=== PATIENT | male | born 1940 | race African-American/Black ===

== ENCOUNTER 2016-03-14 18:55 | Emergency (ER) | payer MEDICARE, OTHER ==
[~2016-03-14] VITALS: Ht 188 cm; Wt 94.8 kg
[~2016-03-14 18:55] MED LIST: AGGRENOX1 CAP ORAL; AMLODIPINE BES2.5 MG ORAL; ASPIRIN81 M1 ORAL; CARVEDILOL3.125 MG ORAL; CATAPRES0.1 MG ORAL; CATAPRES0.2 MG ORAL; COZAAR25 MG PO; COZAAR50 MG ORAL; DOXAZOSIN MESYLA4 MG ORAL; FUROSEMIDE20 M1 ORAL; HYDRALAZINE HCL25 M1 ORAL; HYTRIN1 MG PO; LOSARTAN POTAS100 MG ORAL; LOSARTAN POTASS50 MG ORAL; LOSARTAN-HCTZ1 EAC1 ORAL; METOPROLOL SUC100 MG ORAL; METOPROLOL SUCC25 MG ORAL; METOPROLOL SUCC50 MG ORAL; METOPROLOL TART25 MG ORAL; NORVASC10 MG PO; TOPROL XL25 MG ORAL; ZYLOPRIM300 MG ORAL
[2016-03-14 18:58] VITALS: BP 128/73
[2016-03-14] MEDS ORDERED: AMLODIPINE BES2.5 MG ORAL (18:58)
[2016-03-14 19:29] LABS: BASOPHILS % (AUTO) 1.1 % (0.0-2.0); EOSINOPHILS % (AUTO) 1.7 % (0.0-3.0); LYMPHOCYTES % (AUTO) 37.5 % (20.0-45.0); MEAN CORPUSCULAR HEMOGLOBIN 30.5 PG (27.0-31.0); MEAN CORPUSCULAR HGB CONC 31.8 G/DL (32.0-36.0); MEAN CORPUSCULAR VOLUME 96 FL (80-99); MONOCYTES % (AUTO) 7.9 % (1.0-10.0); NEUTROPHILS % (AUTO) 51.8 % (45.0-75.0); PLATELET COUNT 178 K/UL (150-450); RED BLOOD COUNT 4.66 M/UL (4.70-6.10); RED CELL DISTRIBUTION WIDTH 13.4 % (11.6-14.8); WHITE BLOOD COUNT 6.2 K/UL (4.8-10.8)
[2016-03-14 19:40] LABS: TROPONIN I < 0.30 ng/mL (<=0.30)
[2016-03-14 19:41] LABS: ALANINE AMINOTRANSFERASE 22 U/L (3-41); ALBUMIN/GLOBULIN RATIO 1.3 (1.0-2.7); ANION GAP 10 (5-15); ASPARTATE AMINO TRANSFERASE 28 U/L (5-40); CALCIUM 8.4 mg/dL (8.6-10.2); CARBON DIOXIDE 33 mEQ/L (20-30); CHLORIDE 97 mEQ/L (98-107); CREATININE 1.5 mg/dL (0.7-1.2); HEMOLYSIS 27; POTASSIUM 3.3 mEQ/L (3.4-4.9); SODIUM 140 mEQ/L (135-145)
[2016-03-14 19:51] LABS: CKMB 2.4 ng/mL (< 6.7)
--- NOTE | 2016-03-14 20:07 | Emergency Room Report ---
History of Present Illness General Chief Complaint: Syncope Source: Patient, Family Member Present Illness HPI This patient is accompanied by his family member. He presents after having a syncopal episode at a restaurant having dinner. He has had a syncopal episode while eating in the past. This lasted about 15 seconds. There was no injury or trauma. The patient has also had several other recurrent episodes of syncope. He has had a full workup and admitted to the hospital. His primary care physician Dr. Weiner and Dr. Herrera have both seen him for syncope. He feels back to baseline. He denies recent illness. He denies cough or congestion. He denies nausea or vomiting. He denies headache. He denies blurry vision. He has no other complaints. Allergies: Coded Allergies: No Known Allergies (Verified , 05/02/08) Patient History Past Medical History: see triage record, HTN, CVA/TIA Past Surgical History: pacemaker Social History: Denies: alcohol use, drug use, smoking Reviewed Nursing Documentation: PMH: Agreed, PSxH: Agreed Nursing Documentation-PMH Hx Cardiac Problems: Yes Hx Hypertension: Yes Hx Pacemaker: Yes - Left upper chest Hx Cancer: No Hx Gastrointestinal Problems: No Hx Neurological Problems: Yes - Brain Aneurysm Hx Cerebrovascular Accident: Yes - 2008 Hx Transient Ischemic Attacks: Yes Hx Seizures: No Hx Speech Problem: Yes - post CVA Hx Syncope: Yes Hx Weakness: Yes Hx Neurologic Surgery: No Review of Systems All Other Systems: negative except mentioned in HPI Physical Exam Vital Signs Date Time Temp Pulse Resp B/P Pulse Ox O2 Delivery O2 Flow Rate FiO2 03/14/16 18:53 97.3 62 18 111/68 96 Room Air Sp02 EP Interpretation: reviewed, normal General Appearance: no apparent distress, alert, GCS 15, non-toxic Head: normocephalic, atraumatic Eyes: bilateral eye PERRL, bilateral eye normal inspection ENT: hearing grossly normal, normal pharynx, no angioedema, normal voice Neck: full range of motion, supple/symm/no masses Respiratory: chest non-tender, lungs clear, normal breath sounds, speaking full sentences Cardiovascular #1: regular rate, rhythm, no edema Gastrointestinal: normal bowel sounds, non tender, soft, non-distended, no guarding, no rebound Rectal: deferred Genitourinary: normal inspection, no CVA tenderness Musculoskeletal: back normal, gait/station normal, normal range of motion, non- tender Neurologic: alert, oriented x3, responsive, motor strength/tone normal, sensory intact, speech normal Psychiatric: judgement/insight normal, memory normal, mood/affect normal, no suicidal/homicidal ideation Skin: normal color, no rash, warm/dry, well hydrated Medical Decision Making Diagnostic Impression: Primary Impression: Syncope Additional Impression: Azotemia ER Course I suspect the syncope that the patient is presenting with is a nonemergent in etiology. Regarding the history, the patient has no family history of sudden , has no shortness of breath, and the syncope is not exertional. On physical exam, the patient is not hypotensive, has no findings of CHF, and no significant cardiac murmur suggestive of valvular heart disease or cardiac outflow obstruction. The patient reports no history of seizure or head trauma. EKG showed no evidence of concerning findings of QT prolongation, Brugada syndrome or significant ST changes suggestive of acute ischemia, dysrhythmias or significant conduction abnormalities. On laboratory evaluation, blood sugar was normal and the patient is not anemic. The patient was counseled that, though unlikely, the possibility of an emergent cause of syncope may be present and that the patient should return immediately if symptoms persist or worsen. This patient has been further worked up in the past for syncopal episodes. BUN and creatinine were slightly above baseline for this patient. He was given a liter of normal saline. Educated the patient to increase fluid intake and eat higher and potassium fluids. He and his family member indicated understanding. I believe the patient is stable for discharge to followup with his PMD for further workup. Labs Test 03/14/16 19:05 White Blood Count 6.2 K/UL (4.8-10.8) Red Blood Count 4.66 M/UL (4.70-6.10) Hemoglobin 14.2 G/DL (14.2-18.0) Hematocrit 44.6 % (42.0-52.0) Mean Corpuscular Volume 96 FL (80-99) Mean Corpuscular Hemoglobin 30.5 PG (27.0-31.0) Mean Corpuscular Hemoglobin Concent 31.8 G/DL (32.0-36.0) Red Cell Distribution Width 13.4 % (11.6-14.8) Platelet Count 178 K/UL (150-450) Mean Platelet Volume 6.0 FL (6.5-10.1) Neutrophils (%) (Auto) 51.8 % (45.0-75.0) Lymphocytes (%) (Auto) 37.5 % (20.0-45.0) Monocytes (%) (Auto) 7.9 % (1.0-10.0) Eosinophils (%) (Auto) 1.7 % (0.0-3.0) Basophils (%) (Auto) 1.1 % (0.0-2.0) Sodium Level 140 mEQ/L (135-145) Potassium Level 3.3 mEQ/L (3.4-4.9) Chloride Level 97 mEQ/L (98-107) Carbon Dioxide Level 33 mEQ/L (20-30) Anion Gap 10 (5-15) Blood Urea Nitrogen 28 mg/dL (7-23) Creatinine 1.5 mg/dL (0.7-1.2) Estimat Glomerular Filtration Rate mL/min (>60) Glucose Level 138 mg/dL (74-106) Calcium Level 8.4 mg/dL (8.6-10.2) Total Bilirubin 0.5 mg/dL (0.0-1.2) Aspartate Amino Transf (AST/SGOT) 28 U/L (5-40) Alanine Aminotransferase (ALT/SGPT) 22 U/L (3-41) Alkaline Phosphatase 54 U/L (40-129) Total Creatine Kinase 112 U/L (38-174) Creatine Kinase MB 2.4 ng/mL (< 6.7) Creatine Kinase MB Relative Index 2.1 Troponin I < 0.30 ng/mL (<=0.30) Total Protein 6.0 g/dL (6.6-8.7) Albumin 3.4 g/dL (3.5-5.2) Globulin 2.6 g/dL Albumin/Globulin Ratio 1.3 (1.0-2.7) EKG Diagnostic Results Rate: normal Rhythm: NSR ST Segments: no acute changes Rhythm Strip Diag. Results EP Interpretation: yes Rate: 60 Rhythm: NSR, no PVC's, no ectopy Chest X-Ray Diagnostic Results EP Interpretation: Yes Findings: no consolidation, no effusion, no pneumothorax, no acute cardiopulmonary disease Number of Views: 1 Last Vital Signs Date Time Temp Pulse Resp B/P Pulse Ox O2 Delivery O2 Flow Rate FiO2 1/6/17 18:58 98.0 64 18 128/73 96 Room Air Status: improved Disposition: HOME, SELF-CARE Condition: Improved Patient Instructions: Syncope SEGUNDO NAJERA D.O. Mar 14, 2016 20:07
[2016-03-14 20:48] VITALS: BP 138/72
--- NOTE | 2016-03-16 10:29 | Diagnostic Imaging Report ---
Indication: Dyspnea Comparison: 11/13/15 A single view chest radiograph was obtained. Findings: Cardiomediastinal appearance is within normal limits for age. Pacemaker noted. Pulmonary vascularity is appropriate. The diaphragmatic contour is smooth and costophrenic angles are sharp. No pleural effusions are identified. The bones are unremarkable. Impression: No acute findings
--- NOTE | 2016-03-18 18:05 | Cardiology Report ---
APPROVED REPORT EKG Measurement Heart [id number] atrial pacing
== END 2016-03-14 20:48 | disposition home or self-care (01) ==
LOC: EDBD 18:55 → EMR 19:25
DX: R55 Syncope and collapse (principal); R79.89 Other specified abnormal findings of blood chemistry; I10 Essential (primary) hypertension; Z86.73 Personal history of transient ischemic attack (TIA), and cerebral infarction without residual deficits; Z95.0 Presence of cardiac pacemaker
CPT/HCPCS: 36415; 71010; 80053; 82550; 82553; 84484; 85025; 93005; 96374

== ENCOUNTER 2016-03-19 21:26 | Inpatient (IN) | payer MEDICARE, OTHER ==
[~2016-03-19] VITALS: Ht 188 cm; Wt 92.5 kg
--- NOTE | 2016-03-19 22:14 | Emergency Room Report ---
History of Present Illness General Chief Complaint: Syncope Source: Patient Present Illness HPI Patient presents to syncope. He was eating and allegedly choked on something and he passed out. Paramedics state OX3 and accucheck normal. Patient currently denies CP, palpitations, FRAUSTO, dizziness, problems swallowing, NVD, fever, abdominal pain, dysuria, extremity pain or trauma. He has L sided weakness from aneurism. He had a syncopal episodes X 5 since 2012. Most recently not admitted. Prior admission 2014 had these d/c diagnoses: 1. Syncope. 2. Dehydration. 3. Acute renal failure. 4. Hypertension. 5. Paroxysmal atrial fibrillation. 6. Bradycardia Allergies: Coded Allergies: No Known Allergies (Verified , 05/02/08) Patient History Past Medical History: see triage record Past Surgical History: pacemaker Social History: Denies: smoking Social History Narrative Reviewed Nursing Documentation: PMH: Agreed, PSxH: Agreed Nursing Documentation-PMH Past Medical History: No History, Except For Hx Cardiac Problems: Yes Hx Hypertension: Yes Hx Pacemaker: Yes - Left upper chest Hx Cancer: No Hx Gastrointestinal Problems: No Hx Neurological Problems: Yes - Brain Aneurysm Hx Cerebrovascular Accident: Yes - 2007 Hx Transient Ischemic Attacks: Yes Hx Seizures: No Hx Speech Problem: Yes - post CVA Hx Syncope: Yes Hx Weakness: Yes Hx Neurologic Surgery: No Review of Systems All Other Systems: negative except mentioned in HPI Physical Exam Vital Signs Date Time Temp Pulse Resp B/P Pulse Ox O2 Delivery O2 Flow Rate FiO2 03/19/16 21:24 97.7 60 14 146/82 98 Room Air Sp02 EP Interpretation: reviewed, normal General Appearance: well appearing, no apparent distress, GCS 15 Head: normocephalic Eyes: bilateral eye EOMI, bilateral eye PERRL, bilateral eye normal inspection ENT: moist mucus membranes Neck: supple Respiratory: lungs clear, normal breath sounds Cardiovascular #1: regular rate, rhythm Cardiovascular #2: 2+ radial (L), 2+ dorsalis pedis (R), 2+ dorsalis pedis (L) Gastrointestinal: normal inspection, normal bowel sounds, non tender, no mass, non-distended Musculoskeletal: back normal, normal range of motion Neurologic: alert, oriented x3, motor strength/tone normal - see below, DTRs symmetric, sensory intact, motor weakness - minimal LUE, other - somewhat halting speech, minimal ataxia Psychiatric: mood/affect normal Reflexes: 2+ knee (R), 2+ knee (L) Skin: normal inspection, warm/dry Medical Decision Making Diagnostic Impression: Primary Impression: Syncope Additional Impressions: Status post CVA Renal insufficiency ER Course Patient with syncopal episode. Ddx: arrhythmia, choking episode/swallowing pathology, CVA (less likely based on exam), AMI, dehydration, electrolyte abnormality amongst others. Emergent evaluation with labs, CT (will review old study), CXR, EKG. Patient will be on monitoring and evaluation advisor. Labs with some renal insufficiency. CT unchanged. CXR with pacer. Patient needs observation. Prior admit to Dr. Weiner. Admit telemetry. Swallow study suggested. Laboratory Tests Test 03/19/16 21:58 03/19/16 23:11 White Blood Count 7.0 K/UL (4.8-10.8) Red Blood Count 5.19 M/UL (4.70-6.10) Hemoglobin 15.6 G/DL (14.2-18.0) Hematocrit 48.9 % (42.0-52.0) Mean Corpuscular Volume 94 FL (80-99) Mean Corpuscular Hemoglobin 30.0 PG (27.0-31.0) Mean Corpuscular Hemoglobin Concent 31.9 G/DL (32.0-36.0) L Red Cell Distribution Width 13.2 % (11.6-14.8) Platelet Count 165 K/UL (150-450) Mean Platelet Volume 6.2 FL (6.5-10.1) L Neutrophils (%) (Auto) 66.7 % (45.0-75.0) Lymphocytes (%) (Auto) 26.1 % (20.0-45.0) Monocytes (%) (Auto) 4.1 % (1.0-10.0) Eosinophils (%) (Auto) 1.6 % (0.0-3.0) Basophils (%) (Auto) 1.5 % (0.0-2.0) Prothrombin Time 10.7 SEC (9.30-11.50) Prothrombin Time INR 1.1 (0.9-1.1) PTT 24 SEC (23-33) Sodium Level 139 mEQ/L (135-145) Potassium Level 4.3 mEQ/L (3.4-4.9) Chloride Level 96 mEQ/L (98-107) L Carbon Dioxide Level 31 mEQ/L (20-30) H Anion Gap 12 (5-15) Blood Urea Nitrogen 28 mg/dL (7-23) H Creatinine 1.5 mg/dL (0.7-1.2) H Estimate Glomerular Filtration Rate mL/min (>60) Glucose Level 160 mg/dL (74-106) H Calcium Level 9.4 mg/dL (8.6-10.2) Total Bilirubin 0.5 mg/dL (0.0-1.2) Aspartate Amino Transferase (AST) 38 U/L (5-40) Alanine Aminotransferase (ALT) 38 U/L (3-41) Alkaline Phosphatase 65 U/L (40-129) Total Creatine Kinase 114 U/L (38-174) Troponin I < 0.30 ng/mL (<=0.30) Pro-B-Type Natriuretic Peptide 246 pg/mL (0-450) Total Protein 7.3 g/dL (6.6-8.7) Albumin 4.3 g/dL (3.5-5.2) Globulin 3.0 g/dL Albumin/Globulin Ratio 1.4 (1.0-2.7) Urine Color Pale yellow Urine Appearance Clear Urine pH 7 (4.5-8.0) Urine Specific [place] 1.015 (1.005-1.035) Urine Protein Negative (NEGATIVE) Urine Glucose (UA) Negative (NEGATIVE) Urine Ketones Negative (NEGATIVE) Urine Occult Blood Negative (NEGATIVE) Urine Nitrite Negative (NEGATIVE) Urine Bilirubin Negative (NEGATIVE) Urine Urobilinogen Normal MG/DL (0.0-1.0) Urine Leukocyte Esterase Negative (NEGATIVE) EKG Diagnostic Results Rate: normal Rhythm: NSR ST Segments: no acute changes Rhythm Strip Diag. Results EP Interpretation: yes Rhythm: NSR, no PVC's, no ectopy Chest X-Ray Diagnostic Results EP Interpretation: Yes Findings: no consolidation, no effusion, no pneumothorax, no acute cardiopulmonary disease, other - pacer L Number of Views: 1 CT/MRI/US Diagnostic Results CT/MRI/US Diagnostic Results : Imaging Test Ordered: head Impression This study was 11/13/15 This was reviewed - prior encephalomalacia R frontal/ anterior parietal region. No blood, masses then. Last 24 Hour Vital Signs Date Time Temp Pulse Resp B/P Pulse Ox O2 Delivery O2 Flow Rate FiO2 03/20/16 09:40 146/91 03/20/16 09:39 60 146/91 03/20/16 08:04 97.0 60 18 146/91 99 Room Air 03/20/16 05:00 60 62 60 03/20/16 04:00 60 03/20/16 04:00 97.6 60 16 147/84 97 Room Air 03/20/16 02:00 98.1 61 20 151/89 98 Room Air 03/20/16 01:50 97.7 63 16 136/73 98 Room Air 03/20/16 01:48 63 19 136/73 98 Room Air 03/19/16 23:55 78 16 136/88 99 Room Air 03/19/16 23:50 67 18 146/80 99 Room Air 03/19/16 23:45 64 17 139/80 99 Room Air 03/19/16 23:15 97.7 65 15 148/79 99 Room Air 03/19/16 22:54 61 13 148/79 99 Room Air 03/19/16 21:24 97.7 60 14 146/82 98 Room Air Status: improved Disposition: ADMITTED INPATIENT Condition: Serious Parveen Ornelas M.D. Mar 19, 2016 22:14
[2016-03-19 22:19] LABS: BASOPHILS % (AUTO) 1.5 % (0.0-2.0); EOSINOPHILS % (AUTO) 1.6 % (0.0-3.0); LYMPHOCYTES % (AUTO) 26.1 % (20.0-45.0); MEAN CORPUSCULAR HGB CONC 31.9 G/DL (32.0-36.0); MEAN CORPUSCULAR VOLUME 94 FL (80-99); MEAN PLATELET VOLUME 6.2 FL (6.5-10.1); MONOCYTES % (AUTO) 4.1 % (1.0-10.0); NEUTROPHILS % (AUTO) 66.7 % (45.0-75.0); PLATELET COUNT 165 K/UL (150-450); RED BLOOD COUNT 5.19 M/UL (4.70-6.10); RED CELL DISTRIBUTION WIDTH 13.2 % (11.6-14.8)
[2016-03-19 22:23] LABS: INR 1.1 (0.9-1.1); PROTHROMBIN TIME 10.7 SEC (9.30-11.50)
[2016-03-19 22:40] LABS: TROPONIN I < 0.30 ng/mL (<=0.30)
[2016-03-19 22:41] LABS: ALANINE AMINOTRANSFERASE 38 U/L (3-41); ALBUMIN/GLOBULIN RATIO 1.4 (1.0-2.7); ANION GAP 12 (5-15); ASPARTATE AMINO TRANSFERASE 38 U/L (5-40); CALCIUM 9.4 mg/dL (8.6-10.2); CARBON DIOXIDE 31 mEQ/L (20-30); CHLORIDE 96 mEQ/L (98-107); CREATININE 1.5 mg/dL (0.7-1.2); HEMOLYSIS 17; POTASSIUM 4.3 mEQ/L (3.4-4.9); SODIUM 139 mEQ/L (135-145); TOTAL PROTEIN 7.3 g/dL (6.6-8.7)
[2016-03-19 22:54] VITALS: BP 148/79
[2016-03-19 23:15] VITALS: BP 148/79
[2016-03-19 23:36] LABS: APPEARANCE,URINE CLEAR; KETONES,URINE NEGATIVE (NEGATIVE); LEUKOCYTE ESTERASE ,URINE NEGATIVE (NEGATIVE); NITRITE,URINE NEGATIVE (NEGATIVE); PH,URINE 7 (4.5-8.0); PROTEIN,URINE NEGATIVE (NEGATIVE); UROBILINOGEN,URINE NORMAL MG/DL (0.0-1.0)
[2016-03-19 23:45] VITALS: BP 139/80
[2016-03-19 23:50] VITALS: BP 146/80
[2016-03-19 23:54] VITALS: BP 146/80
[2016-03-19 23:55] VITALS: BP 136/88
[2016-03-20] VITALS (7 sets, daily range): BP systolic 115–151; BP diastolic 68–91
[2016-03-20] MEDS ORDERED: PRIMIDONE50 MG PO (01:02)
[2016-03-20] MEDS ORDERED: LIPITOR80 MG ORAL (01:02)
[2016-03-20] MEDS ORDERED: AMLODIPINE BESYL5 MG ORAL (01:02)
[2016-03-20] MEDS ORDERED: LOSARTAN-HCTZ1 EAC1 ORAL (02:44)
--- NOTE | 2016-03-20 04:28 | Consultation ---
DATE OF CONSULTATION: 03/19/2016 CARDIOLOGY CONSULTATION REQUESTING PHYSICIAN: Ronald Herrera M.D. REASON: Syncope. HISTORY OF PRESENT ILLNESS: This is an male, age 75, who has a permanent pacemaker and a history of orthostatic hypotension. He has had recurring syncopal episodes in the past. The patient notes that he choked on something he was eating and then passed out. His states that he had difficulty clearing his throat for some time with a lot of coughing. The patient has been eating well and has not had any recent infections. PAST MEDICAL HISTORY: History of cerebrovascular disease with history of cerebrovascular accident due to aneurysm, hypertension with hypertensive heart disease, prostatic hypertrophy, orthostatic hypotension, permanent pacemaker, sinus node disease, chronic kidney disease. ALLERGIES: None. MEDICATIONS: Prior to admission, reviewed and reconciled. FAMILY HISTORY: Noncontributory. SOCIAL HISTORY: Negative for smoking, alcohol, or substance abuse. REVIEW OF SYSTEMS: No fevers or chills. No loss of vision. He is hard of hearing. He has had prior stroke due to aneurysm. He has associated aphasia, dysarthria, and left-sided weakness. He ambulates with a walker. He does have a history of malignant range hypertension and orthostatic hypotension. He had an echocardiogram in the last few months with normal ejection fraction, concentric hypertrophy, and no pulmonary hypertension noted. He has a permanent pacemaker. It was interrogated recently and functioning appropriately. There is no history of asthma. He is not on any anticoagulant. There is no change in bowel habits. He has not had any recent upper respiratory infection. He has not had any nausea, vomiting, or diarrhea. 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 PHYSICAL EXAMINATION: VITAL SIGNS: Afebrile, blood pressure 146/82, pulse 60, and respirations 14. HEENT: Conjunctivae are pink. Oropharynx clear. NECK: Supple. LUNGS: Clear. CARDIAC: Regular rhythm and rate. Normal S1 and S2 with no murmur. ABDOMEN: Soft. EXTREMITIES: No edema. Mild dysarthria and left-sided weakness. Carotid upstrokes without delay. LABORATORY AND DIAGNOSTIC DATA: White count 7 and hemoglobin 15.6. Sodium 139, potassium 4.3, bicarbonate 31, BUN 28, and creatinine 1.5. Urinalysis reveals no active sediment. EKG reveals atrial pacing, and chest x-ray with no acute process. Pro-natriuretic peptide 246. IMPRESSIONS: 1. Post-tussive syncope. 2. Dysphagia. 3. Mild hypovolemia and dehydration. 4. Acute on chronic kidney insufficiency. 5. Hypertensive heart disease with history of malignant range blood pressure. 6. Cerebrovascular disease with history of cerebrovascular accident. 7. Permanent pacemaker with appropriate function. 8. Chronic diastolic congestive heart failure. PLAN: 1. Cardiac monitoring. 2. Hydration. 3. Swallow evaluation. 4. Stepwise titration of antihypertensive. Parveen Weiner M.D. DR: ROME JOB#: [id number] CC:
[2016-03-20 08:15] LABS: BASOPHILS % (AUTO) 1.1 % (0.0-2.0); MEAN CORPUSCULAR HEMOGLOBIN 30.6 PG (27.0-31.0); MEAN CORPUSCULAR HGB CONC 32.8 G/DL (32.0-36.0); MEAN CORPUSCULAR VOLUME 93 FL (80-99); MEAN PLATELET VOLUME 8.2 FL (6.5-10.1); MONOCYTES % (AUTO) 8.4 % (1.0-10.0); NEUTROPHILS % (AUTO) 55.4 % (45.0-75.0); PLATELET COUNT 175 K/UL (150-450); RED BLOOD COUNT 4.58 M/UL (4.70-6.10); RED CELL DISTRIBUTION WIDTH 13.2 % (11.6-14.8); WHITE BLOOD COUNT 6.6 K/UL (4.8-10.8)
[2016-03-20 08:26] LABS: ALANINE AMINOTRANSFERASE 31 U/L (3-41); ALBUMIN/GLOBULIN RATIO 1.2 (1.0-2.7); ANION GAP 10 (5-15); ASPARTATE AMINO TRANSFERASE 31 U/L (5-40); CALCIUM 9.2 mg/dL (8.6-10.2); CARBON DIOXIDE 33 mEQ/L (20-30); CHLORIDE 100 mEQ/L (98-107); CREATININE 1.3 mg/dL (0.7-1.2); HEMOLYSIS 7; MAGNESIUM 2.1 mg/dL (1.7-2.5); POTASSIUM 3.8 mEQ/L (3.4-4.9); SODIUM 143 mEQ/L (135-145); TOTAL PROTEIN 6.2 g/dL (6.6-8.7)
[2016-03-20] MEDS: Aspirin EC 81mg tab ORAL SCH (09:00)
[2016-03-20] MEDS: Losartan 25mg tab ORAL SCH (09:40)
--- NOTE | 2016-03-20 17:07 | History and Physical Report ---
DATE OF ADMISSION: 03/19/2016 CHIEF COMPLAINT: Syncope. HISTORY OF PRESENT ILLNESS: The patient is a very pleasant 75-year-old male, well known to me. He has a prior history of stroke, hypertension, hypertensive heart disease, BPH. He has a history of orthostatic , conduction system disease status post pacemaker. He presented with a syncopal episode while eating. According to the patient, he was eating and began to choke on some rice and beans. His coughing lasted for several minutes and then he had a syncopal episode. The patient's called paramedics. When the paramedics arrived, the patient was arousable and back at his baseline. He denies any chest pain. No shortness of breath. Denies any fevers or chills. PAST MEDICAL HISTORY: As above. PAST SURGICAL HISTORY: Includes a pacemaker. CURRENT MEDICATIONS: Reconciled and reviewed. ALLERGIES: None. FAMILY HISTORY: None. SOCIAL HISTORY: Negative for tobacco, ethanol, or drugs. REVIEW OF SYSTEMS: General: No fevers or chills. Heent: No headaches or visual changes. Cardiopulmonary: No chest pain or shortness of breath. Gastrointestinal: No nausea or vomiting. The patient denies any dysphagia. Genitourinary: No urgency or frequency. Musculoskeletal: No joint pain or swelling. Neurologic: No history of seizures. Positive history of syncope. PHYSICAL EXAMINATION: GENERAL: The patient is no apparent distress. VITAL SIGNS: Temperature 97, blood pressure 146/91, pulse 62, respirations 18. HEART: Regular rate and rhythm. LUNGS: Clear. ABDOMEN: Soft, nontender, and nondistended. EXTREMITIES: Without clubbing, cyanosis, or edema. The patient has some dysarthria and mild left-sided weakness. LABORATORY AND DIAGNOSTIC DATA: White count 7, hemoglobin 15, hematocrit 48, platelets of 165,000. Coags are normal. Sodium was 139, potassium 4.3, BUN 28, and creatinine 1.5. Urine was clear. ASSESSMENT: 1. This is a pleasant male admitted with complaints of syncope suspect vasovagal secondary to patient's coughing. 2. Vasovagal syncope. 3. Cough. 4. Rule out dysphagia. 5. Mild dehydration and acute renal failure. 6. Prior history of stroke and hypertension. 7. History of conduction system disease status post pacemaker. PLAN: 1. Gentle hydration. 2. Monitor orthostatics. 3. PT/OT evaluation. 4. We will check a swallow evaluation. 5. Continue outpatient antihypertensive regimen. Ronald Herrera M.D. DR: Rico JOB#: [id number] CC:
--- NOTE | 2016-03-20 20:13 | Cardiology Report ---
APPROVED REPORT EKG Measurement Heart [id number] Normal sinus rhythm Anterior infarct, age undetermined Abnormal ECG
[2016-03-20] MEDS: Heparin 5000 units/ml inj SUBQ SCH (20:42)
[2016-03-21] VITALS: BP 139/84
[2016-03-21 04:00] VITALS: BP 146/88
--- NOTE | 2016-03-21 06:08 | Progress Note ---
DATE: 03/20/2016 CARDIOLOGY PROGRESS NOTE SUBJECTIVE: The patient has not had any new episodes of choking, swallow evaluation as noted. Recommendations for leak. OBJECTIVE: VITAL SIGNS: Blood pressure 117/70, pulse 61, and respirations 20. NECK: Supple. LUNGS: Clear. CARDIAC: Regular. Normal S1 and S2. ABDOMEN: Soft. EXTREMITIES: No edema. LABORATORY AND DIAGNOSTIC DATA: White count 6.6 and hemoglobin 14. Potassium 3.8, BUN 26, and creatinine 1.3. Albumin 3.4. IMPRESSION: 1. Post-tussive syncope. 2. Dysphagia. 3. Prior cerebrovascular accident. 4. Labile hypertension. 5. orthostatic hypertension. 6. Acute on chronic renal insufficiency due to hypovolemia and acute tubular necrosis. PLAN: 1. Additional hydration. 2. Aspiration precautions. 3. Titrate antihypertensive regimen to limit risk of orthostasis. Parveen Weiner M.D. DR: Fawn JOB#: [id number] CC:
[2016-03-21 08:00] VITALS: BP 149/94
[2016-03-21] MEDS: Losartan 25mg tab ORAL SCH (08:33)
[2016-03-21] MEDS: Aspirin EC 81mg tab ORAL SCH (08:33)
[2016-03-21] MEDS: Heparin 5000 units/ml inj SUBQ SCH ×2 (08:41→20:14)
[2016-03-21 12:11] VITALS: BP 142/87
--- NOTE | 2016-03-21 15:45 | Diagnostic Imaging Report ---
Indication: Dysphasia Procedure and findings: Real-time fluoroscopic imaging performed in a lateral projection in conjunction with the speech pathologist evaluation. Variable consistencies of barium given per mouth. Findings: Significant abnormalities of both oral and pharyngeal phases of swallowing are demonstrated. Total fluoroscopic time 263 seconds. Penetration was demonstrated on several sequences. No aspiration seen. Abnormal video swallow. Please refer to speech pathology evaluation for more information.
[2016-03-21 16:00] VITALS: BP 143/86
--- NOTE | 2016-03-21 16:36 | General Progress Note ---
Assessment/Plan Problem List: (1) Acute renal failure ICD Codes: N17.9 - Acute renal failure SNOMED: 84470710 (2) Syncope (3) Cardiac syncope ICD Codes: R55 - Syncope and collapse SNOMED: 021991288 (4) Orthostatic hypotension ICD Codes: I95.1 - Orthostatic hypotension SNOMED: 60349657 (5) Status post CVA ICD Codes: Z86.73 - Personal history of transient ischemic attack (TIA), and cerebral infarction without residual deficits SNOMED: 833807953 Status: stable, progressing Assessment/Plan ivf monitor bp and orthostatics pt/ot family requesting short term rehab stay dc planning tomorrow to [place] Subjective ROS Limited/Unobtainable: No Constitutional: Reports: malaise, weakness HEENT: Reports: no symptoms Cardiovascular: Reports: no symptoms Respiratory: Reports: no symptoms Gastrointestinal/Abdominal: Reports: no symptoms Genitourinary: Reports: no symptoms Neurologic/Psychiatric: Reports: pre-existing deficit Endocrine: Reports: no symptoms Hematologic/Lymphatic: Reports: no symptoms Allergies: Coded Allergies: No Known Allergies (Verified , 05/02/08) All Systems: reviewed and negative except above Subjective no syncope or dizziness. passed swallow eval. labs improving. no fever or chills. no cp Objective Last 24 Hour Vital Signs Date Time Temp Pulse Resp B/P Pulse Ox O2 Delivery O2 Flow Rate FiO2 03/21/16 12:11 97.3 60 20 142/87 98 Room Air 03/21/16 12:00 60 03/21/16 08:34 72 149/94 03/21/16 08:33 149/94 03/21/16 08:00 60 03/21/16 08:00 97.7 60 20 149/94 97 Room Air 03/21/16 06:50 61 64 77 03/21/16 04:04 60 03/21/16 04:00 97.2 66 18 146/88 98 Room Air 03/21/16 00:00 98.1 65 20 139/84 98 Room Air 03/20/16 23:56 64 03/20/16 20:00 98.1 61 20 117/70 99 Room Air 03/20/16 19:16 61 Intake and Output 03/20/16 03/21/16 19:00 07:00 Intake Total 270 ml 1560 ml Output Total 950 ml 1050 ml Balance -680 ml 510 ml Intake Oral 170 ml 260 ml IV Total 100 ml 1300 ml Output Urine Total 950 ml 1050 ml # Voids 3 2 Height (Feet): 6 Height (Inches): 2.00 Weight (Pounds): 204 General Appearance: WD/WN, alert Neck: supple Cardiovascular: regular rhythm Respiratory/Chest: lungs clear Abdomen: normal bowel sounds, non tender, soft, no organomegaly Edema: no edema noted Arm (L), no edema noted Arm (R), no edema noted Leg (L), no edema noted Leg (R), no edema noted Pedal (L), no edema noted Pedal (R), no edema noted Generalized Neurologic: alert, oriented x 3, responsive Skin: normal pigmentation Lymphatic: normal anterior cervical (L), normal anterior cervical (R), normal axillary (L), normal axillary (R), normal inguinal (L), normal inguinal (R), normal other, normal posterior cervical (L), normal posterior cervical (R), normal submandibular (L), normal submandibular (R), normal supraclavicular (L), normal supraclavicular (R) BERNADINE HEWITT Mar 21, 2016 16:36
[2016-03-21 20:00] VITALS: BP 143/91
[2016-03-22] VITALS: BP 142/88
[2016-03-22 04:00] VITALS: BP 141/84
--- NOTE | 2016-03-22 05:07 | Progress Note ---
DATE: 03/21/2016 CARDIOLOGY PROGRESS NOTE SUBJECTIVE: The patient has not had any dizziness, coughing, or loss of consciousness. Swallow evaluation was noted. Recommendations implemented. The patient's family voices concern that the patient needs more speech therapy and rehabilitation prior to returning home. He is being referred for a [facility] facility following therapy assessment. OBJECTIVE: VITAL SIGNS: The patient is clinically not orthostatic. Blood pressure is 142/87, pulse 60, respiratory rate 20, and afebrile. Monitored rhythm is paced. NECK: Supple. LUNGS: Clear. CARDIAC: Regular rhythm and rate. Normal S1 and S2 with no with no murmur. ABDOMEN: Soft. EXTREMITIES: No edema. NEUROLOGIC: Reveals dysarthria, wide-based gait. IMPRESSION: 1. Posttussive syncope. 2. History of orthostatic hypotension. 3. Hypertensive heart disease with history of malignant range blood pressure. 4. Permanent pacemaker. 5. Cerebrovascular disease with history of cerebrovascular accident due to aneurysm. 6. Dysphagia. PLAN: 1. Avoid tighter blood pressure control. 2. PT, OT, ST evaluations and therapy. 3. Orthostatic precautions. 4. Antiplatelet therapy. 5. Dysphagia diet. Parveen Weiner M.D. DR: ROME JOB#: [id number] CC:
[2016-03-22 07:48] VITALS: BP 160/98
--- NOTE | 2016-03-22 08:30 | Diagnostic Imaging Report ---
Indications: Chest pain, syncope Technique: Portable AP chest Findings: Comparison: 03/14/16 Inspiratory effort remains suboptimal. Linear densities persist in both lung bases. Cardiac silhouette partially obscured. Cardiac mediastinal silhouette remains otherwise unchanged. Left chest wall pacemaker, upper abdominal gaseous bowel distention again noted. IMPRESSION: No evidence of acute disease, unchanged Stable chronic changes as described
[2016-03-22] MEDS: Losartan 25mg tab ORAL SCH (09:16)
[2016-03-22] MEDS: Aspirin EC 81mg tab ORAL SCH (09:16)
[2016-03-22] MEDS: Heparin 5000 units/ml inj SUBQ SCH (09:17)
[2016-03-22 11:49] VITALS: BP 149/94
--- NOTE | 2016-03-23 19:48 | Progress Note ---
DATE: 03/22/2016 CARDIOLOGY PROGRESS NOTE SUBJECTIVE: The patient has no nausea or vomiting. No dizziness. He does not have any coughing with oral intake, but only one he is supervised. OBJECTIVE: VITAL SIGNS: Blood pressure of 160/98 earlier, now 149/94, heart rate 60, and respiratory rate 20. NECK: Supple. LUNGS: Clear. CARDIAC: Regular. Normal S1, S2. ABDOMEN: Soft. No edema. IMPRESSION: 1. Post-tussive syncope. 2. Dysphagia. 3. Hypertensive cardiomyopathy. 4. Accelerated hypertension. 5. History of orthostatic hypotension. 6. Sinus node disease with permanent pacemaker. PLAN: 1. Avoid tighter blood pressure control for now. 2. Monitor orthostatics. 3. Titrate blood pressure regimen at the longterm facility. 4. Maintain adequate hydration. 5. Aspiration precautions. 6. Stable for transfer to longterm facility. Parveen Weiner M.D. DR: ROME JOB#: [id number] CC:
--- NOTE | 2016-03-23 21:48 | Discharge Summary ---
DATE OF ADMISSION: 03/19/2016 DATE OF DISCHARGE: 03/22/2016 ADMISSION DIAGNOSES: 1. Syncope. 2. Dehydration. 3. Orthostatic hypotension. 4. History of stroke. 5. History of conduction system disease, status post pacemaker. HISTORY OF PRESENT ILLNESS AND HOSPITAL COURSE: The patient is a very pleasant male, well known to me, presented with complaints of syncopal episode after choking episode. On evaluation in the emergency room, the patient was dehydrated with an elevated BUN and creatinine. He had mild acute renal failure. He was admitted and ruled out for myocardial infarction with serial enzymes and EKGs. He was hydrated. Orthostatics were negative. On discharge, the patient was stable. Family requested he go to a prison facility for short-term rehabilitation. The patient will be discharged to [place] . DISCHARGE MEDICATIONS: Please see discharge medication list for discharge medications. DIET: Cardiac diet. ACTIVITY: Ad-betty. FOLLOWUP: The patient will follow up in one to two days in the prison facility. Ronald Herrera M.D. DR: RICO JOB#: [id number] CC:
== END 2016-03-22 14:20 | DRG 312 ==
LOC: EDBD 21:26 → EMR 21:55 → 2E 22:33 → EDBEDREQ 03-20 01:05
DX: I95.1 Orthostatic hypotension (principal); N17.9 Acute kidney failure, unspecified; I13.0 Hypertensive heart and chronic kidney disease with heart failure and stage 1 through stage 4 chronic kidney disease, or unspecified chronic kidney disease; I50.32 Chronic diastolic (congestive) heart failure; E86.0 Dehydration; R13.10 Dysphagia, unspecified; N18.9 Chronic kidney disease, unspecified; Z95.0 Presence of cardiac pacemaker; E86.1 Hypovolemia; N40.0 Benign prostatic hyperplasia without lower urinary tract symptoms; Z86.73 Personal history of transient ischemic attack (TIA), and cerebral infarction without residual deficits; I49.8 Other specified cardiac arrhythmias; R05 Cough
CPT/HCPCS: 36415; 71010; 74230; 80053; 81003; 82550; 83735; 83880; 84484; 85025; 85610; 85730; 93005

== ENCOUNTER 2017-05-15 10:00 | Outpatient (RCR) | payer MEDICARE, OTHER ==
[~2017-05-15 10:00] MED LIST changes: +AMLODIPINE BESYL5 MG ORAL; +LIPITOR80 MG ORAL; +PRIMIDONE50 MG PO
== END 2017-06-06 | disposition home or self-care (01) ==
LOC: PTY 10:00
DX: I69.898 Other sequelae of other cerebrovascular disease (principal)
CPT/HCPCS: 97110; 97162; G8978; G8979

== ENCOUNTER 2017-06-12 10:50 | Outpatient (RCR) | payer MEDICARE, OTHER | END 2017-07-06 | disposition home or self-care (01) | LOC: PTY 10:50 | DX: I69.898 Other sequelae of other cerebrovascular disease (principal); R25.1 Tremor, unspecified ==

== ENCOUNTER 2017-07-09 10:57 | Outpatient (RCR) | payer MEDICARE, OTHER | END 2017-08-06 | disposition home or self-care (01) | LOC: PTY 10:57 | DX: I69.898 Other sequelae of other cerebrovascular disease (principal) | CPT/HCPCS: 97110; G8979; G8980 ==

== ENCOUNTER 2018-01-09 12:58 | Inpatient (IN) | payer MEDICARE, OTHER ==
[2018-01-09] VITALS (7 sets, daily range): BP systolic 117–137; BP diastolic 67–83
[~2018-01-09] VITALS: Ht 190.5 cm; Wt 75.3 kg
[2018-01-09] MEDS ORDERED: VITAMIN C250 MG ORAL (13:13)
[2018-01-09] MEDS ORDERED: TAMSULOSIN HCL0.4 MG ORAL (13:15)
[2018-01-09] MEDS ORDERED: VITAMIN D400 INTLU ORAL (13:15)
[2018-01-09] MEDS ORDERED: HYDRALAZINE HCL50 MG ORAL (13:15)
[2018-01-09 13:30] LABS: BASOPHILS % (AUTO) 0.9 % (0.0-2.0); EOSINOPHILS % (AUTO) 2.1 % (0.0-3.0); HEMATOCRIT 47.7 % (42.0-52.0); HEMOGLOBIN 15.4 G/DL (14.2-18.0); LYMPHOCYTES % (AUTO) 27.8 % (20.0-45.0); MEAN CORPUSCULAR VOLUME 91 FL (80-99); MONOCYTES % (AUTO) 8.4 % (1.0-10.0); NEUTROPHILS % (AUTO) 60.8 % (45.0-75.0); PLATELET COUNT 192 K/UL (150-450); RED BLOOD COUNT 5.25 M/UL (4.70-6.10); RED CELL DISTRIBUTION WIDTH 12.7 % (11.6-14.8); WHITE BLOOD COUNT 5.2 K/UL (4.8-10.8)
--- NOTE | 2018-01-09 13:33 | Emergency Room Report ---
History of Present Illness General Chief Complaint: Syncope Source: Patient Present Illness HPI 77-year-old male presents to the emergency department brought by ambulance for syncopal episode. This was a witnessed event his was with him and states that he was unresponsive for approximately 3-5 minutes and did have some regular gasping breaths. Patient has a history of CVA with left-sided weakness , paroxysmal a-fib, high blood pressure and previous episodes of syncope in the past. who witnessed the event also states that the patient became very diaphoretic and white face prior to loss of consciousness. states that the patient was with physical therapist and was walking when he began to drag his feet and was acting week so they placed him in a chair and wheeled him back to the house. Patient loss consciousness shortly after. Patient denies chest pain palpitations, dizziness, headache, nausea or vomiting. states that the patient recently was placed on hydrochlorothiazide approximately 3 months ago otherwise no changes in medications. Denies actual trauma or fall. Denies seizure activity or history of seizures. Allergies: Coded Allergies: No Known Allergies (Verified , 05/02/08) Patient History Past Medical History: see triage record, HTN, AFib, CVA/TIA, other - left sided deficit. Has pacemaker Past Surgical History: none Pertinent Family History: unable to obtain Reviewed Nursing Documentation: PMH: Agreed; PSxH: Agreed Nursing Documentation-PMH Hx Cardiac Problems: Yes Hx Hypertension: Yes Hx Pacemaker: Yes Hx Cancer: No Hx Gastrointestinal Problems: No Hx Dialysis: Yes - Renal Failure Hx Neurological Problems: Yes Hx Cerebrovascular Accident: Yes - R sided weakness Hx Transient Ischemic Attacks: Yes Hx Seizures: No Hx Speech Problem: Yes - post CVA Hx Syncope: Yes Hx Weakness: Yes Hx Neurologic Surgery: No Review of Systems All Other Systems: negative except mentioned in HPI Physical Exam Vital Signs Date Time Temp Pulse Resp B/P (MAP) Pulse Ox O2 Delivery O2 Flow Rate FiO2 01/09/18 12:54 97.5 62 20 100/62 95 Room Air Sp02 EP Interpretation: reviewed, normal General Appearance: no apparent distress, alert, GCS 15, non-toxic Head: normocephalic, atraumatic Eyes: bilateral eye normal inspection, bilateral eye PERRL ENT: hearing grossly normal, normal voice Neck: full range of motion, no bony tend Respiratory: chest non-tender, lungs clear, normal breath sounds, no accessory muscle use, no wheezing, speaking full sentences Cardiovascular #1: regular rate, rhythm, normal capillary refill, edema - 2+ non pitting edema bilaterally Gastrointestinal: normal bowel sounds, non tender, soft Musculoskeletal: back normal, normal range of motion, non-tender Neurologic: alert, oriented x3, responsive, sensory intact, other - moderate left sided weakness, able to perform some gross motor movements, mild left hand contracture. No facial droop. pt. has dysarthria which is residual as well per ., grossly normal Psychiatric: judgement/insight normal, mood/affect normal Skin: normal color, no rash, warm/dry, well hydrated Lymphatic: no adenopathy Medical Decision Making PA Attestation Dr. Ott is my supervising Physician whom patient management has been discussed with. Diagnostic Impression: Primary Impression: Syncope Additional Impression: Acute renal failure Qualified Codes: N17.9 - Acute kidney failure, unspecified ER Course 77-year-old male presents to the emergency department brought by ambulance for syncopal episode. This was a witnessed event his was with him and states that he was unresponsive for approximately 3-5 minutes and did have some regular gasping breaths. Patient has a history of CVA with left-sided weakness , paroxysmal a-fib,has been bradycardic in the past and has pacemaker. Pt. also has hx of high blood pressure and previous episodes of syncope in the past. who witnessed the event also states that the patient became very diaphoretic and white face prior to loss of consciousness. states that the patient was with physical therapist and was walking when he began to drag his feet and was acting week so they placed him in a chair and wheeled him back to the house. Patient loss consciousness shortly after. Patient denies chest pain palpitations, dizziness, headache, nausea or vomiting. states that the patient recently was placed on hydrochlorothiazide approximately 3 months ago otherwise no changes in medications. Denies actual trauma or fall. Denies seizure activity or history of seizures. Ddx considered but are not limited to dysrhythmia, Medication SE, hypoglycemia , hypovolemia, , intracranial process, vasovagal. Vital signs: are WNL, pt. is afebrile H&PE are most consistent with syncopal episode -pt. with essential tremor, moderate left sided weakness. ORDERS: -Accu Check: -12-lead EK SNR with tremor. -CBC, CMP: only remarkable for STEPHEN Cr of 1.4 electrolytes ok. -Troponin: WNL -CK: WNL -UA: Unremarkable -CXR: RLL linear atelectasis otherwise WNL per radiology -Orthostatic VS inaccurate b/c they were taken after fluids, however, HR increased by 9bpm. ED INTERVENTIONS: -1000 mL normal saline bolus IV DISCHARGE: At this time pt. is stable for d/c to home. Will provide printed patient care instructions, and any necessary prescriptions. Care plan and follow up instructions have been discussed with the patient prior to discharge. Labs Test 01/09/18 13:07 White Blood Count 5.2 K/UL (4.8-10.8) Red Blood Count 5.25 M/UL (4.70-6.10) Hemoglobin 15.4 G/DL (14.2-18.0) Hematocrit 47.7 % (42.0-52.0) Mean Corpuscular Volume 91 FL (80-99) Mean Corpuscular Hemoglobin 29.3 PG (27.0-31.0) Mean Corpuscular Hemoglobin Concent 32.3 G/DL (32.0-36.0) Red Cell Distribution Width 12.7 % (11.6-14.8) Platelet Count 192 K/UL (150-450) Mean Platelet Volume 6.9 FL (6.5-10.1) Neutrophils (%) (Auto) 60.8 % (45.0-75.0) Lymphocytes (%) (Auto) 27.8 % (20.0-45.0) Monocytes (%) (Auto) 8.4 % (1.0-10.0) Eosinophils (%) (Auto) 2.1 % (0.0-3.0) Basophils (%) (Auto) 0.9 % (0.0-2.0) Sodium Level 138 MMOL/L (136-145) Potassium Level 4.0 MMOL/L (3.5-5.1) Chloride Level 103 MMOL/L (98-107) Carbon Dioxide Level 31 MMOL/L (21-32) Anion Gap 5 mmol/L (5-15) Blood Urea Nitrogen 24 mg/dL (7-18) Creatinine 1.4 MG/DL (0.55-1.30) Estimat Glomerular Filtration Rate mL/min (>60) Glucose Level 124 MG/DL (74-106) Calcium Level 8.8 MG/DL (8.5-10.1) Total Bilirubin 0.7 MG/DL (0.2-1.0) Aspartate Amino Transf (AST/SGOT) 28 U/L (15-37) Alanine Aminotransferase (ALT/SGPT) 15 U/L (12-78) Alkaline Phosphatase 76 U/L (46-116) Total Creatine Kinase 173 U/L (26-308) Troponin I 0.011 ng/mL (0.000-0.056) Total Protein 7.1 G/DL (6.4-8.2) Albumin 3.4 G/DL (3.4-5.0) Globulin 3.7 g/dL Albumin/Globulin Ratio 0.9 (1.0-2.7) EKG Diagnostic Results Rate: normal - 60 BPM Rhythm: NSR ST Segments: no acute changes ASA given to the pt in ED: No PA Scribe Text This Interpretation was scribed by YAYO Solis. Chest X-Ray Diagnostic Results Chest X-Ray Diagnostic Results : Chest X-Ray Ordered: Yes # of Views/Limited/Complete: 1 View Indication: Chest Pain EP Interpretation: Yes PA Xray: Interpretation reviewed, by supervising MD, and agrees with findings. Interpretation: no consolidation, no effusion, no pneumothorax, no acute cardiopulmonary disease, other - small linear atelectasis in RLL Impression: No acute disease Electronically Signed by: Madeline Solis PA-C Last Vital Signs Date Time Temp Pulse Resp B/P (MAP) Pulse Ox O2 Delivery O2 Flow Rate FiO2 01/09/18 12:54 97.5 62 20 100/62 95 Room Air Disposition: ADMITTED INPATIENT Condition: Serious Madeline Solis Jan 09, 2018 13:33
[2018-01-09 13:43] LABS: ANION GAP 5 mmol/L (5-15); BLOOD UREA NITROGEN 24 mg/dL (7-18); CALCIUM 8.8 MG/DL (8.5-10.1); CARBON DIOXIDE 31 MMOL/L (21-32); CHLORIDE 103 MMOL/L (98-107); CREATININE 1.4 MG/DL (0.55-1.30); SODIUM 138 MMOL/L (136-145)
[2018-01-09 13:47] LABS: ALANINE AMINOTRANSFERASE 15 U/L (12-78); ALBUMIN 3.4 G/DL (3.4-5.0); ALBUMIN/GLOBULIN RATIO 0.9 (1.0-2.7); ALKALINE PHOSPHATASE 76 U/L (46-116); ASPARTATE AMINO TRANSFERASE 28 U/L (15-37); BILIRUBIN,TOTAL 0.7 MG/DL (0.2-1.0); CREATINE KINASE 173 U/L (26-308)
--- NOTE | 2018-01-09 13:59 | Diagnostic Imaging Report ---
EXAM: XR Chest, 1 View CLINICAL HISTORY: SYNCOPE TECHNIQUE: Frontal view of the chest. COMPARISON: Chest x-ray dated 03/19/16 FINDINGS: Lungs: Linear atelectasis in the right lung base. The lungs are otherwise clear. Pleural space: Unremarkable. The costophrenic angles are sharp. No visible pneumothorax. Heart: Unremarkable. No cardiomegaly. Mediastinum: Unremarkable. Bones/joints: Unremarkable. Tubes, lines and devices: EKG leads overlie the thorax. Stable positioning of a cardiac pacer with lead tips in the right atrium and right ventricle regions. IMPRESSION: Linear atelectasis in the right lung base.
[2018-01-09 14:28] LABS: APPEARANCE,URINE CLEAR; BILIRUBIN, URINE NEGATIVE (NEGATIVE); GLUCOSE, URINE (UA) NEGATIVE (NEGATIVE); KETONES,URINE NEGATIVE (NEGATIVE); LEUKOCYTE ESTERASE ,URINE NEGATIVE (NEGATIVE); NITRITE,URINE NEGATIVE (NEGATIVE); PH,URINE 8 (4.5-8.0); PROTEIN,URINE NEGATIVE (NEGATIVE); UROBILINOGEN,URINE 1 MG/DL (0.0-1.0)
[2018-01-09 14:29] LABS: COLOR,URINE YELLOW
[2018-01-09] MEDS: D5NS 1,000 ML IV SCH (18:39)
[2018-01-09] MEDS ORDERED: Vitamin D 50,000 units cap ORAL SCH (21:00)
[2018-01-09] MEDS: Heparin 5000 units/ml inj SUBQ SCH (21:39)
[2018-01-09] MEDS: HydrALAZINE 50mg tab ORAL SCH (21:43)
[2018-01-09] MEDS: Tamsulosin 0.4mg cap ORAL SCH (21:43)
[2018-01-10] VITALS: BP 116/66
[2018-01-10 04:00] VITALS: BP 116/64
[2018-01-10] MEDS: D5NS 1,000 ML IV SCH ×2 (06:21→18:01)
[2018-01-10] MEDS: HydrALAZINE 50mg tab ORAL SCH ×3 (06:21→21:35)
[2018-01-10 08:00] VITALS: BP 127/44
[2018-01-10] MEDS: Metoprolol Succinate XL 100mg tab ORAL SCH (08:15)
[2018-01-10] MEDS: Heparin 5000 units/ml inj SUBQ SCH ×2 (08:21→20:40)
[2018-01-10 12:00] VITALS: BP 116/67
--- NOTE | 2018-01-10 13:45 | History and Physical Report ---
DATE OF ADMISSION: 01/09/2018 CHIEF COMPLAINT: Syncope. HISTORY OF PRESENT ILLNESS: The patient is a pleasant 77-year-old male. He has a history of stroke, hypertension, conduction system disease, status post pacemaker, gout, hypertensive heart disease, who was admitted with complaints of a syncopal episode. He was apparently ambulating with the home health physical therapist when he became diaphoretic and pale. He had a syncopal episode lasted several minutes. There are no reports of any seizure activity. No incontinence. He was brought to the emergency room. On evaluation there, vital signs were stable. His white count was normal. The BUN and creatinine were slightly elevated. Troponin was negative. Because of the syncopal episode, he is now admitted for further evaluation and care. PAST MEDICAL HISTORY: As above. PAST SURGICAL HISTORY: Includes pacemaker. CURRENT MEDICATIONS: Reconciled and reviewed. ALLERGIES: None. FAMILY HISTORY: None. SOCIAL HISTORY: Negative for tobacco, ethanol, or drugs. REVIEW OF SYSTEMS: GENERAL: No fevers or chills. HEENT: No headaches or visual changes. CARDIOPULMONARY: No chest pain or shortness of breath. GASTROINTESTINAL: No nausea or vomiting. GENITOURINARY: No urgency or frequency. MUSCULOSKELETAL: No joint pain or swelling. NEUROLOGIC: No evidence of seizures. PHYSICAL EXAMINATION: VITAL SIGNS: Temperature 98, pulse 60, respirations 20, and blood pressure 116/64. GENERAL: The patient is a well-developed male, in no apparent distress. HEART: Regular rate and rhythm. LUNGS: Clear. ABDOMEN: Soft, nontender, and nondistended. EXTREMITIES: Without clubbing, cyanosis, or edema. NEUROLOGIC: Significant for left-sided weakness, which is chronic. LABORATORY DATA: UA clear. Sodium 138, BUN 24, and creatinine 1.4. Troponin is 0.011. EKG showed a paced rhythm. ASSESSMENT: This is a pleasant male, admitted with complaints of syncope. PROBLEMS: 1. Syncope. 2. Azotemia and dehydration. 3. History of stroke. 4. Hypertensive heart disease. 5. Conduction system disease, status post pacemaker. PLAN: Gentle hydration. Monitor orthostatics. Cardiology consultation. Check a carotid duplex. Repeat troponin in the morning. PT and OT evaluations. Check pacemaker. Ronald Herrera M.D. DR: ROBSON JOB#: [id number] CC:
[2018-01-10 16:00] VITALS: BP 126/75
[2018-01-10 20:00] VITALS: BP 124/74
[2018-01-10] MEDS: Tamsulosin 0.4mg cap ORAL SCH (20:39)
[2018-01-11] VITALS: BP 115/68
[2018-01-11 04:00] VITALS: BP 130/70
[2018-01-11] MEDS: HydrALAZINE 50mg tab ORAL SCH ×3 (05:49→20:56)
--- NOTE | 2018-01-11 07:15 | Consultation ---
DATE OF CONSULTATION: 01/10/2018 CONSULTING PHYSICIAN: Parveen Weiner M.D. REFERRING PHYSICIAN: Ronald Herrera M.D. REASON FOR CONSULTATION: Syncope in the setting of permanent pacemaker. HISTORY OF PRESENT ILLNESS: This is a 77-year-old male with a known history of hypertensive heart disease, conduction system disease, and permanent pacemaker who has a longstanding history of orthostatic hypotension. He was ambulating with the physical therapist at home yesterday when he became pale and diaphoretic and had a syncopal episode that lasted several minutes. There was no witnessed seizure activity or incontinence. He was brought to the emergency room by paramedics. He was awake, alert, and at his baseline mentation with stable vital signs upon their arrival. The patient has a permanent pacemaker. It was interrogated in August of this year and noted to have an adequate battery life with an appropriate pacing and sensing function. PAST MEDICAL HISTORY: Notable for cerebrovascular disease with history of aneurysm and stroke over 10 years ago and residual dysarthria, hypertensive heart disease, conduction system disease, permanent pacemaker, hyperuricemia, history of gout, labile hypertension, prostatic hypertrophy, history of orthostatic hypotension. 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 ALLERGIES: None. FAMILY HISTORY: Noncontributory. SOCIAL HISTORY: Negative for smoking, alcohol, or substance abuse. He lives at home with his . MEDICATIONS: Prior to admission, reviewed and reconciled. REVIEW OF SYSTEMS: There is no history of flow-limiting coronary artery disease or exertional chest pain. There is no history of seizures. No history of diabetes or thyroid disorder. He has been on antilipid drugs in the past. He has no difficulty voiding. There is no history of asthma or blood clotting. PHYSICAL EXAMINATION: VITAL SIGNS: Afebrile, blood pressure 124/74, pulse 63, respirations 21, and oxygen saturation on room air 98%. On initial arrival in the emergency room, his blood pressure was 100/62. HEENT: Conjunctivae pink. Oropharynx clear. NECK: Supple. No bruits. Jugular venous pressure normal. LUNGS: Clear. CARDIAC: Regular rhythm and rate. Normal S1, S2 with a 1/6 systolic murmur at the lower left sternal border. ABDOMEN: Soft and nontender. EXTREMITIES: Good pulses. No edema. NEUROLOGIC: With mild aphasia and unsteady gait. He is at his baseline mentation. LABORATORY AND DIAGNOSTIC DATA: The EKG reveals atrial pacing with no abnormalities. White count 5 and hemoglobin 15. Sodium 138, potassium 4, bicarbonate 31, BUN 24, creatinine 1.4, and glucose 124. Troponin negative x2. Albumin is 3.4. Chest x-ray with no acute process. IMPRESSION: Syncopal episode, likely vasovagally mediated and likely due to orthostasis based on available data and historical knowledge of this patient. Renal function further contributes to this diagnosis. The possibility of a pacemaker malfunction is highly unlikely, but will be addressed and there is no evidence to suggest any acute neurological event or malignant arrhythmia occurred. Recommend cardiac monitoring. IV fluid hydration. Monitor orthostatics. Pacemaker interrogation to follow. Hold antihypertensives for now. Check thyroid panel. Parveen Weiner M.D. DR: SARA JOB#: [id number] CC:
[2018-01-11 08:00] VITALS: BP 124/73
--- NOTE | 2018-01-11 08:25 | General Progress Note ---
Assessment/Plan Problem List: (1) Orthostatic syncope ICD Codes: R55 - Orthostatic syncope SNOMED: 984751496 (2) Syncope ICD Codes: R55 - Syncope SNOMED: 328647925 (3) Status post CVA ICD Codes: Z86.73 - Personal history of transient ischemic attack (TIA), and cerebral infarction without residual deficits SNOMED: 836131476 (4) Acute renal failure ICD Codes: N17.9 - Acute renal failure SNOMED: 98720390 Qualifiers: Qualified Codes: N17.9 - Acute kidney failure, unspecified Status: stable Assessment/Plan cont monitor antiplt pacer check pt/ot ivf Subjective ROS Limited/Unobtainable: No Constitutional: Reports: malaise, weakness HEENT: Reports: no symptoms Cardiovascular: Reports: no symptoms Respiratory: Reports: no symptoms Gastrointestinal/Abdominal: Reports: no symptoms Genitourinary: Reports: no symptoms Neurologic/Psychiatric: Reports: pre-existing deficit Endocrine: Reports: no symptoms Hematologic/Lymphatic: Reports: no symptoms Allergies: Coded Allergies: No Known Allergies (Verified , 05/02/08) All Systems: reviewed and negative except above Subjective no new complaints. no dizziness. a-paced on monitor. no overnite arrhythmias Objective Last 24 Hour Vital Signs Date Time Temp Pulse Resp B/P (MAP) Pulse Ox O2 Delivery O2 Flow Rate FiO2 01/11/18 05:49 130/70 01/11/18 04:00 98.0 89 20 130/70 (90) 98 01/11/18 04:00 60 01/11/18 00:00 62 01/11/18 00:00 98.2 85 20 115/68 (84) 99 01/10/18 22:00 64 01/10/18 21:35 124/74 01/10/18 21:00 Room Air 01/10/18 20:00 98.8 63 21 124/74 (91) 97 01/10/18 16:00 62 01/10/18 16:00 97.1 64 18 126/75 (92) 100 01/10/18 14:27 124/76 01/10/18 12:00 60 01/10/18 12:00 97.5 60 18 116/67 (83) 98 01/10/18 09:00 63 70 79 01/10/18 09:00 Room Air Intake and Output 01/10/18 01/11/18 19:00 07:00 Intake Total 1425 ml Output Total 1300 ml Balance 125 ml Intake Oral 600 ml IV Total 825 ml Output Urine Total 1300 ml Height (Feet): 6 Height (Inches): 3.00 Weight (Pounds): 190 General Appearance: WD/WN, alert Neck: normal alignment, supple, normal inspection Cardiovascular: normal peripheral pulses, normal rate, regular rhythm Respiratory/Chest: lungs clear Abdomen: normal bowel sounds, non tender, soft, no organomegaly Neurologic: 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
[2018-01-11] MEDS: D5NS 1,000 ML IV SCH (08:59)
[2018-01-11] MEDS: Metoprolol Succinate XL 100mg tab ORAL SCH (09:00)
[2018-01-11] MEDS: Heparin 5000 units/ml inj SUBQ SCH ×2 (09:07→20:57)
[2018-01-11 12:00] VITALS: BP 139/74
[2018-01-11 16:00] VITALS: BP 129/74
[2018-01-11 20:00] VITALS: BP 132/76
[2018-01-11] MEDS: Tamsulosin 0.4mg cap ORAL SCH (20:56)
[2018-01-12] VITALS: BP 114/58
[2018-01-12 04:00] VITALS: BP 115/64
[2018-01-12] MEDS: HydrALAZINE 50mg tab ORAL SCH ×3 (04:58→22:18)
[2018-01-12] MEDS: D5NS 1,000 ML IV SCH (04:58)
[2018-01-12 08:00] VITALS: BP 117/71
--- NOTE | 2018-01-12 08:02 | Cardiology Report ---
APPROVED REPORT EXAM: Two-dimensional and M-mode echocardiogram with Doppler and color Doppler. INDICATION Syncope M-Mode DIMENSIONS IVSd1.2 (0.7-1.1cm)Left Atrium (MM)4.4 (1.6-4.0cm) LVDd4.3 (3.5-5.6cm)Aortic Root3.0 (2.0-3.7cm) PWd1.0 (0.7-1.1cm)Aortic Cusp Exc.2.2 (1.5-2.0cm) LVDs1.9 (2.5-4.0cm) PWs1.8 cm Normal left ventricular chamber size, systolic function and wall motion. Left ventricular ejection fraction estimated to be 55 %. Mild left ventricular hypertrophy. No evidence of pericardial effusion. Mild left atrial enlargement. Right cardiac chamber sizes are within normal limits. Focal aortic valve sclerosis with adequate cusp excursion. Thickened mitral valve leaflets with normal excursion. Mild mitral annulus and aortic root calcification. Normal pulmonic valve structure. Normal tricuspid valve structure. IVC is normal in size with physiological collapse. A color flow and spectral Doppler study was performed and revealed: No aortic insufficiency. Trace mitral regurgitation. Mitral inflow velocities indicates possible pseudo normalization pattern implying significant left ventricular diastolic dysfunction (Grade II). Mild tricuspid regurgitation. Tricuspid systolic velocities suggests peak right ventricular systolic pressure of 32 mmHg. No pulmonic regurgitation present.
--- NOTE | 2018-01-12 08:29 | Cardiology Report ---
APPROVED REPORT EKG Measurement Heart [id number] MA [id number] Normal sinus rhythm Normal ECG
--- NOTE | 2018-01-12 08:32 | General Progress Note ---
Assessment/Plan Problem List: (1) Orthostatic syncope ICD Codes: R55 - Orthostatic syncope SNOMED: 025557317 (2) Syncope ICD Codes: R55 - Syncope SNOMED: 674790730 (3) Status post CVA ICD Codes: Z86.73 - Personal history of transient ischemic attack (TIA), and cerebral infarction without residual deficits SNOMED: 341385297 (4) Acute renal failure ICD Codes: N17.9 - Acute renal failure SNOMED: 08796899 Qualifiers: Qualified Codes: N17.9 - Acute kidney failure, unspecified Status: stable Assessment/Plan cont monitor antiplt check pacer pt/ot Subjective ROS Limited/Unobtainable: No Constitutional: Reports: malaise, weakness HEENT: Reports: no symptoms Cardiovascular: Reports: no symptoms Respiratory: Reports: no symptoms Gastrointestinal/Abdominal: Reports: no symptoms Genitourinary: Reports: no symptoms Neurologic/Psychiatric: Reports: pre-existing deficit Endocrine: Reports: no symptoms Hematologic/Lymphatic: Reports: anemia Allergies: Coded Allergies: No Known Allergies (Verified , 05/02/08) All Systems: reviewed and negative except above Subjective no new complaints. no dizziness. a-paced on monitor. pt noted. Objective Last 24 Hour Vital Signs Date Time Temp Pulse Resp B/P (MAP) Pulse Ox O2 Delivery O2 Flow Rate FiO2 01/12/18 04:58 114/58 01/12/18 04:00 98.0 60 20 115/64 (81) 100 01/12/18 04:00 62 01/12/18 00:00 98.0 61 20 114/58 (76) 61 01/11/18 21:00 Room Air 01/11/18 20:56 132/76 01/11/18 20:00 97.0 60 20 132/76 (94) 98 01/11/18 20:00 61 01/11/18 16:00 98.4 64 18 129/74 (92) 97 01/11/18 15:40 62 01/11/18 14:11 139/74 01/11/18 12:00 98.4 62 18 139/74 (95) 96 01/11/18 11:40 60 01/11/18 09:01 61 124/73 01/11/18 09:00 61 68 85 01/11/18 09:00 Room Air 01/11/18 09:00 61 124/73 Intake and Output 01/11/18 01/12/18 19:00 07:00 Intake Total 570 ml Output Total 1200 ml Balance -630 ml Intake Oral 420 ml IV Total 150 ml Output Urine Total 1200 ml Height (Feet): 6 Height (Inches): 3.00 Weight (Pounds): 190 Objective General Appearance: WD/WN, alert Neck: normal alignment, supple, normal inspection Cardiovascular: normal peripheral pulses, normal rate, regular rhythm Respiratory/Chest: lungs clear Abdomen: normal bowel sounds, non tender, soft, no organomegaly Neurologic: media director II-XII grossly normal, motor weakness - left side Ronald Herrera MD Jan 12, 2018 08:32
[2018-01-12] MEDS: Metoprolol Succinate XL 100mg tab ORAL SCH (09:31)
[2018-01-12] MEDS: Heparin 5000 units/ml inj SUBQ SCH ×2 (09:39→21:01)
[2018-01-12 12:00] VITALS: BP 135/78
[2018-01-12 16:00] VITALS: BP 125/78
[2018-01-12 20:00] VITALS: BP 135/84
[2018-01-12] MEDS: Tamsulosin 0.4mg cap ORAL SCH (20:56)
[2018-01-13] VITALS: BP 122/71
--- NOTE | 2018-01-13 02:30 | Progress Note ---
DATE: 01/11/2018 CARDIOLOGY PROGRESS NOTE Late entry for 01/11/2018. SUBJECTIVE: The patient has no chest pain. No shortness of breath. He denies dizziness. He is on IV fluid hydration. OBJECTIVE: VITAL SIGNS: Blood pressure is in the range of 115/68 to 130/70. Monitored rhythm is atrial paced. LUNGS: Clear. CARDIAC: Regular. Normal S1, S2. No new murmur. ABDOMEN: Soft. EXTREMITIES: No edema. IMPRESSION: 1. Orthostatic syncope. 2. Permanent pacemaker. 3. Hypovolemia. 4. Dehydration. 5. Cerebrovascular disease with history of cerebrovascular accident. PLAN: 1. Continued hydration. 2. Hold parameters on antihypertensives. 3. Physical and occupational therapy assessments. 4. Pacemaker interrogation. Parveen Weiner M.D. DR: KENDRICK JOB#: [id number] CC:
--- NOTE | 2018-01-13 02:30 | Progress Note ---
DATE: 01/12/2018 CARDIOLOGY PROGRESS NOTE SUBJECTIVE: The patient without new complaints. No dizziness. Appetite and oral intake, good. Pacemaker interrogation completed. The patient had rare episodes of nonsustained atrial fibrillation. EXAM: LUNGS: Bilateral breath sounds. HEART: Regular rhythm and rate. Normal S1, S2. Monitored rhythm, atrial paced. ABDOMEN: Soft. EXTREMITIES: Trace edema. IMPRESSION: 1. Orthostatic syncope. 2. Hypovolemia and dehydration, corrected. 3. Permanent pacemaker with stable function. 4. Paroxysmal atrial fibrillation, rare episodes noted. 5. Cerebrovascular disease with history of cerebrovascular accident. 6. Dysarthria and ataxia. PLAN: 1. No plan for anticoagulation. 2. Maintain adequate oral intake and hydration. 3. Decrease antihypertensives to avoid orthostatic risk. 4. Discharge planning. 5. The patient and considering short stay at a [facility] facility for rehabilitation. Parveen Weiner M.D. DR: KENDRICK JOB#: [id number] CC:
[2018-01-13 04:00] VITALS: BP 130/80
[2018-01-13] MEDS: HydrALAZINE 50mg tab ORAL SCH ×2 (06:12→13:59)
[2018-01-13 08:00] VITALS: BP 130/70
--- NOTE | 2018-01-13 08:21 | General Progress Note ---
Assessment/Plan Problem List: (1) Orthostatic syncope ICD Codes: R55 - Orthostatic syncope SNOMED: 205816986 (2) Syncope ICD Codes: R55 - Syncope SNOMED: 537115532 (3) Status post CVA ICD Codes: Z86.73 - Personal history of transient ischemic attack (TIA), and cerebral infarction without residual deficits SNOMED: 078215404 (4) Acute renal failure ICD Codes: N17.9 - Acute renal failure SNOMED: 30807346 Qualifiers: Qualified Codes: N17.9 - Acute kidney failure, unspecified Status: stable, progressing Assessment/Plan cont monitor antiplt check pacer pt/ot await decision from family regarding snf Subjective ROS Limited/Unobtainable: No Constitutional: Reports: no symptoms HEENT: Reports: no symptoms Cardiovascular: Reports: no symptoms Respiratory: Reports: no symptoms Gastrointestinal/Abdominal: Reports: no symptoms Genitourinary: Reports: no symptoms Neurologic/Psychiatric: Reports: pre-existing deficit Endocrine: Reports: no symptoms Hematologic/Lymphatic: Reports: no symptoms Allergies: Coded Allergies: No Known Allergies (Verified , 05/02/08) All Systems: reviewed and negative except above Subjective no new complaints. no dizziness. a-paced on monitor. pt noted. Objective Last 24 Hour Vital Signs Date Time Temp Pulse Resp B/P (MAP) Pulse Ox O2 Delivery O2 Flow Rate FiO2 01/13/18 08:00 97.4 75 18 130/70 (90) 99 01/13/18 06:12 141/86 01/13/18 04:00 60 01/13/18 04:00 98.1 62 20 130/80 (97) 99 01/13/18 00:00 98.1 65 20 122/71 (88) 99 01/13/18 00:00 62 01/12/18 22:18 143/88 01/12/18 21:00 Room Air 01/12/18 20:00 97.3 66 17 135/84 (101) 97 01/12/18 20:00 61 01/12/18 16:00 62 01/12/18 16:00 96.0 69 19 125/78 (94) 98 01/12/18 14:31 135/78 01/12/18 12:00 96.0 60 20 135/78 (97) 100 01/12/18 12:00 64 01/12/18 09:32 61 117/71 01/12/18 09:31 61 117/71 01/12/18 09:00 61 65 83 01/12/18 09:00 Room Air Intake and Output 01/12/18 01/13/18 19:00 07:00 Intake Total 220 ml Output Total 800 ml Balance -580 ml Intake Oral 220 ml Output Urine Total 800 ml Height (Feet): 6 Height (Inches): 3.00 Weight (Pounds): 166 Objective General Appearance: WD/WN, alert Neck: normal alignment, supple, normal inspection Cardiovascular: normal peripheral pulses, normal rate, regular rhythm Respiratory/Chest: lungs clear Abdomen: normal bowel sounds, non tender, soft, no organomegaly 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
[2018-01-13] MEDS: Metoprolol Succinate XL 100mg tab ORAL SCH (08:49)
[2018-01-13] MEDS: Heparin 5000 units/ml inj SUBQ SCH (08:49)
[2018-01-13 12:00] VITALS: BP 118/67
--- NOTE | 2018-01-13 12:34 | Diagnostic Imaging Report ---
APPROVED REPORT CPT Code: 21276 Vascular Symptoms Syncope Doppler Spectral Velocity Analysis RightLeft arteries. The Doppler spectral flow analysis indicates the degree of stenosis is minimal (10%) in the common carotid artery, mild (30%) in the internal carotid artery, and minimal (10%) in the external carotid artery. VERTEBRAL- The vertebral artery is patent, without evidence of stenosis or steal. arteries. The Doppler spectral flow analysis indicates the degree of stenosis is minimal (10%) in the common carotid artery, mild (30%) in the internal carotid artery, and minimal (10%) in the external carotid artery. VERTEBRAL- The vertebral artery is patent, without evidence of stenosis or steal.
[2018-01-13 16:00] VITALS: BP 116/85
--- NOTE | 2018-01-14 03:46 | Progress Note ---
DATE: 01/13/2018 CARDIOLOGY PROGRESS NOTE SUBJECTIVE: The patient is occasionally dizzy with upright position, but no loss of consciousness noted. He has no chest pain or shortness of breath. His gait is wide based and unsteady. OBJECTIVE: VITAL SIGNS: Blood pressure 118/67, pulse 64, respiratory rate 20. LUNGS: Clear. CARDIAC: Regular. Normal S1, S2. ABDOMEN: Soft, no edema. IMPRESSION: 1. Orthostatic syncope. 2. Permanent pacemaker. 3. Hypertensive heart disease. 4. CVA with ataxia and dysarthria. 5. Functional decline. PLAN: 1. Avoid tight blood pressure control. 2. Maintain anti-platelets and anti-lipid therapy. 3. Hold parameters for antihypertensives. 4. Physical and occupational therapy with short-term stay at long-term facility. The patient's is in agreement with plan. Parveen Wenier M.D. DR: ELLIOT JOB#: [id number] CC:
--- NOTE | 2018-01-14 14:46 | Discharge Summary ---
Discharge Summary Discharge Summary _ DATE OF ADMISSION: 01/09/2018 DATE OF DISCHARGE: 01/13/2018 CONSULTANTS: Dr. Parveen Rapp BRIEF HOSPITAL COURSE: Patient is a pleasant 77-year-old male, with history of stroke, hypertension, conduction system disease, status post pacemaker, gout, hypertensive heart disease, was admitted with complaints of syncopal episode. He was apparently ambulating with home health physical therapist when he became diaphoretic and pale. He had a syncopal episode that lasted for several minutes. There were no reports of any seizure activity. No incontinence. Patient denied any chest pain, palpitations, dizziness, headache, nausea or vomiting. He was brought to the emergency room for evaluation. On evaluation at ED, vital signs were stable. Blood work did not show any leukocytosis. Creatinine was elevated to 1.4, BUN 24. Troponin was negative. Urinalysis was negative. EKG was in normal sinus rhythm with no acute changes. Chest x-ray showed linear atelectasis in the right lung base. He was given IV bolus. He was admitted for evaluation of syncope and azotemia with dehydration. He underwent cardiac monitoring. He was given gentle IV hydration. He was seen by Dr. Weiner. Patient with pacemaker interrogation done last August of this year and was noted to have an adequate battery life with appropriate pacing and sensing function. Orthostatics were monitored and was positive. Repeat pacemaker interrogation was done. Echocardiogram done showed EF 55%, with no aortic insufficiency, trace mitral regurgitation and mild tricuspid regurgitation. Carotid duplex scan showed minimal stenosis bilaterally. Troponin negative x 2. He had rare episodes of paroxysmal atrial fibrillation, no plans for anticoagulation. Patient still gets occasional dizziness with upright position , but there was no loss of consciousness. He had unsteady gait. He was given PT mobility. He was eventually transferred to SNF. FINAL DIAGNOSES: Orthostatic syncope Acute renal failure Hypovolemia and dehydration, corrected Permanent pacemaker with stable function Hypertensive heart disease CVA with ataxia and dysarthria Functional decline Paroxysmal atrial fibrillation, rare episodes noted DISPOSITION: Patient was discharged to [facility]. I have been assigned to dictate discharge summary on this account, and I was not involved in the patient's management. Maty Huggins NP Jan 14, 2018 14:46
== END 2018-01-13 18:39 | DRG 312 ==
LOC: EDBD 12:58 → EDSEX 12:58 → EMR 13:31 → 2E 13:56 → EDBEDREQ 15:36
DX: I95.1 Orthostatic hypotension (principal); N17.9 Acute kidney failure, unspecified; E86.1 Hypovolemia; E86.0 Dehydration; Z95.0 Presence of cardiac pacemaker; I11.9 Hypertensive heart disease without heart failure; I69.393 Ataxia following cerebral infarction; I69.322 Dysarthria following cerebral infarction; I48.0 Paroxysmal atrial fibrillation; N40.0 Benign prostatic hyperplasia without lower urinary tract symptoms; Z89.029 Acquired absence of unspecified finger(s); I36.1 Nonrheumatic tricuspid (valve) insufficiency
CPT/HCPCS: 36415; 71045; 80053; 81003; 82550; 82962; 84484; 85025; 93005; 93306; 93880; 96360; 99285

== ENCOUNTER 2018-03-19 11:41 | Emergency (ER) | payer MEDICARE, OTHER ==
[~2018-03-19] VITALS: Ht 189.2 cm; Wt 93.0 kg
[~2018-03-19 11:41] MED LIST changes: +HYDRALAZINE HCL50 MG ORAL; +TAMSULOSIN HCL0.4 MG ORAL; +VITAMIN C250 MG ORAL; +VITAMIN D400 INTLU ORAL
[2018-03-19 12:25] VITALS: BP 139/70
--- NOTE | 2018-03-19 12:33 | Diagnostic Imaging Report ---
Indication: Headache and head trauma Technique: Contiguous 5 mm thick transaxial imaging of the head obtained in a Siemens Sensation [address] scanner. Soft tissue and bone windows generated. Automatic Exposure Control was utilized. Total Dose length Product (DLP): 1389.[address] Dose Index Volume (CTDIvol): 70.38 mGy Comparison: 11/13/2015 Findings: There is an area of encephalomalacia involving the right frontal lobe centered about the subcortical white matter and durbin radiata. This is probably postischemic and was seen on the prior occasion. Generalized atrophy of the brain is present and mild to moderate degree. Patchy areas of low attenuation noted bilaterally consistent with chronic small vessel disease. There is no mass effect or edema identified. There is no acute intracranial blood identified. The calvarium appears unremarkable. Paranasal sinuses appear clear as visualized. IMPRESSION: No acute intracranial findings. Old infarct in the right frontal region. Generalized atrophy of the brain. Nonspecific periventricular low-attenuation presumably on the basis of chronic small vessel disease. The CT scanner at [facility] is accredited by the [employer] and the scans are performed using dose optimization techniques as appropriate to a performed exam including Automatic Exposure control.
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
[2018-03-19 13:26] VITALS: BP 145/72
[2018-03-19 13:32] VITALS: BP 139/70
== END 2018-03-19 13:34 | disposition home or self-care (01) ==
LOC: EMR 12:35
DX: S01.112A Laceration without foreign body of left eyelid and periocular area, initial encounter (principal); W19.XXXA Unspecified fall, initial encounter; Y92.89 Other specified places as the place of occurrence of the external cause; I69.354 Hemiplegia and hemiparesis following cerebral infarction affecting left non-dominant side; I12.0 Hypertensive chronic kidney disease with stage 5 chronic kidney disease or end stage renal disease; N18.6 End stage renal disease; Z99.2 Dependence on renal dialysis
CPT/HCPCS: 70450; 99284

== ENCOUNTER 2018-04-25 11:52 | Emergency (ER) | payer MEDICARE, OTHER ==
[~2018-04-25] VITALS: Ht 188 cm; Wt 95.3 kg
[2018-04-25 11:56] VITALS: BP 137/78
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
--- NOTE | 2018-04-25 12:08 | NUR ---
ED Nurse Note: PT. TAKEN TO CT
--- NOTE | 2018-04-25 12:23 | NUR ---
ED Nurse Note: PT CAME BACK FROM CT
[2018-04-25 13:20] VITALS: BP 124/75
--- NOTE | 2018-04-25 13:20 | NUR ---
ED Nurse Note: Pt. AAOx4. ambulatory with assistance. Pt. education done regarding d/c instructions and prescriptions. Pt. verbalized the understanding of the teaching. VSS. ID armband removed. Left with all belongings.
--- NOTE | 2018-04-25 14:02 | Emergency Room Report ---
History of Present Illness General Chief Complaint: Multiple Trauma/Fall Source: Patient, EMS Present Illness HPI 77-year-old male presents ED for evaluation. Patient brought in by EMS status post fall. Per EMS patient had a mechanical fall at [facility] today and fell backwords hitting his head. No LOC. Per EMS there is an abrasion to the back of the head. Patient denies headache blurry vision nausea or vomiting. Denies neck pain. Does not take any blood thinners. No other aggravating relieving factors. Denies any other associated symptoms Allergies: Coded Allergies: No Known Allergies (Verified , 05/02/08) Patient History Past Medical History: HTN, CVA/TIA, renal disease Past Surgical History: pacemaker Pertinent Family History: none Social History: Denies: smoking, alcohol use, drug use Immunizations: UTD Reviewed Nursing Documentation: PMH: Agreed; PSxH: Agreed Nursing Documentation-PMH Past Medical History: No History, Except For Hx Cardiac Problems: Yes Hx Hypertension: Yes Hx Pacemaker: Yes Hx Cancer: No Hx Gastrointestinal Problems: No Hx Dialysis: Yes - Renal Failure Hx Neurological Problems: Yes Hx Cerebrovascular Accident: Yes - L sided weakness Hx Transient Ischemic Attacks: Yes Hx Seizures: No Hx Speech Problem: Yes - post CVA Hx Syncope: Yes Hx Weakness: Yes Hx Neurologic Surgery: No Review of Systems All Other Systems: negative except mentioned in HPI Physical Exam Vital Signs Date Time Temp Pulse Resp B/P (MAP) Pulse Ox O2 Delivery O2 Flow Rate FiO2 04/25/18 11:47 97.5 85 18 130/80 99 Room Air Sp02 EP Interpretation: reviewed, normal General Appearance: no apparent distress, alert, GCS 15, non-toxic Head: normocephalic, atraumatic Eyes: bilateral eye normal inspection, bilateral eye PERRL ENT: hearing grossly normal, normal pharynx, no angioedema, normal voice Neck: full range of motion, supple/symm/no masses Respiratory: chest non-tender, lungs clear, normal breath sounds, speaking full sentences Cardiovascular #1: regular rate, rhythm, no edema Cardiovascular #2: 2+ carotid (R), 2+ carotid (L), 2+ radial (R), 2+ radial (L) , 2+ dorsalis pedis (R), 2+ dorsalis pedis (L) Gastrointestinal: normal bowel sounds, non tender, soft, non-distended, no guarding, no rebound Rectal: deferred Genitourinary: normal inspection, no CVA tenderness Musculoskeletal: back normal, gait/station normal, normal range of motion, non- tender Neurologic: alert, oriented x3, responsive, motor strength/tone normal, sensory intact, speech normal Psychiatric: judgement/insight normal, memory normal, mood/affect normal, no suicidal/homicidal ideation Reflexes: 3+ bicep (R), 3+ bicep (L), 3+ tricep (R), 3+ tricep (L), 3+ knee (R) , 3+ knee (L) Skin: normal color, no rash, warm/dry, well hydrated Lymphatic: no adenopathy Medical Decision Making Diagnostic Impression: Primary Impression: Head injury Qualified Codes: S09.90XA - Unspecified injury of head, initial encounter ER Course Hospital Course 77 yo M presents s/p fall with head injury Differential diagnoses include: skull fx, intracranial injury, concussion Clinical course Patient placed on stretcher. After initial history and physical I ordered CT head CT Cspine CT head and C-spine unremarkable for acute processes. Patient awake alert oriented 3. No focal neurological deficits. Patient has residual left-sided weakness from prior CVA. BP Okay. Vital stable. Discussed with at bedside. Patient has long-standing history of unsteady gait. This is not unusual for the patient. Discussed with PMD Dr. Weiner. Agrees the patient can be safely discharged to home. Diagnosis - head injury Stable and discharged to home. Followup with PMD. Return to ED if symptoms recur or worsen CT/MRI/US Diagnostic Results CT/MRI/US Diagnostic Results #1: Imaging Test Ordered: CT head Impression no acute process CT/MRI/US Diagnostic Results #2: Imaging Test Ordered: CT C spine Impression no acute process Last Vital Signs Date Time Temp Pulse Resp B/P (MAP) Pulse Ox O2 Delivery O2 Flow Rate FiO2 04/25/18 13:20 98.0 72 18 124/75 100 Room Air Status: improved Disposition: HOME, SELF-CARE Condition: Stable Referrals: Parveen Weiner MD Patient Instructions: Head Injury, Adult, [id number] Jose Luna MD Apr 25, 2018 14:02
--- NOTE | 2018-04-26 11:04 | Diagnostic Imaging Report ---
Indication: Neck pain. Technique: Continuous helical imaging of the cervical spine was obtained transaxially from the skull base to the upper thoracic spine. 2-D coronal and sagittal reformatted images were obtained. Automatic Exposure Control was utilized. Total Dose length Product (DLP): 369.[address] Dose Index Volume (CTDIvol): 18 mGy Comparison: None Findings: There is no acute fracture or malalignment identified. There is no soft tissue swelling identified. Moderate uncovertebral arthritis is demonstrated at multiple levels. Some of the intervertebral discs show narrowing and osteophytes. The transaxial images were suboptimally obtained with regard to the angle. Consequently the neural foramina are not evaluated well on this examination. There is a suggestion of neural foraminal stenosis due to uncovertebral hypertrophy. Extracranial carotid artery calcification consistent with atherosclerotic disease noted. Impression: No acute injury Moderate spondylosis The CT scanner at [facility] is accredited by the [employer] and the scans are performed using dose optimization techniques as appropriate to a performed exam including Automatic Exposure control.
--- NOTE | 2018-04-26 11:19 | Diagnostic Imaging Report ---
Indication: Headache Technique: Contiguous 5 mm thick transaxial imaging of the head obtained in a Siemens Sensation [address] scanner. Soft tissue and bone windows generated. Automatic Exposure Control was utilized. Total Dose length Product (DLP): 1393.[address] Dose Index Volume (CTDIvol): 70.38 mGy Comparison: 03/19/2018 Findings: Low-attenuation involving right frontal white matter with some extension into cortex which appear focally atrophied demonstrated. Findings consistent with encephalomalacia appears unchanged relative to the last study. There is mild to moderate prominence of the ventricles, basal cisterns, and cerebral sulci consistent with atrophy. Moderate, nonspecific, white matter hypoattenuation is noted throughout the brain consistent with chronic small vessel disease. There is no midline shift, edema, acute hemorrhage, mass effect, or abnormal extra-axial fluid collections. Bones and extra osseous soft tissues are unremarkable. Impression: No acute intracranial bleed, mass effect or edema. Old right frontal infarct Moderate atrophy of the brain. Evidence of chronic small vessel disease involving white matter tracts. The CT scanner at [facility] is accredited by the [employer] and the scans are performed using dose optimization techniques as appropriate to a performed exam including Automatic Exposure control.
== END 2018-04-25 13:20 | disposition home or self-care (01) ==
LOC: EDBD 11:52 → EMR 12:00
DX: S09.90XA Unspecified injury of head, initial encounter (principal); W19.XXXA Unspecified fall, initial encounter; Y92.22 Religious institution as the place of occurrence of the external cause; I69.354 Hemiplegia and hemiparesis following cerebral infarction affecting left non-dominant side; I12.0 Hypertensive chronic kidney disease with stage 5 chronic kidney disease or end stage renal disease; N18.6 End stage renal disease; Z99.2 Dependence on renal dialysis; M47.812 Spondylosis without myelopathy or radiculopathy, cervical region
CPT/HCPCS: 70450; 72125; 99284

== ENCOUNTER 2018-05-02 13:28 | Inpatient (IN) | payer MEDICARE, OTHER ==
[~2018-05-02] VITALS: Ht 188 cm; Wt 97.1 kg
--- NOTE | 2018-05-02 16:30 | NUR ---
NURSE NOTES: Patient arrived from [facility]. Report was received prior at 15:00 GERRY Reyez. Patient AAO x 4. Patient is on RA and breathing easy and unlabored. Patient was placed on heart monitor. Patient denies any pain. Noticed left sided weakness on left arm and left leg. Patient has pacemaker on left chest. Patient had BM on 05/01/18. Patient's skin is intact. Patient is able to swallow water without choking, spitting, or drooling. Dr. Viramontes was noticed at 17:15 and orders were placed for patient. Patient has right AC 22g and is patent and intact. Will follow up plan of care.
--- NOTE | 2018-05-02 17:36 | History & Physical ---
History and Physical History & Physicial Dictated for Int Med-Dr Hernandez no. [id number] Finesse Viramontes MD May 02, 2018 17:36
[2018-05-02 18:35] LABS: APPEARANCE,URINE CLEAR; BILIRUBIN, URINE NEGATIVE (NEGATIVE); COLOR,URINE PALE YELLOW; GLUCOSE, URINE (UA) NEGATIVE (NEGATIVE); KETONES,URINE NEGATIVE (NEGATIVE); LEUKOCYTE ESTERASE ,URINE NEGATIVE (NEGATIVE); NITRITE,URINE NEGATIVE (NEGATIVE); PH,URINE 8 (4.5-8.0); PROTEIN,URINE NEGATIVE (NEGATIVE); UROBILINOGEN,URINE NORMAL MG/DL (0.0-1.0)
--- NOTE | 2018-05-02 18:45 | History and Physical Report ---
DATE OF ADMISSION: 05/02/2018 CHIEF COMPLAINT: The patient is a 77-year-old male, who presents with chief complaint of syncopal episode. HISTORY OF PRESENT ILLNESS: The patient was seen at [facility] on April 25, 2018, after a mechanical fall. The patient fell backward in alevism. The patient was discharged home from the emergency room. The patient states he was in alevism again this morning. The patient passed out. The patient awoke. The patient's stated that he had increased slurred speech and increased left-sided weakness. The patient was initially evaluated at [facility]. The patient was transferred to [facility] for insurance purposes. The patient was admitted for syncopal episode, slurred speech, and left-sided weakness to rule out acute cerebrovascular accident. REVIEW OF SYSTEMS: CONSTITUTIONAL: The patient denies weight loss or weight gain. The patient denies fevers or chills. HEENT: The patient denies ear or throat pain. The patient denies headache. CARDIOVASCULAR: The patient denies palpitation or chest pain. CHEST: The patient denies wheeze or shortness of breath. ABDOMINAL: The patient denies nausea, vomiting, diarrhea, or constipation. GENITOURINARY: The patient denies history of increased frequency of urination. NEUROMUSCULAR: The patient has history of left-sided weakness secondary to cerebrovascular accident. The patient has syncopal episode as above. The patient has slurred speech and left-sided weakness as above. The patient denies generalized weakness or seizures. PAST MEDICAL HISTORY: Significant for: 1. Cerebrovascular accident in 2007. 2. 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 3. Hypertension. 4. Hypertensive heart disease. PAST SURGICAL HISTORY: The patient denies. CURRENT MEDICATIONS: 1. Allopurinol 300 mg p.o. daily. 2. Amlodipine 5 mg p.o. twice daily. 3. Vitamin C 500 mg p.o. daily. 4. Atorvastatin 80 mg p.o. daily. 5. Hydralazine 50 mg p.o. 3 times daily. 6. Metoprolol 100 mg p.o. daily. 7. Primidone 50 mg p.o. daily. 8. Flomax 0.4 mg p.o. nightly. ALLERGIES: No known drug allergies. SOCIAL HISTORY: The patient is and lives with his . The patient denies tobacco or alcohol use. PHYSICAL EXAMINATION: VITAL SIGNS: Temperature 97.8, respirations 19, pulse 64-79, blood pressure 119/66. GENERAL: The patient is a well-developed, well-nourished male, in no apparent distress. HEENT: Eyes, pupils equal and responsive to light and accommodation. Extraocular movements are intact. NECK: Supple without lymphadenopathy. The patient does speak with slurred speech. CHEST: Lungs are clear to auscultation bilaterally without wheezes or rales. CARDIOVASCULAR: Regular rate. S1 and S2 are normal without murmurs, rubs, or gallops. ABDOMEN: Soft, nontender, and nondistended. Positive bowel sounds. No evidence of hepatosplenomegaly. Currently, no rebound or guarding noted. EXTREMITIES: Negative for clubbing, cyanosis, or edema. RECTAL: Refused. GENITAL: Refused. NEUROLOGICAL: The patient does have a left-sided weakness in both the left upper and left lower extremity. Otherwise, cranial nerves II through XII are grossly intact. The patient does have slurred speech. Motor strength is 3/5 on the left and 5/5 on the right. Deep tendon reflexes are 2+, plantar. LABORATORY STUDIES: From [employer], WBC 5.6, hemoglobin 14.7, hematocrit 44.9, platelets 214,000. Sodium 136, potassium 4.4, chloride 100, CO2 27, BUN 24, creatinine 1.39, glucose 115. ProTime 13.4, INR 1.1, PTT 27. Troponin less than 0.02. A CT scan of the brain revealed hypoattenuation in the right frontal lobe, left basal ganglia, and left thalamus. This is consistent with infarct. Age is indeterminate. ASSESSMENT: This is a 77-year-old male with: 1. Syncopal episode. 2. Slurred speech. 3. Left-sided weakness. 4. Cerebrovascular disease. 5. Hypertension. 6. Hypertensive heart disease. TREATMENT: 1. Syncopal episode/slurred speech/left-sided weakness. The patient has history of acute cerebrovascular accident in 2007. This may be a new cerebrovascular accident. A Neurology consultation has been obtained with Dr. Je Mendez. An MRI of the brain has been ordered. Carotid duplex and Dopplers are pending. Echocardiogram is pending. A Cardiology consultation has been obtained. We will follow recommendations of Neurology and Cardiology. 2. Cerebrovascular disease. The patient has been started on aspirin 325 mg p.o. daily. A Neurology consultation has been obtained as above. 3. Hypertension. Continue amlodipine and hydralazine as above. 4. Hypercholesterolemia. Continue Lipitor as above. 5. Hypertensive heart disease. Finesse Viramontes M.D. DR: Kerry JOB#: [id number] CC:
--- NOTE | 2018-05-02 19:13 | NUR ---
HAND-OFF: Report given to GERRY Crouch.
[2018-05-02 19:47] VITALS: BP 124/77
--- NOTE | 2018-05-02 19:48 | NUR ---
NURSE NOTES Report received from GERRY Odell. PAtient seen in bed in semi villalpando position resting. Alert, verbally responsive, able to make needs known. Denies any pain at this time. IV site to right AC is intact. sp02 is 98% in RA , no acute distress is noted at this time. Bed is in lowest position. Call light is within easy reach while in bed. Will continue to monitor.
[2018-05-02] MEDS: Tamsulosin 0.4mg cap ORAL SCH (21:06)
[2018-05-02] MEDS: Heparin 5000 units/ml inj SUBQ SCH (21:08)
[2018-05-02] MEDS ORDERED: HydrALAZINE 50mg tab ORAL SCH (22:00)
--- NOTE | 2018-05-02 23:45 | Consultation ---
DATE OF CONSULTATION: 05/02/2018 HISTORY OF PRESENT ILLNESS: This is a 77-year-old male has been under my care for almost 20 years. He has a known history of prior stroke due to cerebral aneurysm. As a result of the stroke, he has left-sided weakness and chronic ataxia. 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 He has had frequent hospitalizations and ER visits because of complications of these illnesses. The patient's contacted me regarding the patient's current advanced and he was transported to an outside emergency room then transferred to [facility]. I was not contacted by the staff despite the patient's 's information. The patient was at [facility] and had increasing slurred speech and left-sided weakness noted with apparent syncopal episode and concern was raised over a new stroke. The patient has had similar symptoms in the past and these have been related to orthostasis rather than cerebrovascular insult, but certainly hypoperfusion of the cerebral contributed. PAST MEDICAL HISTORY: 1. CVA. 2. Cerebral aneurysm. 3. Hypertensive heart disease. 4. Orthostatic hypotension. 5. Hyperuricemia. 6. Degenerative disk disease. 7. Osteoarthritis. 8. Prostatic hypertrophy. 9. Hyperlipidemia. 10. Essential tremor. FAMILY HISTORY: Noncontributory. ALLERGIES: None. MEDICATIONS: Reviewed and reconciled. SOCIAL HISTORY: Negative for smoking, alcohol, or substance abuse. REVIEW OF SYSTEMS: An outpatient echocardiogram in the last three months with normal ejection fraction, concentric hypertrophy, and mild degenerative valve disease. No pulmonary hypertension. His pacemaker was interrogated in February of 2018 and functioning appropriately. PHYSICAL EXAMINATION: VITAL SIGNS: Blood pressure 119/66, pulse 60, respiratory rate 18, and afebrile. HEENT: Conjunctivae pink. Oropharynx clear. NECK: Supple. LUNGS: Clear. CARDIAC: Regular rhythm and rate. Normal S1 and S2. A 1/6 systolic murmur at apex. Pacemaker pocket site clean and dry. ABDOMEN: Soft and nontender. EXTREMITIES: Good pulses. No edema. NEUROLOGIC: With left-sided weakness. Slight dysarthria. He is at his baseline from my knowledge of his prior exams. DATA: Labs and CAT scan report reviewed. IMPRESSION: Syncope, doubt newer cerebrovascular accident, probable transient ischemic attack due to hypoperfusion, permanent pacemaker, hypertensive heart disease, and orthostatic hypotension. PLAN: The patient's blood pressure at this point is low. We have already attempted to keep him at high normal range due to his history. He will require hydration and I will hold his antihypertensives at this time other than the beta-lc. We will follow with you during this hospital stay. Parveen Weiner M.D. DR: JANNETH JOB#: [id number] CC:
--- NOTE | 2018-05-03 07:24 | NUR ---
CASE MANAGEMENT:REVIEW TRANSFERRED FROM [facility]: PACEMAKER. CVA CC: SYNCOPAL EPISODE AT [facility]. SLURRED SPEECH AND LT SIDED WEAKNESS SI: SYNCOPAL EPISODE 97.2 73 22 124/77 97% ON RA IS: ASA PO QD PROTONIX PO QD ALLOPURINOL PO QD MYSOLINE PO QD TOPROL XL PO QD HEPARIN SQ Q12 NORVASC PO Q12 LIPITOR PO QHS FLOMAX PO QHS :TELEMETRY STATUS DCP: FROM HOME PLAN: MRI CAROTID DUPLEX 2DECHO NEURO CONSULT OT/PT EVAL NEURO CHECKS
--- NOTE | 2018-05-03 07:39 | NUR ---
HAND-OFF: Report given to Marguerite Alejandra RN.
--- NOTE | 2018-05-03 08:00 | NUR ---
NURSE NOTES: received pt in the bed, awake, alert, oriented, vital signs stable, no co pain, no SOB, skin warm and dry to touch, intact, tolerate diet well, abdomen soft, bed in low position, call light within reach.
[2018-05-03 08:01] VITALS: BP 120/69
[2018-05-03 08:04] LABS: BASOPHILS % (AUTO) 0.9 % (0.0-2.0); EOSINOPHILS % (AUTO) 2.7 % (0.0-3.0); HEMOGLOBIN 13.9 G/DL (14.2-18.0); LYMPHOCYTES % (AUTO) 29.2 % (20.0-45.0); MEAN CORPUSCULAR VOLUME 96 FL (80-99); MONOCYTES % (AUTO) 7.9 % (1.0-10.0); NEUTROPHILS % (AUTO) 59.3 % (45.0-75.0); PLATELET COUNT 168 K/UL (150-450); RED BLOOD COUNT 4.48 M/UL (4.70-6.10); WHITE BLOOD COUNT 6.2 K/UL (4.8-10.8)
--- NOTE | 2018-05-03 08:24 | NUR ---
05/03. CONCERNING MRI...PT HAS A PACEMAKER THAT WAS INSTALLED IN 2012. THE PACER IS CONTRAINDICATED (UNSAFE) TO GO INTO THE MRI SCANNER. GERRY COUCH HAS BEEN INFORMED AND WILL TELL DR. HEWITT. EDMAR 08:20
--- NOTE | 2018-05-03 08:31 | General Progress Note ---
Assessment/Plan Problem List: (1) Arrhythmia (2) Orthostatic hypotension ICD Codes: I95.1 - Orthostatic hypotension SNOMED: 00657207 (3) Syncope ICD Codes: R55 - Syncope and collapse SNOMED: 686887094 (4) Cerebral vascular accident ICD Codes: I63.9 - Cerebral infarction, unspecified SNOMED: 609117189 Status: stable Assessment/Plan ivf monitor orthostatics titrate bp rx pt/ot antiplt Subjective ROS Limited/Unobtainable: No Constitutional: Reports: malaise, weakness HEENT: Reports: no symptoms Cardiovascular: Reports: no symptoms Respiratory: Reports: no symptoms Gastrointestinal/Abdominal: Reports: no symptoms Genitourinary: Reports: no symptoms Neurologic/Psychiatric: Reports: pre-existing deficit Endocrine: Reports: no symptoms Hematologic/Lymphatic: Reports: no symptoms Allergies: Coded Allergies: No Known Allergies (Verified , 05/02/08) All Systems: reviewed and negative except above Subjective no events. w/o complaints. "i'm fine." no fever or chills. no cp no sob. Objective Last 24 Hour Vital Signs Date Time Temp Pulse Resp B/P (MAP) Pulse Ox O2 Delivery O2 Flow Rate FiO2 05/03/18 08:01 98.7 62 20 120/69 (86) 98 05/03/18 03:21 91 05/02/18 23:20 71 05/02/18 21:09 155/70 05/02/18 21:07 72 155/70 05/02/18 21:00 Room Air 05/02/18 19:47 97.2 73 22 124/77 (93) 97 05/02/18 19:36 67 05/02/18 17:47 Room Air Intake and Output 05/02/18 05/03/18 19:00 07:00 Output Total 0 ml 700 ml Balance 0 ml -700 ml Output Urine Total 0 ml 700 ml Laboratory Tests 05/02/18 18:00: Urine Color Pale yellow, Urine Appearance Clear, Urine pH 8, Urine Specific [place] 1.010, Urine Protein Negative, Urine Glucose (UA) Negative, Urine Ketones Negative, Urine Blood Negative, Urine Nitrite Negative, Urine Bilirubin Negative, Urine Urobilinogen Normal, Urine Leukocyte Esterase Negative 05/02/18 19:20: Troponin I 0.010 05/03/18 06:10: Troponin I [Pending], White Blood Count 6.2, Red Blood Count 4.48L, Hemoglobin 13.9L, Hematocrit 43.0, Mean Corpuscular Volume 96, Mean Corpuscular Hemoglobin 31.0, Mean Corpuscular Hemoglobin Concent 32.3, Red Cell Distribution Width 13.0 , Platelet Count 168, Mean Platelet Volume 6.2L, Neutrophils (%) (Auto) 59.3, Lymphocytes (%) (Auto) 29.2, Monocytes (%) (Auto) 7.9, Eosinophils (%) (Auto) 2.7, Basophils (%) (Auto) 0.9, Sodium Level [Pending], Potassium Level [Pending] , Chloride Level [Pending], Carbon Dioxide Level [Pending], Blood Urea Nitrogen [Pending], Creatinine [Pending], Estimat Glomerular Filtration Rate [Pending], Glucose Level [Pending], Calcium Level [Pending], Pro-B-Type Natriuretic Peptide [Pending] Height (Feet): 6 Height (Inches): 2.00 Weight (Pounds): 214 General Appearance: WD/WN, alert Neck: supple Cardiovascular: normal rate, regular rhythm Respiratory/Chest: chest wall non-tender, lungs clear, normal breath sounds, no respiratory distress Abdomen: normal bowel sounds, non tender, soft, no organomegaly Edema: no edema noted Arm (L), no edema noted Arm (R), no edema noted Leg (L), no edema noted Leg (R), no edema noted Pedal (L), no edema noted Pedal (R), no edema noted Generalized Neurologic: motor weakness - left UE Skin: normal pigmentation Ronald Herrera MD May 03, 2018 08:31
[2018-05-03 08:38] LABS: ANION GAP 10 mmol/L (5-15); BLOOD UREA NITROGEN 25 mg/dL (7-18); CALCIUM 8.5 MG/DL (8.5-10.1); CARBON DIOXIDE 25 MMOL/L (21-32); CHLORIDE 105 MMOL/L (98-107); CREATININE 1.1 MG/DL (0.55-1.30); POTASSIUM 4.5 MMOL/L (3.5-5.1); SODIUM 140 MMOL/L (136-145)
[2018-05-03] MEDS ORDERED: Metoprolol Succinate XL 100mg tab ORAL SCH (09:00)
[2018-05-03] MEDS ORDERED: Aspirin EC 325mg tab ORAL SCH (09:00)
[2018-05-03] MEDS: Aspirin Baby 81mg ORAL SCH (09:55)
[2018-05-03] MEDS: Metoprolol Succinate XL 50mg tab ORAL SCH (09:55)
[2018-05-03] MEDS: Heparin 5000 units/ml inj SUBQ SCH ×2 (09:57→20:54)
--- NOTE | 2018-05-03 10:24 | NUR ---
RADIOLOGY DEPT CHEST X-RAY DONE.-P.DYE
[2018-05-03] MEDS ORDERED: Vitamin D 50,000 units cap ORAL SCH (12:00)
[2018-05-03 12:12] VITALS: BP 122/73
--- NOTE | 2018-05-03 12:24 | Diagnostic Imaging Report ---
APPROVED REPORT CPT Code: 82297 Vascular Symptoms Syncope Doppler Spectral Velocity Analysis RightLeft arteries. The Doppler spectral flow analysis indicates the degree of stenosis is minimal (10%) in the common carotid arteries, mild (30%) in the internal carotid arteries, and minimal (10%) in the external carotid arteries. VERTEBRAL/SUBCLAVIAN- The vertebral and subclavian arteries are within normal limits.
--- NOTE | 2018-05-03 13:00 | Diagnostic Imaging Report ---
Indication: Dyspnea Comparison: 01/09/2018 A single view chest radiograph was obtained. Findings: Cardiomediastinal appearance is within normal limits for age. There is a pacemaker in the left side again noted. The lungs are clear. Pulmonary vascularity is appropriate. The diaphragmatic contour is smooth and costophrenic angles are sharp. No pleural effusions are identified. The bones are unremarkable. Impression: No acute findings
--- NOTE | 2018-05-03 15:05 | NUR ---
P.T Note: P.T evaluation completed and treatment initiated . Please refer to P.T evaluation for current functional status. Skilled P.T service is warranted to improve strength , balance and endurance to improve safety and independence in functional mobilities. Thank you for this referral.
[2018-05-03 16:16] VITALS: BP 121/73
--- NOTE | 2018-05-03 19:23 | NUR ---
HAND-OFF: Report given to VIKY GARRETT.
--- NOTE | 2018-05-03 19:30 | Progress Note ---
DATE: 05/03/2018 CARDIOLOGY PROGRESS NOTE SUBJECTIVE: The patient is awake, alert, and at baseline mentation. His gait is wide-based and unsteady. His speech is dysarthric at baseline. There may be slightly more slowing. OBJECTIVE: VITAL SIGNS: Blood pressure 120/69, heart rate 62, respiratory rate 20. Monitored rhythm paced. LUNGS: Clear. CARDIAC: Regular. Normal S1, S2 with a fourth heart sound. ABDOMEN: Soft. EXTREMITIES: Trace edema. NEUROLOGIC: As noted above. LABORATORY DATA: Troponins are negative. Chemistry panel revealed BUN 25, creatinine 1.1, potassium 4.5. Pro-natriuretic peptide 420. Urinalysis with no active sediment. IMPRESSION: 1. Hypertensive heart disease. 2. TIA. 3. Cerebrovascular disease. 4. Prior CVA due to aneurysm. 5. Orthostatic hypotension. 6. Permanent pacemaker. 7. Mild prerenal azotemia. 8. Hypovolemia and dehydration. PLAN: 1. Avoid tight blood pressure control. 2. Avoid orthostasis. 3. Discussed with the and we preferred to keep blood pressure at high-normal range. 4. Cautiously hydrate. 5. Physical and occupational therapy assessment. 6. Low-dose anti-platelet therapy with aspirin. Parveen Weiner M.D. DR: Jamila JOB#: [id number] CC:
--- NOTE | 2018-05-03 19:35 | NUR ---
NURSE NOTES: Received pt from GERRY Everett. Pt awake, alert, and talkative. Bed in lowest position. Call light within reach. Will continue to monitor.
[2018-05-03 20:00] VITALS: BP 126/74
[2018-05-03] MEDS: Tamsulosin 0.4mg cap ORAL SCH (20:50)
[2018-05-04 00:41] VITALS: BP 124/73
[2018-05-04 04:00] VITALS: BP 129/74
--- NOTE | 2018-05-04 07:26 | NUR ---
HAND-OFF: Report given to GERRY Solares. Pt stable.
--- NOTE | 2018-05-04 07:29 | NUR ---
NURSE NOTES: Received report from GERRY Gracia. Patient is alert and oriented x4 and is in stable condition. No acute distress/SOB noted. Patient denies any pain/discomfort. Will continue plan of care.
[2018-05-04 08:00] VITALS: BP 135/75
--- NOTE | 2018-05-04 08:01 | General Progress Note ---
Assessment/Plan Problem List: (1) Arrhythmia (2) Orthostatic hypotension ICD Codes: I95.1 - Orthostatic hypotension SNOMED: 61466989 (3) Syncope ICD Codes: R55 - Syncope and collapse SNOMED: 331254636 (4) Cerebral vascular accident ICD Codes: I63.9 - Cerebral infarction, unspecified SNOMED: 940036971 Status: stable, progressing Assessment/Plan mobilize monitor orthostatics titrate bp rx pt/ot antiplt rx Subjective ROS Limited/Unobtainable: No Constitutional: Reports: malaise, weakness HEENT: Reports: no symptoms Cardiovascular: Reports: no symptoms Respiratory: Reports: no symptoms Gastrointestinal/Abdominal: Reports: no symptoms Genitourinary: Reports: no symptoms Neurologic/Psychiatric: Reports: pre-existing deficit Endocrine: Reports: no symptoms Hematologic/Lymphatic: Reports: no symptoms Allergies: Coded Allergies: No Known Allergies (Verified , 05/02/08) All Systems: reviewed and negative except above Subjective no new complaints. per staff negative orthostatics. no headaches or chest pain no sob. labs reviewed. Objective Last 24 Hour Vital Signs Date Time Temp Pulse Resp B/P (MAP) Pulse Ox O2 Delivery O2 Flow Rate FiO2 05/04/18 04:00 98.0 63 18 129/74 (92) 96 05/04/18 04:00 63 05/04/18 04:00 63 70 77 05/04/18 00:41 68 124/73 (90) 96 05/04/18 00:00 90 05/03/18 20:57 Room Air 05/03/18 20:00 97.9 63 20 126/74 (91) 97 05/03/18 16:18 67 65 77 05/03/18 16:16 97.7 61 20 121/73 (89) 100 05/03/18 16:00 63 05/03/18 12:12 97.9 65 20 122/73 (89) 100 05/03/18 12:00 62 05/03/18 09:55 62 120/69 05/03/18 09:54 62 120/69 05/03/18 09:00 Room Air 05/03/18 08:01 98.7 62 20 120/69 (86) 98 05/03/18 08:00 63 Intake and Output 05/03/18 05/04/18 19:00 07:00 Intake Total 720 ml Output Total 600 ml 790 ml Balance 120 ml -790 ml Intake Oral 720 ml Output Urine Total 600 ml 790 ml Height (Feet): 6 Height (Inches): 2.00 Weight (Pounds): 214 Objective General Appearance: WD/WN, alert Neck: supple Cardiovascular: normal rate, regular rhythm Respiratory/Chest: chest wall non-tender, lungs clear, normal breath sounds, no respiratory distress Abdomen: normal bowel sounds, non tender, soft, no organomegaly Edema: no edema noted Arm (L), no edema noted Arm (R), no edema noted Leg (L), no edema noted Leg (R), no edema noted Pedal (L), no edema noted Pedal (R), no edema noted Generalized Neurologic: motor weakness - left UE Skin: normal pigmentation Ronald Herrera MD May 04, 2018 08:01
[2018-05-04] MEDS: Aspirin Baby 81mg ORAL SCH (08:16)
[2018-05-04] MEDS: Metoprolol Succinate XL 50mg tab ORAL SCH (08:16)
[2018-05-04] MEDS: Heparin 5000 units/ml inj SUBQ SCH ×2 (08:21→21:00)
--- NOTE | 2018-05-04 08:54 | NUR ---
DISCHARGE PLANNING DISCHARGE DISCUSSED WITH DR HEWITT CLINICALS FAXED TO: 1) PATRICK RUIZ T: [phone] 2) PATRICK STEPHENS T: [phone]
[2018-05-04 12:00] VITALS: BP 127/84
--- NOTE | 2018-05-04 15:26 | NUR ---
NURSE NOTES: Asked pt if I can give a medication for constipation, last BM was 05/01/18. Patient refused any medication for constipation and denies any discomfort. Abdomen soft and non-tender. Will continue plan of care.
--- NOTE | 2018-05-04 15:31 | NUR ---
ST NOTE: BEDSIDE SWALLOW EVAL RECEIVED BEDSIDE SWALLOW EVAL ORDER CHART REVIEWED PRIOR THE EVALUATION PT IS A 77-YEAR-OLD MALE WHO WAS TRANSFERRED FROM [facility] AFTER PASSING OUT AT THE [facility]. PER MD'S NOTE, PT'S SPEECH WAS MORE SLURRED THAN NORMAL. 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 PER CT HEAD AT [facility]: AN AREA OF HYPOATTENUATION IN THE R FRONTAL LOBE MAY REPRESENT AN AGE INDETERMINATE INFARCT FOIC OF HYPOATTENUATION IN THE L BASAL GANGLIA AND L THALAMUS MAY REPRESENT AGE INDETERMINATE LACUNAR INFARCTS. PER CXR(05/03/18): NO ACUTE FINDINGS PT LIVES AT HOME WITH . PER PT, ON REGULAR DIET. 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 BASED ON DYSPHAGIA OUTCOME AND SEVERITY SCALE(MARCO), PT IS AT LEVEL 4, MILD TO MODERATE DYSPHAGIA:INTERMITTENT SUPERVISION/CUEING, ONE OR TWO CONSISTENCIES RESTRICTED. DEEP TRACE PENETRATION WITH THIN(STRAW AND CUP WITH HEAD TURN TO R), FLASH TRACE PENETRATION WITH THIN AND NECTAR(TSP) SECONDARY TO DELAYED SWALLOW, DECREASED HYO-LARYNGEAL ELEVATION/EXCURSION AND DECREASED LARYNGEAL VESTIBULE CLOSURE. NO ASPIRATION WAS NOTED BUT HAS HIGH RISK IF PRECAUTIONS ARE NOT STRICTLY APPLIED. PT BENEFITS FROM CHIN DOWN, SWALLOW X 2 TO 3 TIMES, NO STRAW, BREATH HOLD WITH EFFORTFUL SWALLOW TECHNIQUES. DIET WAS RECOMMENDED MECH SOFT(GROUND) WITH THIN LIQUIDS. CURRENT STATUS: PT SEEN AT BEDSIDE IN LATE AM. ALERT AND COOPERATIVE. FOLLOWS DIRECTIONS. GOOD PO INTAKE AND APPETITE. SOME ESSENTIAL TREMOR WAS NOTED WHEN HOLDING THE CUP. GIVEN PO TRIALS: THIN(CUP-SELF), PUREE(TSP) AND CRACKER X 1 INITIAL IMPRESSION: PROBABLE PERSISTENT MILD TO MODERATE OR WORSENED OROPHARYNGEAL DYSPHAGIA PT HAS UPPER AND LOWER DENTURES, SLOW BUT FUNCTIONAL MASTICATION TIME MILDLY INCREASED ORAL TRANSIT TIME AND OROPHARYNGEAL PHARYNGEAL TRANSIT TIME, FAIR LARYNGEAL ELEVATION, DOUBLE SWALLOWS WAS NOTED, NO OVERT S/S OF ASPIRATION. HAS (SILENT) ASPIRATION RISK DUE TO PT HAS H/O CVA AND CURRENT CVA. RECOMMENDATIONS: 1. FOR QUALITY OF LIFE, CONTINUE SOFT, EASY WITH THIN LIQUIDS DIET 2. STRICT ASPIRATION PRECAUTIONS WITH LABORER LIVESTOCK 3. SKILLED ST SERVICE TO FOLLOW UP(TO DETERMINE IF VIDEOSWALLOW STUDY IS NEEDED). POSTED ASPIRATION PRECAUTIONS SIGN. D/W PT AND RN, HOWARD.
[2018-05-04 16:00] VITALS: BP 120/76
--- NOTE | 2018-05-04 16:18 | NUR ---
DISCHARGE PLANNING PATIENT HAS BEEN ACCEPTED AT [facility] ROOM 11-A WHEN READY FOR DISCHARGE
--- NOTE | 2018-05-04 19:38 | NUR ---
HAND-OFF: Report given to GERRY Walls. Patient is in stable condition. Endorsed plan of care.
--- NOTE | 2018-05-04 19:40 | NUR ---
NURSE NOTES: Received report from GERRY Solares. Patient awake, alert and verbally responsive. No SOB, no acute distress, denies any pain nor any discomfort at this time. IV site on R AC #22, patent and intact. Walker at bedside, instructed pt to press call light for any assistance, verbalized understanding. Fall precautions in place. Will continue plan of care.
[2018-05-04 20:00] VITALS: BP 119/72
[2018-05-04] MEDS: Tamsulosin 0.4mg cap ORAL SCH (21:00)
[2018-05-05] VITALS: BP 131/73
--- NOTE | 2018-05-05 00:45 | Progress Note ---
DATE: 05/04/2018 CARDIOLOGY PROGRESS NOTE: SUBJECTIVE: The patient feels well. Has no complaints. OBJECTIVE: VITAL SIGNS: Blood pressure 135/75, pulse 67, respirations 20. Monitored rhythm paced, nonorthostatic. LUNGS: Clear. CARDIAC: Regular. ABDOMEN: Soft. EXTREMITIES: No edema. IMPRESSION: No signs of acute cerebrovascular infarct. The patient has had prior cerebrovascular infarct and neurologic deficits are at prior baseline. He likely had another episode of orthostatic hypotension with syncope. He has a permanent pacemaker with stable function. RECOMMENDATION: 1. Maintain adequate hydration. 2. Maintain loose blood pressure control. 3. Mobilize with caution and utilize walker on a regular basis. 4. Discharge planning. Parveen Weiner M.D. DR: SARA JOB#: [id number] CC:
--- NOTE | 2018-05-05 03:25 | NUR ---
NURSE NOTES: Patient asleep, breathing even and unlabored, no s/sx of pain nor any discomfort at this time. Bed at lowest position, call light within reach. Will continue to monitor.
[2018-05-05 04:00] VITALS: BP 136/60
--- NOTE | 2018-05-05 07:18 | NUR ---
HAND-OFF: Report given to GERRY Solares. Endorsed plan of care.
--- NOTE | 2018-05-05 07:20 | NUR ---
NURSE NOTES: Received report from GERRY Walls. Patient is in stable condition. No acute distress/SOB. Patient denies any pain/discomfort. Will continue plan of care.
[2018-05-05 08:00] VITALS: BP 130/87
[2018-05-05] MEDS: Metoprolol Succinate XL 50mg tab ORAL SCH (08:50)
[2018-05-05] MEDS: Aspirin Baby 81mg ORAL SCH (08:50)
[2018-05-05] MEDS: Heparin 5000 units/ml inj SUBQ SCH (08:53)
[2018-05-05] MEDS ORDERED: Metoprolol Succinate ORAL (09:30)
[2018-05-05] MEDS ORDERED: NORVASC5 MG ORAL (09:30)
--- NOTE | 2018-05-05 10:00 | NUR ---
DISCHARGE PLAN PATIENT WILL DISCHARGE TO [facility] ROOM 11A SKILLED T: [phone] FOR NURSE TO NURSE REPORT [facility] HAS BEEN ARRANGED FOR 1230 [employer] SPOKE WITH PATIENT'S ,MRS MORENO, SHE IS IN AGREEMENT WITH DISCHARGE PLAN
--- NOTE | 2018-05-05 11:30 | NUR ---
NURSE NOTES: Called Jeff Rodriguez Regarding discharge and Give report to GERRY Atkinson.
[2018-05-05 12:00] VITALS: BP 123/78
--- NOTE | 2018-05-05 13:06 | NUR ---
NURSE NOTES: Discharge instruction given, Patient verbalize understanding. Heart monitor and IV removed, Inventory check done. Patient is in stable condition. Report given to vice president sales and marketing/ Pilar. Belongings given to vice president sales and marketing. Patient left with vice president sales and marketing via gurney.
--- NOTE | 2018-05-05 19:00 | Discharge Summary ---
DATE OF ADMISSION: 05/02/2018 DATE OF DISCHARGE: 05/05/2018 ADMISSION DIAGNOSES: 1. Syncope. 2. History of stroke. 3. Hypertension. 4. Left hemiparesis. 5. BPH. 6. History of pacemaker. DISCHARGE DIAGNOSES: 1. Syncope. 2. History of stroke. 3. Hypertension. 4. Left hemiparesis. 5. BPH. 6. History of pacemaker. BRIEF HISTORY AND HOSPITAL COURSE: The patient was admitted with complaints of a syncopal episode. He had a CAT scan of the head that showed no acute event. He has had similar episodes in the past related to orthostatic hypotension. Cardiology consultation was obtained. The patient's blood pressure medication regimen was adjusted. On discharge, he was not orthostatic. He was weak and family request short-term rehabilitation for therapy. The patient will be discharged to rehabilitation, will be followed up there in one to two days. DISCHARGE MEDICATIONS: Please see discharge list for discharge medications. DIET: Cardiac diet. ACTIVITIES: Ad-betty. Ronald Herrera M.D. DR: CHARLES JOB#: [id number] CC:
--- NOTE | 2018-05-07 05:45 | Progress Note ---
DATE: 05/05/2018 CARDIOLOGY PROGRESS NOTE Late entry. SUBJECTIVE: The patient has no complaints. He has a poor recollection of event precipitating his admission. He denies dizziness and recent vitals revealed no orthostasis. OBJECTIVE: VITAL SIGNS: Blood pressure 130/87, pulse 65, respiratory rate 18, and afebrile. NEUROLOGIC: Left-sided weakness, ataxia, and mild dysarthria. NECK: Supple. No bruits or jugular venous distention. LUNGS: Clear. CARDIAC: Regular rhythm and rate. Normal S1 and S2. A 1/6 systolic apical murmur. ABDOMEN: Soft. EXTREMITIES: With trace dependent edema. IMPRESSION: 1. Orthostatic syncope. 2. Orthostatic hypotension. 3. Hypertensive heart disease. 4. History of malignant blood pressure. 5. 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 6. Functional decline. 7. Prostatic hypertrophy. PLAN: 1. Avoid tight blood pressure control. 2. Continue to monitor orthostatics. 3. Fall precautions. 4. Short course of rehab appropriate at correction facility prior to returning home. Parveen Weiner M.D. DR: SHAUN JOB#: [id number] CC:
== END 2018-05-05 13:06 | DRG 312 ==
LOC: 2E 16:00
DX: I95.1 Orthostatic hypotension (principal); I69.354 Hemiplegia and hemiparesis following cerebral infarction affecting left non-dominant side; I11.9 Hypertensive heart disease without heart failure; E78.00 Pure hypercholesterolemia, unspecified; Z95.0 Presence of cardiac pacemaker; N40.0 Benign prostatic hyperplasia without lower urinary tract symptoms; I69.393 Ataxia following cerebral infarction; I69.322 Dysarthria following cerebral infarction
CPT/HCPCS: 36415; 71045; 80048; 81003; 83880; 84484; 85025; 87086; 93306; 93880

== ENCOUNTER 2018-06-28 14:26 | Inpatient (IN) | payer MEDICARE, OTHER ==
[~2018-06-28] VITALS: Ht 189.2 cm; Wt 96.2 kg
[~2018-06-28 14:26] MED LIST changes: +Metoprolol Succinate ORAL; +NORVASC5 MG ORAL
[2018-06-28 14:54] VITALS: BP 150/80
[2018-06-28 15:25] LABS: HEMATOCRIT 45.7 % (42.0-52.0); HEMOGLOBIN 15.1 G/DL (14.2-18.0); MEAN CORPUSCULAR VOLUME 92 FL (80-99); PLATELET COUNT 263 K/UL (150-450); RED BLOOD COUNT 4.97 M/UL (4.70-6.10); RED CELL DISTRIBUTION WIDTH 13.8 % (11.6-14.8); WHITE BLOOD COUNT 14.4 K/UL (4.8-10.8)
[2018-06-28 15:31] LABS: INR 1.1 (0.9-1.1)
--- NOTE | 2018-06-28 15:37 | Diagnostic Imaging Report ---
Indications: Syncopal episode 2 hours ago Technique: Spiral acquisitions obtained through the brain. Angled axial and coronal 5 x 5 mm slices were reconstructed. Total dose length product 1332.88 mGycm. CTDI vol(s) 70.38 mGy. Dose reduction achieved using automated exposure control Comparison: 04/25/2018 Findings: Area of encephalomalacia is seen in the posterior right parietal lobe, unchanged. There is extensive low-attenuation throughout the bilateral deep white matter, consistent with microvascular chronic ischemic change, also evident previously. There may also be some more focal encephalomalacia in the left parasagittal frontal lobe anteriorly. Old lacunar infarcts are seen in the bilateral basal ganglia. No acute intracranial hemorrhage nor edema, mass effect, nor midline shift. There is age-related enlargement of the ventricles and extra axial CSF spaces. Visualized orbits and sinuses are unremarkable. There is some mastoid opacification on the left. Intact calvarium. Findings are unchanged Impression: Negative for acute intracranial bleed or mass effect Old infarcts, as described Other chronic and age-related changes, as described Minimal left mastoid disease The CT scanner at [facility] is accredited by the [employer] and the scans are performed using protocols designed to limit radiation exposure to as low as reasonably achievable to attain images of sufficient resolution adequate for diagnostic evaluation.
--- NOTE | 2018-06-28 15:47 | Diagnostic Imaging Report ---
Indication: Shortness of breath Technique: One view of the chest Comparison: 05/03/2018 Findings: Bilateral mid and lower lung linear opacities likely represent areas of scarring, appear similar to the prior study. The lungs and pleural spaces are otherwise clear. The heart size is normal. There is a left chest pacemaker. No significant interim change Impression: No acute process
[2018-06-28 16:15] LABS: APPEARANCE,URINE SLIGHTLY CLOUDY; BILIRUBIN, URINE NEGATIVE (NEGATIVE); COLOR,URINE AMBER; GLUCOSE, URINE (UA) NEGATIVE (NEGATIVE); KETONES,URINE NEGATIVE (NEGATIVE); LEUKOCYTE ESTERASE ,URINE 2+ (NEGATIVE); NITRITE,URINE POSITIVE (NEGATIVE); PH,URINE 7 (4.5-8.0); PROTEIN,URINE NEGATIVE (NEGATIVE); UROBILINOGEN,URINE 1 MG/DL (0.0-1.0)
--- NOTE | 2018-06-28 16:18 | Emergency Room Report ---
History of Present Illness General Chief Complaint: Syncope Source: Patient, Family Member, Medical Record Present Illness HPI This patient is accompanied by his . The patient had been driving with his when he felt the urgent need to have a bowel movement. The states that they were about 10 minutes from her son's home. She states that when they arrived at her son's home she went to help her has been out of the car and he had diarrhea all over the seat. She states that then she took him in the backyard in order to remove his clothing. She states she noted that he was having shaky legs and so she sat him down on a chair and subsequently he slumped over and lost consciousness. She states that he has done this multiple times in the past. He was recently admitted to [facility] and was just discharged home 2 days ago. The patient himself has no specific complaints. He denies any prodromal symptoms. He denies pain. He denies fever or chills. He denies chest pain or shortness of breath. Allergies: Coded Allergies: No Known Allergies (Verified , 05/02/08) Patient History Past Medical History: see triage record, HTN, CVA/TIA, renal disease Past Surgical History: pacemaker Social History: Denies: smoking, alcohol use, drug use Reviewed Nursing Documentation: PMH: Agreed; PSxH: Agreed Nursing Documentation-PMH Past Medical History: No History, Except For Hx Cardiac Problems: Yes Hx Hypertension: Yes Hx Pacemaker: Yes Hx Cancer: No Hx Gastrointestinal Problems: No Hx Dialysis: Yes - Renal Failure Hx Neurological Problems: Yes Hx Cerebrovascular Accident: Yes - 2007 had sx for anneurysm Hx Transient Ischemic Attacks: Yes Hx Seizures: No Hx Speech Problem: Yes - post CVA Hx Syncope: Yes Hx Weakness: Yes Hx Neurologic Surgery: Yes - anneurysm in 2007 Review of Systems All Other Systems: negative except mentioned in HPI Physical Exam Vital Signs Date Time Temp Pulse Resp B/P (MAP) Pulse Ox O2 Delivery O2 Flow Rate FiO2 06/28/18 14:38 97.9 73 18 160/87 97 Room Air Sp02 EP Interpretation: reviewed, normal General Appearance: no apparent distress, alert, GCS 15, non-toxic Head: normocephalic, atraumatic Eyes: bilateral eye normal inspection, bilateral eye PERRL ENT: hearing grossly normal, normal pharynx, no angioedema, normal voice Neck: full range of motion, supple/symm/no masses Respiratory: chest non-tender, lungs clear, normal breath sounds, no respiratory distress, no retraction, no accessory muscle use, speaking full sentences Cardiovascular #1: regular rate, rhythm, no edema Gastrointestinal: normal bowel sounds, non tender, soft, non-distended, no guarding, no rebound Rectal: deferred Musculoskeletal: normal range of motion, non-tender, swelling - BLE edema 2+ Neurologic: alert, oriented x3, responsive, speech normal, other - Baseline L. sided weakness secondary to previous CVA. Psychiatric: judgement/insight normal, mood/affect normal, no suicidal/ homicidal ideation Skin: normal color, no rash, warm/dry, well hydrated Medical Decision Making Diagnostic Impression: Primary Impression: Syncope Additional Impressions: Diarrhea Pyelonephritis ER Course This elderly male presents with a syncopal episode and pyelonephritis. He was given broad-spectrum antibiotics and IV fluids and admitted for further monitoring and antibiotics. I'm concerned that this patient will not tolerate oral antibiotics and further he could possibly have a resistant infection given his recent hospitalization. Laboratory Tests Test 06/28/18 15:05 06/28/18 15:45 06/28/18 16:40 White Blood Count 14.4 K/UL (4.8-10.8) H Red Blood Count 4.97 M/UL (4.70-6.10) Hemoglobin 15.1 G/DL (14.2-18.0) Hematocrit 45.7 % (42.0-52.0) Mean Corpuscular Volume 92 FL (80-99) Mean Corpuscular Hemoglobin 30.3 PG (27.0-31.0) Mean Corpuscular Hemoglobin Concent 33.0 G/DL (32.0-36.0) Red Cell Distribution Width 13.8 % (11.6-14.8) Platelet Count 263 K/UL (150-450) Mean Platelet Volume 5.4 FL (6.5-10.1) L Neutrophils (%) (Auto) % (45.0-75.0) Lymphocytes (%) (Auto) % (20.0-45.0) Monocytes (%) (Auto) % (1.0-10.0) Eosinophils (%) (Auto) % (0.0-3.0) Basophils (%) (Auto) % (0.0-2.0) Prothrombin Time 11.1 SEC (9.30-11.50) Prothrombin Time INR 1.1 (0.9-1.1) PTT 24 SEC (23-33) Urine Color Ena Urine Appearance Slightly cloudy Urine pH 7 (4.5-8.0) Urine Specific [place] 1.010 (1.005-1.035) Urine Protein Negative (NEGATIVE) Urine Glucose (UA) Negative (NEGATIVE) Urine Ketones Negative (NEGATIVE) Urine Blood 2+ (NEGATIVE) H Urine Nitrite Positive (NEGATIVE) H Urine Bilirubin Negative (NEGATIVE) Urine Ictotest Negative (NEGATIVE) Urine Urobilinogen 1 MG/DL (0.0-1.0) H Urine Leukocyte Esterase 2+ (NEGATIVE) H Urine RBC 5-10 /HPF (0 - 0) H Urine WBC 40-60 /HPF (0 - 0) H Urine Squamous Epithelial Cells Few /LPF (NONE/OCC) Urine Bacteria Many /HPF (NONE) H Troponin I 0.011 ng/mL (0.000-0.056) Sodium Level 141 MMOL/L (136-145) Potassium Level 4.3 MMOL/L (3.5-5.1) Chloride Level 104 MMOL/L (98-107) Carbon Dioxide Level 28 MMOL/L (21-32) Anion Gap 9 mmol/L (5-15) Blood Urea Nitrogen 22 mg/dL (7-18) H Creatinine 1.3 MG/DL (0.55-1.30) Estimate Glomerular Filtration Rate mL/min (>60) Glucose Level 107 MG/DL (74-106) H Calcium Level 8.9 MG/DL (8.5-10.1) Total Bilirubin 0.6 MG/DL (0.2-1.0) Aspartate Amino Transferase (AST) 36 U/L (15-37) Alanine Aminotransferase (ALT) 45 U/L (12-78) Alkaline Phosphatase 106 U/L (46-116) Total Creatine Kinase 99 U/L (26-308) Creatine Kinase MB 0.9 NG/ML (0.0-3.6) Creatine Kinase MB Relative Index 0.9 Total Protein 7.6 G/DL (6.4-8.2) Albumin 3.4 G/DL (3.4-5.0) Globulin 4.2 g/dL Albumin/Globulin Ratio 0.8 (1.0-2.7) L EKG Diagnostic Results Rate: normal Rhythm: NSR, other - SR w/ 1st degree AV block ST Segments: no acute changes Rhythm Strip Diag. Results EP Interpretation: yes Rate: 60's Rhythm: NSR, no PVC's, no ectopy Chest X-Ray Diagnostic Results Chest X-Ray Diagnostic Results : Chest X-Ray Ordered: Yes # of Views/Limited/Complete: 1 View Indication: Other EP Interpretation: Yes Interpretation: no consolidation, no effusion, no pneumothorax, no acute cardiopulmonary disease Impression: No acute disease Electronically Signed by: Estefania Reyna DO CT/MRI/US Diagnostic Results CT/MRI/US Diagnostic Results : Imaging Test Ordered: CT head Impression No acute findings. Specifically no intracranial bleed, mass effect or edema. See official report. Last Vital Signs Date Time Temp Pulse Resp B/P (MAP) Pulse Ox O2 Delivery O2 Flow Rate FiO2 06/28/18 14:54 98.0 73 18 150/80 100 Room Air Status: improved Disposition: ADMITTED INPATIENT Condition: Serious Estefania Reyna DO Jun 28, 2018 16:18
[2018-06-28] MEDS ORDERED: cefTRIAXone 1 GM in NS 55 ML IVPB ONE (16:30)
[2018-06-28 16:50] VITALS: BP 158/84
[2018-06-28 17:01] LABS: ANION GAP 9 mmol/L (5-15); BLOOD UREA NITROGEN 22 mg/dL (7-18); CALCIUM 8.9 MG/DL (8.5-10.1); CARBON DIOXIDE 28 MMOL/L (21-32); CHLORIDE 104 MMOL/L (98-107); CREATININE 1.3 MG/DL (0.55-1.30); POTASSIUM 4.3 MMOL/L (3.5-5.1); SODIUM 141 MMOL/L (136-145)
[2018-06-28 17:14] LABS: ALANINE AMINOTRANSFERASE 45 U/L (12-78); ALBUMIN 3.4 G/DL (3.4-5.0); ALBUMIN/GLOBULIN RATIO 0.8 (1.0-2.7); ALKALINE PHOSPHATASE 106 U/L (46-116); ASPARTATE AMINO TRANSFERASE 36 U/L (15-37); BILIRUBIN,TOTAL 0.6 MG/DL (0.2-1.0); CKMB 0.9 NG/ML (0.0-3.6); CREATINE KINASE 99 U/L (26-308)
[2018-06-28 20:00] VITALS: BP 136/86
[2018-06-29] VITALS: BP 151/86
[2018-06-29] MEDS: Heparin 5000 units/ml inj SUBQ SCH ×3 (00:32→20:29)
--- NOTE | 2018-06-29 02:00 | Consultation ---
DATE OF CONSULTATION: 06/28/2018 CARDIOLOGY CONSULTATION CONSULTING PHYSICIAN: Parveen Weiner M.D. REASON FOR CONSULTATION: Syncope in the setting of cardiomyopathy and permanent pacemaker. HISTORY OF PRESENT ILLNESS: This 77-year-old male with cerebrovascular disease, known to me from prior care. He has a permanent pacemaker, has a history of labile blood pressure complicated by orthostatic hypotension. The patient was having several days of decreased oral intake and. Diarrhea he was quite lightheaded and dizzy and passed out today. Paramedics did not take him to the hospital that he requested and his drove him to the [place] ER for evaluation. The patient was at his baseline level of consciousness after a couple of minutes. The patient has had prior similar episodes usually associated with orthostasis due to his medications, hypovolemia and dehydration due to exogenous illness. His permanent pacemaker was interrogated within the last two months and functioning appropriately. PAST MEDICAL HISTORY: Includes history of cerebral aneurysm status post rupture, cerebrovascular accident, dysarthria, ataxia, hypertensive heart disease, orthostatic hypotension, vitamin D deficiency, hyperlipidemia, essential tremor, prostatic hypertrophy, and hyperuricemia. ALLERGIES: None. FAMILY HISTORY: Noncontributory. SOCIAL HISTORY: No record of smoking, alcohol, or substance abuse. He lives with his . MEDICATIONS: Reviewed and reconciled. REVIEW OF SYSTEMS: No fevers. No cough. No bright red blood per rectum. Voiding is adequate. He is at his baseline function with respect to neurologic status. Recent echocardiogram revealed normal ejection fraction with concentric hypertrophy and no signs of pulmonary hypertension. There is no history of cardiac arrhythmias. As stated above, his pacemaker has been recently interrogated. PHYSICAL EXAMINATION: GENERAL: Presently at his baseline mentation. Alert and oriented x3. VITAL SIGNS: Blood pressure 158/84, pulse 73, and respirations 13. Afebrile. HEENT: Oropharynx clear. NECK: Supple. No bruits. LUNGS: Clear. CARDIAC: Regular. Normal S1, S2. A 1/6 systolic murmur at apex. ABDOMEN: Soft and nontender. EXTREMITIES: No edema. NEUROLOGIC: Baseline dysarthria. DIAGNOSTIC DATA: CAT scan of the brain, no acute process, old infarct without change. Chest x-ray, no acute process. EKG is AV paced. LABORATORY DATA: White count 14, hemoglobin 15. Urinalysis, 40 to 60 white cells. Sodium 141, potassium 4.3, bicarbonate 28, BUN 22, and creatinine 1.3. Albumin 3.4. Troponin 0.01. IMPRESSION: 1. Hypovolemia and dehydration. 2. Acute on chronic kidney injury with prerenal azotemia. 3. Urinary tract infection. 4. Orthostatic syncope. 5. Permanent pacemaker with stable function. 6. Hypertensive heart disease with history of orthostasis secondary to medications. PLAN: 1. Hydration. 2. Cardiac monitoring. 3. Hold parameters for antihypertensives. 4. Empiric antimicrobials. 5. Monitor orthostatics. 6. Fall precautions. Parveen Weiner M.D. DR: GRACIELA JOB#: [id number] CC:
[2018-06-29 04:00] VITALS: BP 143/89
[2018-06-29 08:00] VITALS: BP 152/88
[2018-06-29] MEDS: Ascorbic Acid 500mg tab ORAL SCH (09:31)
[2018-06-29] MEDS: Metoprolol Succinate XL 50mg tab ORAL SCH (09:32)
[2018-06-29] MEDS: Allopurinol 100mg Tab ORAL SCH (09:33)
[2018-06-29 12:00] VITALS: BP 111/69
[2018-06-29 16:00] VITALS: BP 144/84
[2018-06-29] MEDS ORDERED: Vitamin D 50,000 units cap ORAL SCH (18:00)
[2018-06-29 20:00] VITALS: BP 132/80
[2018-06-29] MEDS: Tamsulosin 0.4mg cap ORAL SCH (20:28)
--- NOTE | 2018-06-29 21:30 | History and Physical Report ---
DATE OF ADMISSION: 06/28/2018 CHIEF COMPLAINT: Syncope. HISTORY OF PRESENT ILLNESS: The patient is a pleasant 77-year-old male, well known to me. He has a history of prior stroke, conduction system disease, status post pacemaker, and orthostatic hypotension, who presented from home with complaints of a syncopal episode. The patient recently was discharged from the [facility] facility. He has been doing well, but for the last several days, he has been noted to be having diarrhea. He had been increasingly dizzy on the day of admission. He had a syncopal episode. On evaluation in the emergency room, the patient had a CAT scan of the head that showed no stroke or infarct. He did have a urinalysis that showed 40 to 60 wbc's. His BUN and creatinine were slightly elevated at 22 and 1.3. His EKG showed a paced rhythm. He had a white count of 14,000. The patient is now admitted for further evaluation and care. He denies any dysuria. He has had no fevers or chills. PAST MEDICAL HISTORY: As above. PAST SURGICAL HISTORY: Includes a pacemaker. CURRENT MEDICATIONS: Reconciled and reviewed. ALLERGIES: None. FAMILY HISTORY: None. SOCIAL HISTORY: Negative for tobacco, ethanol, or drugs. REVIEW OF SYSTEMS: GENERAL: No fevers or chills. No headaches. CARDIOPULMONARY: No chest pain or shortness of breath. GASTROINTESTINAL: No nausea or vomiting. GENITOURINARY: No urgency or frequency. MUSCULOSKELETAL: No joint pain or swelling. NEUROLOGIC: No evidence of seizures. PHYSICAL EXAMINATION: VITAL SIGNS: Temperature 98 degrees, pulse 72, respirations 63, and blood pressure 111/69. GENERAL: The patient is a well developed male, in no apparent distress. HEART: Regular rate and rhythm. LUNGS: Clear. ABDOMEN: Soft, nontender, and nondistended. EXTREMITIES: Without clubbing, cyanosis, or edema. LABORATORY DATA: UA showed 40 to 60 wbc's. The white count was 14,000. Sodium 141, potassium 4.3, and creatinine was 1.3. ASSESSMENT: This is a pleasant male admitted with complaints of syncopal episodes suspect secondary to dehydration from diarrhea. 1. Syncope. 2. Dehydration. 3. Diarrhea. 4. Possible urinary tract infection. 5. History of orthostatic hypotension. 6. History of conduction system disease, status post pacemaker. 7. History of stroke. PLAN: 1. Gentle hydration. 2. IV antibiotics. 3. Follow up urine cultures. 4. Cardiology consultation. 5. Monitor on telemetry. 6. PT and OT evaluations to be obtained. 7. We will check a stool for C. diff if the patient has any recurrent diarrhea. Ronald Herrera M.D. DR: WILLOW JOB#: [id number] CC:
--- NOTE | 2018-06-30 00:15 | Progress Note ---
DATE: 06/29/2018 CARDIOLOGY PROGRESS NOTE SUBJECTIVE: The patient has no new complaints. He denies dizziness or weakness. Monitored rhythm is paced. OBJECTIVE: VITAL SIGNS: Blood pressure 144/84, heart rate 68, and respiratory rate 20. LUNGS: Clear. CARDIAC: Regular. No murmur. ABDOMEN: Soft. No tenderness or rebound. EXTREMITIES: No edema. LABORATORY AND DIAGNOSTIC DATA: Urine culture is positive for gram-negative jimmie. IMPRESSION: 1. Orthostatic syncope. 2. Pacemaker. 3. Leukocytosis. 4. Urinary tract infection. 5. Probable sepsis. 6. Prerenal azotemia. 7. Hypovolemia and dehydration. 8. Hypertensive heart disease. 9. History of labile blood pressure. 10. Cerebrovascular disease with history of cerebrovascular accident and ataxia. PLAN: 1. Await final cultures. 2. Continue empiric antimicrobials. 3. Continue IV fluid hydration. 4. Follow up laboratory studies. 5. Cardiac monitoring. 6. Physical and occupational therapy assessments. Parveen Weiner M.D. DR: Zoë JOB#: [id number] CC:
[2018-06-30 04:00] VITALS: BP 140/83
[2018-06-30 07:03] LABS: BASOPHILS % (AUTO) 1.2 % (0.0-2.0); HEMATOCRIT 47.2 % (42.0-52.0); HEMOGLOBIN 15.3 G/DL (14.2-18.0); LYMPHOCYTES % (AUTO) 32.7 % (20.0-45.0); MEAN CORPUSCULAR VOLUME 93 FL (80-99); MONOCYTES % (AUTO) 9.3 % (1.0-10.0); NEUTROPHILS % (AUTO) 52.8 % (45.0-75.0); PLATELET COUNT 220 K/UL (150-450); RED BLOOD COUNT 5.06 M/UL (4.70-6.10); RED CELL DISTRIBUTION WIDTH 14.1 % (11.6-14.8); WHITE BLOOD COUNT 5.9 K/UL (4.8-10.8)
[2018-06-30 07:18] LABS: ALBUMIN 2.8 G/DL (3.4-5.0); ALBUMIN/GLOBULIN RATIO 0.7 (1.0-2.7); ALKALINE PHOSPHATASE 83 U/L (46-116); ANION GAP 6 mmol/L (5-15); ASPARTATE AMINO TRANSFERASE 31 U/L (15-37); BILIRUBIN,TOTAL 0.6 MG/DL (0.2-1.0); BLOOD UREA NITROGEN 22 mg/dL (7-18); CALCIUM 8.5 MG/DL (8.5-10.1); CARBON DIOXIDE 28 MMOL/L (21-32); CHLORIDE 104 MMOL/L (98-107); CREATININE 1.2 MG/DL (0.55-1.30); POTASSIUM 3.8 MMOL/L (3.5-5.1); SODIUM 137 MMOL/L (136-145)
[2018-06-30 07:27] LABS: ALANINE AMINOTRANSFERASE 34 U/L (12-78)
[2018-06-30 08:00] VITALS: BP 143/78
[2018-06-30] MEDS: Metoprolol Succinate XL 50mg tab ORAL SCH (08:31)
[2018-06-30] MEDS: Allopurinol 100mg Tab ORAL SCH (08:31)
[2018-06-30] MEDS: Ascorbic Acid 500mg tab ORAL SCH (08:34)
[2018-06-30] MEDS: Heparin 5000 units/ml inj SUBQ SCH ×2 (08:37→21:22)
[2018-06-30 12:00] VITALS: BP 144/84
[2018-06-30 16:00] VITALS: BP 141/84
--- NOTE | 2018-06-30 18:20 | CDS Physician Query ---
--------- THIS DOCUMENT IS A PERMANENT PART OF THE MEDICAL RECORD --------- PLEASE COMPLETE DOCUMENT BEFORE SIGNING Dear __Ronald Herrera Date: Stock Mixer/CDS Name: Veto Stock Mixer/CDS Phone No.: Exercise your independent professional judgment when responding to the query. Questions asked do not imply a particular answer is desired or expected. We greatly appreciate your clarification on this issue. CLINICAL DOCUMENTATION STATES: 77-year-old male, well known to me. He has a history of prior stroke, conduction system disease, status post pacemaker, and orthostatic hypotension, who presented from home with complaints of a syncopal episode. Pt was diagnosed with UTI and orthostatic syncope. Also mentioned, Probable Sepsis(P.N 06/29) CLINICAL FINDINGS SHOW: Lab: WBC 14.4H V/S: BP 144/90 H NJ 74 RR 14 TEMP 97.0 L Rx: Ceftriaxone/IV Please respond to the following question: Is Sepsis a valid diagnosis indicated in medical record? If so please state below. PHYSICIAN RESPONSE: Condition Present on Admission: [] Yes [] No []Clinically Undeterminable Please also document in your Progress Notes and/or Discharge Summary and indicate if the condition was present on admission.
[2018-06-30 20:00] VITALS: BP 136/75
[2018-06-30] MEDS: Tamsulosin 0.4mg cap ORAL SCH (21:14)
[2018-07-01] VITALS: BP 125/77
[2018-07-01] MEDS ORDERED: ceFAZolin 1gm/50ml Premix 50 ML IV ONE (02:00)
--- NOTE | 2018-07-01 02:45 | Progress Note ---
DATE: 06/30/2018 CARDIOLOGY PROGRESS NOTE SUBJECTIVE: The patient denies weakness or dizziness. There has been no witnessed loss of consciousness. PHYSICAL EXAMINATION: VITAL SIGNS: Blood pressure parameters are well controlled 136/75, pulse 62, respiratory rate 20. LUNGS: Clear. CARDIAC: Regular. Normal S1, S2. ABDOMEN: Soft. EXTREMITIES: No edema. LABORATORY AND DIAGNOSTIC DATA: Urine culture with E. coli. BUN 22 and creatinine 1.2. Albumin 2.8. White count 5.9. IMPRESSION: 1. Orthostatic syncope. 2. Hypovolemia and dehydration, improved. 3. Urinary tract infection with sepsis due to E coli, recovering. 4. Permanent pacemaker with stable function. 5. Hypertensive heart disease with labile blood pressure and history of orthostasis. 6. Hypomagnesemia with magnesium level today of 1.7. 7. Leukocytosis, resolved. PLAN: Narrow antibiotic spectrum based on cultures, IV magnesium, continue hydration until renal function fully normalizes. Monitor orthostatics. Physical and occupational therapy. Discharge planning. Parveen Weiner M.D. DR: Stephanie JOB#: [id number] CC:
[2018-07-01] MEDS: ceFAZolin sod 1 GM in D5W 55 ML IVPB SCH ×3 (02:47→18:06)
[2018-07-01 04:00] VITALS: BP 149/95
[2018-07-01 08:00] VITALS: BP 152/89
[2018-07-01] MEDS: Allopurinol 100mg Tab ORAL SCH (09:02)
[2018-07-01] MEDS: Metoprolol Succinate XL 50mg tab ORAL SCH (09:03)
[2018-07-01] MEDS: Ascorbic Acid 500mg tab ORAL SCH (09:03)
[2018-07-01] MEDS: Heparin 5000 units/ml inj SUBQ SCH ×2 (09:04→20:40)
[2018-07-01 12:00] VITALS: BP 147/90
[2018-07-01 16:00] VITALS: BP 145/87
[2018-07-01 20:00] VITALS: BP 158/85
[2018-07-01] MEDS: Tamsulosin 0.4mg cap ORAL SCH (20:38)
[2018-07-02] VITALS: BP 142/82
[2018-07-02] MEDS: ceFAZolin sod 1 GM in D5W 55 ML IVPB SCH ×2 (03:06→11:18)
[2018-07-02 04:00] VITALS: BP 143/89
[2018-07-02 08:00] VITALS: BP 152/94
[2018-07-02] MEDS: Ascorbic Acid 500mg tab ORAL SCH (08:20)
[2018-07-02] MEDS: Metoprolol Succinate XL 50mg tab ORAL SCH (08:20)
[2018-07-02] MEDS: Allopurinol 100mg Tab ORAL SCH (08:21)
[2018-07-02] MEDS: Heparin 5000 units/ml inj SUBQ SCH (08:22)
[2018-07-02] MEDS ORDERED: Levofloxacin 500mg tab ORAL SCH (11:30)
[2018-07-02 12:00] VITALS: BP 144/88
--- NOTE | 2018-07-02 15:50 | Cardiology Report ---
APPROVED REPORT EKG Measurement Heart [id number] Sinus rhythm with 1st degree AV block Otherwise normal ECG
--- NOTE | 2018-07-03 06:15 | Progress Note ---
DATE: 07/01/2018 CARDIOLOGY AND INTERNAL MEDICINE PROGRESS NOTE Late Entry for 07/01/2018. SUBJECTIVE: The patient was seen with his at bedside. He has no complaints. His states that he is not able to judge's clerk his condition well at time. However, he agrees that he has improved. He has no dizziness. OBJECTIVE: VITAL SIGNS: Blood pressure 147/90, heart rate 60, and respiratory rate 20. LUNGS: Clear. CARDIAC: Regular. Normal S1 and S2. ABDOMEN: Soft. EXTREMITIES: No edema. Gait not assessed at this time. IMPRESSION: 1. Hypovolemia and dehydration, recovering. 2. Urinary tract infection due to Escherichia coli, on antimicrobials. 3. Permanent pacemaker with stable function. 4. Hypertensive heart disease with labile blood pressure now with rising trend, but still adequately controlled. 5. Hypomagnesemia, status post replacement therapy. 6. Orthostatic syncope, recurrent. PLAN: . We will anticipate discharging in the next 24 to 48 hours as progress continues and IV fluids can be discontinued and antibiotics transition to oral regimen. Parveen Weiner M.D. DR: MICA JOB#: [id number] CC:
--- NOTE | 2018-07-03 06:30 | Progress Note ---
DATE: 07/02/2018 The patient was seen and evaluated. Condition has improved. His IV fluids will be discontinued and IV antimicrobials will be completed in an oral form. His has been advised of medication regimen. His antihypertensive regimen will be given, withhold parameters in view of his labile blood pressure and orthostatic potential. Discharge summary dictation was reviewed and agreed with. Parveen Weiner M.D. DR: EVARISTO JOB#: [id number] CC:
--- NOTE | 2018-07-05 09:28 | Discharge Summary ---
Discharge Summary Discharge Summary _ DATE OF ADMISSION: 06/28/2018 DATE OF DISCHARGE: 07/02/2018 DISCHARGED BY: Dr. Herrera REASON FOR ADMISSION: 77 years old male with a past medical history of hypertension, pacemaker, history of CVA , presented after syncopal episode after profuse diarrhea. Upon evaluation vital signs were stable. Blood pressure was elevated 160/87 Laboratory work-up revealed leukocytosis WBC 14.4, stable hemoglobin and hematocrit. Urinalysis revealed evidence of urinary tract infection. Troponin was negative. EKG revealed sinus rhythm with first-degree AV block. Electrolytes were stable. BUN 22, creatinine 1.3. Stable LFT. Albumin 3.4. CT of the head revealed no acute intracranial pathology. Evidence of old infarcts and other chronic and age-related changes noted. Chest x-ray demonstrated no acute cardiopulmonary pathology. In emergency department patient received IV fluids, pancultured and started on broad-spectrum antibiotic. Patient was admitted to monitored floor for further management. CONSULTANTS: build manager Dr. Weiner [place] [employer] COURSE: Patient admitted to telemetry floor. Patient started on gentle IV hydration and empiric antibiotics. Urine culture revealed E. coli. Patient was on antibiotics for treatment of urinary tract infection. Leukocytosis resolved, no fevers. Control Room Supervisor closely followed. Patient had hypertensive heart disease with history of orthostasis secondary to medication. Blood pressure was managed with calcium channel lc and beta-lc with holding parameters. Holding parameters for antihypertensive were established. Patient was on cardiac monitor technician floor. Repeated troponin was negative. Telemetry showed sinus rhythm with a first- degree AV block, no evidence of arrhythmia. Fall precaution maintained. Patient was working with physical therapist. DVT prophylaxis provided. Statin continued. Renal parameters and electrolytes were closely monitored. Electrolytes corrected as needed. Nephrotoxins were avoided. Leukocytosis resolved. Patient clinically stabilized. IV fluids discontinued. IV antibiotics changed to oral to complete the course at home. Antihypertensive regiment discussed with the patient's with holding parameters, given labile blood pressure and orthostatic potential. Patient was stable for discharge home with home health services to follow. FINAL DIAGNOSES: Orthostatic syncope Hypovolemia and dehydration Acute on chronic kidney injury with prerenal azotemia UTI with sepsis due to E. coli Permanent pacemaker, stable function Hypertensive heart disease with labile blood pressure and history of orthostasis History of CVA Hypomagnesemia DISCHARGE MEDICATIONS: See Medication Reconciliation list. DISCHARGE INSTRUCTIONS: Patient was discharged home with home health services. Follow up with primary care provider in one week. I have been assigned to dictate discharge summary for this account. I was not involved in the patient's management. Do Vicetne NP Jul 05, 2018 09:28
== END 2018-07-02 18:25 | disposition home health service (06) | DRG 872 ==
LOC: EMR 15:10 → EDBEDREQ 16:32 → 2E 17:50 → EDBEDREQ 17:58 → 2E 06-30 23:36
DX: A41.9 Sepsis, unspecified organism (principal); N17.9 Acute kidney failure, unspecified; N39.0 Urinary tract infection, site not specified; Z86.73 Personal history of transient ischemic attack (TIA), and cerebral infarction without residual deficits; Z95.0 Presence of cardiac pacemaker; E86.0 Dehydration; I95.1 Orthostatic hypotension; E86.1 Hypovolemia; B96.20 Unspecified Escherichia coli [E. coli] as the cause of diseases classified elsewhere; E83.42 Hypomagnesemia; R19.7 Diarrhea, unspecified; I44.0 Atrioventricular block, first degree; I11.9 Hypertensive heart disease without heart failure; N40.0 Benign prostatic hyperplasia without lower urinary tract symptoms
CPT/HCPCS: 36415; 70450; 71045; 80053; 81003; 82550; 82553; 82962; 83735; 84484; 85025; 85610; 85730; 87086; 87181; 93005; 96365; 99285

== ENCOUNTER 2019-01-30 11:33 | Inpatient (IN) | payer MEDICARE, OTHER ==
[~2019-01-30] VITALS: Ht 188 cm; Wt 95.8 kg
[2019-01-30 15:03] VITALS: BP 139/76
[2019-01-30] MEDS ORDERED: METOPROLOL TAR100 MG ORAL (15:30)
[2019-01-30] MEDS ORDERED: Metoprolol Succinate XL 25mg tab ORAL SCH (15:30)
[2019-01-30] MEDS ORDERED: TRAZODONE HCL50 MG ORAL (15:32)
[2019-01-30] MEDS ORDERED: METOPROLOL SUCC50 MG ORAL (15:32)
[2019-01-30] MEDS ORDERED: VITAMIN D250000 UNI1 ORAL (15:32)
[2019-01-30] MEDS ORDERED: ARICEPT10 MG ORAL (15:32)
[2019-01-30] MEDS ORDERED: ATORVASTATIN CA10 MG ORAL (15:32)
[2019-01-30] MEDS ORDERED: NORVASC5 MG ORAL (15:46)
[2019-01-30 20:00] VITALS: BP 150/94
[2019-01-30] MEDS: Tamsulosin 0.4mg cap ORAL SCH (20:48)
[2019-01-30] MEDS: TraZODone 50mg tab ORAL SCH (20:48)
[2019-01-30] MEDS ORDERED: Atorvastatin 80mg tab ORAL SCH (21:00)
--- NOTE | 2019-01-30 22:30 | Consultation ---
DATE OF CONSULTATION: 01/30/2019 CARDIOLOGY CONSULTATION CONSULTING PHYSICIAN: Parveen Weiner M.D. REQUESTING PHYSICIAN: Ronald Herrera M.D. REASON FOR CONSULTATION: Syncope. HISTORY OF PRESENT ILLNESS: This is a 78-year-old male, known to me from prior care. He has a longstanding history of hypertensive heart disease, cerebrovascular disease with prior cerebrovascular accident, orthostasis with orthostatic hypotension, and a permanent pacemaker. He has been in his usual state of health. He apparently was lightheaded and passed out at home today. Paramedics took him to [facility] Emergency Room where his emergency room workup was not remarkable. The patient's pacemaker was interrogated in my office less than 3 months ago and noted to be functioning appropriately with adequate battery life. The patient does have a longstanding history of labile blood pressure and orthostatic hypotension as well. He does have a history of a prior stroke due to an aneurysm. 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 ALLERGIES: None. MEDICATIONS: Reviewed. FAMILY HISTORY: Noncontributory. SOCIAL HISTORY: Negative for smoking, alcohol, or substance abuse. REVIEW OF SYSTEMS: He did receive a flu vaccination this season. No seizures. No history of diabetes or thyroid impairment. No history of melena or bright red blood per rectum. He does have chronic kidney disease due to nephrosclerosis of mild severity. No recent dysuria. Occasionally incontinent of urine. No history of asthma or abnormal blood clotting. His most recent echocardiogram revealed normal ejection fraction with concentric hypertrophy, diastolic relaxation abnormality, and no significant valvular disease. PHYSICAL EXAMINATION: GENERAL: Well developed and well nourished, presently in no acute distress. VITAL SIGNS: Blood pressure 139/76, pulse 67, respirations 18, and afebrile. Monitor is atrial-paced. NEUROLOGIC: He has some dysarthria and wide-based gait. NECK: Supple. LUNGS: Clear. CARDIAC: Regular rhythm and rate. Normal S1, S2 with a fourth heart sound. ABDOMEN: Soft. EXTREMITIES: No edema. SKIN: abrasions over left lateral hand, left eyebrow, and below right eye. DIAGNOSTIC DATA: EKG reveals atrial pacing with no acute changes. IMPRESSION: 1. Syncope, likely due to orthostasis and orthostatic hypotension. 2. Hypertensive heart disease. 3. Cerebrovascular disease with history of CVA. 4. Prostatic hypertrophy. 5. Fall risk. 6. Abrasions due to fall. PLAN: 1. Follow up troponin level. 2. Avoid tight blood pressure control. 3. Monitor orthostatics. 4. Hold parameters for antihypertensives. 5. Pacemaker interrogation. 6. Skin care. Parveen Weiner M.D. DR: Jamila JOB#: [id number] CC: LUL
[2019-01-31] VITALS: BP 145/81
[2019-01-31 04:00] VITALS: BP 147/88
[2019-01-31 07:13] LABS: ALANINE AMINOTRANSFERASE 17 U/L (12-78); ALBUMIN/GLOBULIN RATIO 0.8 (1.0-2.7); ALKALINE PHOSPHATASE 89 U/L (46-116); ANION GAP 7 mmol/L (5-15); ASPARTATE AMINO TRANSFERASE 31 U/L (15-37); BILIRUBIN,TOTAL 0.9 MG/DL (0.2-1.0); BLOOD UREA NITROGEN 19 mg/dL (7-18); CALCIUM 8.4 MG/DL (8.5-10.1); CARBON DIOXIDE 29 MMOL/L (21-32); CHLORIDE 106 MMOL/L (98-107); CREATININE 1.2 MG/DL (0.55-1.30); POTASSIUM 3.8 MMOL/L (3.5-5.1); SODIUM 142 MMOL/L (136-145)
[2019-01-31 08:36] VITALS: BP 118/64
[2019-01-31] MEDS: Donepezil 10mg tab ORAL SCH (09:15)
[2019-01-31] MEDS: Metoprolol Succinate XL 50mg tab ORAL SCH (09:16)
[2019-01-31] MEDS: Heparin 5000 units/ml inj SUBQ SCH ×2 (09:22→20:28)
[2019-01-31 12:00] VITALS: BP 143/85
[2019-01-31 16:00] VITALS: BP 122/74
--- NOTE | 2019-01-31 16:45 | Progress Note ---
DATE: 01/31/2019 CARDIOLOGY PROGRESS NOTE SUBJECTIVE: The patient has no complaints. He does not feel dizzy at this time. He does not recall how he fell or why he he passed out. He says that historically this has been a problem for years. Usually, orthostatic hypertension and hypovolemia are a culprit. OBJECTIVE: VITAL SIGNS: Blood pressure 147/88, pulse 60, and respirations 18. LUNGS: Clear. CARDIAC: Regular. Normal S1, S2. ABDOMEN: Soft. EXTREMITIES: No edema. IMPRESSION: 1. Syncope likely due to orthostatic hypotension. 2. Pacemaker. 3. Hypertensive heart disease. 4. Aberration. 5. CVA with gait abnormality and dysarthria. PLAN: 1. Avoid tight blood pressure control. 2. Monitor orthostatics. 3. Maintain adequate hydration. 4. Pacemaker interrogation. 5. Physical and occupational therapy assessments. 6. Skin care. Parveen Weiner M.D. DR: KENDRICK JOB#: [id number] CC:
[2019-01-31 20:00] VITALS: BP 125/73
[2019-01-31] MEDS: Tamsulosin 0.4mg cap ORAL SCH (20:26)
[2019-01-31] MEDS: TraZODone 50mg tab ORAL SCH (20:26)
--- NOTE | 2019-01-31 21:15 | History and Physical Report ---
DATE OF ADMISSION: 01/30/2019 CHIEF COMPLAINT: Syncope. HISTORY OF PRESENT ILLNESS: Mr. Garcia is a pleasant 78-year-old male well known to me. He has a prior history of conduction system disease, status post pacemaker, stroke, and hypertension. He was admitted from home after he had an apparent syncopal episode. He said he sustained a small abrasion to his right cheek. He was initially taken to [facility]. He was transferred here for care with his regular doctor. He denies any fevers or chills. No headaches. No chest pain. No shortness of breath. No palpitations. According to the patient, he has been eating and drinking well. He is unclear of the exact events surrounding his syncopal episode. He is currently without complaints. He states that he feels "normal." PAST MEDICAL HISTORY: As above. PAST SURGICAL HISTORY: Includes a pacemaker. CURRENT MEDICATIONS: Reconciled and reviewed. ALLERGIES: None. FAMILY HISTORY: None. SOCIAL HISTORY: Negative for tobacco, ethanol, or drugs. REVIEW OF SYSTEMS: GENERAL: No fever or chills. HEENT: No headaches or visual changes. CARDIOPULMONARY: No chest pain or shortness of breath. GASTROINTESTINAL: No nausea or vomiting. No urgency or frequency. MUSCULOSKELETAL: No joint pain or swelling. NEUROLOGIC: No evidence of seizures. PHYSICAL EXAMINATION: VITAL SIGNS: Temperature 98 degrees, pulse 60, respirations 20, and blood pressure 143/85. GENERAL: The patient is well-developed, in no apparent distress. HEART: Regular rate and rhythm. LUNGS: Clear. ABDOMEN: Soft, nontender, and nondistended. EXTREMITIES: Without clubbing, cyanosis, or edema. LABORATORY DATA: Sodium 142 and potassium 3.8. Natriuretic peptide was 241. Uric acid level was 3.5. Troponin is 0.038. ASSESSMENT: This is a pleasant male with a history of hypertension, hypertensive heart disease, prior stroke, history of conduction system disease, status post pacemaker, admitted with complaints of syncope, suspect secondary to volume depletion and orthostatic . PLAN: 1. IV hydration. 2. Monitor orthostatics. 3. PT and OT evaluations. 4. Cardiology consult will be obtained. Ronald Uomoto, M.D. DR: WILLOW JOB#: [id number] CC:
[2019-02-01] VITALS: BP 112/70
[2019-02-01 04:00] VITALS: BP 138/72
[2019-02-01 08:00] VITALS: BP 134/74
[2019-02-01] MEDS: Donepezil 10mg tab ORAL SCH (08:56)
[2019-02-01] MEDS: Metoprolol Succinate XL 50mg tab ORAL SCH (08:58)
[2019-02-01] MEDS: Heparin 5000 units/ml inj SUBQ SCH ×2 (09:05→21:00)
--- NOTE | 2019-02-01 09:06 | General Progress Note ---
Assessment/Plan Problem List: (1) Syncope ICD Codes: R55 - Syncope SNOMED: 308825937 (2) Orthostatic syncope ICD Codes: R55 - Orthostatic syncope SNOMED: 358678588 (3) Status post CVA ICD Codes: Z86.73 - Personal history of transient ischemic attack (TIA), and cerebral infarction without residual deficits SNOMED: 810173519 (4) Facial laceration ICD Codes: S01.81XA - Laceration without foreign body of other part of head, initial encounter SNOMED: 810855278 Status: stable Assessment/Plan: tele antiplt rx monitor orthostatics check UA pt/ot Subjective ROS Limited/Unobtainable: No Constitutional: Reports: malaise, weakness HEENT: Reports: no symptoms Cardiovascular: Reports: no symptoms Respiratory: Reports: no symptoms Gastrointestinal/Abdominal: Reports: no symptoms Genitourinary: Reports: no symptoms Neurologic/Psychiatric: Reports: pre-existing deficit Endocrine: Reports: no symptoms Hematologic/Lymphatic: Reports: no symptoms Allergies: Coded Allergies: No Known Allergies (Verified , 05/02/08) All Systems: reviewed and negative except above Subjective no events. denies dizziness. no cp/sob. paced on monitor Objective Last 24 Hour Vital Signs Date Time Temp Pulse Resp B/P (MAP) Pulse Ox O2 Delivery O2 Flow Rate FiO2 02/01/19 08:00 97.8 61 18 134/74 (94) 97 02/01/19 04:00 62 02/01/19 04:00 97.2 62 18 138/72 (94) 95 02/01/19 00:00 96.8 61 18 112/70 (84) 96 02/01/19 00:00 61 01/31/19 21:00 Room Air 01/31/19 21:00 60 68 75 01/31/19 20:00 60 01/31/19 20:00 97.2 60 20 125/73 (90) 98 01/31/19 18:00 64 122/74 01/31/19 16:00 97.0 59 20 122/74 (90) 99 01/31/19 16:00 64 01/31/19 12:00 60 01/31/19 12:00 98.0 60 20 143/85 (104) 94 01/31/19 09:16 63 118/64 11/25/19 09:16 63 118/64 Intake and Output 01/31/19 02/01/19 19:00 07:00 Intake Total 1080 ml Output Total 1800 ml Balance -720 ml Intake Oral 1080 ml Output Urine Total 1800 ml # Voids 3 # Bowel Movements 2 Height (Feet): 6 Height (Inches): 2.00 Weight (Pounds): 215 General Appearance: WD/WN, alert Neck: supple Cardiovascular: regular rhythm Respiratory/Chest: chest wall non-tender, lungs clear, normal breath sounds, no respiratory distress Abdomen: normal bowel sounds, non tender, soft, no organomegaly Edema: no edema noted Arm (L), no edema noted Arm (R), no edema noted Leg (L), no edema noted Leg (R), no edema noted Pedal (L), no edema noted Pedal (R), no edema noted Generalized Neurologic: motor weakness Ronald Herrera MD Feb 01, 2019 09:06
[2019-02-01 12:00] VITALS: BP 136/88
[2019-02-01 13:01] LABS: APPEARANCE,URINE CLEAR; BILIRUBIN, URINE NEGATIVE (NEGATIVE); COLOR,URINE PALE YELLOW; GLUCOSE, URINE (UA) NEGATIVE (NEGATIVE); KETONES,URINE NEGATIVE (NEGATIVE); LEUKOCYTE ESTERASE ,URINE NEGATIVE (NEGATIVE); NITRITE,URINE NEGATIVE (NEGATIVE); PH,URINE 6.5 (4.5-8.0); PROTEIN,URINE NEGATIVE (NEGATIVE); UROBILINOGEN,URINE NORMAL MG/DL (0.0-1.0)
[2019-02-01 16:00] VITALS: BP 110/78
[2019-02-01 20:00] VITALS: BP 140/80
[2019-02-01] MEDS: TraZODone 50mg tab ORAL SCH (21:27)
[2019-02-01] MEDS: Tamsulosin 0.4mg cap ORAL SCH (21:27)
[2019-02-02] VITALS: BP 137/76
[2019-02-02 04:00] VITALS: BP 151/90
[2019-02-02 06:34] LABS: BASOPHILS % (AUTO) 0.9 % (0.0-2.0); EOSINOPHILS % (AUTO) 5.9 % (0.0-3.0); HEMATOCRIT 49.1 % (42.0-52.0); LYMPHOCYTES % (AUTO) 31.7 % (20.0-45.0); MEAN CORPUSCULAR VOLUME 93 FL (80-99); MONOCYTES % (AUTO) 8.7 % (1.0-10.0); NEUTROPHILS % (AUTO) 52.8 % (45.0-75.0); PLATELET COUNT 167 K/UL (150-450); RED CELL DISTRIBUTION WIDTH 13.8 % (11.6-14.8); WHITE BLOOD COUNT 5.5 K/UL (4.8-10.8)
[2019-02-02 07:09] LABS: ALANINE AMINOTRANSFERASE 23 U/L (12-78); ALBUMIN 3.3 G/DL (3.4-5.0); ALBUMIN/GLOBULIN RATIO 0.9 (1.0-2.7); ALKALINE PHOSPHATASE 91 U/L (46-116); ANION GAP 5 mmol/L (5-15); ASPARTATE AMINO TRANSFERASE 35 U/L (15-37); BILIRUBIN,TOTAL 0.6 MG/DL (0.2-1.0); BLOOD UREA NITROGEN 14 mg/dL (7-18); CALCIUM 8.6 MG/DL (8.5-10.1); CARBON DIOXIDE 33 MMOL/L (21-32); CHLORIDE 103 MMOL/L (98-107); POTASSIUM 3.8 MMOL/L (3.5-5.1); SODIUM 141 MMOL/L (136-145)
[2019-02-02 08:00] VITALS: BP 133/76
[2019-02-02] MEDS: Donepezil 10mg tab ORAL SCH (08:50)
[2019-02-02] MEDS: Metoprolol Succinate XL 50mg tab ORAL SCH (08:51)
[2019-02-02] MEDS: Heparin 5000 units/ml inj SUBQ SCH (08:52)
--- NOTE | 2019-02-02 09:20 | General Progress Note ---
Assessment/Plan Problem List: (1) Syncope ICD Codes: R55 - Syncope SNOMED: 716665586 (2) Orthostatic syncope ICD Codes: R55 - Orthostatic syncope SNOMED: 789295086 (3) Status post CVA ICD Codes: Z86.73 - Personal history of transient ischemic attack (TIA), and cerebral infarction without residual deficits SNOMED: 882409193 (4) Facial laceration ICD Codes: S01.81XA - Laceration without foreign body of other part of head, initial encounter SNOMED: 626928031 Status: stable Assessment/Plan: tele antiplt rx monitor orthostatics pt/ot dc planning to snf Subjective ROS Limited/Unobtainable: Yes Constitutional: Reports: fever, malaise HEENT: Reports: no symptoms Cardiovascular: Reports: no symptoms Respiratory: Reports: no symptoms Gastrointestinal/Abdominal: Reports: no symptoms Genitourinary: Reports: no symptoms Neurologic/Psychiatric: Reports: no symptoms Endocrine: Reports: no symptoms Hematologic/Lymphatic: Reports: no symptoms Allergies: Coded Allergies: No Known Allergies (Verified , 05/02/08) All Systems: reviewed and negative except above Subjective no events. denies dizziness. no cp/sob. paced on monitor d/w . patient has had multiple falls while at home. Objective Last 24 Hour Vital Signs Date Time Temp Pulse Resp B/P (MAP) Pulse Ox O2 Delivery O2 Flow Rate FiO2 02/02/19 09:07 60 65 77 02/02/19 08:51 60 133/76 02/02/19 08:50 60 133/76 02/02/19 08:00 97.1 60 19 133/76 (95) 97 02/02/19 04:00 97.2 61 20 151/90 (110) 98 02/02/19 04:00 60 02/02/19 00:00 60 02/02/19 00:00 98.0 62 20 137/76 (96) 98 02/01/19 21:00 61 63 70 02/01/19 21:00 Room Air 02/01/19 20:00 60 02/01/19 20:00 97.3 61 20 140/80 (100) 98 02/01/19 17:51 60 110/78 02/01/19 16:00 99.0 87 20 110/78 (89) 98 02/01/19 16:00 60 02/01/19 12:00 63 02/01/19 12:00 97.0 61 18 136/88 (104) 98 Intake and Output 02/01/19 02/02/19 19:00 07:00 Intake Total 1300 ml 270 ml Output Total 650 ml 1600 ml Balance 650 ml -1330 ml Intake Oral 400 ml 120 ml IV Total 900 ml 150 ml Output Urine Total 650 ml 1600 ml # Voids 3 # Bowel Movements 5 Laboratory Tests 02/01/19 11:40: Urine Color Pale yellow, Urine Appearance Clear, Urine pH 6.5, Urine Specific [place] 1.010, Urine Protein Negative, Urine Glucose (UA) Negative, Urine Ketones Negative, Urine Blood Negative, Urine Nitrite Negative, Urine Bilirubin Negative, Urine Urobilinogen Normal, Urine Leukocyte Esterase Negative 02/02/19 05:35: White Blood Count 5.5, Red Blood Count 5.30, Hemoglobin 16.0, Hematocrit 49.1, Mean Corpuscular Volume 93, Mean Corpuscular Hemoglobin 30.3, Mean Corpuscular Hemoglobin Concent 32.7, Red Cell Distribution Width 13.8, Platelet Count 167, Mean Platelet Volume 6.9, Neutrophils (%) (Auto) 52.8, Lymphocytes (%) (Auto) 31.7, Monocytes (%) (Auto) 8.7, Eosinophils (%) (Auto) 5.9H, Basophils (%) (Auto ) 0.9, Sodium Level 141, Potassium Level 3.8, Chloride Level 103, Carbon Dioxide Level 33H, Anion Gap 5, Blood Urea Nitrogen 14, Creatinine 1.0, Estimat Glomerular Filtration Rate , Glucose Level 85, Calcium Level 8.6, Magnesium Level 1.8, Total Bilirubin 0.6, Aspartate Amino Transf (AST/SGOT) 35, Alanine Aminotransferase (ALT/SGPT) 23, Alkaline Phosphatase 91, Total Protein 7.1, Albumin 3.3L, Globulin 3.8, Albumin/Globulin Ratio 0.9L Height (Feet): 6 Height (Inches): 2.00 Weight (Pounds): 211 General Appearance: WD/WN, alert Neck: supple Cardiovascular: regular rhythm Respiratory/Chest: chest wall non-tender, lungs clear, normal breath sounds Abdomen: normal bowel sounds, non tender, soft, no organomegaly Edema: no edema noted Arm (L), no edema noted Arm (R), no edema noted Leg (L), no edema noted Leg (R), no edema noted Pedal (L), no edema noted Pedal (R), no edema noted Generalized Neurologic: motor weakness Ronald Herrera MD Feb 02, 2019 09:20
--- NOTE | 2019-02-02 11:30 | Progress Note ---
DATE: 02/01/2019 CARDIOLOGY PROGRESS NOTE SUBJECTIVE: The patient's pacemaker was interrogated today and noted to be functioning appropriately. No atrial ectopy. No sustained atrial arrhythmias. Battery life is at least three years. OBJECTIVE: VITAL SIGNS: Blood pressure 134/74, pulse 61, respirations 18. Monitored rhythm, atrial paced. Afebrile. 00:27 orthostasis noted by nursing staff. Gait wide-based and unsteady. Left weakness. LUNGS: Clear. CARDIAC: Regular. There is no third heart sound. ABDOMEN: Soft. No edema. IMPRESSION: 1. Cerebrovascular disease. 2. Dysphagia. 3. Ataxia. 4. Gait abnormality. 5. Autonomic dysfunction. 6. Orthostatic syncope. 7. Permanent pacemaker. 8. Hypertensive heart disease. 9. Prostatic hypertrophy. PLAN: 1. Avoid tight blood pressure control. 2. Discontinue IV fluids. 3. May benefit from physical therapy. 4. We will decrease amlodipine dosing to avoid precipitous drop in blood pressure. Parveen Weiner M.D. DR: JANNETH JOB#: [id number] CC:
[2019-02-02 12:00] VITALS: BP 136/76
--- NOTE | 2019-02-02 22:01 | Discharge Summary ---
DATE OF ADMISSION: 01/30/2019 DATE OF DISCHARGE: 02/02/2019 ADMISSION DIAGNOSES: 1. Syncope. 2. Orthostatic hypotension. 3. Conduction system disease, status post pacemaker. 4. BPH. 5. Prior history of stroke with hemiparesis. 6. Mild dementia. 7. Hyperlipidemia. 8. Gout. DISCHARGE DIAGNOSES: 1. Syncope. 2. Orthostatic hypotension. 3. Conduction system disease, status post pacemaker. 4. BPH. 5. Prior history of stroke with hemiparesis. 6. Mild dementia. 7. Hyperlipidemia. 8. Gout. HOSPITAL COURSE: The patient was admitted from home after a possible syncopal episode. He was ruled out for EKG. He was gently hydrated. He was monitored on telemetry. He was seen by Cardiology. The patient remained stable, but was unsteady. Family requested that he go to a longterm facility. He will go there for short-term PT and OT. DISCHARGE MEDICATIONS: Please see discharge medication list for discharge medications. DIET: Cardiac diet. ACTIVITIES: Ad-betty. Ronald Herrera M.D. DR: CHARLES JOB#: [id number] CC:
--- NOTE | 2019-02-03 00:15 | Progress Note ---
DATE: 02/02/2019 CARDIOLOGY PROGRESS NOTE SUBJECTIVE: The patient is without complaints. No known documented orthostatic symptoms. He denies chest pain or shortness of breath. Pacemaker was interrogated yesterday and functioning appropriately. OBJECTIVE: VITAL SIGNS: Blood pressure 136/76, pulse 60, respirations 18. Monitor atrial paced. LUNGS: Clear. CARDIAC: Regular. No murmur. ABDOMEN: Soft. EXTREMITIES: No edema. NEUROLOGIC: Dysarthria and wide-based and unstable gait are noted. IMPRESSION: 1. Orthostatic syncope. 2. Hypertensive heart disease with history of labile blood pressure. 3. History of cerebral aneurysm, status post CVA. 4. Gait abnormality. 5. Dysarthria at baseline. 6. Functional decline. 7. Prostatic hypertrophy. 8. No signs of acute urinary infection. PLAN: 1. Plan of care reviewed. 2. Stable for discharge to shelter facility for rehabilitation, short-term prior to returning home. 3. Avoiding tight blood pressure control. 4. Outpatient pacemaker interrogation per routine schedule. Parveen Weiner M.D. DR: GRACIELA JOB#: [id number] CC:
[2019-02-04] MEDS ORDERED: Vitamin D 50,000 units cap ORAL SCH (09:00)
== END 2019-02-02 15:29 | DRG 312 ==
LOC: 2E 14:28
DX: I95.1 Orthostatic hypotension (principal); I69.359 Hemiplegia and hemiparesis following cerebral infarction affecting unspecified side; I11.9 Hypertensive heart disease without heart failure; R47.1 Dysarthria and anarthria; S00.81XA Abrasion of other part of head, initial encounter; I69.393 Ataxia following cerebral infarction; N40.0 Benign prostatic hyperplasia without lower urinary tract symptoms; R13.10 Dysphagia, unspecified; I10 Essential (primary) hypertension; Z95.0 Presence of cardiac pacemaker; F03.90 Unspecified dementia, unspecified severity, without behavioral disturbance, psychotic disturbance, mood disturbance, and anxiety; E78.5 Hyperlipidemia, unspecified; M10.9 Gout, unspecified; M19.90 Unspecified osteoarthritis, unspecified site; S01.81XA Laceration without foreign body of other part of head, initial encounter; W19.XXXA Unspecified fall, initial encounter; I69.322 Dysarthria following cerebral infarction
CPT/HCPCS: 36415; 80053; 81003; 83735; 83880; 84443; 84484; 84550; 85025; 87086; 87181

== ENCOUNTER 2019-06-01 14:14 | Inpatient (IN) | payer MEDICARE, OTHER ==
[~2019-06-01] VITALS: Ht 188 cm; Wt 85.0 kg
[~2019-06-01 14:14] MED LIST changes: +ARICEPT10 MG ORAL; +ATORVASTATIN CA10 MG ORAL; +METOPROLOL TAR100 MG ORAL; +TRAZODONE HCL50 MG ORAL; +VITAMIN D250000 UNI1 ORAL
[2019-06-01 15:13] VITALS: BP 115/72
[2019-06-01 15:16] LABS: EOSINOPHILS % (AUTO) 0.5 % (0.0-3.0); HEMATOCRIT 47.1 % (42.0-52.0); LYMPHOCYTES % (AUTO) 14.3 % (20.0-45.0); MEAN CORPUSCULAR VOLUME 95 FL (80-99); MONOCYTES % (AUTO) 6.6 % (1.0-10.0); NEUTROPHILS % (AUTO) 76.7 % (45.0-75.0); PLATELET COUNT 209 K/UL (150-450); RED BLOOD COUNT 4.97 M/UL (4.70-6.10); WHITE BLOOD COUNT 6.9 K/UL (4.8-10.8)
[2019-06-01 15:26] LABS: ANION GAP 7 mmol/L (5-15); BLOOD UREA NITROGEN 23 mg/dL (7-18); CALCIUM 9.5 MG/DL (8.5-10.1); CARBON DIOXIDE 29 MMOL/L (21-32); CHLORIDE 103 MMOL/L (98-107); CREATININE 1.6 MG/DL (0.55-1.30); POTASSIUM 4.8 MMOL/L (3.5-5.1); SODIUM 139 MMOL/L (136-145)
[2019-06-01 15:43] LABS: ALANINE AMINOTRANSFERASE 27 U/L (12-78); ALBUMIN 3.3 G/DL (3.4-5.0); ALBUMIN/GLOBULIN RATIO 0.8 (1.0-2.7); ALKALINE PHOSPHATASE 94 U/L (46-116); ASPARTATE AMINO TRANSFERASE 35 U/L (15-37); BILIRUBIN,TOTAL 0.7 MG/DL (0.2-1.0)
--- NOTE | 2019-06-01 15:44 | Diagnostic Imaging Report ---
Indication: Dyspnea Comparison: 06/28/2018 A single view chest radiograph was obtained. Findings: Lung volumes are low but there are no infiltrates seen. There is a pacemaker on the left. Mild cardiomegaly is present. Bones are unremarkable. IMPRESSION: No acute disease
[2019-06-01] MEDS ORDERED: LOSARTAN POTAS100 MG ORAL (15:59)
[2019-06-01] MEDS ORDERED: METOPROLOL TAR100 M1 ORAL (15:59)
[2019-06-01] MEDS ORDERED: DOCUSATE SODIU100 MG ORAL (15:59)
--- NOTE | 2019-06-01 15:59 | Emergency Room Report ---
History of Present Illness General Chief Complaint: Altered Mental Status Source: Patient Present Illness HPI 78-year-old male presents ED for evaluation. Brought in by for syncope. States that he passed out 5 times today. No head injury. Patient states he feels fine now. at bedside states that patient was discharged yesterday from another hospital for the same problem. Was hospitalized for several weeks. States that extensive work-ups were done including CT and MRI. Does not know the diagnosis. Patient and states this is been happening for years now. Denies fevers or chills. Denies cough. Denies chest pain or shortness of breath. No other aggravating relieving factors. Denies any other associated symptoms Allergies: Coded Allergies: No Known Allergies (Verified , 05/02/08) COVID-19 Screening Contact w/high risk pt: No Recent Travel to affected area: No Experienced COVID-19 symptoms?: No Patient History Past Medical History: HTN, CVA/TIA, dementia, renal disease Past Surgical History: pacemaker Social History: Denies: smoking, alcohol use, drug use Immunizations: UTD Reviewed Nursing Documentation: PMH: Agreed; PSxH: Agreed Nursing Documentation-PMH Past Medical History: No History, Except For Hx Cardiac Problems: Yes Hx Hypertension: Yes Hx Pacemaker: Yes - Left chest Hx Cancer: No Hx Gastrointestinal Problems: No Hx Dialysis: Yes - Renal Failure Hx Neurological Problems: Yes Hx Cerebrovascular Accident: Yes - Left sided weakness Hx Transient Ischemic Attacks: Yes Hx Dementia: Yes Hx Seizures: No Hx Speech Problem: Yes - post CVA Hx Syncope: Yes Hx Weakness: Yes Hx Neurologic Surgery: Yes - anneurysm in 2007 Review of Systems All Other Systems: negative except mentioned in HPI Physical Exam Vital Signs Date Time Temp Pulse Resp B/P (MAP) Pulse Ox O2 Delivery O2 Flow Rate FiO2 06/01/19 14:29 97.9 87 15 116/74 (88) 99 Room Air Sp02 EP Interpretation: reviewed, normal General Appearance: no apparent distress, alert, GCS 15, non-toxic Head: normocephalic, atraumatic Eyes: bilateral eye normal inspection, bilateral eye PERRL ENT: hearing grossly normal, normal pharynx, no angioedema, normal voice Neck: full range of motion, supple/symm/no masses Respiratory: chest non-tender, lungs clear, normal breath sounds, speaking full sentences Cardiovascular #1: regular rate, rhythm, no edema Cardiovascular #2: 2+ carotid (R), 2+ carotid (L), 2+ radial (R), 2+ radial (L) , 2+ dorsalis pedis (R), 2+ dorsalis pedis (L) Gastrointestinal: normal bowel sounds, non tender, soft, non-distended, no guarding, no rebound Rectal: deferred Genitourinary: normal inspection, no CVA tenderness Musculoskeletal: back normal, normal range of motion, gait/station normal, non- tender Neurologic: alert, motor strength/tone normal, oriented x3, sensory intact, responsive, speech normal Psychiatric: judgement/insight normal, memory normal, mood/affect normal, no suicidal/homicidal ideation Reflexes: 3+ bicep (R), 3+ bicep (L), 3+ tricep (R), 3+ tricep (L), 3+ knee (R) , 3+ knee (L) Skin: other - see nursing skin notes Lymphatic: no adenopathy Medical Decision Making Diagnostic Impression: Primary Impression: Syncope Qualified Codes: R55 - Syncope and collapse Additional Impression: Renal insufficiency ER Course Hospital Course 78-year-old M presents ED s/p syncopal episode. Differential diagnoses include: NV/unstable angina, arrythmia, dehydration, CVA/ TIA Clinical course Patient placed on stretcher. on monitor and storage bin tender. After initial history and physical I ordered labs, EKG, chest x-ray, IVFs brought medical records from hospitalization. Spoke to PMD Dr. Herrera. He manage patient's care during last hospitalization. Believes this is likely orthostatic and may be related to his BP meds. Agrees no further imaging required at this time. Patient and are uncomfortable with discharge at this time. We will agreed to observation labs reviewed- no leukocytosis, hemoglobin/hematocrit ok, BUN/Cr elevated, troponins negative EKG- NSR no acute ischemic changes interpreted by me Chest x-ray- no acute process, pacemaker Case discussed with Dr. Herrera and he agreed to accept the patient to his service for further care and support I. I feel this is a highly complex case requiring extensive working including EKG/Rhythm strip, Xray/CT/US, Blood/urine lab work, repeat exams while in ED, and administration of strong opiates/narcotics for pain control, admission to hospital or close patient follow up. Diagnosis - syncope, renal insufficiency admitted to telemetry in serious condition Labs Test 06/01/19 14:50 06/01/19 15:31 White Blood Count 6.9 K/UL (4.8-10.8) Red Blood Count 4.97 M/UL (4.70-6.10) Hemoglobin 15.0 G/DL (14.2-18.0) Hematocrit 47.1 % (42.0-52.0) Mean Corpuscular Volume 95 FL (80-99) Mean Corpuscular Hemoglobin 30.1 PG (27.0-31.0) Mean Corpuscular Hemoglobin Concent 31.8 G/DL (32.0-36.0) Red Cell Distribution Width 14.0 % (11.6-14.8) Platelet Count 209 K/UL (150-450) Mean Platelet Volume 7.0 FL (6.5-10.1) Neutrophils (%) (Auto) 76.7 % (45.0-75.0) Lymphocytes (%) (Auto) 14.3 % (20.0-45.0) Monocytes (%) (Auto) 6.6 % (1.0-10.0) Eosinophils (%) (Auto) 0.5 % (0.0-3.0) Basophils (%) (Auto) 2.0 % (0.0-2.0) Sodium Level 139 MMOL/L (136-145) Potassium Level 4.8 MMOL/L (3.5-5.1) Chloride Level 103 MMOL/L (98-107) Carbon Dioxide Level 29 MMOL/L (21-32) Anion Gap 7 mmol/L (5-15) Blood Urea Nitrogen 23 mg/dL (7-18) Creatinine 1.6 MG/DL (0.55-1.30) Estimat Glomerular Filtration Rate 50.8 mL/min (>60) Glucose Level 198 MG/DL (74-106) Calcium Level 9.5 MG/DL (8.5-10.1) Total Bilirubin 0.7 MG/DL (0.2-1.0) Aspartate Amino Transf (AST/SGOT) 35 U/L (15-37) Alanine Aminotransferase (ALT/SGPT) 27 U/L (12-78) Alkaline Phosphatase 94 U/L (46-116) Troponin I 0.002 ng/mL (0.000-0.056) Pro-B-Type Natriuretic Peptide 331 pg/mL (0-125) Total Protein 7.2 G/DL (6.4-8.2) Albumin 3.3 G/DL (3.4-5.0) Globulin 3.9 g/dL Albumin/Globulin Ratio 0.8 (1.0-2.7) EKG Diagnostic Results Rate: normal Rhythm: NSR ST Segments: no acute changes ASA given to the pt in ED: No Rhythm Strip Diag. Results EP Interpretation: yes Rhythm: NSR, no PVC's, no ectopy Chest X-Ray Diagnostic Results Chest X-Ray Diagnostic Results : Chest X-Ray Ordered: Yes # of Views/Limited/Complete: 1 View Indication: Other - syncope EP Interpretation: Yes Interpretation: no consolidation, no effusion, no pneumothorax, no acute cardiopulmonary disease, other - pacemaker Impression: No acute disease Electronically Signed by: Electronically signed by Jose Luna MD Last Vital Signs Date Time Temp Pulse Resp B/P (MAP) Pulse Ox O2 Delivery O2 Flow Rate FiO2 06/01/19 15:13 97.9 69 17 115/72 99 Room Air Status: improved Disposition: ADMITTED INPATIENT Condition: Serious Referrals: Ronald Herrera MD (PCP) Jose Luna MD Jun 01, 2019 15:59
[2019-06-01 16:05] LABS: APPEARANCE,URINE SLIGHTLY CLOUDY; BILIRUBIN, URINE NEGATIVE (NEGATIVE); GLUCOSE, URINE (UA) NEGATIVE (NEGATIVE); KETONES,URINE NEGATIVE (NEGATIVE); LEUKOCYTE ESTERASE ,URINE 3+ (NEGATIVE); NITRITE,URINE POSITIVE (NEGATIVE); PH,URINE 7 (4.5-8.0); PROTEIN,URINE 1+ (NEGATIVE); UROBILINOGEN,URINE NORMAL MG/DL (0.0-1.0)
[2019-06-01 16:07] LABS: COLOR,URINE YELLOW
[2019-06-01] MEDS ORDERED: cefTRIAXone 1 GM in NS 55 ML IVPB ONE (16:30)
[2019-06-01 17:07] VITALS: BP 131/78
[2019-06-01 17:57] VITALS: BP 122/77
[2019-06-01 20:00] VITALS: BP 136/78
[2019-06-01] MEDS: Tamsulosin 0.4mg cap ORAL SCH (22:18)
[2019-06-01] MEDS: Metoprolol Succinate XL 25mg tab ORAL SCH (22:21)
[2019-06-01] MEDS: Piperacillin/Tazobactam 3.375 GM in NS 110 ML IVPB SCH (22:21)
[2019-06-02] VITALS: BP 131/76
[2019-06-02 04:00] VITALS: BP 126/73
--- NOTE | 2019-06-02 04:45 | Consultation ---
DATE OF CONSULTATION: 06/01/2019 CARDIOLOGY CONSULTATION CONSULTING PHYSICIAN: Parveen Weiner M.D. REQUESTING PHYSICIAN: Ronald Herrera M.D. REASON FOR CONSULTATION: Recurring syncope. HISTORY OF PRESENT ILLNESS: This is a 78-year-old male, known to me from prior care. He has a permanent pacemaker. He has a history of cerebrovascular disease with prior cerebrovascular accident associated with intracerebral aneurysm back in 2007. He also has a history of recurring syncope that has been orthostatic in nature for many years. However, more recently over the past two months, he has had frequent episodes several times a day and not associated specifically with orthostasis. The patient was hospitalized at an outside facility for several weeks and had full neurologic workup with no definitive diagnosis noted. His permanent pacemaker was interrogated less than three months ago and noted to be functioning appropriately. 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 ALLERGIES: None. MEDICATIONS: Reviewed and reconciled. FAMILY HISTORY: Noncontributory. SOCIAL HISTORY: Negative for smoking, alcohol, or substance abuse. REVIEW OF SYSTEMS: No fevers or chills. No cough or sputum production. Most recent echocardiogram in the last three months revealed normal ejection fraction with concentric hypertrophy and a diastolic relaxation abnormality. There is no history of seizures . There is no history of diabetes or thyroid impairment. No change in bowel habits noted. No history of prostate cancer. He does have prostatic hypertrophy. His voiding capacity is adequate. He does have a history of orthostatic hypotension. PHYSICAL EXAMINATION: VITAL SIGNS: Blood pressure 116/74, heart rate 87, respiratory rate 15, and afebrile. HEENT: Conjunctivae are pink. Oropharynx is clear. NECK: Supple. Jugular venous pressure normal. LUNGS: Clear. CARDIAC: Regular. Normal S1 and S2. No murmur. ABDOMEN: Soft and nontender. EXTREMITIES: No edema. Left-sided weakness with dysarthria. LABORATORY AND DIAGNOSTIC DATA: Labs reviewed. EKG with a paced rhythm. IMPRESSION: 1. Recurring syncope. 2. History of orthostatic hypotension. 3. Permanent pacemaker. 4. Hypertensive heart disease with labile blood pressure. 5. Cerebrovascular disease with cerebrovascular accident. 6. Acute on chronic kidney injury. PLAN: 1. Hydration. 2. Monitor orthostatics. 3. Titrate antihypertensives. 4. Consider EEG if not recently done. 5. Consider midodrine for orthostasis. 6. Avoid diuretics. Parveen Weiner M.D. DR: RASHID JOB#: [id number] CC:
[2019-06-02] MEDS: Piperacillin/Tazobactam 3.375 GM in NS 110 ML IVPB SCH ×3 (05:37→21:12)
[2019-06-02 08:00] VITALS: BP 128/85
--- NOTE | 2019-06-02 09:30 | History and Physical Report ---
DATE OF ADMISSION: 06/01/2019 CHIEF COMPLAINT: 1. Near syncope. 2. Urinary tract infection. 3. Hypotension. HISTORY OF PRESENT ILLNESS: The patient is a pleasant 78-year-old male well known to me. He has a history of paroxysmal atrial fibrillation. He has prior history of stroke with hemiparesis, hypertension, history of recurrent syncope. He was admitted from home after his noted that the patient had a syncopal episode. The patient is a poor historian but according to the patient's as well as home health nurse the patient became briefly unresponsive for 5 to 10 seconds. Family drove him to the emergency room. On evaluation there, he was noted to be hypotensive. His laboratories were significant for urinary tract infection as well as an elevated BUN and creatinine. He has now been started on antibiotic therapy and hydration. He was admitted to a monitored bed. PAST MEDICAL HISTORY: As above. PAST SURGICAL HISTORY: None. CURRENT MEDICATIONS: Reconciled and reviewed. ALLERGIES: None. FAMILY HISTORY: None. SOCIAL HISTORY: Negative for tobacco, ethanol, or drugs. REVIEW OF SYSTEMS: GENERAL: No fevers or chills. HEENT: No headaches or visual changes. CARDIOPULMONARY: No chest pain or shortness of breath. No palpitations. GASTROINTESTINAL: No nausea or vomiting. GENITOURINARY: No urgency or frequency. MUSCULOSKELETAL: No joint pain or swelling. NEUROLOGIC: No evidence of seizures. PHYSICAL EXAMINATION: VITAL SIGNS: Temperature 98 degrees, pulse 87, respirations 15, blood pressure 116/74. GENERAL: The patient is well-developed, no apparent distress. HEART: Regular rate and rhythm. LUNGS: Clear. ABDOMEN: Soft, nontender, nondistended. EXTREMITIES: Without clubbing, cyanosis, or edema. LABORATORY DATA: UA showed 60 to 80 wbc's. White count 7, hemoglobin 15. Sodium 139, BUN 23, creatinine 1.6. ASSESSMENT: This is a pleasant 78-year-old male admitted with complaints of syncope secondary to dehydration as well as urinary tract infection. 1. Syncope. 2. Dehydration. 3. Acute on chronic renal failure. 4. Urinary tract infection. 5. Toxic metabolic encephalopathy. 6. Possible early sepsis. PLAN: 1. IV antibiotics. 2. Intravenous hydration. 3. Follow up cultures. 4. Monitor orthostatics. 5. Cardiology consultation. Ronald Herrera M.D. DR: Rico JOB#: [id number] CC:
[2019-06-02] MEDS: Metoprolol Succinate XL 25mg tab ORAL SCH (10:21)
[2019-06-02] MEDS: Eliquis 5mg tablet ORAL SCH ×2 (10:22→17:55)
[2019-06-02] MEDS: Donepezil 10mg tab ORAL SCH (10:22)
[2019-06-02 12:00] VITALS: BP 123/79
[2019-06-02 16:00] VITALS: BP 113/75
[2019-06-02 20:00] VITALS: BP 111/64
[2019-06-02] MEDS: Tamsulosin 0.4mg cap ORAL SCH (21:53)
--- NOTE | 2019-06-02 22:14 | Progress Note ---
DATE: 06/02/2019 CARDIOLOGY PROGRESS NOTE SUBJECTIVE: The patient has no complaints. He does not think that he is dizzy. He does not recall passing out several times yesterday. Orthostatics were not checked per record. PHYSICAL EXAMINATION: VITAL SIGNS: Blood pressure 123/79, pulse 66, respirations 18. LUNGS: Clear. CARDIAC: Regular. ABDOMEN: Soft. EXTREMITIES: No edema. IMPRESSION: 1. Recurring syncope. 2. History of orthostatic syncope. 3. Permanent pacemaker. 4. Hypertensive heart disease with history of labile blood pressure. 5. Prostatic hypertrophy. 6. Current low ranged blood pressure. 7. History of cerebral aneurysm and cerebrovascular accident. PLAN: 1. Decrease antihypertensives. 2. Check orthostatics. 3. Cautious hydration. 4. Physical and occupational therapy assessment. Parveen Weiner M.D. DR: GRACIELA JOB#: [id number] CC:
[2019-06-03] VITALS: BP 121/69
[2019-06-03 04:00] VITALS: BP 129/82
[2019-06-03] MEDS: Piperacillin/Tazobactam 3.375 GM in NS 110 ML IVPB SCH ×3 (06:48→21:40)
[2019-06-03 08:00] VITALS: BP 132/77
[2019-06-03] MEDS: Metoprolol Succinate XL 25mg tab ORAL SCH (08:21)
[2019-06-03] MEDS: Donepezil 10mg tab ORAL SCH (08:22)
[2019-06-03] MEDS: Eliquis 5mg tablet ORAL SCH ×2 (08:22→17:09)
--- NOTE | 2019-06-03 09:36 | General Progress Note ---
Assessment/Plan Problem List: (1) UTI (urinary tract infection) ICD Codes: N39.0 - Urinary tract infection, site not specified SNOMED: 56048165 (2) Toxic metabolic encephalopathy ICD Codes: G92 - Toxic encephalopathy SNOMED: 231054007 (3) Syncope ICD Codes: R55 - Syncope SNOMED: 515124525 (4) Orthostatic hypotension ICD Codes: I95.1 - Orthostatic hypotension SNOMED: 48794155 (5) Arrhythmia (6) Cerebral vascular accident ICD Codes: I63.9 - Cerebral infarction, unspecified SNOMED: 498554038 (7) Fall ICD Codes: W19.XXXA - Unspecified fall, initial encounter SNOMED: 2987098, 186854233 (8) Syncope ICD Codes: R55 - Syncope SNOMED: 429875988 Status: stable Assessment/Plan: cont current rx added vanco until ucx back cautious hydration monitor bp monitor orthostatics pt/ot Subjective ROS Limited/Unobtainable: No Constitutional: Reports: malaise, weakness HEENT: Reports: no symptoms Cardiovascular: Reports: no symptoms Respiratory: Reports: no symptoms Gastrointestinal/Abdominal: Reports: no symptoms Genitourinary: Reports: no symptoms Neurologic/Psychiatric: Reports: pre-existing deficit Endocrine: Reports: no symptoms Hematologic/Lymphatic: Reports: no symptoms Allergies: Coded Allergies: No Known Allergies (Verified , 05/02/08) All Systems: reviewed and negative except above Subjective no events. w/o complaints. no dizziness. Ucx with GPC. no palps or chest pain no sob. . Objective Last 24 Hour Vital Signs Date Time Temp Pulse Resp B/P (MAP) Pulse Ox O2 Delivery O2 Flow Rate FiO2 06/03/19 08:22 64 132/77 06/03/19 08:21 64 132/77 06/03/19 08:00 97.2 64 18 132/77 (95) 97 06/03/19 04:00 97.9 61 20 129/82 (98) 100 06/03/19 04:00 69 06/03/19 00:00 69 06/03/19 00:00 98.2 63 20 121/69 (86) 100 06/02/19 22:36 63 63 91 06/02/19 21:00 Room Air 06/02/19 20:00 98.2 69 20 111/64 (80) 100 06/02/19 20:00 69 06/02/19 16:00 97.5 64 20 113/75 (88) 99 06/02/19 16:00 64 06/02/19 12:00 97.2 66 18 123/79 (94) 96 06/02/19 12:00 61 06/02/19 10:22 67 128/85 06/02/19 10:21 67 128/85 Intake and Output 06/02/19 06/03/19 19:00 07:00 Intake Total 760 ml 27.5 ml Output Total 750 ml 300 ml Balance 10 ml -272.5 ml Intake Oral 360 ml IV Total 400 ml 27.5 ml Output Urine Total 750 ml 300 ml # Bowel Movements 1 2 Height (Feet): 6 Height (Inches): 2.00 Weight (Pounds): 187 General Appearance: WD/WN, alert Neck: supple Cardiovascular: regular rhythm Respiratory/Chest: lungs clear, normal breath sounds Abdomen: normal bowel sounds, non tender, soft, no organomegaly Edema: no edema noted Arm (L), no edema noted Arm (R), no edema noted Leg (L), no edema noted Leg (R), no edema noted Pedal (L), no edema noted Pedal (R), no edema noted Generalized Neurologic: high man II-XII grossly normal, alert, oriented x 3, responsive Ronald Herrera MD Jun 03, 2019 09:36
[2019-06-03] MEDS ORDERED: Vancomycin 1.5gm/NS Premix IVPB ONE (11:00)
[2019-06-03 11:24] VITALS: BP 122/74
[2019-06-03 15:45] VITALS: BP 133/76
[2019-06-03 20:00] VITALS: BP 133/77
[2019-06-03] MEDS: Tamsulosin 0.4mg cap ORAL SCH (21:41)
--- NOTE | 2019-06-03 22:59 | Progress Note ---
DATE: 06/03/2019 CARDIOLOGY PROGRESS NOTE SUBJECTIVE: The patient offers no complaints as usual. He says he is fine. He has not had much mobilization. Orthostatic evaluations have been rare and negative. PHYSICAL EXAMINATION: VITAL SIGNS: Blood pressure 129/82 . LUNGS: Bilateral breath sounds. CARDIAC: Regular rhythm and rate. Normal S1, S2. ABDOMEN: Soft. EXTREMITIES: No edema. NEUROLOGIC: Gait is unsteady. DIAGNOSTIC DATA: Monitor reveals a paced cardiac rhythm. Urinalysis with gram-positive cocci. IMPRESSION: 1. Recurring syncope. 2. Acute on chronic kidney injury. 3. Hypovolemia. 4. Dehydration. 5. Orthostatic syncope. 6. Hyperglycemia possibly due to diabetes mellitus. 7. Chronic diastolic congestive heart failure. 8. Permanent pacemaker. 9. Hypertensive heart disease. 10. History of intracranial bleed due to aneurysm. PLAN: 1. Recheck lab studies. 2. Adjust IV hydration. 3. Empiric antimicrobials pending final urine cultures. 4. Avoid tight blood pressure control. 5. Physical and occupational therapy assessment. Parveen Weiner M.D. DR: GRACIELA JOB#: [id number] CC:
[2019-06-04] VITALS: BP 148/73
[2019-06-04 04:00] VITALS: BP 136/79
[2019-06-04] MEDS: Piperacillin/Tazobactam 3.375 GM in NS 110 ML IVPB SCH ×3 (05:00→22:04)
[2019-06-04 07:36] LABS: BASOPHILS % (AUTO) 1.3 % (0.0-2.0); EOSINOPHILS % (AUTO) 5.4 % (0.0-3.0); HEMATOCRIT 40.9 % (42.0-52.0); HEMOGLOBIN 13.9 G/DL (14.2-18.0); LYMPHOCYTES % (AUTO) 34.4 % (20.0-45.0); MEAN CORPUSCULAR VOLUME 90 FL (80-99); MONOCYTES % (AUTO) 8.5 % (1.0-10.0); NEUTROPHILS % (AUTO) 50.4 % (45.0-75.0); PLATELET COUNT 185 K/UL (150-450); RED BLOOD COUNT 4.53 M/UL (4.70-6.10); RED CELL DISTRIBUTION WIDTH 12.5 % (11.6-14.8); WHITE BLOOD COUNT 5.4 K/UL (4.8-10.8)
[2019-06-04 07:53] LABS: ALANINE AMINOTRANSFERASE 20 U/L (12-78); ALBUMIN 2.6 G/DL (3.4-5.0); ALBUMIN/GLOBULIN RATIO 0.8 (1.0-2.7); ALKALINE PHOSPHATASE 72 U/L (46-116); ANION GAP 8 mmol/L (5-15); ASPARTATE AMINO TRANSFERASE 22 U/L (15-37); BILIRUBIN,TOTAL 0.6 MG/DL (0.2-1.0); BLOOD UREA NITROGEN 19 mg/dL (7-18); CARBON DIOXIDE 27 MMOL/L (21-32); CHLORIDE 107 MMOL/L (98-107); CREATININE 1.1 MG/DL (0.55-1.30); POTASSIUM 3.6 MMOL/L (3.5-5.1); SODIUM 142 MMOL/L (136-145)
[2019-06-04 08:00] VITALS: BP 132/83
[2019-06-04] MEDS: Donepezil 10mg tab ORAL SCH (09:08)
[2019-06-04] MEDS: Metoprolol Succinate XL 25mg tab ORAL SCH (09:08)
[2019-06-04] MEDS: Eliquis 5mg tablet ORAL SCH ×2 (09:08→17:26)
[2019-06-04] MEDS ORDERED: Vancomycin 1.5gm/NS Premix IVPB ONE (10:00)
[2019-06-04 11:56] VITALS: BP 130/80
--- NOTE | 2019-06-04 12:18 | General Progress Note ---
Assessment/Plan Problem List: (1) UTI (urinary tract infection) ICD Codes: N39.0 - Urinary tract infection, site not specified SNOMED: 91098980 (2) Toxic metabolic encephalopathy ICD Codes: G92 - Toxic encephalopathy SNOMED: 044325857 (3) Syncope ICD Codes: R55 - Syncope SNOMED: 937729997 (4) Orthostatic hypotension ICD Codes: I95.1 - Orthostatic hypotension SNOMED: 08015549 (5) Arrhythmia (6) Cerebral vascular accident ICD Codes: I63.9 - Cerebral infarction, unspecified SNOMED: 179106257 (7) Fall ICD Codes: W19.XXXA - Unspecified fall, initial encounter SNOMED: 6111594, 754321106 (8) Syncope ICD Codes: R55 - Syncope SNOMED: 648125515 Status: stable Assessment/Plan: Continue cautious hydration. Add low-dose midodrine. Monitor for hypertension on midodrine. Monitor orthostatics. Continue IV vancomycin while in-house. PT OT evaluations will be obtained. Discharge planning to be determined after therapy eval. Cardiology follow-up Subjective ROS Limited/Unobtainable: No Constitutional: Reports: no symptoms HEENT: Reports: no symptoms Cardiovascular: Reports: no symptoms Respiratory: Reports: no symptoms Gastrointestinal/Abdominal: Reports: no symptoms Genitourinary: Reports: no symptoms Neurologic/Psychiatric: Reports: pre-existing deficit Endocrine: Reports: no symptoms Hematologic/Lymphatic: Reports: no symptoms Allergies: Coded Allergies: No Known Allergies (Verified , 05/02/08) All Systems: reviewed and negative except above Subjective Patient is without complaints. He denies any dizziness chest pain or shortness of breath. Since orthostatic vital signs were positive this morning with a drop of 40 points in his systolic blood pressure. Patient was not symptomatic. Urine cultures growing out enterococci. Sensitive to vancomycin. Objective Last 24 Hour Vital Signs Date Time Temp Pulse Resp B/P (MAP) Pulse Ox O2 Delivery O2 Flow Rate FiO2 06/04/19 11:56 98.1 64 20 130/80 (97) 99 06/04/19 10:50 103 06/04/19 10:45 65 06/04/19 10:40 62 06/04/19 09:08 65 132/83 06/04/19 09:08 65 132/83 06/04/19 09:00 Room Air 06/04/19 08:00 98.7 65 20 132/83 (99) 97 06/04/19 04:00 97.3 64 16 136/79 (98) 98 06/04/19 00:00 97.9 69 19 148/73 (98) 100 06/03/19 21:00 Room Air 06/03/19 20:00 96.8 65 18 133/77 (95) 100 06/03/19 20:00 62 06/03/19 16:00 61 06/03/19 15:45 97.5 76 18 133/76 (95) 98 06/03/19 12:25 63 80 85 Intake and Output 06/03/19 06/04/19 19:00 07:00 Intake Total 650 ml 690.0 ml Output Total 1050 ml 300 ml Balance -400 ml 390.0 ml Intake Oral 600 ml IV Total 50 ml 690.0 ml Output Urine Total 1050 ml 300 ml # Bowel Movements 1 Laboratory Tests 06/04/19 06:30: White Blood Count 5.4, Red Blood Count 4.53L, Hemoglobin 13.9L, Hematocrit 40.9L , Mean Corpuscular Volume 90, Mean Corpuscular Hemoglobin 30.6, Mean Corpuscular Hemoglobin Concent 33.9, Red Cell Distribution Width 12.5, Platelet Count 185, Mean Platelet Volume 6.2L, Neutrophils (%) (Auto) 50.4, Lymphocytes ( %) (Auto) 34.4, Monocytes (%) (Auto) 8.5, Eosinophils (%) (Auto) 5.4H, Basophils (%) (Auto) 1.3, Sodium Level 142, Potassium Level 3.6, Chloride Level 107, Carbon Dioxide Level 27, Anion Gap 8, Blood Urea Nitrogen 19H, Creatinine 1.1, Estimat Glomerular Filtration Rate > 60, Glucose Level 88, Calcium Level 8.0L, Magnesium Level 1.9, Total Bilirubin 0.6, Aspartate Amino Transf (AST/SGOT ) 22, Alanine Aminotransferase (ALT/SGPT) 20, Alkaline Phosphatase 72, Pro-B- Type Natriuretic Peptide 368H, Total Protein 6.0L, Albumin 2.6L, Globulin 3.4, Albumin/Globulin Ratio 0.8L, Random Vancomycin Level 6.8 Height (Feet): 6 Height (Inches): 2.00 Weight (Pounds): 187 Objective General Appearance: WD/WN, alert Neck: supple Cardiovascular: regular rhythm Respiratory/Chest: lungs clear, normal breath sounds Abdomen: normal bowel sounds, non tender, soft, no organomegaly Edema: no edema noted Arm (L), no edema noted Arm (R), no edema noted Leg (L), no edema noted Leg (R), no edema noted Pedal (L), no edema noted Pedal (R), no edema noted Generalized Neurologic: tub puller II-XII grossly normal, alert, oriented x 3, responsive URonald heath MD Jun 04, 2019 12:18
[2019-06-04 15:57] VITALS: BP 128/70
[2019-06-04 20:00] VITALS: BP 146/82
[2019-06-04] MEDS: Tamsulosin 0.4mg cap ORAL SCH (21:14)
--- NOTE | 2019-06-04 23:59 | Progress Note ---
DATE: 06/04/2019 CARDIOLOGY PROGRESS NOTE SUBJECTIVE: Mild orthostatic symptoms noted. OBJECTIVE: VITAL SIGNS: Afebrile, blood pressure 130/80, pulse 64, respiratory rate 20. LUNGS: Clear. CARDIAC: Regular. ABDOMEN: Soft. EXTREMITIES: No edema. LABORATORY DATA: White count 5.4, hemoglobin 13.9. Potassium 3.6, magnesium 1.9, BUN 19, creatinine 1.1. Pro-natriuretic peptide 368. Albumin 2.6. IMPRESSION: 1. Acute kidney injury and prerenal azotemia, resolved with hydration. 2. Orthostatic hypotension, improved. 3. Hypertensive heart disease, controlled. 4. Permanent pacemaker with stable function. 5. Chronic diastolic congestive heart failure. 6. History of CVA due to aneurysm. 7. Enterococcal UTI. 8. History of DVT. PLAN: 1. Agree with midodrine trial. 2. Empiric antimicrobials for urinary infection. 3. Anticoagulation with apixaban. Parveen eWiner M.D. DR: Jamila JOB#: [id number] CC:
[2019-06-05] VITALS: BP 137/79
[2019-06-05 04:00] VITALS: BP 148/89
[2019-06-05] MEDS: Ampicillin 1 GM in NS 55 ML IVPB SCH ×3 (05:38→18:16)
[2019-06-05 08:00] VITALS: BP 136/90
[2019-06-05] MEDS: Metoprolol Succinate XL 25mg tab ORAL SCH (08:28)
[2019-06-05] MEDS: Donepezil 10mg tab ORAL SCH (08:28)
[2019-06-05] MEDS: Eliquis 5mg tablet ORAL SCH ×2 (08:28→18:16)
[2019-06-05] MEDS ORDERED: Tubing IV Secondary IV ONE (10:10)
[2019-06-05] MEDS ORDERED: NS 275ml ONE (10:10)
[2019-06-05] MEDS: Vancomycin 750mg/NS 275ml IVPB SCH ×2 (11:46)
[2019-06-05 12:00] VITALS: BP 130/86
--- NOTE | 2019-06-05 12:54 | General Progress Note ---
Assessment/Plan Problem List: (1) UTI (urinary tract infection) ICD Codes: N39.0 - Urinary tract infection, site not specified SNOMED: 70258942 (2) Toxic metabolic encephalopathy ICD Codes: G92 - Toxic encephalopathy SNOMED: 193950609 (3) Syncope ICD Codes: R55 - Syncope SNOMED: 751494462 (4) Orthostatic hypotension ICD Codes: I95.1 - Orthostatic hypotension SNOMED: 30254173 (5) Arrhythmia (6) Cerebral vascular accident ICD Codes: I63.9 - Cerebral infarction, unspecified SNOMED: 262302894 (7) Fall ICD Codes: W19.XXXA - Unspecified fall, initial encounter SNOMED: 6538582, 545149785 (8) Syncope ICD Codes: R55 - Syncope SNOMED: 331010772 Status: stable Assessment/Plan: Continue cautious hydration. low-dose midodrine. Monitor for hypertension on midodrine. Monitor orthostatics. Continue IV vancomycin while in-house. PT OT evaluations will be obtained. Discharge planning to be determined after therapy eval. Cardiology follow-up Subjective ROS Limited/Unobtainable: No Constitutional: Reports: malaise, weakness HEENT: Reports: no symptoms Cardiovascular: Reports: no symptoms Respiratory: Reports: no symptoms Gastrointestinal/Abdominal: Reports: no symptoms Genitourinary: Reports: no symptoms Neurologic/Psychiatric: Reports: pre-existing deficit Endocrine: Reports: no symptoms Hematologic/Lymphatic: Reports: no symptoms Allergies: Coded Allergies: No Known Allergies (Verified , 05/02/08) All Systems: reviewed and negative except above Subjective Patient is without complaints. He denies any dizziness chest pain or shortness of breath. Since orthostatic vital signs were positive this morning with a drop of 40 points in his systolic blood pressure. Patient was not symptomatic. Patient attempted to stand with RN but was too weak to bear any weight. Patient was assisted back to the bed. Objective Last 24 Hour Vital Signs Date Time Temp Pulse Resp B/P (MAP) Pulse Ox O2 Delivery O2 Flow Rate FiO2 06/05/19 12:00 98.1 78 20 130/86 (101) 96 06/05/19 08:57 Room Air 06/05/19 08:28 69 136/90 06/05/19 08:28 69 136/90 06/05/19 08:00 98.0 69 20 136/90 (105) 96 06/05/19 04:00 97.9 62 17 148/89 (108) 96 06/05/19 00:00 98.3 65 18 137/79 (98) 99 06/04/19 23:30 63 68 114 06/04/19 21:00 Room Air 06/04/19 20:00 97.9 69 18 146/82 (103) 98 06/04/19 15:57 98.2 61 20 128/70 (89) 97 Intake and Output 06/04/19 06/05/19 19:00 07:00 Intake Total 1982.5 ml 765.0 ml Output Total 1600 ml 600 ml Balance 382.5 ml 165.0 ml Intake Oral 1080 ml IV Total 902.5 ml 765.0 ml Output Urine Total 1600 ml 600 ml # Voids 3 Height (Feet): 6 Height (Inches): 2.00 Weight (Pounds): 187 Objective General Appearance: WD/WN, alert Neck: supple Cardiovascular: regular rhythm Respiratory/Chest: lungs clear, normal breath sounds Abdomen: normal bowel sounds, non tender, soft, no organomegaly Edema: no edema noted Arm (L), no edema noted Arm (R), no edema noted Leg (L), no edema noted Leg (R), no edema noted Pedal (L), no edema noted Pedal (R), no edema noted 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
[2019-06-05 16:00] VITALS: BP 149/92
[2019-06-05 20:00] VITALS: BP 147/85
[2019-06-05] MEDS: Tamsulosin 0.4mg cap ORAL SCH (20:36)
[2019-06-06] VITALS: BP 144/81
--- NOTE | 2019-06-06 00:30 | Progress Note ---
DATE: 06/05/2019 CARDIOLOGY PROGRESS NOTE SUBJECTIVE: The patient without chest pain or shortness of breath. He remains orthostatic, but denies symptoms. He was too weak to weight bear. PHYSICAL EXAMINATION: VITAL SIGNS: Blood pressure 130/86, heart rate 78, respirations 20. LUNGS: Clear. CARDIAC: Regular. ABDOMEN: Soft. EXTREMITIES: No edema. IMPRESSION: 1. Orthostatic hypotension. 2. Recurring syncope. 3. History of cerebral aneurysm and CVA. 4. Hypertensive heart disease. 5. Permanent pacemaker. PLAN: 1. Discontinue amlodipine. 2. Advance ProAmatine. 3. Monitor orthostatics. 4. Continue hydration. 5. Check cortisol. 6. Consider addition of Florinef as well. Parveen Weiner M.D. DR: SARA JOB#: [id number] CC:
[2019-06-06] MEDS: Ampicillin 1 GM in NS 55 ML IVPB SCH ×4 (01:19→17:38)
[2019-06-06 04:00] VITALS: BP 140/82
[2019-06-06 05:12] LABS: EOSINOPHILS % (AUTO) 4.3 % (0.0-3.0); HEMATOCRIT 40.7 % (42.0-52.0); HEMOGLOBIN 13.9 G/DL (14.2-18.0); MEAN CORPUSCULAR VOLUME 91 FL (80-99); MONOCYTES % (AUTO) 7.7 % (1.0-10.0); PLATELET COUNT 200 K/UL (150-450); RED BLOOD COUNT 4.49 M/UL (4.70-6.10); RED CELL DISTRIBUTION WIDTH 12.7 % (11.6-14.8); WHITE BLOOD COUNT 6.9 K/UL (4.8-10.8)
[2019-06-06 05:16] LABS: ALANINE AMINOTRANSFERASE 25 U/L (12-78); ALBUMIN 2.7 G/DL (3.4-5.0); ALBUMIN/GLOBULIN RATIO 0.8 (1.0-2.7); ALKALINE PHOSPHATASE 76 U/L (46-116); ANION GAP 10 mmol/L (5-15); ASPARTATE AMINO TRANSFERASE 23 U/L (15-37); BILIRUBIN,TOTAL 0.4 MG/DL (0.2-1.0); BLOOD UREA NITROGEN 15 mg/dL (7-18); CALCIUM 8.6 MG/DL (8.5-10.1); CARBON DIOXIDE 24 MMOL/L (21-32); CHLORIDE 110 MMOL/L (98-107); CREATININE 1.1 MG/DL (0.55-1.30); POTASSIUM 3.6 MMOL/L (3.5-5.1); SODIUM 144 MMOL/L (136-145)
--- NOTE | 2019-06-06 07:21 | General Progress Note ---
Assessment/Plan Problem List: (1) UTI (urinary tract infection) ICD Codes: N39.0 - Urinary tract infection, site not specified SNOMED: 64390993 (2) Toxic metabolic encephalopathy ICD Codes: G92 - Toxic encephalopathy SNOMED: 206877261 (3) Syncope ICD Codes: R55 - Syncope SNOMED: 672262027 (4) Orthostatic hypotension ICD Codes: I95.1 - Orthostatic hypotension SNOMED: 50861495 (5) Arrhythmia (6) Cerebral vascular accident ICD Codes: I63.9 - Cerebral infarction, unspecified SNOMED: 334179895 (7) Fall ICD Codes: W19.XXXA - Unspecified fall, initial encounter SNOMED: 5185057, 512431220 (8) Syncope ICD Codes: R55 - Syncope SNOMED: 926978310 Status: stable Assessment/Plan: Continue cautious hydration. low-dose midodrine. Monitor for hypertension on midodrine. Monitor orthostatics. Continue IV vancomycin while in-house. PT OT evaluations will be obtained. Discharge planning to be determined after therapy eval. Cardiology follow-up. follow up cortisol. orthostatics pending today Subjective ROS Limited/Unobtainable: No Constitutional: Reports: malaise, weakness HEENT: Reports: no symptoms Cardiovascular: Reports: no symptoms Respiratory: Reports: no symptoms Gastrointestinal/Abdominal: Reports: no symptoms Genitourinary: Reports: no symptoms Neurologic/Psychiatric: Reports: pre-existing deficit Endocrine: Reports: no symptoms Hematologic/Lymphatic: Reports: anemia Allergies: Coded Allergies: No Known Allergies (Verified , 05/02/08) All Systems: reviewed and negative except above Subjective Patient is without complaints. He denies any dizziness chest pain or shortness of breath. no syncope. pt needs assistance to stand. cannot ambulate safely. Objective Last 24 Hour Vital Signs Date Time Temp Pulse Resp B/P (MAP) Pulse Ox O2 Delivery O2 Flow Rate FiO2 06/06/19 04:00 97.8 68 18 140/82 (101) 97 06/06/19 00:00 98.0 67 18 144/81 (102) 95 06/05/19 21:00 Room Air 06/05/19 20:00 98.9 69 18 147/85 (105) 96 06/05/19 16:00 97.9 69 20 149/92 (111) 98 06/05/19 12:00 98.1 78 20 130/86 (101) 96 06/05/19 10:50 96 06/05/19 10:45 76 06/05/19 10:40 78 06/05/19 08:57 Room Air 06/05/19 08:28 69 136/90 06/05/19 08:28 69 136/90 06/05/19 08:00 98.0 69 20 136/90 (105) 96 Intake and Output 06/05/19 06/06/19 19:00 07:00 Intake Total 1690.000 ml 510 ml Output Total 1050 ml 750 ml Balance 640.000 ml -240 ml Intake Oral 760 ml IV Total 930.000 ml 510 ml Output Urine Total 1050 ml 750 ml # Voids 2 4 # Bowel Movements 1 1 Laboratory Tests 06/06/19 03:40: White Blood Count 6.9, Red Blood Count 4.49L, Hemoglobin 13.9L, Hematocrit 40.7L , Mean Corpuscular Volume 91, Mean Corpuscular Hemoglobin 30.8, Mean Corpuscular Hemoglobin Concent 34.0, Red Cell Distribution Width 12.7, Platelet Count 200, Mean Platelet Volume 6.5, Neutrophils (%) (Auto) 52.0, Lymphocytes (% ) (Auto) 35.0, Monocytes (%) (Auto) 7.7, Eosinophils (%) (Auto) 4.3H, Basophils (%) (Auto) 1.0, Sodium Level 144, Potassium Level 3.6, Chloride Level 110H, Carbon Dioxide Level 24, Anion Gap 10, Blood Urea Nitrogen 15, Creatinine 1.1, Estimat Glomerular Filtration Rate > 60, Glucose Level 87, Calcium Level 8.6, Magnesium Level 1.8, Total Bilirubin 0.4, Aspartate Amino Transf (AST/SGOT) 23, Alanine Aminotransferase (ALT/SGPT) 25, Alkaline Phosphatase 76, Total Protein 6.0L, Albumin 2.7L, Globulin 3.3, Albumin/Globulin Ratio 0.8L, Cortisol AM Sample [Pending] Height (Feet): 6 Height (Inches): 2.00 Weight (Pounds): 187 Objective General Appearance: WD/WN, alert Neck: supple Cardiovascular: regular rhythm Respiratory/Chest: lungs clear, normal breath sounds Abdomen: normal bowel sounds, non tender, soft, no organomegaly Edema: no edema noted Arm (L), no edema noted Arm (R), no edema noted Leg (L), no edema noted Leg (R), no edema noted Pedal (L), no edema noted Pedal (R), no edema noted 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
[2019-06-06 08:00] VITALS: BP 141/87
[2019-06-06] MEDS: Donepezil 10mg tab ORAL SCH (08:16)
[2019-06-06] MEDS: Metoprolol Succinate XL 25mg tab ORAL SCH (08:16)
[2019-06-06] MEDS: Eliquis 5mg tablet ORAL SCH ×2 (08:16→17:37)
[2019-06-06] MEDS: Vancomycin 750mg/NS 275ml IVPB SCH ×2 (10:09)
[2019-06-06 12:00] VITALS: BP 144/83
[2019-06-06 16:00] VITALS: BP 136/85
[2019-06-06 20:00] VITALS: BP 133/76
[2019-06-06] MEDS: Tamsulosin 0.4mg cap ORAL SCH (20:42)
[2019-06-07] VITALS: BP 140/88
[2019-06-07] MEDS: Ampicillin 1 GM in NS 55 ML IVPB SCH ×3 (00:17→12:14)
--- NOTE | 2019-06-07 02:45 | Progress Note ---
DATE: 06/06/2019 CARDIOLOGY PROGRESS NOTE SUBJECTIVE: The patient continues to have signs of orthostasis. Blood pressure parameters are stabilizing, however, the patient remains without complaints. OBJECTIVE: VITAL SIGNS: Blood pressure 144/83, pulse 63, respirations 18. LUNGS: Clear. CARDIAC: Regular. ABDOMEN: Soft. EXTREMITIES: No edema. Wide-based unsteady gait. Slight dysarthria. LABORATORY DATA: White count 6.9, hemoglobin 13.9. Potassium 3.6. Albumin 2.7. BUN 15, creatinine 1.1. Magnesium 1.8. Cortisol level pending. IMPRESSION: 1. Possible component of adrenal insufficiency. 2. Autonomic dysfunction. 3. Orthostatic hypotension. 4. Permanent pacemaker. 5. Recurring syncope. 6. Labile hypertension with hypertensive heart disease. 7. History of DVT. PLAN: 1. Continue midodrine. 2. Await cortisol report. 3. Full anticoagulation. 4. Discontinue IV fluids. 5. Low-dose beta-lc for blood pressure management alone at this time. Parveen Weiner M.D. DR: ROME JOB#: [id number] CC:
[2019-06-07 04:00] VITALS: BP 136/85
[2019-06-07 08:00] VITALS: BP 141/93
[2019-06-07] MEDS: Donepezil 10mg tab ORAL SCH (09:35)
[2019-06-07] MEDS: Vancomycin 750mg/NS 275ml IVPB SCH ×2 (09:36)
[2019-06-07] MEDS: Eliquis 5mg tablet ORAL SCH (09:36)
[2019-06-07] MEDS: Metoprolol Succinate XL 25mg tab ORAL SCH (09:36)
[2019-06-07 12:00] VITALS: BP 150/90
--- NOTE | 2019-06-07 12:53 | Diagnostic Imaging Report ---
Indication: Bilateral leg pain Technique: Grayscale and duplex images of the bilateral lower extremity veins Comparison: none Findings: On the right, grayscale and duplex images demonstrate no evidence of intraluminal thrombus. Normal phasic Doppler waveforms, demonstrating normal augmentation response and no evidence of valvular insufficiency. Normal compressibility. Patent greater saphenous vein and calf veins. On the left, nonocclusive thrombus is seen within the of stress femoral vein. This results in incomplete compressibility. The remainder of the venous segments are normal. Normal phasic Doppler waveforms, demonstrating normal augmentation response and no evidence of valvular insufficiency. The calf veins and greater saphenous vein are patent Impression: Small segment of nonocclusive thrombus within the left upstream femoral vein, most likely chronic. No definite evidence of acute deep venous thrombosis
--- NOTE | 2019-06-07 17:00 | Discharge Summary ---
DATE OF ADMISSION: 06/01/2019 DATE OF DISCHARGE: 06/07/2019 ADMISSION DIAGNOSES: 1. Syncope. 2. Orthostatic hypotension. 3. History of intracranial bleed. 4. Paroxysmal atrial fibrillation. 5. Dementia. 6. Gait instability. 7. Left-sided hemiparesis. DISCHARGE DIAGNOSES: 1. Syncope. 2. Orthostatic hypotension. 3. History of intracranial bleed. 4. Paroxysmal atrial fibrillation. 5. Dementia. 6. Gait instability. 7. Left-sided hemiparesis. HOSPITAL COURSE: The patient is a pleasant male, admitted with syncopal episode. He was diagnosed with dehydration as well as urinary tract infection. He was treated with IV antibiotics and hydrated. His orthostatics were monitored closely. He had PT and OT evaluations. On discharge, the patient was stable. He was cleared by physical therapy, returned home. Plan of care was discussed with the patient's . In agreement, taken the patient home. Home health will be ordered. DISCHARGE MEDICATIONS: Please see discharge medication list for discharge medications. DIET: Cardiac diet. ACTIVITIES: Ad betty. FOLLOWUP: The patient will be followed in the office in one to two weeks. Ronald Herrera M.D. DR: CHARLES JOB#: [id number] CC:
--- NOTE | 2019-06-07 23:00 | Progress Note ---
DATE: 06/07/2019 CARDIOLOGY PROGRESS NOTE SUBJECTIVE: The patient feels well. No distress. No dizziness. No loss of consciousness noted. However, he is unaware most of his symptoms in the past. The patient's cortisol level from June 05 is still pending. OBJECTIVE: VITAL SIGNS: Blood pressure 141/93, heart rate 64, and respiratory rate 19. LUNGS: Clear. CARDIAC: Regular. ABDOMEN: Soft. EXTREMITIES: No edema. Baseline gait abnormality and dysarthria. DIAGNOSTIC DATA: Venous duplex scan of lower extremities is negative for DVT. IMPRESSION: 1. Orthostatic syncope. 2. Orthostatic hypotension. 3. Permanent pacemaker. 4. Hypertensive heart disease. 5. History of DVT, now resolved. PLAN: 1. No anticoagulation. 2. Resume anti-platelet therapy. 3. Continue ProAmatine. 4. Avoid tight blood pressure control. 5. No resumption of amlodipine. 6. Outpatient followup. Parveen Weiner M.D. DR: RASHID JOB#: [id number] CC:
[2019-06-08] MEDS ORDERED: Vancomycin 1 GM in NS 275 ML IVPB SCH (05:00)
== END 2019-06-07 15:35 | disposition home or self-care (01) | DRG 689 ==
LOC: EDBEDREQ 14:53 → EMR 15:01 → 2E 15:10 → OBSVTOIN 15:10 → INTOOBSV 15:10 → EDBEDREQ 16:45 → 2E 17:02 → 4E 06-04 03:00
DX: N39.0 Urinary tract infection, site not specified (principal); G92 Toxic encephalopathy; I69.354 Hemiplegia and hemiparesis following cerebral infarction affecting left non-dominant side; I13.0 Hypertensive heart and chronic kidney disease with heart failure and stage 1 through stage 4 chronic kidney disease, or unspecified chronic kidney disease; I50.32 Chronic diastolic (congestive) heart failure; I95.1 Orthostatic hypotension; I48.0 Paroxysmal atrial fibrillation; E86.0 Dehydration; F03.90 Unspecified dementia, unspecified severity, without behavioral disturbance, psychotic disturbance, mood disturbance, and anxiety; R26.81 Unsteadiness on feet; Z95.0 Presence of cardiac pacemaker; N18.9 Chronic kidney disease, unspecified; E11.22 Type 2 diabetes mellitus with diabetic chronic kidney disease; E11.65 Type 2 diabetes mellitus with hyperglycemia; B95.2 Enterococcus as the cause of diseases classified elsewhere; Z86.718 Personal history of other venous thrombosis and embolism
CPT/HCPCS: 36415; 71045; 80053; 80202; 81003; 82533; 83735; 83880; 84484; 85025; 87081; 87086; 87181; 93005; 93970; 96361; 96365; 99284; J7030

== ENCOUNTER 2019-08-18 15:06 | Inpatient (IN) | payer MEDICARE, OTHER ==
[2019-08-18] VITALS (7 sets, daily range): BP systolic 124–156; BP diastolic 72–88
[~2019-08-18] VITALS: Ht 188 cm; Wt 87.0 kg
[~2019-08-18 15:06] MED LIST changes: +DOCUSATE SODIU100 MG ORAL; +METOPROLOL TAR100 M1 ORAL
--- NOTE | 2019-08-18 15:37 | Emergency Room Report ---
History of Present Illness General Chief Complaint: Generalized Weakness Source: Patient Present Illness HPI 78 YO male presents to the ED for significant weakness and episodes of low bp associated with fainting spells. Pt. w. hx of HTN and stroke. Pt. was just d/c from [facility] after being evaluated there for the past week for similar symptoms. Pt. denies adjustments in his medications. Pt. reports symptoms at rest/sitting as well as standing. Pt. requires assistance with ambulation. Pt. denies pain at this time. He denies hitting his head. Pt. denies CP or SOB. He denies palpitations. He denies MSK pain. He denies neck or back pain. He denies dizziness. He denies FRAUSTO. Denies nausea or vomiting. Denies fevers or chills. Allergies: Coded Allergies: No Known Allergies (Verified , 05/02/08) COVID-19 Screening Contact w/high risk pt: No Recent Travel to affected area: No Experienced COVID-19 symptoms?: No COVID-19 Testing performed BILINGUAL TRAINER: No Patient History Past Medical History: see triage record, HTN, CVA/TIA Past Surgical History: other Pertinent Family History: none Reviewed Nursing Documentation: PMH: Agreed; PSxH: Agreed Nursing Documentation-PMH Past Medical History: No History, Except For Hx Hypertension: Yes Hx Pacemaker: Yes - Left chest Hx Cancer: No Hx Gastrointestinal Problems: No Hx Dialysis: Yes - Renal Failure Hx Neurological Problems: Yes Hx Cerebrovascular Accident: Yes - Left sided weakness Hx Transient Ischemic Attacks: Yes Hx Dementia: Yes Hx Seizures: No Hx Speech Problem: Yes - post CVA Hx Syncope: Yes Hx Weakness: Yes Hx Neurologic Surgery: Yes - anneurysm in 2007 Review of Systems All Other Systems: limited - pt. doesnt elaborate with detail. Physical Exam Vital Signs Date Time Temp Pulse Resp B/P (MAP) Pulse Ox O2 Delivery O2 Flow Rate FiO2 08/18/19 15:21 97.5 87 16 100/66 (77) 100 Room Air Sp02 EP Interpretation: reviewed, normal General Appearance: well appearing, no apparent distress, alert, GCS 15, non- toxic, thin, Chronically Ill Head: normocephalic, atraumatic - No signs of trauma Eyes: bilateral eye normal inspection, bilateral eye PERRL ENT: hearing grossly normal, normal voice Neck: full range of motion, no bony tend Respiratory: chest non-tender, lungs clear, normal breath sounds, no respiratory distress, no accessory muscle use, no wheezing, speaking full sentences Cardiovascular #1: regular rate, rhythm, no edema, normal capillary refill Gastrointestinal: normal bowel sounds, non tender, soft, non-distended Musculoskeletal: normal range of motion, moves extm spontaneously, no lower extremity edema, non-tender, other - Pt. requires assistance with ambulation. Neurologic: alert, oriented x3, sensory intact, motor weakness - bilaterally. - -- Left >right ( chronic) - muscular atrophy noted as well greater on the left side. , responsive, speech normal, no focal defects Psychiatric: judgement/insight normal Skin: no rash, normal color Medical Decision Making PA Attestation Dr. Levi is my supervising Physician whom patient management has been discussed with. Diagnostic Impression: Primary Impression: Syncope Qualified Codes: R55 - Syncope and collapse Additional Impression: Episodes of low blood pressure ER Course 78 YO male presents to the ED for significant weakness and episodes of low bp associated with fainting spells. Pt. w. hx of HTN and stroke. Pt. was just d/c from [facility] after being evaluated there for the past week for similar symptoms. Pt. denies adjustments in his medications. Pt. reports symptoms at rest/sitting as well as standing. Pt. requires assistance with ambulation. Pt. denies pain at this time. He denies hitting his head. Pt. denies CP or SOB. He denies palpitations. He denies MSK pain. He denies neck or back pain. He denies dizziness. He denies FRAUSTO. Denies nausea or vomiting. Denies fevers or chills. Ddx considered but are not limited to dysrhythmia, orthostatic hypotension, infection, , hypoglycemia, hypovolemia, intracranial process, vasovagal or other cardiac etiology Just to name a few. Vital signs: are WNL, pt. is afebrile H&PE are most consistent with episodic low BP and feeling pre-syncopal. Pt. non toxic in appearance. NAD. PT. appears chronically ill. ORDERS: -Accu Check: 81 -12-lead EK NSR with 1st degree block and PAC's -CBC: WNL -CMP: Cr 1.4 , BUN 27 - Troponin: WNL ED INTERVENTIONS: -1000 mL normal saline bolus IV - DISPOSITION: at this time pt. will be admitted to Dr. Herrera for Syncopal episodes. Dr. Herrera agreed to admit the pt. and to continue pt. care management. Labs Test 08/18/19 15:21 White Blood Count 6.0 K/UL (4.8-10.8) Red Blood Count 5.01 M/UL (4.70-6.10) Hemoglobin 15.2 G/DL (14.2-18.0) Hematocrit 49.1 % (42.0-52.0) Mean Corpuscular Volume 98 FL (80-99) Mean Corpuscular Hemoglobin 30.3 PG (27.0-31.0) Mean Corpuscular Hemoglobin Concent 30.9 G/DL (32.0-36.0) Red Cell Distribution Width 14.5 % (11.6-14.8) Platelet Count 169 K/UL (150-450) Mean Platelet Volume 7.7 FL (6.5-10.1) Neutrophils (%) (Auto) 55.1 % (45.0-75.0) Lymphocytes (%) (Auto) 32.4 % (20.0-45.0) Monocytes (%) (Auto) 7.1 % (1.0-10.0) Eosinophils (%) (Auto) 3.8 % (0.0-3.0) Basophils (%) (Auto) 1.6 % (0.0-2.0) Sodium Level 138 MMOL/L (136-145) Potassium Level 4.3 MMOL/L (3.5-5.1) Chloride Level 103 MMOL/L (98-107) Carbon Dioxide Level 29 MMOL/L (21-32) Anion Gap 6 mmol/L (5-15) Blood Urea Nitrogen 27 mg/dL (7-18) Creatinine 1.4 MG/DL (0.55-1.30) Estimat Glomerular Filtration Rate 59.3 mL/min (>60) Glucose Level 102 MG/DL (74-106) Calcium Level 8.4 MG/DL (8.5-10.1) Total Bilirubin 0.3 MG/DL (0.2-1.0) Aspartate Amino Transf (AST/SGOT) 24 U/L (15-37) Alanine Aminotransferase (ALT/SGPT) 14 U/L (12-78) Alkaline Phosphatase 81 U/L (46-116) Troponin I 0.008 ng/mL (0.000-0.056) Total Protein 6.5 G/DL (6.4-8.2) Albumin 3.1 G/DL (3.4-5.0) Globulin 3.4 g/dL Albumin/Globulin Ratio 0.9 (1.0-2.7) EKG Diagnostic Results EP Interpretation: Dr. Levi Rate: normal - 74 bpm Rhythm: NSR ST Segments: other - First degree AV blockage with PAC's ASA given to the pt in ED: No PA Scribe Text This Interpretation was scribed by YAYO Solis. Chest X-Ray Diagnostic Results Chest X-Ray Diagnostic Results : Chest X-Ray Ordered: Yes # of Views/Limited/Complete: 1 View Indication: Other - syncope EP Interpretation: Yes PA Xray: Interpretation reviewed, by supervising MD, and agrees with findings. Interpretation: no consolidation, no effusion, no pneumothorax, other - poor inspiration. Bibasilar atelectasis Impression: No acute disease Electronically Signed by: Madeline Solis PA-C Last Vital Signs Date Time Temp Pulse Resp B/P (MAP) Pulse Ox O2 Delivery O2 Flow Rate FiO2 08/18/19 15:27 78 25 Room Air 08/18/19 15:26 97.5 124/80 100 Disposition: ADMITTED INPATIENT Condition: Serious Referrals: Ronald Herrera MD (PCP) Madeline Solis Aug 18, 2019 15:37
[2019-08-18 15:45] LABS: ANION GAP 6 mmol/L (5-15); BLOOD UREA NITROGEN 27 mg/dL (7-18); CALCIUM 8.4 MG/DL (8.5-10.1); CARBON DIOXIDE 29 MMOL/L (21-32); CHLORIDE 103 MMOL/L (98-107); CREATININE 1.4 MG/DL (0.55-1.30); POTASSIUM 4.3 MMOL/L (3.5-5.1); SODIUM 138 MMOL/L (136-145)
[2019-08-18 15:48] LABS: BASOPHILS % (AUTO) 1.6 % (0.0-2.0); EOSINOPHILS % (AUTO) 3.8 % (0.0-3.0); HEMATOCRIT 49.1 % (42.0-52.0); HEMOGLOBIN 15.2 G/DL (14.2-18.0); LYMPHOCYTES % (AUTO) 32.4 % (20.0-45.0); MEAN CORPUSCULAR VOLUME 98 FL (80-99); MONOCYTES % (AUTO) 7.1 % (1.0-10.0); NEUTROPHILS % (AUTO) 55.1 % (45.0-75.0); PLATELET COUNT 169 K/UL (150-450); RED BLOOD COUNT 5.01 M/UL (4.70-6.10); RED CELL DISTRIBUTION WIDTH 14.5 % (11.6-14.8)
[2019-08-18 15:50] LABS: ALANINE AMINOTRANSFERASE 14 U/L (12-78); ALBUMIN 3.1 G/DL (3.4-5.0); ALBUMIN/GLOBULIN RATIO 0.9 (1.0-2.7); ALKALINE PHOSPHATASE 81 U/L (46-116); ASPARTATE AMINO TRANSFERASE 24 U/L (15-37); BILIRUBIN,TOTAL 0.3 MG/DL (0.2-1.0)
[2019-08-18] MEDS ORDERED: ASPIR 8181 MG ORAL (16:07)
[2019-08-18] MEDS ORDERED: MIDODRINE HCL10 MG ORAL (16:07)
[2019-08-18] MEDS ORDERED: METOPROLOL SUCC25 MG ORAL (16:07)
--- NOTE | 2019-08-18 18:05 | Diagnostic Imaging Report ---
Indication: Syncope Technique: One view of the chest Comparison: 06/01/2019 Findings: Suboptimal inspiration. Right sided basilar linear opacity is unchanged, likely reflects an area of scarring although could represent recurrent atelectasis. No definite infiltrates, effusions, or congestion. Heart size is upper limits normal Left chest pacemaker again demonstrated. Old healed left rib fracture deformity again demonstrated. Impression: Bibasilar atelectasis versus scarring No definite acute bony process otherwise. Hypoventilatory exam
--- NOTE | 2019-08-18 18:20 | Emergency Room Report ---
History of Present Illness General Chief Complaint: Generalized Weakness Source: Patient Present Illness Allergies: Coded Allergies: No Known Allergies (Verified , 05/02/08) COVID-19 Screening Contact w/high risk pt: No Recent Travel to affected area: No Experienced COVID-19 symptoms?: No COVID-19 Testing performed AUDIT SPEC: No Nursing Documentation-PMH Past Medical History: No History, Except For Hx Hypertension: Yes Hx Pacemaker: Yes - Left chest Hx Cancer: No Hx Gastrointestinal Problems: No Hx Dialysis: Yes - Renal Failure Hx Neurological Problems: Yes Hx Cerebrovascular Accident: Yes - Left sided weakness Hx Transient Ischemic Attacks: Yes Hx Dementia: Yes Hx Seizures: No Hx Speech Problem: Yes - post CVA Hx Syncope: Yes Hx Weakness: Yes Hx Neurologic Surgery: Yes - anneurysm in 2007 Physical Exam Vital Signs Date Time Temp Pulse Resp B/P (MAP) Pulse Ox O2 Delivery O2 Flow Rate FiO2 08/18/19 15:21 97.5 87 16 100/66 (77) 100 Room Air Medical Decision Making Diagnostic Impression: Primary Impression: Syncope Qualified Codes: R55 - Syncope and collapse ER Course Patient was seen and examined by my PA and myself. Care was discussed and plan was discussed in detail and I agree with her assessment and plan at this time. Patient will be admitted to the telemetry floor for syncope. Last Vital Signs Date Time Temp Pulse Resp B/P (MAP) Pulse Ox O2 Delivery O2 Flow Rate FiO2 08/18/19 17:00 97.5 61 17 140/80 100 Room Air Disposition: ADMITTED INPATIENT Condition: Serious Referrals: Ronald Herrera MD (PCP) Alexandro Levi M.D. Aug 18, 2019 18:20
[2019-08-18] MEDS ORDERED: HydrALAZINE 25mg tab ORAL PRN (20:45)
[2019-08-18] MEDS ORDERED: Tamsulosin 0.4mg cap ORAL SCH (21:00)
[2019-08-18] MEDS: Heparin 5000 units/ml inj SUBQ SCH (21:53)
[2019-08-19] VITALS: BP 158/89
[2019-08-19 04:00] VITALS: BP 160/83
[2019-08-19 08:00] VITALS: BP 139/79
[2019-08-19] MEDS: Midodrine 10mg tab ORAL SCH ×3 (09:00→18:00)
[2019-08-19] MEDS ORDERED: Vitamin D 50,000 units cap ORAL SCH (09:00)
--- NOTE | 2019-08-19 10:00 | Consultation ---
DATE OF CONSULTATION: 08/18/2019 CARDIOLOGY CONSULTATION CONSULTING PHYSICIAN: Parveen Weiner MD. REASON FOR CONSULTATION: Hypotension. HISTORY OF PRESENT ILLNESS: This is a 78-year-old male known to us from prior care. The patient has had recurring episodes of syncope with documented orthostatic hypotension. He has a permanent pacemaker. He has had these episodes recurring recurrently for several years. He was recently hospitalized at an outside facility where workup was unremarkable and medications were adjusted. He has had similar episodes under my care and had medication adjustments with limited response. He does have high blood pressure in the past. It has been determined that his standing blood pressure should be treated only. PAST MEDICAL HISTORY: Hypertension, history of aneurysm and cerebrovascular accident, prostatic hypertrophy, permanent pacemaker, chronic kidney disease, ataxia, left-sided weakness. ALLERGIES: Codeine. MEDICATIONS: Reviewed. SOCIAL HISTORY: Nonsmoker. No alcohol or substance abuse. Lives with . FAMILY HISTORY: Noncontributory. REVIEW OF SYSTEMS: A 10-point review of systems performed, other than noted above all systems were negative. His pacemaker was interrogated within the last three months and functioning appropriately. PHYSICAL EXAMINATION: VITAL SIGNS: Blood pressure 100/66, pulse 87, respiration 16, and afebrile. GENERAL: Well appearing. Speech is slightly dysarthric, but fluent. HEENT: Conjunctivae are pink. Oropharynx clear. NECK: Supple. LUNGS: Clear. CARDIAC: Regular, normal S1, S2. ABDOMEN: Soft. EXTREMITIES: No edema. NEUROLOGIC: There is slight left-sided weakness. DIAGNOSTIC DATA: EKG reveals atrial pacing with PACs and first-degree AV block. BUN 27, creatinine 1.4. IMPRESSION: 1. Hypovolemia. 2. Dehydration. 3. Orthostatic syncope, possible component of adrenocortical insufficiency. 4. Permanent pacemaker. 5. Hypertensive heart disease. 6. History of cerebral aneurysm and CVA. PLAN: 1. Hydration. 2. Monitor blood pressure in sitting or standing positions only. 3. Trial of Florinef, consideration for hydrocortisone. 4. Continue midodrine. 5. Avoid tight blood pressure control. 6. Discontinue tamsulosin as this may also cause orthostasis in some patients. Parveen Weiner M.D. DR: GRACIELA JOB#: [id number] CC:
[2019-08-19] MEDS: Metoprolol Succinate XL 25mg tab ORAL SCH (10:42)
[2019-08-19] MEDS: Donepezil 10mg tab ORAL SCH (10:42)
[2019-08-19] MEDS: Aspirin EC 81mg tab ORAL SCH (10:42)
[2019-08-19] MEDS: Docusate 100mg cap ORAL SCH ×2 (10:42→18:00)
[2019-08-19] MEDS: Losartan 50mg tab ORAL SCH (10:43)
[2019-08-19] MEDS: Heparin 5000 units/ml inj SUBQ SCH ×2 (10:48→21:29)
[2019-08-19 12:00] VITALS: BP 169/100
[2019-08-19 16:00] VITALS: BP 151/105
--- NOTE | 2019-08-19 19:30 | Progress Note ---
DATE: 08/19/2019 CARDIOLOGY PROGRESS NOTE SUBJECTIVE: The patient denies dizziness. He has not been ambulatory. OBJECTIVE: VITAL SIGNS: Blood pressure parameters 139/79 to 160/83 and heart rate 60. Monitor, paced. LUNGS: Bilateral breath sounds. No wheezing. HEART: Regular rhythm and rate. Normal S1, S2. ABDOMEN: Soft. EXTREMITIES: No edema. Gait unsteady. Slight left-sided weakness. LABORATORY DATA: Labs reviewed. IMPRESSION: 1. Orthostatic hypotension. 2. Recurring syncope. 3. Permanent pacemaker with stable function. 4. Acute on chronic kidney injury due to hypovolemia. 5. Probable component of adrenal insufficiency. PLAN: 1. Would not treat hypertension unless measured standing. 2. Off tamsulosin due to potential for orthostasis in some patients. 3. Mobilize and observe. Parveen Weiner M.D. DR: KENDRICK JOB#: [id number] CC:
[2019-08-19 20:00] VITALS: BP 131/80
[2019-08-20] VITALS (9 sets, daily range): BP systolic 129–172; BP diastolic 74–95
[2019-08-20] MEDS: Donepezil 10mg tab ORAL SCH (09:43)
[2019-08-20] MEDS: Aspirin EC 81mg tab ORAL SCH (09:43)
[2019-08-20] MEDS: Docusate 100mg cap ORAL SCH ×2 (09:43→18:49)
[2019-08-20] MEDS: Losartan 50mg tab ORAL SCH (09:43)
[2019-08-20] MEDS: Midodrine 10mg tab ORAL SCH ×3 (09:44→18:49)
[2019-08-20] MEDS: Metoprolol Succinate XL 25mg tab ORAL SCH (09:44)
[2019-08-20] MEDS: Heparin 5000 units/ml inj SUBQ SCH ×2 (09:45→21:45)
--- NOTE | 2019-08-20 11:48 | General Progress Note ---
Assessment/Plan Problem List: (1) Cardiac syncope ICD Codes: R55 - Syncope and collapse SNOMED: 133393611 (2) Syncope ICD Codes: R55 - Syncope and collapse SNOMED: 009074108 (3) Status post CVA ICD Codes: Z86.73 - Personal history of transient ischemic attack (TIA), and cerebral infarction without residual deficits SNOMED: 220822279 (4) Cerebral vascular accident ICD Codes: I63.9 - Cerebral infarction, unspecified SNOMED: 746122881 (5) Fall ICD Codes: W19.XXXA - Unspecified fall, initial encounter SNOMED: 7676631, 226550924 (6) Orthostatic hypotension ICD Codes: I95.1 - Orthostatic hypotension SNOMED: 02173847 (7) Syncope ICD Codes: R55 - Syncope and collapse SNOMED: 314197212 Qualifiers: Qualified Codes: R55 - Syncope and collapse Status: stable, progressing Assessment/Plan: cont current rx ivf monitor orthostatics antiplt rx bp rx pt/ot dvt/stress ulcer prophylaxis Subjective ROS Limited/Unobtainable: No Constitutional: Reports: malaise, weakness HEENT: Reports: no symptoms Cardiovascular: Reports: no symptoms Respiratory: Reports: no symptoms Gastrointestinal/Abdominal: Reports: no symptoms Genitourinary: Reports: no symptoms Neurologic/Psychiatric: Reports: no symptoms Endocrine: Reports: no symptoms Hematologic/Lymphatic: Reports: no symptoms Allergies: Coded Allergies: No Known Allergies (Verified , 05/02/08) All Systems: reviewed and negative except above Subjective no complaints. "i'm fine." denies dizziness but feels "shaky in the legs." no chest pain or sob. no fevers or chills. no cough. bp controlled. Objective Last 24 Hour Vital Signs Date Time Temp Pulse Resp B/P (MAP) Pulse Ox O2 Delivery O2 Flow Rate FiO2 08/20/19 09:44 62 127/77 08/20/19 09:43 127/77 08/20/19 09:00 Room Air 08/20/19 08:16 60 62 81 08/20/19 08:00 97.8 62 19 129/91 (104) 96 08/20/19 08:00 60 08/20/19 06:00 135/90 08/20/19 05:54 97.8 72 18 135/90 (105) 97 08/20/19 05:53 97.8 60 18 143/89 (107) 97 08/20/19 05:52 97.8 60 18 160/84 (109) 97 08/20/19 04:00 60 08/20/19 04:00 97.8 60 18 156/90 (112) 97 08/20/19 00:00 97.5 61 18 150/90 (110) 94 08/20/19 00:00 60 08/19/19 21:00 Room Air 08/19/19 20:00 97.2 60 18 131/80 (97) 99 08/19/19 20:00 62 08/19/19 16:00 97.9 62 20 151/105 (120) 99 08/19/19 16:00 60 08/19/19 12:00 97.9 67 21 169/100 (123) 97 08/19/19 12:00 60 Intake and Output 08/19/19 08/20/19 19:00 07:00 Intake Total 650 ml 900 ml Output Total 1000 ml 1100 ml Balance -350 ml -200 ml Intake Oral 550 ml IV Total 100 ml 900 ml Output Urine Total 1000 ml 1100 ml # Voids 3 # Bowel Movements 2 Height (Feet): 6 Height (Inches): 2.00 Weight (Pounds): 201 General Appearance: WD/WN, no apparent distress, alert EENT: PERRL/EOMI Neck: non-tender, normal alignment, supple Cardiovascular: normal peripheral pulses, normal rate, regular rhythm Respiratory/Chest: chest wall non-tender, lungs clear, normal breath sounds, no respiratory distress Abdomen: normal bowel sounds, non tender, soft, no organomegaly Pelvis: normal external exam, normal rectal exam, speculum exam normal Genitourinary/Rectal: normal genital exam Extremities: normal range of motion Edema: no edema noted Arm (L), no edema noted Arm (R) Neurologic: drink mixer II-XII grossly normal, abnormal gait, alert, oriented x 3, responsive Lymphatic: normal anterior cervical (L), normal anterior cervical (R) Ronald Herrera MD Aug 20, 2019 11:47
--- NOTE | 2019-08-20 13:21 | Consultation ---
History of Present Illness General Date patient seen: Aug 20, 2019 Reason for Hospitalization: Generalized Weakness Present Illness HPI This is a very pleasant 78-year-old male with cardiac history pacemaker who presented for generalized weakness admitted further care and management. On admission identified to have an abnormal ulcer on his right lateral foot. Surgery was called to evaluate and assist with care. Patient seen, patient evaluated, chart reviewed. Patient states he is well has no complaints. Does state that when he stands up he feels very lightheaded and sometimes feels like passing out. No nausea vomiting fever chills. Labs reviewed. Allergies: Coded Allergies: No Known Allergies (Verified , 05/02/08) COVID-19 Screening Contact w/high risk pt: No Recent Travel to affected area: No Experienced COVID-19 symptoms?: No Medication History Scheduled Allopurinol* (Zyloprim*), 300 MG ORAL DAILY, (Reported) Amlodipine Besylate (Norvasc), 5 MG ORAL BID, (Reported) Aspirin* (Aspir 81*), 81 MG ORAL DAILY, (Reported) Atorvastatin Calcium* (Lipitor*), 10 MG ORAL BEDTIME, (Reported) Docusate Sodium* (Docusate Sodium*), 100 MG ORAL TWICE A DAY, (Reported) Donepezil Hcl* (Aricept*), 10 MG ORAL DAILY, (Reported) Ergocalciferol (Vitamin D2)* (Vitamin D*), 50,000 UNIT ORAL ONCE A WEEK, ( Reported) Losartan Potassium (Losartan Potassium), 100 MG ORAL DAILY, (Reported) Metoprolol Succinate* (Metoprolol Succinate*), 25 MG ORAL DAILY, (Reported) Midodrine* (Proamatine*), 10 MG ORAL THREE TIMES A DAY, (Reported) Primidone* (Mysoline*), 50 MG PO DAILY, (Reported) Tamsulosin Hcl (Tamsulosin Hcl*), 0.4 MG ORAL BEDTIME, (Reported) Discontinued Medications Metoprolol Succinate* (Metoprolol Succinate*), 50 MG ORAL DAILY, (Reported) Discontinued Reason: Medication dose changed Metoprolol Tartrate* (Metoprolol Tartrate*), 100 MG ORAL DAILY, (Reported) Discontinued Reason: Pt had allergic rxn Patient History History Provided By: Patient, Medical Record, PMD Healthcare decision maker Resuscitation status Advanced Directive on File No Past Medical/Surgical History Past Medical/Surgical History: (1) heat exhaustion (2) Acute renal failure (3) Head injury (4) Facial laceration (5) Orthostatic syncope (6) Renal insufficiency (7) Arrhythmia (8) Syncope (9) Syncope (10) UTI (urinary tract infection) (11) Toxic metabolic encephalopathy (12) Syncope (13) Cardiac syncope (14) Status post CVA (15) Orthostatic hypotension (16) Syncope (17) Cerebral vascular accident (18) Fall Review of Systems Review of Symptoms General ROS: no weight loss or fever Psychological ROS: no depression or mood changes, no memory loss Ophthalmic ROS: no visual changes or eye irritation ENT ROS: no nasal congestion, hearing loss, dizziness Allergy and Immunology ROS: no allergic symptoms or urticaria Hematological and Lymphatic ROS: no swollen glands, unusual bleeding or bruising Endocrine ROS: no polyuria, polydipsia, weight changes, temperature intolerance Respiratory ROS: no cough, shortness of breath, or wheezing Cardiovascular ROS: no chest pain or dyspnea on exertion Gastrointestinal ROS: denies abdominal pain, bright red blood in stool. Musculoskeletal ROS: no myalgias or arthralgias Neurological ROS: no TIA or stroke symptoms Dermatological ROS: no new or changing skin lesions, rashes or pruritis Physical Exam Physical Exam General appearance: alert, cooperative, no distress, appears stated age Head: Normocephalic, without obvious abnormality, atraumatic Eyes: conjunctivae/corneas clear. PERRL, EOM's intact. Fundi benign Throat: Lips, mucosa, and tongue normal. Teeth and gums normal Neck: supple, symmetrical, trachea midline, no adenopathy, thyroid: not enlarged, symmetric, no tenderness/mass/nodules, no carotid bruit and no JVD Lungs: clear to auscultation bilaterally Heart: regular rate and rhythm, S1, S2 normal, no murmur, click, rub or gallop Abdomen: soft, non-tender. Bowel sounds normal. No masses, no organomegaly Extremities: extremities normal, atraumatic, no cyanosis or edema Pulses: 2+ and symmetric Skin: Skin see below Neurologic: Grossly normal Last 24 Hour Vital Signs Date Time Temp Pulse Resp B/P (MAP) Pulse Ox O2 Delivery O2 Flow Rate FiO2 08/20/19 12:00 60 08/20/19 12:00 97.2 60 18 132/74 (93) 96 08/20/19 11:58 60 59 59 08/20/19 09:44 62 127/77 08/20/19 09:43 127/77 08/20/19 09:00 Room Air 08/20/19 08:16 60 62 81 08/20/19 08:00 97.8 62 19 129/91 (104) 96 08/20/19 08:00 60 08/20/19 06:00 135/90 08/20/19 05:54 97.8 72 18 135/90 (105) 97 08/20/19 05:53 97.8 60 18 143/89 (107) 97 08/20/19 05:52 97.8 60 18 160/84 (109) 97 08/20/19 04:00 60 08/20/19 04:00 97.8 60 18 156/90 (112) 97 08/20/19 00:00 97.5 61 18 150/90 (110) 94 08/20/19 00:00 60 08/19/19 21:00 Room Air 08/19/19 20:00 97.2 60 18 131/80 (97) 99 08/19/19 20:00 62 08/19/19 16:00 97.9 62 20 151/105 (120) 99 08/19/19 16:00 60 Intake and Output 08/19/19 08/20/19 19:00 07:00 Intake Total 650 ml 900 ml Output Total 1000 ml 1100 ml Balance -350 ml -200 ml Intake Oral 550 ml IV Total 100 ml 900 ml Output Urine Total 1000 ml 1100 ml # Voids 3 # Bowel Movements 2 Microbiology Date/Time Source Procedure Growth Status 08/19/19 14:05 Stool Clostridium difficile Toxin Assay - Final Complete Height (Feet): 6 Height (Inches): 2.00 Weight (Pounds): 201 Medications Current Medications Medications (Trade) Dose Ordered Sig/Marisol Route PRN Reason Start Time Stop Time Status Last Admin Dose Admin Allopurinol (allopurinoL) 300 mg DAILY ORAL 08/19/19 09:00 09/18/19 08:59 08/20/19 09:44 Aspirin (Ecotrin) 81 mg DAILY ORAL 08/19/19 09:00 10/03/19 08:59 08/20/19 09:43 Atorvastatin Calcium (Lipitor) 10 mg BEDTIME ORAL 08/18/19 21:00 11/16/19 20:59 08/19/19 21:29 Clonidine HCl (Catapres Tab) 0.1 mg EVERY 8 HOURS ORAL 08/20/19 06:00 11/18/19 05:59 08/20/19 06:00 Docusate Sodium (Colace) 100 mg TWICE A DAY ORAL 08/19/19 09:00 09/18/19 08:59 08/20/19 09:43 Donepezil HCl (Aricept) 10 mg DAILY ORAL 08/19/19 09:00 09/18/19 08:59 08/20/19 09:43 Ergocalciferol (Drisdol) 50,000 intlu ONCE A WEEK ORAL 08/19/19 09:00 09/18/19 08:59 08/19/19 12:30 Fludrocortisone Acetate (Florinef) 0.1 mg DAILY ORAL 08/19/19 09:00 09/18/19 08:59 08/20/19 09:43 Heparin Sodium (Porcine) (Heparin 5000 units/ml) 5,000 units EVERY 12 HOURS SUBQ 08/18/19 21:00 10/02/19 20:59 08/20/19 09:45 Losartan Potassium (Cozaar) 50 mg DAILY ORAL 08/19/19 09:00 09/18/19 08:59 08/20/19 09:43 Metoprolol Succinate (Toprol XL) 25 mg DAILY ORAL 08/19/19 09:00 11/17/19 08:59 08/20/19 09:44 Midodrine (Pro-Amatine) 10 mg THREE TIMES A DAY ORAL 08/19/19 09:00 11/17/19 08:59 08/20/19 09:44 Primidone (Mysoline) 50 mg DAILY ORAL 08/19/19 09:00 09/18/19 08:59 08/20/19 09:43 Sodium Chloride 1,000 ml @ 100 mls/hr Q10H IV 08/19/19 03:00 09/18/19 02:59 08/20/19 06:00 Assessment/Plan Problem List: (1) Heel ulcer Assessment & Plan: PT presented on admission with stable dry eschar lateral R heel.periwound skin is dry and blanchable without fluctuance . R heel is callused and blanchable.Haemosiderin bilat lower ext . Non-Blanching erythema sacrum,R and L Buttocks. Pt demonstrated ability to self reposition when cued . Educated pt on wound prevention.Encouraged to frequently reposition self in bed-at least hourly. Pt instructed to avoid sliding against bed-linens to minimize friction to already compromised skin on buttocks. Both heels floated off mattress. Tx.Plan: Apply Betadine to eschar lateral R heel.Leave open to air. Apply Cavilon Skin Barrier to both heels. Cover each heel with Optifoam drsgs. Change every 7 days and prn. Apply Moisture Barrier Paste to Sacrum. Cover with Optifoam drsg. Change every 3 days and prn. Reposition at least every 2 hour or as tolerated. Off-load heels with pillow. 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
[2019-08-21] VITALS: BP 150/87
--- NOTE | 2019-08-21 03:00 | Progress Note ---
DATE: 08/20/2019 CARDIOLOGY PROGRESS NOTE SUBJECTIVE: The patient has no new complaints. The patient's blood pressure was elevated. I was contacted repeatedly by nursing staff requesting discontinuation of midodrine. I asked staff to specifically stand the patient up rather than sit him for blood pressure check. OBJECTIVE: VITAL SIGNS: There was a significant drop in his blood pressure of over 60 points from 176/93 to 116/87. LUNGS: Clear. CARDIAC: Regular. ABDOMEN: Soft. EXTREMITIES: No edema. IMPRESSION: 1. Significant orthostatic hypotension. 2. Pacemaker. 3. Cerebrovascular disease. PLAN: The patient should never be given antihypertensive therapy based on any blood pressure other than his standing blood pressure. The patient should continue on Florinef and midodrine. The patient should not have any additional antihypertensive therapy at this time. I will discontinue losartan from now and keep him off tamsulosin. Parveen Weiner M.D. DR: MICA JOB#: [id number] CC:
[2019-08-21 04:00] VITALS: BP 164/91
[2019-08-21 08:00] VITALS: BP_SYST 133; BP_SYST 134; BP_DIAS 84; BP_DIAS 98
[2019-08-21] MEDS: Heparin 5000 units/ml inj SUBQ SCH ×2 (09:02→20:47)
[2019-08-21] MEDS: Docusate 100mg cap ORAL SCH ×2 (09:02→17:13)
[2019-08-21] MEDS: Metoprolol Succinate XL 25mg tab ORAL SCH (09:03)
[2019-08-21] MEDS: Donepezil 10mg tab ORAL SCH (09:03)
[2019-08-21] MEDS: Aspirin EC 81mg tab ORAL SCH (09:03)
[2019-08-21] MEDS: Midodrine 10mg tab ORAL SCH ×3 (09:03→17:13)
--- NOTE | 2019-08-21 09:12 | Surgery Progress Note ---
Surgery Progress Note Subjective Additional Comments no acute events doing well comfortable no complaints no n/v/f/c AM labs ordered dressings changed and intact Objective Last 24 Hour Vital Signs Date Time Temp Pulse Resp B/P (MAP) Pulse Ox O2 Delivery O2 Flow Rate FiO2 08/21/19 09:03 61 134/84 08/21/19 08:00 96.9 61 18 134/84 (101) 98 08/21/19 05:49 164/91 08/21/19 04:00 60 08/21/19 04:00 98.1 59 20 164/91 (115) 96 08/21/19 00:00 98.0 61 22 150/87 (108) 96 08/21/19 00:00 60 08/20/19 21:44 172/95 08/20/19 21:00 Room Air 08/20/19 20:00 98.3 60 22 172/95 (120) 99 08/20/19 20:00 61 08/20/19 16:00 60 08/20/19 16:00 96.8 59 19 157/87 (110) 98 08/20/19 13:57 132/74 08/20/19 12:00 60 08/20/19 12:00 97.2 60 18 132/74 (93) 96 08/20/19 11:58 60 59 59 08/20/19 09:44 62 127/77 08/20/19 09:43 127/77 I&O Intake and Output 08/20/19 08/21/19 19:00 07:00 Intake Total 1060 ml 1500 ml Output Total 600 ml 250 ml Balance 460 ml 1250 ml Intake Oral 960 ml 400 ml IV Total 100 ml 1100 ml Output Urine Total 600 ml 250 ml # Voids 2 4 Dressing: dry Wound: clean Cardiovascular: RSR Respiratory: clear Abdomen: soft, non-tender, present bowel sounds Extremities: no edema, no tenderness, no cyanosis Plan Problems: (1) Heel ulcer Assessment & Plan: PT presented on admission with stable dry eschar lateral R heel.periwound skin is dry and blanchable without fluctuance . R heel is callused and blanchable.Haemosiderin bilat lower ext . Non-Blanching erythema sacrum,R and L Buttocks. Pt demonstrated ability to self reposition when cued . Educated pt on wound prevention.Encouraged to frequently reposition self in bed-at least hourly. Pt instructed to avoid sliding against bed-linens to minimize friction to already compromised skin on buttocks. Both heels floated off mattress. Tx.Plan: Apply Betadine to eschar lateral R heel.Leave open to air. Apply Cavilon Skin Barrier to both heels. Cover each heel with Optifoam drsgs. Change every 7 days and prn. Apply Moisture Barrier Paste to Sacrum. Cover with Optifoam drsg. Change every 3 days and prn. Reposition at least every 2 hour or as tolerated. Off-load heels with pillow. Matt Carmen Aug 21, 2019 09:12
--- NOTE | 2019-08-21 10:05 | General Progress Note ---
Assessment/Plan Problem List: (1) Cardiac syncope ICD Codes: R55 - Syncope and collapse SNOMED: 719604550 (2) Syncope ICD Codes: R55 - Syncope and collapse SNOMED: 465768137 (3) Status post CVA ICD Codes: Z86.73 - Personal history of transient ischemic attack (TIA), and cerebral infarction without residual deficits SNOMED: 963611565 (4) Cerebral vascular accident ICD Codes: I63.9 - Cerebral infarction, unspecified SNOMED: 026968698 (5) Fall ICD Codes: W19.XXXA - Unspecified fall, initial encounter SNOMED: 3815366, 531127209 (6) Orthostatic hypotension ICD Codes: I95.1 - Orthostatic hypotension SNOMED: 32870726 (7) Syncope ICD Codes: R55 - Syncope and collapse SNOMED: 413443876 Qualifiers: Qualified Codes: R55 - Syncope and collapse Status: stable, progressing Assessment/Plan: cont current rx ivf monitor orthostatics antiplt rx bp rx pt/ot dvt/stress ulcer prophylaxis Subjective ROS Limited/Unobtainable: No Constitutional: Reports: malaise, weakness HEENT: Reports: no symptoms Cardiovascular: Reports: no symptoms Respiratory: Reports: no symptoms Gastrointestinal/Abdominal: Reports: no symptoms Genitourinary: Reports: no symptoms Neurologic/Psychiatric: Reports: pre-existing deficit Endocrine: Reports: no symptoms Hematologic/Lymphatic: Reports: no symptoms Allergies: Coded Allergies: No Known Allergies (Verified , 05/02/08) All Systems: reviewed and negative except above Subjective no complaints. eating breakfast. no chest pain or sob. no fevers or chills. no cough. bp controlled. Objective Last 24 Hour Vital Signs Date Time Temp Pulse Resp B/P (MAP) Pulse Ox O2 Delivery O2 Flow Rate FiO2 08/21/19 09:03 61 134/84 08/21/19 09:00 Room Air 08/21/19 08:00 96.9 61 18 134/84 (101) 98 08/21/19 07:46 60 08/21/19 05:49 164/91 08/21/19 04:00 60 08/21/19 04:00 98.1 59 20 164/91 (115) 96 08/21/19 00:00 98.0 61 22 150/87 (108) 96 6/14/20 00:00 60 08/20/19 21:44 172/95 08/20/19 21:00 Room Air 08/20/19 20:00 98.3 60 22 172/95 (120) 99 08/20/19 20:00 61 08/20/19 16:00 60 08/20/19 16:00 96.8 59 19 157/87 (110) 98 08/20/19 13:57 132/74 08/20/19 12:00 60 08/20/19 12:00 97.2 60 18 132/74 (93) 96 08/20/19 11:58 60 59 59 Intake and Output 08/20/19 08/21/19 19:00 07:00 Intake Total 1060 ml 1500 ml Output Total 600 ml 250 ml Balance 460 ml 1250 ml Intake Oral 960 ml 400 ml IV Total 100 ml 1100 ml Output Urine Total 600 ml 250 ml # Voids 2 4 Height (Feet): 6 Height (Inches): 2.00 Weight (Pounds): 201 General Appearance: WD/WN, no apparent distress, alert EENT: PERRL/EOMI, normal ENT inspection Neck: non-tender, normal alignment Cardiovascular: normal peripheral pulses, normal rate, regular rhythm Respiratory/Chest: chest wall non-tender, lungs clear, normal breath sounds Abdomen: normal bowel sounds, non tender, soft, no organomegaly Edema: no edema noted Arm (L), no edema noted Arm (R), no edema noted Leg (L), no edema noted Leg (R), no edema noted Pedal (L), no edema noted Pedal (R), no edema noted Generalized Neurologic: alert, oriented x 3, responsive Skin: normal pigmentation Lymphatic: normal anterior cervical (L), normal anterior cervical (R) Ronald Herrera MD Aug 21, 2019 10:05
[2019-08-21 12:00] VITALS: BP_SYST 144; BP_SYST 151; BP_DIAS 87; BP_DIAS 99
[2019-08-21 16:00] VITALS: BP_SYST 123; BP_SYST 160; BP_DIAS 74; BP_DIAS 89
[2019-08-21 20:00] VITALS: BP 170/90
--- NOTE | 2019-08-21 21:00 | Progress Note ---
DATE: 08/21/2019 SUBJECTIVE: The patient continues to have episodes of significant orthostasis with supine to standing position up to 40 points of blood pressure drop is noted. The patient has poor cognitive insight into any symptomatology. He has not had any witnessed syncope. The case was discussed with the nursing staff yesterday and they were advised only to act on blood pressure readings from a standing position. PHYSICAL EXAMINATION: VITAL SIGNS: Blood pressure 160/89 lying, 123/74 standing, afebrile, heart rate 60. Monitor atrial paced. LUNGS: Clear. CARDIAC: Regular. No new murmur. ABDOMEN: Soft. EXTREMITIES: No edema. Wide-based gait. NEUROLOGIC: Left-sided weakness and dysarthria. IMPRESSION: 1. Symptomatic orthostatic hypotension. 2. Recurring syncope. 3. History of hypertension. 4. History of prostatic hypertrophy. 5. History of cerebral aneurysm bleed and stroke. PLAN: 1. Continue midodrine. 2. Continue Florinef. 3. No antihypertensives unless blood pressure standing is elevated. 4. Tamsulosin on hold as well. 5. Monitor for adequate urinary capacity of this drug as it is suspected to have been also contributing to his symptoms. Parveen Weiner M.D. DR: Stephanie JOB#: [id number] CC:
[2019-08-22] VITALS (9 sets, daily range): BP systolic 110–167; BP diastolic 69–100
[2019-08-22 07:30] LABS: BASOPHILS % (AUTO) 1.9 % (0.0-2.0); EOSINOPHILS % (AUTO) 2.5 % (0.0-3.0); HEMATOCRIT 54.1 % (42.0-52.0); HEMOGLOBIN 16.2 G/DL (14.2-18.0); LYMPHOCYTES % (AUTO) 16.9 % (20.0-45.0); MEAN CORPUSCULAR VOLUME 100 FL (80-99); MONOCYTES % (AUTO) 6.9 % (1.0-10.0); NEUTROPHILS % (AUTO) 71.8 % (45.0-75.0); PLATELET COUNT 210 K/UL (150-450); RED BLOOD COUNT 5.43 M/UL (4.70-6.10); RED CELL DISTRIBUTION WIDTH 14.4 % (11.6-14.8); WHITE BLOOD COUNT 8.1 K/UL (4.8-10.8)
[2019-08-22 07:47] LABS: ALANINE AMINOTRANSFERASE 69 U/L (12-78); ALBUMIN 3.1 G/DL (3.4-5.0); ALBUMIN/GLOBULIN RATIO 0.8 (1.0-2.7); ALKALINE PHOSPHATASE 91 U/L (46-116); ANION GAP 5 mmol/L (5-15); ASPARTATE AMINO TRANSFERASE 55 U/L (15-37); BILIRUBIN,TOTAL 0.5 MG/DL (0.2-1.0); BLOOD UREA NITROGEN 18 mg/dL (7-18); CALCIUM 8.5 MG/DL (8.5-10.1); CARBON DIOXIDE 33 MMOL/L (21-32); CHLORIDE 102 MMOL/L (98-107); CREATININE 1.1 MG/DL (0.55-1.30); POTASSIUM 3.5 MMOL/L (3.5-5.1); SODIUM 140 MMOL/L (136-145)
[2019-08-22] MEDS: Docusate 100mg cap ORAL SCH ×2 (08:51→17:35)
[2019-08-22] MEDS: Midodrine 10mg tab ORAL SCH ×3 (08:51→17:35)
[2019-08-22] MEDS: Donepezil 10mg tab ORAL SCH (08:51)
[2019-08-22] MEDS: Aspirin EC 81mg tab ORAL SCH (08:51)
[2019-08-22] MEDS: Metoprolol Succinate XL 25mg tab ORAL SCH ×2 (08:52→08:54)
[2019-08-22] MEDS: Heparin 5000 units/ml inj SUBQ SCH ×2 (08:53→21:51)
--- NOTE | 2019-08-22 10:27 | General Progress Note ---
Assessment/Plan Problem List: (1) Cardiac syncope ICD Codes: R55 - Syncope and collapse SNOMED: 164605649 (2) Syncope ICD Codes: R55 - Syncope and collapse SNOMED: 954289031 (3) Status post CVA ICD Codes: Z86.73 - Personal history of transient ischemic attack (TIA), and cerebral infarction without residual deficits SNOMED: 081048734 (4) Cerebral vascular accident ICD Codes: I63.9 - Cerebral infarction, unspecified SNOMED: 270292169 (5) Fall ICD Codes: W19.XXXA - Unspecified fall, initial encounter SNOMED: 4770474, 737801543 (6) Orthostatic hypotension ICD Codes: I95.1 - Orthostatic hypotension SNOMED: 07539028 (7) Syncope ICD Codes: R55 - Syncope and collapse SNOMED: 707682819 Qualifiers: Qualified Codes: R55 - Syncope and collapse Status: stable, progressing Assessment/Plan: cont current rx ivf as needed monitor orthostatics antiplt rx bp rx pt/ot dvt/stress ulcer prophylaxis Subjective ROS Limited/Unobtainable: No Constitutional: Reports: malaise, weakness HEENT: Reports: no symptoms Cardiovascular: Reports: no symptoms Respiratory: Reports: no symptoms Gastrointestinal/Abdominal: Reports: no symptoms Genitourinary: Reports: no symptoms Neurologic/Psychiatric: Reports: pre-existing deficit Endocrine: Reports: no symptoms Hematologic/Lymphatic: Reports: no symptoms Allergies: Coded Allergies: No Known Allergies (Verified , 05/02/08) All Systems: reviewed and negative except above Subjective no complaints. eating breakfast. no chest pain or sob. no fevers or chills. no cough. bp controlled. "i'm not dizzy." Per staff very unsteady. 2 person assist to stand. Objective Last 24 Hour Vital Signs Date Time Temp Pulse Resp B/P (MAP) Pulse Ox O2 Delivery O2 Flow Rate FiO2 08/22/19 08:54 60 111/70 08/22/19 08:00 95.2 60 20 111/70 (84) 98 08/22/19 08:00 61 08/22/19 06:17 168/81 08/22/19 04:00 98.0 60 18 163/85 (111) 96 08/22/19 04:00 62 08/22/19 00:00 97.6 59 18 164/94 (117) 95 08/22/19 00:00 60 08/21/19 21:53 170/90 08/21/19 21:00 Room Air 08/21/19 20:00 98.0 60 18 170/90 (116) 94 08/21/19 20:00 69 08/21/19 16:00 96.6 60 18 160/89 (112) 97 08/21/19 16:00 123/74 (90) 08/21/19 15:36 70 08/21/19 13:12 144/99 08/21/19 12:00 144/99 (114) 08/21/19 12:00 96.1 60 18 151/87 (108) 96 08/21/19 11:30 60 Intake and Output 08/21/19 08/22/19 19:00 07:00 Intake Total 240 ml 900 ml Output Total 1400 ml Balance -1160 ml 900 ml Intake Oral 140 ml IV Total 100 ml 900 ml Output Urine Total 1400 ml # Voids 3 2 # Bowel Movements 1 Laboratory Tests 08/22/19 06:50: White Blood Count 8.1, Red Blood Count 5.43, Hemoglobin 16.2, Hematocrit 54.1H, Mean Corpuscular Volume 100H, Mean Corpuscular Hemoglobin 29.8, Mean Corpuscular Hemoglobin Concent 29.9L, Red Cell Distribution Width 14.4, Platelet Count 210, Mean Platelet Volume 8.0, Neutrophils (%) (Auto) 71.8, Lymphocytes (%) (Auto) 16.9L, Monocytes (%) (Auto) 6.9, Eosinophils (%) (Auto) 2.5, Basophils (%) (Auto) 1.9, Sodium Level 140, Potassium Level 3.5, Chloride Level 102, Carbon Dioxide Level 33H, Anion Gap 5, Blood Urea Nitrogen 18, Creatinine 1.1, Estimat Glomerular Filtration Rate > 60, Glucose Level 84, Calcium Level 8.5, Total Bilirubin 0.5, Aspartate Amino Transf (AST/SGOT) 55H, Alanine Aminotransferase (ALT/SGPT) 69, Alkaline Phosphatase 91, Total Protein 7.1, Albumin 3.1L, Globulin 4.0, Albumin/Globulin Ratio 0.8L Height (Feet): 6 Height (Inches): 2.00 Weight (Pounds): 201 General Appearance: WD/WN, alert EENT: PERRL/EOMI, normal ENT inspection Neck: non-tender, normal alignment, supple, normal inspection Cardiovascular: normal peripheral pulses, normal rate, regular rhythm Respiratory/Chest: chest wall non-tender, lungs clear Abdomen: normal bowel sounds, non tender, soft, no organomegaly Edema: no edema noted Arm (L), no edema noted Arm (R), no edema noted Leg (L), no edema noted Leg (R), no edema noted Pedal (L), no edema noted Pedal (R), no edema noted Generalized 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
--- NOTE | 2019-08-22 13:17 | Surgery Progress Note ---
Surgery Progress Note Subjective Additional Comments afebrile HD stable labs stable exam stable comfortable no n/v/f/c Objective Last 24 Hour Vital Signs Date Time Temp Pulse Resp B/P (MAP) Pulse Ox O2 Delivery O2 Flow Rate FiO2 08/22/19 12:00 60 08/22/19 11:59 97.9 59 20 119/71 (87) 98 08/22/19 09:00 Room Air 08/22/19 08:54 60 111/70 08/22/19 08:00 95.2 60 20 111/70 (84) 98 08/22/19 08:00 61 08/22/19 06:17 168/81 08/22/19 04:00 98.0 60 18 163/85 (111) 96 08/22/19 04:00 62 08/22/19 00:00 97.6 59 18 164/94 (117) 95 08/22/19 00:00 60 08/21/19 21:53 170/90 08/21/19 21:00 Room Air 08/21/19 20:00 98.0 60 18 170/90 (116) 94 08/21/19 20:00 69 08/21/19 16:00 96.6 60 18 160/89 (112) 97 08/21/19 16:00 123/74 (90) 08/21/19 15:36 70 I&O Intake and Output 08/21/19 08/22/19 19:00 07:00 Intake Total 240 ml 900 ml Output Total 1400 ml Balance -1160 ml 900 ml Intake Oral 140 ml IV Total 100 ml 900 ml Output Urine Total 1400 ml # Voids 3 2 # Bowel Movements 1 Dressing: dry Wound: clean Cardiovascular: RSR Respiratory: clear Abdomen: soft, non-tender, present bowel sounds Extremities: no edema, no tenderness, no cyanosis, other Laboratory Tests Test 08/22/19 06:50 White Blood Count 8.1 K/UL (4.8-10.8) Red Blood Count 5.43 M/UL (4.70-6.10) Hemoglobin 16.2 G/DL (14.2-18.0) Hematocrit 54.1 % (42.0-52.0) H Mean Corpuscular Volume 100 FL (80-99) H Mean Corpuscular Hemoglobin 29.8 PG (27.0-31.0) Mean Corpuscular Hemoglobin Concent 29.9 G/DL (32.0-36.0) L Red Cell Distribution Width 14.4 % (11.6-14.8) Platelet Count 210 K/UL (150-450) Mean Platelet Volume 8.0 FL (6.5-10.1) Neutrophils (%) (Auto) 71.8 % (45.0-75.0) Lymphocytes (%) (Auto) 16.9 % (20.0-45.0) L Monocytes (%) (Auto) 6.9 % (1.0-10.0) Eosinophils (%) (Auto) 2.5 % (0.0-3.0) Basophils (%) (Auto) 1.9 % (0.0-2.0) Sodium Level 140 MMOL/L (136-145) Potassium Level 3.5 MMOL/L (3.5-5.1) Chloride Level 102 MMOL/L (98-107) Carbon Dioxide Level 33 MMOL/L (21-32) H Anion Gap 5 mmol/L (5-15) Blood Urea Nitrogen 18 mg/dL (7-18) Creatinine 1.1 MG/DL (0.55-1.30) Estimat Glomerular Filtration Rate > 60 mL/min (>60) Glucose Level 84 MG/DL (74-106) Calcium Level 8.5 MG/DL (8.5-10.1) Total Bilirubin 0.5 MG/DL (0.2-1.0) Aspartate Amino Transf (AST/SGOT) 55 U/L (15-37) H Alanine Aminotransferase (ALT/SGPT) 69 U/L (12-78) Alkaline Phosphatase 91 U/L (46-116) Total Protein 7.1 G/DL (6.4-8.2) Albumin 3.1 G/DL (3.4-5.0) L Globulin 4.0 g/dL Albumin/Globulin Ratio 0.8 (1.0-2.7) L Plan Problems: (1) Heel ulcer Assessment & Plan: PT presented on admission with stable dry eschar lateral R heel.periwound skin is dry and blanchable without fluctuance . R heel is callused and blanchable.Haemosiderin bilat lower ext . Non-Blanching erythema sacrum,R and L Buttocks. Pt demonstrated ability to self reposition when cued . Educated pt on wound prevention.Encouraged to frequently reposition self in bed-at least hourly. Pt instructed to avoid sliding against bed-linens to minimize friction to already compromised skin on buttocks. Both heels floated off mattress. Tx.Plan: Apply Betadine to eschar lateral R heel.Leave open to air. Apply Cavilon Skin Barrier to both heels. Cover each heel with Optifoam drsgs. Change every 7 days and prn. Apply Moisture Barrier Paste to Sacrum. Cover with Optifoam drsg. Change every 3 days and prn. Reposition at least every 2 hour or as tolerated. Off-load heels with pillow. d/c planning instructions given to patient upon d/c Matt Carmen Aug 22, 2019 13:17
[2019-08-23] VITALS (9 sets, daily range): BP systolic 130–187; BP diastolic 61–107
--- NOTE | 2019-08-23 04:30 | Progress Note ---
DATE: 08/22/2019 CARDIOLOGY PROGRESS NOTE SUBJECTIVE: The patient continues to have symptomatic orthostasis. The patient is not aware of his symptoms. He is quite unsteady on his feet. He continues to have 30 to 40 point drops in his blood pressure from lying to standing position. OBJECTIVE: VITAL SIGNS: Blood pressure 110/69 to 167/87. NECK: Supple. LUNGS: Clear. CARDIAC: Regular. ABDOMEN: Soft. EXTREMITIES: No edema. Monitor atrial paced at 60. IMPRESSION: 1. Orthostatic hypotension. 2. Cerebrovascular disease. 3. Recurring syncope, secondary to orthostatic hypotension. 4. Permanent pacemaker with stable function. PLAN: 1. Discontinue clonidine. 2. Maintain midodrine. 3. Maintain Florinef. 4. Continue hydration with IV fluids. Parveen Weiner M.D. DR: ROME JOB#: [id number] CC:
[2019-08-23] MEDS: Aspirin EC 81mg tab ORAL SCH (08:57)
[2019-08-23] MEDS: Docusate 100mg cap ORAL SCH ×2 (08:57→18:06)
[2019-08-23] MEDS: Donepezil 10mg tab ORAL SCH (08:58)
[2019-08-23] MEDS: Midodrine 10mg tab ORAL SCH ×3 (08:58→18:06)
[2019-08-23] MEDS: Metoprolol Succinate XL 25mg tab ORAL SCH (08:59)
[2019-08-23] MEDS: Heparin 5000 units/ml inj SUBQ SCH ×2 (08:59→20:10)
--- NOTE | 2019-08-23 11:21 | General Progress Note ---
Assessment/Plan Problem List: (1) Cardiac syncope ICD Codes: R55 - Syncope and collapse SNOMED: 193805108 (2) Syncope ICD Codes: R55 - Syncope and collapse SNOMED: 830280178 (3) Status post CVA ICD Codes: Z86.73 - Personal history of transient ischemic attack (TIA), and cerebral infarction without residual deficits SNOMED: 013239720 (4) Cerebral vascular accident ICD Codes: I63.9 - Cerebral infarction, unspecified SNOMED: 451103204 (5) Fall ICD Codes: W19.XXXA - Unspecified fall, initial encounter SNOMED: 1512180, 915018734 (6) Orthostatic hypotension ICD Codes: I95.1 - Orthostatic hypotension SNOMED: 87619834 (7) Syncope ICD Codes: R55 - Syncope and collapse SNOMED: 846103402 Qualifiers: Qualified Codes: R55 - Syncope and collapse Status: stable, progressing Assessment/Plan: cont current rx ivf as needed monitor orthostatics antiplt rx bp rx pt/ot dvt/stress ulcer prophylaxis d/w steven. declines snf pt. believes she is able to care for pt at home can accept pt home tomorrow Subjective ROS Limited/Unobtainable: No Constitutional: Reports: weakness HEENT: Reports: no symptoms Cardiovascular: Reports: no symptoms Respiratory: Reports: no symptoms Gastrointestinal/Abdominal: Reports: no symptoms Genitourinary: Reports: no symptoms Neurologic/Psychiatric: Reports: pre-existing deficit Endocrine: Reports: no symptoms Hematologic/Lymphatic: Reports: no symptoms Allergies: Coded Allergies: No Known Allergies (Verified , 05/02/08) All Systems: reviewed and negative except above Subjective no change. BP stable. very unsteady when standing. denies dizziness. no fever or chills. no cough. Objective Last 24 Hour Vital Signs Date Time Temp Pulse Resp B/P (MAP) Pulse Ox O2 Delivery O2 Flow Rate FiO2 08/23/19 09:00 Room Air 08/23/19 08:59 60 134/94 08/23/19 08:00 97.9 60 20 134/94 (107) 98 08/23/19 08:00 61 08/23/19 04:00 97.3 61 18 148/82 (104) 96 08/23/19 04:00 Room Air 08/23/19 04:00 60 08/23/19 00:00 96.9 61 18 155/61 (92) 97 08/23/19 00:00 60 08/23/19 00:00 Room Air 08/22/19 21:52 148/77 08/22/19 21:00 Room Air 08/22/19 20:00 98.1 60 19 167/87 (113) 95 08/22/19 20:00 61 08/22/19 17:31 110/69 (83) 08/22/19 16:00 97.8 56 19 145/87 (106) 98 08/22/19 16:00 60 08/22/19 13:30 143/99 08/22/19 13:30 143/99 (114) 08/22/19 12:00 60 08/22/19 11:59 97.9 59 20 119/71 (87) 98 Intake and Output 08/22/19 08/23/19 19:00 07:00 Intake Total 700 ml 1480 ml Output Total 400 ml Balance 300 ml 1480 ml Intake Oral 600 ml 480 ml IV Total 100 ml 1000 ml Output Urine Total 400 ml # Voids 2 # Bowel Movements 1 3 Height (Feet): 6 Height (Inches): 2.00 Weight (Pounds): 201 Objective General Appearance: WD/WN, alert EENT: PERRL/EOMI, normal ENT inspection Neck: non-tender, normal alignment, supple, normal inspection Cardiovascular: normal peripheral pulses, normal rate, regular rhythm Respiratory/Chest: chest wall non-tender, lungs clear Abdomen: normal bowel sounds, non tender, soft, no organomegaly Edema: no edema noted Arm (L), no edema noted Arm (R), no edema noted Leg (L), no edema noted Leg (R), no edema noted Pedal (L), no edema noted Pedal (R), no edema noted 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
--- NOTE | 2019-08-23 14:57 | Surgery Progress Note ---
Surgery Progress Note Subjective Symptoms: improved, tolerating diet, voiding well, passing flatus, BM Objective Last 24 Hour Vital Signs Date Time Temp Pulse Resp B/P (MAP) Pulse Ox O2 Delivery O2 Flow Rate FiO2 08/23/19 13:45 96 151/107 (122) 08/23/19 12:00 61 08/23/19 12:00 97.9 61 20 134/83 (100) 98 08/23/19 09:00 Room Air 08/23/19 08:59 60 134/94 08/23/19 08:00 97.9 60 20 134/94 (107) 98 08/23/19 08:00 61 08/23/19 04:00 97.3 61 18 148/82 (104) 96 08/23/19 04:00 Room Air 08/23/19 04:00 60 08/23/19 00:00 96.9 61 18 155/61 (92) 97 08/23/19 00:00 60 08/23/19 00:00 Room Air 08/22/19 21:52 148/77 08/22/19 21:00 Room Air 08/22/19 20:00 98.1 60 19 167/87 (113) 95 08/22/19 20:00 61 08/22/19 17:31 110/69 (83) 08/22/19 16:00 97.8 56 19 145/87 (106) 98 08/22/19 16:00 60 I&O Intake and Output 08/22/19 08/23/19 19:00 07:00 Intake Total 700 ml 1480 ml Output Total 400 ml Balance 300 ml 1480 ml Intake Oral 600 ml 480 ml IV Total 100 ml 1000 ml Output Urine Total 400 ml # Voids 2 # Bowel Movements 1 3 Dressing: dry Wound: clean Cardiovascular: RSR Respiratory: clear Abdomen: soft, non-tender, present bowel sounds Extremities: no edema, no tenderness, no cyanosis Plan Problems: (1) Heel ulcer Assessment & Plan: PT presented on admission with stable dry eschar lateral R heel.periwound skin is dry and blanchable without fluctuance . R heel is callused and blanchable.Haemosiderin bilat lower ext . Non-Blanching erythema sacrum,R and L Buttocks. Pt demonstrated ability to self reposition when cued . Educated pt on wound prevention.Encouraged to frequently reposition self in bed-at least hourly. Pt instructed to avoid sliding against bed-linens to minimize friction to already compromised skin on buttocks. Both heels floated off mattress. Tx.Plan: Apply Betadine to eschar lateral R heel.Leave open to air. Apply Cavilon Skin Barrier to both heels. Cover each heel with Optifoam drsgs. Change every 7 days and prn. Apply Moisture Barrier Paste to Sacrum. Cover with Optifoam drsg. Change every 3 days and prn. Reposition at least every 2 hour or as tolerated. Off-load heels with pillow. d/c planning instructions given to patient upon d/c Matt Carmen Aug 23, 2019 14:57
[2019-08-24] VITALS: BP 169/84
--- NOTE | 2019-08-24 03:00 | Progress Note ---
DATE: 08/23/2019 CARDIOLOGY PROGRESS NOTE SUBJECTIVE: The patient continues to have high blood pressure readings while lying down. Standing pressures are significantly decreased. The patient is unable to lay symptoms, but his gait is quite unsteady with those episodes. Vitals all reviewed. I have asked the nurses to check and treat standing blood pressures only with respect to p.r.n. medications. OBJECTIVE: LUNGS: Clear. CARDIAC: Regular. ABDOMEN: Soft. EXTREMITIES: No edema. NEUROLOGIC: No new neurologic findings with baseline ataxia, dysarthria, and slight left weakness. IMPRESSION: Symptomatic orthostatic hypotension. PLAN: Continue to observe, monitor blood pressure parameters, and treat elevated standing blood pressures only. Parveen Weiner M.D. DR: ROME JOB#: [id number] CC:
[2019-08-24 04:00] VITALS: BP 180/99
[2019-08-24 08:00] VITALS: BP 124/81
[2019-08-24] MEDS: Docusate 100mg cap ORAL SCH (08:57)
[2019-08-24] MEDS: Donepezil 10mg tab ORAL SCH (08:57)
[2019-08-24] MEDS: Metoprolol Succinate XL 25mg tab ORAL SCH (08:57)
[2019-08-24] MEDS: Midodrine 10mg tab ORAL SCH ×2 (08:58→12:57)
[2019-08-24] MEDS: Aspirin EC 81mg tab ORAL SCH (08:58)
[2019-08-24] MEDS: Heparin 5000 units/ml inj SUBQ SCH (08:59)
--- NOTE | 2019-08-24 10:14 | Discharge Summary ---
DATE OF ADMISSION: 08/18/2019 DATE OF DISCHARGE: 08/24/2019 ADMISSION DIAGNOSES: 1. Syncope. 2. Hypertension. 3. Hypertensive heart disease. 4. History of stroke with hemiparesis. 5. Orthostatic hypotension. 6. GERD. DISCHARGE DIAGNOSES: 1. Syncope. 2. Hypertension. 3. Hypertensive heart disease. 4. History of stroke with hemiparesis. 5. Orthostatic hypotension. 6. GERD. HOSPITAL COURSE: The patient was admitted with a syncopal episode from home. He was noted to be orthostatic and hypotensive in the emergency room and while at home. He was initially hydrated. Blood pressure did improve. He had episodes of hypertension complicated by orthostasis. Blood pressure is very difficult to manage, as starting blood pressure medicines would sometimes causes orthostatics to worsen. On discharge, the patient was stable. He was offered a [facility] facility but family declined. They will try to take him home with home health. DISCHARGE MEDICATIONS: Please see discharge list for discharge medications. DIET: Cardiac diet. ACTIVITY: Ad-betty. Ronald Herrera M.D. DR: GUMARO JOB#: [id number] CC:
[2019-08-24 12:00] VITALS: BP 179/89
[2019-08-24 12:55] VITALS: BP 158/82
--- NOTE | 2019-08-24 13:26 | Surgery Progress Note ---
Surgery Progress Note Subjective Symptoms: improved, pain absent, tolerating diet, voiding well, passing flatus , BM Objective Last 24 Hour Vital Signs Date Time Temp Pulse Resp B/P (MAP) Pulse Ox O2 Delivery O2 Flow Rate FiO2 08/24/19 12:55 60 158/82 (107) 08/24/19 12:03 179/89 08/24/19 12:00 97.7 59 20 179/89 (119) 98 08/24/19 09:00 60 61 77 08/24/19 09:00 Room Air 08/24/19 08:57 62 124/81 08/24/19 08:16 62 08/24/19 08:00 96.3 61 20 124/81 (95) 97 08/24/19 04:00 97.7 60 20 180/99 (126) 98 08/24/19 04:00 60 08/24/19 00:00 60 08/24/19 00:00 97.9 60 19 169/84 (112) 98 08/23/19 22:25 187/97 (127) 08/23/19 21:09 183/91 08/23/19 21:00 Room Air 08/23/19 20:00 60 08/23/19 20:00 96.4 60 20 183/91 (121) 96 08/23/19 18:00 96 144/88 (106) 08/23/19 16:00 97.9 61 20 130/85 (100) 98 08/23/19 16:00 65 08/23/19 13:45 96 151/107 (122) I&O Intake and Output 08/23/19 08/24/19 19:00 07:00 Intake Total 1900 ml 177 ml Output Total 1200 ml 900 ml Balance 700 ml -723 ml Intake Oral 800 ml IV Total 1100 ml 177 ml Output Urine Total 1200 ml 900 ml # Voids 2 # Bowel Movements 1 1 Dressing: dry Wound: clean Cardiovascular: RSR Respiratory: clear Abdomen: soft, flat, non-tender, present bowel sounds Extremities: no edema, no tenderness, no cyanosis Plan Problems: (1) Heel ulcer Assessment & Plan: PT presented on admission with stable dry eschar lateral R heel.periwound skin is dry and blanchable without fluctuance . R heel is callused and blanchable.Haemosiderin bilat lower ext . Non-Blanching erythema sacrum,R and L Buttocks. Pt demonstrated ability to self reposition when cued . Educated pt on wound prevention.Encouraged to frequently reposition self in bed-at least hourly. Pt instructed to avoid sliding against bed-linens to minimize friction to already compromised skin on buttocks. Both heels floated off mattress. Tx.Plan: Apply Betadine to eschar lateral R heel.Leave open to air. Apply Cavilon Skin Barrier to both heels. Cover each heel with Optifoam drsgs. Change every 7 days and prn. Apply Moisture Barrier Paste to Sacrum. Cover with Optifoam drsg. Change every 3 days and prn. Reposition at least every 2 hour or as tolerated. Off-load heels with pillow. d/c planning instructions given to patient upon d/c Matt Carmen Aug 24, 2019 13:26
[2019-08-24 16:00] VITALS: BP 120/70
--- NOTE | 2019-08-25 05:45 | Progress Note ---
DATE: 08/24/2019 CARDIOLOGY PROGRESS NOTE SUBJECTIVE: Feels well. Tolerating diet. No nausea or vomiting. Still has unsteady gait when standing at times. Still has orthostatic changes of significance from lying to standing position. PHYSICAL EXAMINATION: Unchanged. Vitals stable otherwise at rest. Advised not to take any antihypertensives at this time with p.r.n. clonidine only for high blood pressure in the fully upright standing position. We will arrange outpatient follow up. Parveen Weiner M.D. DR: SARA JOB#: [id number] CC:
--- NOTE | 2019-08-27 11:00 | History and Physical Report ---
DATE OF ADMISSION: 08/18/2019 REASON FOR ADMISSION: Syncope. HISTORY OF PRESENT ILLNESS: The patient is a pleasant elderly male who was admitted from home after repeated episodes of syncope. He was recently hospitalized at an outside hospital where his workup was unremarkable. According to the patient's , he had multiple syncopal episodes at home and she brought him to the emergency room. The patient denies any fevers or chills. He has had no nausea, no vomiting, and no headaches. He has chronic left-sided hemiparesis, which is old. There are no reports of any diarrhea or medication noncompliance. PAST MEDICAL HISTORY: As above. PAST SURGICAL HISTORY: None. CURRENT MEDICATIONS: Reconciled and reviewed. ALLERGIES: None. FAMILY HISTORY: None. SOCIAL HISTORY: Negative for tobacco, ethanol, or drugs. REVIEW OF SYSTEMS: GENERAL: No fevers or chills. HEENT: No headaches or visual changes. CARDIOPULMONARY: No chest pain or shortness of breath. GASTROINTESTINAL: No nausea or vomiting. GENITOURINARY: No urgency or frequency. MUSCULOSKELETAL: No joint pain or swelling. NEUROLOGICAL: No history of seizures. PHYSICAL EXAMINATION: VITAL SIGNS: Temperature is 98 degrees, blood pressure 150/76, pulse 80, respirations 20. GENERAL: The patient is well developed, in no apparent distress. Awake, alert, and oriented x3. HEENT: Head was normocephalic and atraumatic. Pupils are equal, round, and reactive to light. Sclerae anicteric. Oropharynx clear. Mucous membranes are moist. NECK: Supple. HEART: Regular rate and rhythm. LUNGS: Clear. ABDOMEN: Soft, nontender, and nondistended. EXTREMITIES: Without clubbing, cyanosis, or edema. The patient has a chronic left-sided hemiparesis, which is old. SKIN: There are no wounds or rashes noted. LABORATORY DATA: White count was normal. Creatinine was also normal. EKG showed sinus rhythm. ASSESSMENT: This is an elderly male admitted with complaints of syncope likely secondary to orthostatic hypotension. PROBLEM LIST: 1. Syncope. 2. Orthostatic hypotension. 3. History of CVA. 4. Hypertensive heart disease. 5. Atherosclerotic cardiovascular disease. PLAN: 1. Cardiology evaluation. 2. Fluid resuscitation. 3. Cautious blood pressure medication use. 4. Monitor orthostatics. 5. DVT and stress ulcer prophylaxes. 6. PT/OT evaluations. Ronald Herrera M.D. DR: GUMARO JOB#: [id number] CC:
== END 2019-08-24 17:50 | disposition home or self-care (01) | DRG 312 ==
LOC: EMR 15:31 → EDBEDREQ 16:35 → 2E 16:45 → EDBEDREQ 16:47
DX: I95.1 Orthostatic hypotension (principal); I69.359 Hemiplegia and hemiparesis following cerebral infarction affecting unspecified side; L97.419 Non-pressure chronic ulcer of right heel and midfoot with unspecified severity; N17.9 Acute kidney failure, unspecified; E86.0 Dehydration; I13.10 Hypertensive heart and chronic kidney disease without heart failure, with stage 1 through stage 4 chronic kidney disease, or unspecified chronic kidney disease; K21.9 Gastro-esophageal reflux disease without esophagitis; Z95.0 Presence of cardiac pacemaker; Z88.6 Allergy status to analgesic agent; E86.1 Hypovolemia; N18.9 Chronic kidney disease, unspecified; Z91.81 History of falling
CPT/HCPCS: 36415; 71045; 80053; 84484; 85025; 87324; 93005; 99284; J7030; J8499

== ENCOUNTER 2019-08-25 13:54 | Inpatient (IN) | payer MEDICARE, OTHER ==
[~2019-08-25] VITALS: Ht 188 cm; Wt 85.7 kg
[~2019-08-25 13:54] MED LIST changes: +ASPIR 8181 MG ORAL; +MIDODRINE HCL10 MG ORAL
--- NOTE | 2019-08-25 14:18 | NUR ---
ED Nurse Note: Dr. El at bedside
[2019-08-25 14:20] VITALS: BP 110/60
--- NOTE | 2019-08-25 14:20 | NUR ---
ED Nurse Note: Xray at bedside
--- NOTE | 2019-08-25 14:23 | Emergency Room Report ---
History of Present Illness General Chief Complaint: Syncope Source: Patient Present Illness HPI Disclaimer: Please note that this report is being documented using [employer] technology. This can lead to erroneous entry secondary to incorrect interpretation by the dictating instrument. HPI: 78-year-old male history of stroke with residual left-sided weakness, primarily wheelchair-bound, hypertension and BPH presents for evaluation of syncope. Patient recently discharged from hospital on 08/17 with similar complaints. Medications were changed including lower dosage of his metoprolol succinate to 25 mg daily, discontinuation of metoprolol tartrate, discontinuation of losartan and Norvasc. The patient states today while seated he had 2 brief episodes of syncope. He denied any preceding chest pain, shortness of breath, palpitations and denies any recent volume losses from diarrhea, vomiting. He states he is eating good meals and drinking plenty of water. He denies any headache, dizziness, changes in vision prior to syncope and denies these complaints at this time. Patient was offered SNF placement on last admission but declined opting for in-home health which he states has been working well. He would like to return home. PMH: Hypertension, CVA with residual left-sided weakness, BPH PSH: Reviewed Allergies: Denied Social Hx: Never smoker, denies alcohol, denies drugs Allergies: Coded Allergies: No Known Allergies (Verified , 05/02/08) COVID-19 Screening Contact w/high risk pt: No Recent Travel to affected area: No Experienced COVID-19 symptoms?: No COVID-19 Testing performed [employer]: No Nursing Documentation-PMH Hx Hypertension: Yes Hx Pacemaker: Yes - Left chest Hx Cancer: No Hx Gastrointestinal Problems: No Hx Dialysis: Yes - Renal Failure Hx Neurological Problems: Yes Hx Cerebrovascular Accident: Yes - Left sided weakness Hx Transient Ischemic Attacks: Yes Hx Dementia: Yes Hx Seizures: No Hx Speech Problem: Yes - post CVA Hx Tremors: Yes - Left Upper Extremity Hx Syncope: Yes Hx Weakness: Yes Hx Neurologic Surgery: Yes - anneurysm in 2007 Review of Systems All Other Systems: negative except mentioned in HPI Physical Exam Vital Signs Date Time Temp Pulse Resp B/P (MAP) Pulse Ox O2 Delivery O2 Flow Rate FiO2 08/25/19 14:05 96.6 87 20 110/60 (77) 100 Room Air General: Awake and alert, no acute distress HEENT: NC/AT. EOMI. mild dysarthria Cardiovascular: RRR. S1 and S2 normal. No murmur appreciated Resp: Normal work of breathing. No cough, wheezing or crackles appreciated Abdomen: Abdomen is soft, nondistended. Nontender Skin: Intact. No abrasions, laceration or rash over the exposed skin MSK: Normal tone and bulk. Moving all extremities. Left held in slight flexion. Weakness on the left upper and lower extremities compared to right though still some motion Neuro: Awake and alert. Mentating appropriately. Mild dysarthria and speech Medical Decision Making Diagnostic Impression: Primary Impression: Syncope Additional Impressions: STEPHEN (acute kidney injury) UTI (urinary tract infection) Elevated d-dimer ER Course This a 78-year-old male presenting for evaluation of 2 syncopal events this morning without head injury. Differential includes was not limited to orthostatic hypotension, dehydration, medication side effect, anemia, arrhythmia , infection to name a few. Patient has no complaints at this time arrives with stable vital signs blood pressures within normal limits. Initially he was tachycardic into the 140s however heart rate has normalized. His EKG shows sinus rhythm with mild sinus arrhythmia but no acute ST segment changes. Labs were obtained to evaluate for metabolic derangement, signs of infection, cardiac ischemia as causes of the patient's syncope. Labs show increase in BUN and creatinine consistent with STEPHEN and bacteria in his urine consistent with urinary tract infection. The patient was treated with ceftriaxone and blood cultures were sent. Lactic acid slightly elevated 2.3 IV fluids are continued. Troponin is negative. Dimer returned 2.37. Given the reduced kidney function and lack of clinical features of a massive PE given the patient's normal heart rate, 100% oxygenation and otherwise no complaints of shortness of breath CTA was deferred and the patient was given a shot of Lovenox. He will be admitted to his PMD, Dr. Herrera who agrees with this plan. Laboratory Tests Test 08/25/19 14:45 White Blood Count 5.4 K/UL (4.8-10.8) Red Blood Count 5.26 M/UL (4.70-6.10) Hemoglobin 15.7 G/DL (14.2-18.0) Hematocrit 51.0 % (42.0-52.0) Mean Corpuscular Volume 97 FL (80-99) Mean Corpuscular Hemoglobin 29.9 PG (27.0-31.0) Mean Corpuscular Hemoglobin Concent 30.8 G/DL (32.0-36.0) L Red Cell Distribution Width 14.5 % (11.6-14.8) Platelet Count 197 K/UL (150-450) Mean Platelet Volume 7.8 FL (6.5-10.1) Neutrophils (%) (Auto) 67.6 % (45.0-75.0) Lymphocytes (%) (Auto) 21.8 % (20.0-45.0) Monocytes (%) (Auto) 7.3 % (1.0-10.0) Eosinophils (%) (Auto) 1.7 % (0.0-3.0) Basophils (%) (Auto) 1.6 % (0.0-2.0) Prothrombin Time 11.2 SEC (9.30-11.50) Prothrombin Time INR 1.0 (0.9-1.1) Activated Partial Thromboplast Time 28 SEC (23-33) D-Dimer 2.37 mg/L FEU (0.00-0.49) H Urine Color Yellow Urine Appearance Slightly cloudy Urine pH 5 (4.5-8.0) Urine Specific [place] 1.020 (1.005-1.035) Urine Protein 2+ (NEGATIVE) H Urine Glucose (UA) Negative (NEGATIVE) Urine Ketones 1+ (NEGATIVE) H Urine Blood Negative (NEGATIVE) Urine Nitrite Negative (NEGATIVE) Urine Bilirubin Negative (NEGATIVE) Urine Urobilinogen 1 MG/DL (0.0-1.0) H Urine Leukocyte Esterase 1+ (NEGATIVE) H Urine RBC 0 /HPF (0 - 0) Urine WBC 5-10 /HPF (0 - 0) H Urine Squamous Epithelial Cells Moderate /LPF (NONE/OCC) H Urine Bacteria Moderate /HPF (NONE) H Urine Granular Casts 0-2 /LPF (NONE) H Sodium Level 128 MMOL/L (136-145) L Potassium Level 3.4 MMOL/L (3.5-5.1) L Chloride Level 99 MMOL/L (98-107) Carbon Dioxide Level 30 MMOL/L (21-32) Anion Gap -1 mmol/L (5-15) L Blood Urea Nitrogen 39 mg/dL (7-18) H Creatinine 1.9 MG/DL (0.55-1.30) H Estimated Glomerular Filtration Rate 41.7 mL/min (>60) Glucose Level 141 MG/DL (74-106) H Lactic Acid Level 2.30 mmol/L (0.4-2.0) H Calcium Level 8.3 MG/DL (8.5-10.1) L Ferritin 195 NG/ML (8-388) Total Bilirubin 0.5 MG/DL (0.2-1.0) Aspartate Amino Transferase (AST) 33 U/L (15-37) Alanine Aminotransferase (ALT) 40 U/L (12-78) Alkaline Phosphatase 84 U/L (46-116) Lactate Dehydrogenase 286 U/L (81-234) H Troponin I 0.008 ng/mL (0.000-0.056) C-Reactive Protein, Quantitative 2.1 mg/dL (0.00-0.90) H Pro-B-Type Natriuretic Peptide 279 pg/mL (0-125) H Total Protein 6.9 G/DL (6.4-8.2) Albumin 3.1 G/DL (3.4-5.0) L Globulin 3.8 g/dL Albumin/Globulin Ratio 0.8 (1.0-2.7) L Urine Opiates Screen Negative (NEGATIVE) Urine Barbiturates Screen Positive (NEGATIVE) H Phencyclidine (PCP) Screen Negative (NEGATIVE) Urine Amphetamines Screen Negative (NEGATIVE) Urine Benzodiazepines Screen Negative (NEGATIVE) Urine Cocaine Screen Negative (NEGATIVE) Urine Marijuana (THC) Screen Negative (NEGATIVE) EKG Diagnostic Results EKG Time: 14:04 Rate: normal Rhythm: NSR ST Segments: no acute changes Other Impression Sinus rhythm with mild sinus arrhythmia. Normal axis, normal intervals, no ST segment changes. Rhythm Strip Diag. Results Rhythm Strip Time: 14:04 EP Interpretation: yes Rate: 70s Rhythm: NSR, no PVC's, no ectopy Chest X-Ray Diagnostic Results Chest X-Ray Diagnostic Results : Chest X-Ray Ordered: Yes # of Views/Limited/Complete: 1 View Indication: Other - syncope EP Interpretation: Yes Interpretation: no consolidation, no effusion, no pneumothorax, no acute cardiopulmonary disease Impression: No acute disease Electronically Signed by: Electronically signed by Dr. Joseph El Reevaluation Time: 17:58 Last Vital Signs Date Time Temp Pulse Resp B/P (MAP) Pulse Ox O2 Delivery O2 Flow Rate FiO2 6/18/20 14:05 96.6 87 20 110/60 (77) 100 Room Air Reevaluation Impression Sepsis reevaluation: I, Dr. Joseph El, reevaluated the patient Capillary refill: Less than 2 seconds Heart rate: 62 Respiratory rate: 14 Initial Lactate: 2.3 Repeat Lactate: 0.8 Pressors: no No signs of fluid overload Disposition: ADMITTED INPATIENT Condition: Serious Joseph El MD Aug 25, 2019 14:23
--- NOTE | 2019-08-25 14:45 | NUR ---
ED Nurse Note: VRE and MRSA swabs sent to lab
--- NOTE | 2019-08-25 14:46 | Diagnostic Imaging Report ---
Procedure: XRAY Chest 1v Reason for study: Chest pain Comparison films: 08/18/2019. FINDINGS: Pacer remains in place. Vascularity is normal. The lung [place] are clear bilaterally. Cardiac and mediastinal silhouette are within normal limits. CP angles are sharp. The bony thorax appear unremarkable. IMPRESSION: NO ACUTE CARDIOPULMONARY DISEASE.
[2019-08-25 15:23] LABS: BASOPHILS % (AUTO) 1.6 % (0.0-2.0); EOSINOPHILS % (AUTO) 1.7 % (0.0-3.0); HEMOGLOBIN 15.7 G/DL (14.2-18.0); LYMPHOCYTES % (AUTO) 21.8 % (20.0-45.0); MEAN CORPUSCULAR VOLUME 97 FL (80-99); MONOCYTES % (AUTO) 7.3 % (1.0-10.0); NEUTROPHILS % (AUTO) 67.6 % (45.0-75.0); PLATELET COUNT 197 K/UL (150-450); RED BLOOD COUNT 5.26 M/UL (4.70-6.10); RED CELL DISTRIBUTION WIDTH 14.5 % (11.6-14.8); WHITE BLOOD COUNT 5.4 K/UL (4.8-10.8)
[2019-08-25 15:28] LABS: BILIRUBIN, URINE NEGATIVE (NEGATIVE); GLUCOSE, URINE (UA) NEGATIVE (NEGATIVE); KETONES,URINE 1+ (NEGATIVE); LEUKOCYTE ESTERASE ,URINE 1+ (NEGATIVE); NITRITE,URINE NEGATIVE (NEGATIVE); PH,URINE 5 (4.5-8.0); PROTEIN,URINE 2+ (NEGATIVE); UROBILINOGEN,URINE 1 MG/DL (0.0-1.0)
[2019-08-25 15:33] LABS: ANION GAP -1 mmol/L (5-15); BLOOD UREA NITROGEN 39 mg/dL (7-18); CALCIUM 8.3 MG/DL (8.5-10.1); CARBON DIOXIDE 30 MMOL/L (21-32); CHLORIDE 99 MMOL/L (98-107); CREATININE 1.9 MG/DL (0.55-1.30); POTASSIUM 3.4 MMOL/L (3.5-5.1); SODIUM 128 MMOL/L (136-145)
[2019-08-25 15:39] LABS: APPEARANCE,URINE SLIGHTLY CLOUDY; COLOR,URINE YELLOW
[2019-08-25] MEDS ORDERED: Omnipaque 350 100ml vial INJ PRN (15:45)
[2019-08-25 15:47] LABS: ALANINE AMINOTRANSFERASE 40 U/L (12-78); ALBUMIN 3.1 G/DL (3.4-5.0); ALBUMIN/GLOBULIN RATIO 0.8 (1.0-2.7); ALKALINE PHOSPHATASE 84 U/L (46-116); ASPARTATE AMINO TRANSFERASE 33 U/L (15-37); BILIRUBIN,TOTAL 0.5 MG/DL (0.2-1.0)
[2019-08-25] MEDS ORDERED: cefTRIAXone 1 GM in NS 55 ML IVPB ONE (16:00)
[2019-08-25 16:04] LABS: FERRITIN 195 NG/ML (8-388)
[2019-08-25] MEDS ORDERED: Sodium Chloride 2,500 ML IVLG ONE (16:15)
[2019-08-25 16:20] VITALS: BP 112/67
[2019-08-25] MEDS: Enoxaparin 80mg Inj SUBQ SCH ×2 (16:31→21:52)
--- NOTE | 2019-08-25 17:25 | NUR ---
ED Nurse Note: Reflex lactic acid sent to lab
[2019-08-25] MEDS: Midodrine 10mg tab ORAL SCH (18:00)
[2019-08-25 18:10] VITALS: BP 110/71
--- NOTE | 2019-08-25 18:56 | NUR ---
ED Nurse Note: Spoke to Rocky in pharmacy regarding verifying Vitamin D. Confirmed that patient takes Vitamin D on . She stated she will sent the medication to ED.
--- NOTE | 2019-08-25 19:04 | NUR ---
HAND-OFF: Report given to Soledad GARRETT.
--- NOTE | 2019-08-25 19:12 | NUR ---
ED Nurse Note: pt received from GERRY Rider. pt is resting in bed with eyes closed, no acute distress is noted at this time. vital signs on caridiac monitor are with normal limits. will continue to monitor pt and prepare for admission
[2019-08-25 19:13] VITALS: BP 112/74
[2019-08-25] MEDS: Vitamin D 50,000 units cap ORAL SCH (19:53)
[2019-08-25 20:00] VITALS: BP 152/76
--- NOTE | 2019-08-25 20:45 | NUR ---
ED Nurse Note: report given to GERRY Hope
--- NOTE | 2019-08-25 21:10 | NUR ---
NURSE NOTES: Received pt from ED via [facility]. Pt transferred from [facility] to bed in without any incident. Pt is A/Ox4. [place] pt to room and unit. Received report from GERRY Roca. residential monitor is in placed, IV site intact, asymptomatic, and patent. Belongings list checked and signed. Bed is in the lowest position and locked. Call light and bed side table is within reach. No signs/symptoms of acute distress noted at this time. Received admission orders from Dr. Herrera. Will note and carry out.
[2019-08-25] MEDS: Tamsulosin 0.4mg cap ORAL SCH (21:52)
[2019-08-26] VITALS: BP 159/82
[2019-08-26 04:00] VITALS: BP 168/91
--- NOTE | 2019-08-26 05:11 | NUR ---
NURSE NOTES: Notified Dr. Herrera regarding BP of 168 / 85 and HR 61. Awaiting orders to bring the blood pressure down. Also reported rhythm strip that showed Sinus Rhythm 1st Degree AV Block.
--- NOTE | 2019-08-26 07:25 | NUR ---
NURSE NOTES: RECEIVED PATIENT A/A/OX3, FORGETFUL. IN BED CALM AND COMFORTABLE. IV ACCESS PATENT AND INTACT. NO C/O PAIN/DISCOMFORT NOTED. NO ACUTE CARDIO-RESP DISTRESS NOTED. BED IS IN THE LOWEST POSITION. SIDERAILS ARE UPX3, ENCOURAGED TO UTILIZE CALL LIGHT FOR ASSISTANCE. BED BRAKES AND LOCK @ ALL TIMES. WILL CONT TO MONITOR.
--- NOTE | 2019-08-26 07:37 | NUR ---
HAND-OFF: Report given to GERRY Marquez. Plan of care endorsed. Also endorsed to Alma that RN contacted Dr. Herrera regarding elevated BP, but Dr. Herrera has not returned call. Pt is asymptomatic at this time.
[2019-08-26 08:00] VITALS: BP 120/87
[2019-08-26] MEDS: Aspirin EC 81mg tab ORAL SCH (08:59)
[2019-08-26] MEDS: Midodrine 10mg tab ORAL SCH ×3 (08:59→17:24)
[2019-08-26] MEDS: Docusate 100mg cap ORAL SCH ×2 (08:59→12:34)
[2019-08-26] MEDS: Donepezil 10mg tab ORAL SCH (08:59)
[2019-08-26] MEDS: Heparin 5000 units/ml inj SUBQ SCH ×2 (09:05→21:16)
--- NOTE | 2019-08-26 09:15 | History and Physical Report ---
DATE OF ADMISSION: 08/25/2019 CHIEF COMPLAINT: Syncope. HISTORY OF PRESENT ILLNESS: The patient is a 78-year-old male. He has a prior history of stroke with hemiparesis, hypertension, orthostatic hypotension, and dementia. He was recently admitted for syncope. He was stabilized. His workup at that time was unremarkable. He was gently hydrated. He was discharged home. At home, though the patient had multiple syncopal episodes. Of note, he was sitting up in a chair when this happened, but he had at least six episodes according to the patient's . She brought him to the emergency room. On evaluation there, he was noted to be relatively hypotensive with a pressure of 110/60. He had no chest pain or shortness of breath. His troponin was negative. In light of the recurrent syncopal episodes, he is now admitted for further evaluation and care. PAST MEDICAL HISTORY: As above. He has a pacemaker. PAST SURGICAL HISTORY: None. CURRENT MEDICATIONS: Reconciled and reviewed. ALLERGIES: None. FAMILY HISTORY: None. SOCIAL HISTORY: There is no known history of tobacco, ethanol, or drugs. REVIEW OF SYSTEMS: Difficult to obtain as the patient is confused. PHYSICAL EXAMINATION: VITAL SIGNS: Temperature 98, pulse 61, blood pressure 160/91, respirations 20. GENERAL: The patient is well developed, in no apparent distress. NECK: Supple. There are no bruits. HEART: Regular rate and rhythm. LUNGS: Clear. ABDOMEN: Soft, nontender, and nondistended. EXTREMITIES: Without clubbing, cyanosis, or edema. NEUROLOGIC: The patient has left-sided hemiparesis, which is old. LABORATORY DATA: Sodium 128, potassium 3.4, BUN 39, creatinine 1.9. White count 5. ASSESSMENT: This is a 78-year-old male admitted with complaints of repeated bouts of syncope suspect secondary to orthostatic hypotension. He is also newly hyponatremic. PLAN: 1. Cautious hydration with normal saline. 2. Avoid aggressive blood pressure control. 3. Monitor orthostatics. 4. PT/OT evaluations. Ronald Herrera M.D. DR: GUMARO JOB#: [id number] CC:
[2019-08-26 12:00] VITALS: BP 118/83
--- NOTE | 2019-08-26 15:50 | NUR ---
CASE MANAGEMENT:REVIEW 78 YR OLD MALE FROM HOME TO ER CC: MULTIPLE SYNCOPAL EPISODES THIS MORNING PMH: ORTHOSTATIC HYPOTENSION AND WAS DISCHARGED YESTERDAY SI:SYNCOPE. UTI. STEPHEN. ELEVATED D-DIMER HYPOKALEMIA 96.6 87 20 110/60 100% ON RA NA-128 URINE(+) BARBITURATES IS: 1L NS BOLUS IV ROCEPHIN BLOOD CX CHEST XRAY URINE CX : TO TELEMETRY DCP: FROM HOME PLAN: ORTHOSTATIC VITALS CONTINUOUS CARDIAC MONITORING` INTERQUAL CRITERIA MET
[2019-08-26 16:00] VITALS: BP 121/86
--- NOTE | 2019-08-26 19:09 | NUR ---
HAND-OFF: Report given to adrianna.
[2019-08-26 20:00] VITALS: BP 149/86
[2019-08-26] MEDS: Tamsulosin 0.4mg cap ORAL SCH (21:14)
[2019-08-27] VITALS: BP 151/94
[2019-08-27 04:00] VITALS: BP 155/91
--- NOTE | 2019-08-27 06:50 | NUR ---
NURSE NOTES: Orthostatic BP checked as ordered: lying 141/78, sitting 140/84, standing 144/90. Pt is asymptomatic; will continue close monitoring and plan of care.
--- NOTE | 2019-08-27 07:25 | NUR ---
NURSE NOTES: RECEIVED PATIENT A/A/OX3, FORGETFUL. 1:1 FEEDER. EXCELLENT APPETITE. IN BED CALM AND COMFORTABLE. IV ACCESS PATENT AND INTACT. IVF INFUSING WELL. NO C/O PAIN/DISCOMFORT NOTED. NO ACUTE CARDIO-RESP DISTRESS NOTED. BED IS IN THE LOWEST POSITION. SIDERAILS ARE UPX3, ENCOURAGED TO UTILIZE CALL LIGHT FOR ASSISTANCE. BED BRAKES AND LOCK @ ALL TIMES. WILL CONT TO MONITOR.
[2019-08-27 07:42] LABS: ANION GAP 7 mmol/L (5-15); BLOOD UREA NITROGEN 22 mg/dL (7-18); CALCIUM 8.4 MG/DL (8.5-10.1); CARBON DIOXIDE 31 MMOL/L (21-32); CHLORIDE 104 MMOL/L (98-107); CREATININE 1.2 MG/DL (0.55-1.30); POTASSIUM 3.6 MMOL/L (3.5-5.1); SODIUM 142 MMOL/L (136-145)
[2019-08-27 08:00] VITALS: BP 157/84
[2019-08-27] MEDS: Donepezil 10mg tab ORAL SCH (08:47)
[2019-08-27] MEDS: Docusate 100mg cap ORAL SCH ×2 (08:48→17:39)
[2019-08-27] MEDS: Midodrine 10mg tab ORAL SCH ×3 (08:51→16:52)
[2019-08-27] MEDS: Aspirin EC 81mg tab ORAL SCH (08:51)
[2019-08-27] MEDS: Heparin 5000 units/ml inj SUBQ SCH ×2 (08:56→22:07)
--- NOTE | 2019-08-27 10:27 | NUR ---
NURSE NOTES:Pt presented on admission with Non-Blanching Erythema without induration sacrum. Both R and L heels are boggy with non-Blanching erythema. Stable dry eschar lateral R heel (L)1cm x (W)1.5cm. Tx.Plan: Apply Moisture Barrier Paste to Sacrum. Cover with Optifoam drsg. Change every 3 days and prn. Apply Cavilon Skin Barrier to R and L trochanters . Cover each site with Optifoam drsg. Change every 7 days and prn. Apply Cavilon Skin Barrier to Both heels.Cover each heels with Optifoam drsg. Change every 7 days and prn. Reposition at least every 2hours or as tolerated. Off-load heels with Pillow.
[2019-08-27 12:00] VITALS: BP_SYST 158; BP_SYST 95; BP_DIAS 53; BP_DIAS 94
--- NOTE | 2019-08-27 15:30 | General Progress Note ---
Assessment/Plan Problem List: (1) Syncope ICD Codes: R55 - Syncope and collapse SNOMED: 097858105 (2) Cardiac syncope ICD Codes: R55 - Syncope and collapse SNOMED: 200195133 (3) Status post CVA ICD Codes: Z86.73 - Personal history of transient ischemic attack (TIA), and cerebral infarction without residual deficits SNOMED: 283646473 (4) Orthostatic hypotension ICD Codes: I95.1 - Orthostatic hypotension SNOMED: 46780168 (5) Cerebral vascular accident ICD Codes: I63.9 - Cerebral infarction, unspecified SNOMED: 676243114 (6) Fall ICD Codes: W19.XXXA - Unspecified fall, initial encounter SNOMED: 7945634, 489505276 (7) Renal insufficiency ICD Codes: N28.9 - Disorder of kidney and ureter, unspecified SNOMED: 764484392 (8) STEPHEN (acute kidney injury) ICD Codes: N17.9 - Acute kidney failure, unspecified SNOMED: 96777299, 9066476 Status: stable, not improved Assessment/Plan: cont current rx ivf as needed monitor bp and orthostatics pt eval cont bp rx with caution will have to tolerate soom baseline htn due to orthostatic symptoms try ruth hose cont midodrine cont florinef Subjective ROS Limited/Unobtainable: No Constitutional: Reports: malaise, weakness HEENT: Reports: no symptoms Cardiovascular: Reports: lightheadedness, palpitations, syncope Respiratory: Reports: no symptoms Gastrointestinal/Abdominal: Reports: no symptoms Genitourinary: Reports: no symptoms Neurologic/Psychiatric: Reports: pre-existing deficit Endocrine: Reports: no symptoms Hematologic/Lymphatic: Reports: no symptoms Allergies: Coded Allergies: No Known Allergies (Verified , 05/02/08) All Systems: reviewed and negative except above Subjective no new complaints. no fever or chills. no sob. very labile BP. orthostatics negative so far. per staff very unsteady and weak. unable to hold fork and feed himself. Objective Last 24 Hour Vital Signs Date Time Temp Pulse Resp B/P (MAP) Pulse Ox O2 Delivery O2 Flow Rate FiO2 08/27/19 12:00 97.9 72 20 158/94 (115) 97 08/27/19 12:00 65 08/27/19 09:59 Room Air 08/27/19 08:00 78 08/27/19 08:00 97.9 66 20 157/84 (108) 96 08/27/19 04:00 97.4 63 20 155/91 (112) 97 08/27/19 04:00 60 08/27/19 00:00 61 08/27/19 00:00 96.4 60 17 151/94 (113) 98 08/26/19 21:00 Room Air 08/26/19 20:00 98.8 60 20 149/86 (107) 98 08/26/19 16:00 69 99 99 08/26/19 16:00 98.3 69 17 121/86 (98) 98 Intake and Output 08/26/19 08/27/19 19:00 07:00 Intake Total 1125 ml 435 ml Output Total 500 ml Balance 625 ml 435 ml IV Total 525 ml 75 ml Other 600 ml 360 ml Output Urine Total 500 ml # Voids 2 Laboratory Tests 08/27/19 05:45: Sodium Level 142, Potassium Level 3.6, Chloride Level 104, Carbon Dioxide Level 31, Anion Gap 7, Blood Urea Nitrogen 22H, Creatinine 1.2, Estimat Glomerular Filtration Rate > 60, Glucose Level 82, Calcium Level 8.4L Height (Feet): 6 Height (Inches): 2.00 Weight (Pounds): 184 General Appearance: WD/WN, alert, confused EENT: PERRL/EOMI Neck: non-tender, normal alignment Cardiovascular: normal peripheral pulses, normal rate Respiratory/Chest: chest wall non-tender, lungs clear, normal breath sounds, no respiratory distress Abdomen: normal bowel sounds, non tender, soft, no organomegaly, no mass Pelvis: normal external exam Extremities: normal range of motion Edema: no edema noted Arm (L), no edema noted Arm (R) Neurologic: physician representative II-XII grossly normal, alert, responsive Skin: normal pigmentation Lymphatic: normal anterior cervical (L), normal anterior cervical (R) Ronald Herrera MD Aug 27, 2019 15:30
[2019-08-27 16:00] VITALS: BP 166/93
[2019-08-27] MEDS: Losartan 25mg tab ORAL SCH (16:23)
--- NOTE | 2019-08-27 18:37 | NUR ---
NURSE NOTES: CE MCCLURE APPLIED PER MD ORDER. WILL CONT TO MONITOR.
--- NOTE | 2019-08-27 19:00 | NUR ---
HAND-OFF: Report given to BRITTNEY.
--- NOTE | 2019-08-27 19:30 | NUR ---
NURSE NOTES: Received report from Alma Myles RN. Pt is stable, no signs or symptoms of pain or distress noted at this time. Pt denies pain. Will continue plan of care and close monitoring.
[2019-08-27 20:00] VITALS: BP 148/90
[2019-08-27] MEDS: Tamsulosin 0.4mg cap ORAL SCH (22:06)
[2019-08-28] VITALS: BP 153/85
[2019-08-28 04:00] VITALS: BP 173/94
[2019-08-28] MEDS: HydrALAZINE 10mg Tab ORAL PRN ×2 (04:39→13:23)
--- NOTE | 2019-08-28 07:09 | NUR ---
NURSE NOTES: Orthostatic BP taken as ordered: Sitting 160/95, Standing 170/85, lying 160/90. Will endorse to Tootie GARRETT to report to . Pt is currently asymptomatic. Will continue plan of care and close monitoring. Addendum: 08/28/19 at 0721 by Zuleima Betancourt RN NURSE NOTES: Pt HR kaylene to 160 bpm per compliance monitor during orthostatic measurement. Pt denied dizziness, asymptomatic. Will endorse to GERRY Sommers.
--- NOTE | 2019-08-28 07:24 | NUR ---
HAND-OFF: Report given to Tootie Kitchen RN. Pt in stable condition, plan of care endorsed.
--- NOTE | 2019-08-28 07:41 | NUR ---
NURSE NOTES: Received report from Zuleima/RN, Patient is lying semi-villalpando's, resting comfortably, On room air, no acute distress/SOB noted at this time. Able to make needs known, Khadijah pain at this time. IV on right Hand 24G, saline locked. Bed in low position and locked, Call light within reach, Encouraged to use call light when needed. Will continue plan of care.
[2019-08-28 08:00] VITALS: BP 162/94
[2019-08-28] MEDS: Losartan 25mg tab ORAL SCH (09:42)
[2019-08-28] MEDS: Docusate 100mg cap ORAL SCH ×2 (09:42→17:43)
[2019-08-28] MEDS: Donepezil 10mg tab ORAL SCH (09:42)
[2019-08-28] MEDS: Midodrine 10mg tab ORAL SCH ×3 (09:42→17:43)
[2019-08-28] MEDS: Heparin 5000 units/ml inj SUBQ SCH ×2 (09:45→20:23)
[2019-08-28] MEDS: Aspirin EC 81mg tab ORAL SCH (09:45)
--- NOTE | 2019-08-28 10:40 | NUR ---
PT EVALUATION NOTE Patient seen for initial evaluation and treatment initiated. Patient presents with generalized weakness and impaired balance which affects patient's ability to perform mobility tasks safely. Patient requires min assist for bed mobility and min/mod assist for transfers with FWW. Patient unable to ambulate at this time as his AFOs and shoes are not available. Patient will benefit from skilled PT intervention to address strength and balance for improved functional mobility and safety. Recommend discharge home with home PT vs SNF once medically cleared by MD. Patient appears to have necessary DME at home. Addendum: 08/28/19 at 1212 by DOTTIE ANGULO PT Amended: Links added.
[2019-08-28 12:00] VITALS: BP 178/91
[2019-08-28 16:00] VITALS: BP 154/91
--- NOTE | 2019-08-28 19:27 | NUR ---
HAND-OFF: Report given to June/RN, Patient is in stable condition, Endorsed plan of care.
--- NOTE | 2019-08-28 19:36 | NUR ---
NURSE NOTES: Received report from GERRY Sommers. Patient is awake lying semi-villalpando's; resting comfortably. No signs of acute distress noted; denies pain at this time. AOx3-4; able to make needs known. Checked IV site; patent and flushed. No erythema, bleeding, or infiltration noted. Bed at lowest position, brakes on, siderails up x3. Call light within reach. Will continue to monitor.
[2019-08-28 20:00] VITALS: BP 165/80
[2019-08-28] MEDS: Tamsulosin 0.4mg cap ORAL SCH (20:22)
[2019-08-29] VITALS (7 sets, daily range): BP systolic 141–159; BP diastolic 82–98
--- NOTE | 2019-08-29 01:15 | Progress Note ---
DATE: 08/28/2019 SUBJECTIVE: No new complaints. Blood pressure parameters 150 to 180 systolic. Staff is still recording blood pressure in the usual position. The patient has significant orthostatic hypotension. OBJECTIVE: LUNGS: Clear. CARDIAC: Regular. ABDOMEN: Soft. EXTREMITIES: No edema. LABORATORY DATA: Monitor atrial pace. IMPRESSION: 1. Symptomatic orthostatic hypotension. 2. Lactic acidosis, resolved. 3. Prerenal azotemia, resolved. 4. Hyponatremia and hypokalemia, corrected. 5. Hypovolemia, corrected. PLAN: 1. Recommend do not check blood pressure in the lying position. Check and treat in the standing position only. 2. Discontinue tamsulosin as this may cause significant orthostasis in some patients. 3. Discontinue all antihypertensives and given a p.r.n. basis only for elevated blood pressure above 165 standing position only. 4. Continue midodrine. Avoid drugs with orthostatic potential. 5. Maintain adequate hydration. Parveen Weiner M.D. DR: MICA JOB#: [id number] CC:
--- NOTE | 2019-08-29 03:36 | NUR ---
NURSE NOTES: Patient is asleep lying semi-villalpando's; resting comfortably. No signs of acute distress or pain noted at this time.
--- NOTE | 2019-08-29 07:47 | NUR ---
HAND-OFF: Report given to GERRY Hartley. Patient is awake lying semi-villalpando's; resting comfortably. Condom catheter draining well to gravity. In stable condition.
--- NOTE | 2019-08-29 07:57 | NUR ---
NURSE NOTES: Patient received from June GARRETT. Patient stable AOx3 with no complaints and no s/sx of pain or distress. RR even and unlabored RA. Condom cath draining well to gravity. IV fluids infusing through patent IV. Side rails upx2, call light within reach. bed low and locked. Will continue to monitor.
[2019-08-29] MEDS: Heparin 5000 units/ml inj SUBQ SCH ×2 (08:38→20:32)
[2019-08-29] MEDS: Aspirin EC 81mg tab ORAL SCH (08:39)
[2019-08-29] MEDS: Docusate 100mg cap ORAL SCH ×2 (08:39→18:16)
[2019-08-29] MEDS: Midodrine 10mg tab ORAL SCH ×3 (08:39→18:16)
[2019-08-29] MEDS: Donepezil 10mg tab ORAL SCH (08:39)
--- NOTE | 2019-08-29 09:33 | NUR ---
CASE MANAGEMENT:REVIEW 08/29/19 SI: SYMPTOMATIC ORTHOSTATIC HYPOTENSION HYPOVOLEMIA 97.7 87 18 158/98 95% ON RA BUN+22 IS: IVF@100/HR ASA PO QD ALLOPURINOL PO QD ARICEPT PO QD HEPARIN SQ Q12 MIDODRINE PO TID : TELEMETRY STATUS DCP: PATIENT IS FROM HOME PLAN: HYDRATION CONTINUE MIDODRINE DC RTC ANTIHYPERTENSIVES...ONLY PRN
--- NOTE | 2019-08-29 16:07 | General Progress Note ---
Assessment/Plan Problem List: (1) Syncope ICD Codes: R55 - Syncope and collapse SNOMED: 300656426 (2) Cardiac syncope ICD Codes: R55 - Syncope and collapse SNOMED: 920920483 (3) Status post CVA ICD Codes: Z86.73 - Personal history of transient ischemic attack (TIA), and cerebral infarction without residual deficits SNOMED: 960223643 (4) Orthostatic hypotension ICD Codes: I95.1 - Orthostatic hypotension SNOMED: 17828621 (5) Cerebral vascular accident ICD Codes: I63.9 - Cerebral infarction, unspecified SNOMED: 901253715 (6) Fall ICD Codes: W19.XXXA - Unspecified fall, initial encounter SNOMED: 9104502, 875589217 (7) Renal insufficiency ICD Codes: N28.9 - Disorder of kidney and ureter, unspecified SNOMED: 430910555 (8) STEPHEN (acute kidney injury) ICD Codes: N17.9 - Acute kidney failure, unspecified SNOMED: 27453374, 7164105 Status: stable, not improved Assessment/Plan: cont current rx ivf as needed monitor bp and orthostatics pt eval cont bp rx with caution will have to tolerate soom baseline htn due to orthostatic symptoms try ruth hose cont midodrine cont florinef reorders liberalize salt Subjective ROS Limited/Unobtainable: No Constitutional: Reports: malaise, weakness HEENT: Reports: no symptoms Cardiovascular: Reports: no symptoms Respiratory: Reports: no symptoms Gastrointestinal/Abdominal: Reports: no symptoms Genitourinary: Reports: no symptoms Neurologic/Psychiatric: Reports: no symptoms Endocrine: Reports: no symptoms Hematologic/Lymphatic: Reports: no symptoms Allergies: Coded Allergies: No Known Allergies (Verified , 05/02/08) All Systems: reviewed and negative except above Subjective no new complaints. no fever or chills. no sob. very labile BP. tachycardic 160s when standing. no drop in BP though. Objective Last 24 Hour Vital Signs Date Time Temp Pulse Resp B/P (MAP) Pulse Ox O2 Delivery O2 Flow Rate FiO2 08/29/19 12:00 98.1 69 20 155/82 (106) 97 08/29/19 12:00 68 08/29/19 09:00 Room Air 08/29/19 08:00 97.7 87 18 158/98 (118) 95 08/29/19 08:00 76 08/29/19 06:00 97.7 64 141/93 (109) 08/29/19 04:00 77 08/29/19 00:10 129 08/29/19 00:05 64 08/29/19 00:00 81 08/29/19 00:00 74 08/29/19 00:00 97.7 81 19 155/94 (114) 94 08/28/19 21:00 Room Air 08/28/19 20:00 97.9 66 21 165/80 (108) 95 08/28/19 20:00 69 Intake and Output 08/28/19 08/29/19 19:00 07:00 Intake Total 568 ml Output Total 500 ml Balance 68 ml IV Total 568 ml Output Urine Total 500 ml # Voids 4 # Bowel Movements 1 Height (Feet): 6 Height (Inches): 2.00 Weight (Pounds): 184 Objective General Appearance: WD/WN, alert, confused EENT: PERRL/EOMI Neck: non-tender, normal alignment Cardiovascular: normal peripheral pulses, normal rate Respiratory/Chest: chest wall non-tender, lungs clear, normal breath sounds, no respiratory distress Abdomen: normal bowel sounds, non tender, soft, no organomegaly, no mass Pelvis: normal external exam Extremities: normal range of motion Edema: no edema noted Arm (L), no edema noted Arm (R) Neurologic: float tender II-XII grossly normal, alert, responsive Skin: normal pigmentation Lymphatic: normal anterior cervical (L), normal anterior cervical (R) Ronald Herrera MD Aug 29, 2019 16:07
--- NOTE | 2019-08-29 19:10 | NUR ---
NURSE NOTES: Received report from GERRY Hartley. Patient is awake alert and oriented x4, in semi fowlers position. Able to make needs known. No SOB or acute distress. 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 Denies pain or discomfort. Current IV site is occluded. Will insert new IV shortly. Bed is locked and at lowest position with siderails up. Call light and bedside table is within reach. Instructed patient to press call light when assistance is needed. Will continue plan of care.
--- NOTE | 2019-08-29 19:19 | NUR ---
HAND-OFF: Report given to Herminia Gaviria RN. Patient stable. Plan of care endorsed.
[2019-08-30] VITALS (7 sets, daily range): BP systolic 143–165; BP diastolic 82–106
--- NOTE | 2019-08-30 03:45 | Progress Note ---
DATE: 08/29/2019 CARDIOLOGY PROGRESS NOTE SUBJECTIVE: No new complaints. Blood pressure parameters improved. Standing blood pressure is being recorded. I spoke with the patient's and reconfirmed, but upon his discharge, she did not resume any antihypertensive medications ____ tamsulosin. OBJECTIVE: VITAL SIGNS: Blood pressure 159/88, pulse 60, respiratory rate 18. LUNGS: Clear. CARDIAC: Regular. ABDOMEN: Soft. EXTREMITIES: No edema. IMPRESSION: 1. Autonomic dysfunction. 2. Orthostatic hypotension. 3. History of cerebrovascular accident due to aneurysm. 4. Prostatic hypertrophy. 5. Hypovolemia, corrected. 6. Acute kidney injury, corrected. 7. No signs of active urinary tract infection, as less than 10,000 organisms obtained in urine. PLAN: 1. Discontinue intravenous fluids. 2. Continue monitoring blood pressure in standing position. 3. Maintain midodrine. 4. We will not resume tamsulosin at this time and the patient's was informed as such. 5. Followup cortisol level still pending. Parveen Weiner M.D. DR: MICA JOB#: [id number] CC:
--- NOTE | 2019-08-30 07:20 | NUR ---
NURSE NOTES: Received report from GERRY Russ. Patient is awake, alert and oriented x4, in semi fowlers position. Able to verbalize needs. No SOB or acute distress noted. equipment monitor phototypesetting in place. Denies pain or discomfort noted. IV access intact and patent. Bed is locked and at lowest position with siderails upx3. bed brakes activated and lock @ all times. Call light is within reach. Encouraged to utilize call light for assistance. Will continue plan of care.
[2019-08-30] MEDS: Docusate 100mg cap ORAL SCH ×2 (08:35→17:04)
[2019-08-30] MEDS: Aspirin EC 81mg tab ORAL SCH (08:35)
[2019-08-30] MEDS: Donepezil 10mg tab ORAL SCH (08:35)
--- NOTE | 2019-08-30 08:35 | General Progress Note ---
Assessment/Plan Problem List: (1) Syncope ICD Codes: R55 - Syncope and collapse SNOMED: 697582309 (2) Cardiac syncope ICD Codes: R55 - Syncope and collapse SNOMED: 644919457 (3) Status post CVA ICD Codes: Z86.73 - Personal history of transient ischemic attack (TIA), and cerebral infarction without residual deficits SNOMED: 901576473 (4) Orthostatic hypotension ICD Codes: I95.1 - Orthostatic hypotension SNOMED: 85633578 (5) Cerebral vascular accident ICD Codes: I63.9 - Cerebral infarction, unspecified SNOMED: 364656095 (6) Fall ICD Codes: W19.XXXA - Unspecified fall, initial encounter SNOMED: 9204530, 293261658 (7) Renal insufficiency ICD Codes: N28.9 - Disorder of kidney and ureter, unspecified SNOMED: 322949171 (8) STEPHEN (acute kidney injury) ICD Codes: N17.9 - Acute kidney failure, unspecified SNOMED: 20137563, 7468110 Status: stable, not improved Assessment/Plan: cont current rx ivf as needed monitor bp and orthostatics pt eval cont bp rx with caution will have to tolerate some baseline htn due to orthostatic symptoms ruth hose cont midodrine cont florinef liberalize salt ?b-lc Subjective ROS Limited/Unobtainable: No Constitutional: Reports: malaise, weakness HEENT: Reports: no symptoms Cardiovascular: Reports: no symptoms Respiratory: Reports: no symptoms Gastrointestinal/Abdominal: Reports: no symptoms Genitourinary: Reports: no symptoms Neurologic/Psychiatric: Reports: pre-existing deficit Endocrine: Reports: no symptoms Hematologic/Lymphatic: Reports: no symptoms Allergies: Coded Allergies: No Known Allergies (Verified , 05/02/08) All Systems: reviewed and negative except above Subjective no new complaints. no fever or chills. no sob. very labile BP. tachycardic 130s when standing. no drop in BP though. on midodrine and florinef. has ruth hose. 2 person assist to stand Objective Last 24 Hour Vital Signs Date Time Temp Pulse Resp B/P (MAP) Pulse Ox O2 Delivery O2 Flow Rate FiO2 08/30/19 06:00 112 155/106 (122) 08/30/19 04:00 97.9 75 17 165/93 (117) 94 08/30/19 04:00 75 08/30/19 00:00 69 74 131 08/30/19 00:00 65 08/30/19 00:00 97.7 69 19 160/87 (111) 98 08/29/19 21:00 Room Air 08/29/19 20:00 68 08/29/19 20:00 98.1 67 19 159/88 (111) 97 08/29/19 18:00 98.8 65 18 159/92 (114) 99 08/29/19 18:00 76 88 160 08/29/19 16:00 67 08/29/19 12:00 98.1 69 20 155/82 (106) 97 08/29/19 12:00 68 08/29/19 09:00 Room Air Intake and Output 08/29/19 08/30/19 19:00 07:00 Intake Total 360 ml 200 ml Output Total 150 ml Balance 210 ml 200 ml Intake Oral 360 ml 200 ml Output Urine Total 150 ml # Voids 2 2 Height (Feet): 6 Height (Inches): 2.00 Weight (Pounds): 184 Objective General Appearance: WD/WN, alert, confused EENT: PERRL/EOMI Neck: non-tender, normal alignment Cardiovascular: normal peripheral pulses, normal rate Respiratory/Chest: chest wall non-tender, lungs clear, normal breath sounds, no respiratory distress Abdomen: normal bowel sounds, non tender, soft, no organomegaly, no mass Pelvis: normal external exam Extremities: normal range of motion Edema: no edema noted Arm (L), no edema noted Arm (R) Neurologic: package pick up II-XII grossly normal, alert, responsive Skin: normal pigmentation Lymphatic: normal anterior cervical (L), normal anterior cervical (R) Ronald Herrera MD Aug 30, 2019 08:35
[2019-08-30] MEDS: Midodrine 10mg tab ORAL SCH ×3 (08:36→17:04)
[2019-08-30] MEDS: Heparin 5000 units/ml inj SUBQ SCH ×2 (08:39→21:12)
--- NOTE | 2019-08-30 10:56 | NUR ---
RD ASSESSMENT & RECOMMENDATIONS SEE CARE ACTIVITY FOR COMPLETE ASSESSMENT DAILY ESTIMATED NEEDS: Needs based on cardiac/ 83.5kg 25-30 kcals/kg 1854-0756 total kcals 1-1.3 g protein/kg 84-109 g total protein 25-30 mL/kg 4218-4321 total fluid mLs NUTRITION DIAGNOSIS: Decreased sodium intake needs R/T cardiac hx as evidenced by h/o CVA, episodes of tachycardiac + elev BPs. CURRENT DIET:CARDIAC PO DIET RECOMMENDATIONS: LOW NA/ texture as tolerated or per TANK BUILDER AND ERECTOR ADDITIONAL RECOMMENDATIONS: * Calibrated bedscale wt * Skin integrity: add MVI x 1, Vit C 250mg QD x 30 days * Monitor PO tolerance, need for TANK BUILDER [employer] ERECTOR eval for appropriate texture -h/o CVA
[2019-08-30] MEDS ORDERED: Amiodarone 200mg tab ORAL SCH (17:59)
--- NOTE | 2019-08-30 18:58 | NUR ---
HAND-OFF: Report given to Sherice.
--- NOTE | 2019-08-30 19:00 | NUR ---
NURSE NOTES: RECEIVED REPORT FROM PEÑA ALBERT. PATIENT AWAKE IN BED, VERBALLY RESPONSIVE AND ABLE TO MAKE NEEDS KNOWN- ALERT, OX4 WITH SOME FORGETFULNESS NOTED. PATIENT ABLE TO UTILIZE BILATERAL SIDERAILS TO TURN AND REPOSITION SELF. NOTED TO HAVE FINE HAD TREMORS WHEN GRASPING AN OBJECT. IV SITE RFA PATENT, INTACT, ASYMPTOMATIC AND SALINE-LOCKED. NOTED TO HAVE CE HOSE ON BILATERAL LEGS WITH OPTIFOAM ON BILATERAL HEELS. BREATHING EVEN AND UNLABORED ON ROOM AIR. NO COMPLAINTS OF PAIN OR DISCOMFORT NOTED. BED LOCKED AND IN LOWEST POSITION WITH SIDERAILS UP X 2. CALL LIGHT WITHIN REACH. WILL CONTINUE TO MONITOR.
--- NOTE | 2019-08-30 21:00 | Consultation ---
Consult Note Consult Note Cardiac EP Full note dictated # [id number] Erika Boone MD Aug 30, 2019 21:00
[2019-08-31] VITALS: BP 160/80
--- NOTE | 2019-08-31 01:15 | Consultation ---
DATE OF CONSULTATION: 08/30/2019 CARDIAC ELECTROPHYSIOLOGY CONSULTATION REASON FOR CONSULT: Supraventricular tachycardia. HISTORY OF PRESENT ILLNESS: The patient is a 78-year-old man with a history of sick sinus syndrome status post permanent dual-chamber pacemaker ([facility]) in 2012, history of CVA with left hemiparesis in 2007, hypertension, orthostatic hypotension, and history of syncope. He recently was hospitalized for syncope was noted to be orthostatic and had medications adjusted. His antihypertensive medications stopped. However, he presented again on 08/25/2019 following a syncopal episode, which occurred while he was at home sitting watching television. In the emergency room, his blood pressure was 110/60, pulse 87, and oxygen saturation 100% on room air. He was admitted on 08/28/2019 and was noted to have an episode of supraventricular tachycardia lasting about 5 minutes, rate 160 to 170 beats per minute. I was called today to evaluate him. He does not recall any light-headedness or palpitations since hospitalized. He denies previous palpitations prior to syncope at home. He has no chest pain or dyspnea. PAST MEDICAL HISTORY: As noted above. MEDICATIONS: Amiodarone started today 200 mg every 8 hours, Florinef 0.1 mg daily, hydralazine 10 mg q.6 hours p.r.n. for hypertension, allopurinol 300 mg daily, Ecotrin 81 mg daily, Colace 100 mg twice daily, Aricept 10 mg daily, subcutaneous heparin 5000 units q.12 h., atorvastatin 10 mg daily, ergocalciferol 50,000 units weekly, and ProAmatine 10 mg 3 times daily. ALLERGIES: No known drug allergies. SOCIAL HISTORY: The patient lives at home with his . He is a nonsmoker. He has no history of alcohol abuse. PHYSICAL EXAMINATION: VITAL SIGNS: Blood pressure is 143/82 sitting, pulse 67 and regular, respiration 18, and afebrile. GENERAL: Alert, well-developed male, in no acute distress. HEENT: Normocephalic and atraumatic. Pupils are equal, round, and reactive to light. Sclerae anicteric. Oral mucosa are moist. NECK: Supple. There is no jugular venous distention. No carotid bruits. LUNGS: Clear to auscultation bilaterally. HEART: Regular rate and rhythm. S1, S2 with a 1/6 systolic ejection murmur at the lower left sternal border. No S3, S4, or rubs. ABDOMEN: Soft, nontender, and nondistended. EXTREMITIES: No cyanosis, clubbing, or edema. NEUROLOGIC: Alert and oriented. A 3/5 motor in the left upper extremity and lower extremity versus right. SKIN: No rashes or lesions. LABORATORY DATA: Hemoglobin 15.7, white blood count 5400, and platelets 197,000. Sodium 142, potassium 3.6, chloride 104, bicarb 31, BUN 22, and creatinine 1.2. EKG shows sinus rhythm at the rate of 77 beats per minute, axis +[address]-segment or T-wave changes tracing with artifact from 08/28/2019 at 9:15. Telemetry shows sinus tachycardia with subsequent onset of SVT, rate of 165 beats per minute which initiates with a prolonged DE interval and has a short RP interval. Episode lasts 5 minutes, terminates with a PVC. Chest x-ray shows clear lung [place]. Normal heart size. Dual-chamber pacemaker with leads in the right atrium and right ventricle. ASSESSMENT AND RECOMMENDATIONS: The patient is a 78-year-old man with a history of hypertension, previous CVA with left hemiparesis, sick sinus syndrome, and syncope status post permanent dual-chamber pacemaker in 2013 who was admitted with syncope and noted to have episodes of supraventricular tachycardia. His current syncopal episode, which occurred while sitting, does not appear related to orthostatic hypotension. I suspect it may have been due to the SVT. I would favor electrophysiologic testing and catheter ablation given that the patient has had some difficulty with medication due to orthostasis and given potential toxicity with long-term amiodarone. The nature of the procedure was discussed with Mr. Garcia and will be discussed further with his family. I will hold amiodarone for now pending decision regarding electrophysiologic study and catheter ablation. Erika Boone M.D. DR: MARIAA JOB#: [id number] CC:
[2019-08-31 04:00] VITALS: BP 156/88
--- NOTE | 2019-08-31 05:29 | Progress Note ---
DATE: 08/30/2019 CARDIOLOGY PROGRESS NOTE SUBJECTIVE: The patient offers no new complaints. The patient's vitals were obtained personally by me. Standing blood pressure and heart rate were recorded as well as sitting. The patient was unable to stay standing long. He developed rapid heart rate. I reviewed the rhythm and noted sinus tachycardia that generated into supraventricular tachycardia at a rate of 160. Blood pressure was not orthostatic at that time. Reviewing the chart apparently there have been similar episodes over the past 2 days but the rhythms have not been documented by nursing staff nor have they been reported. The case was discussed with the archival studies professor, Dr. Boone. Vitals reviewed. Exam without change. Labs noted. IMPRESSION: 1. Orthostatic hypotension largely corrected. 2. Paroxysmal supraventricular tachyarrhythmias, symptomatic. 3. Permanent pacemaker with stable function. 4. History of hypertension. PLAN: 1. Maintain adequate hydration. 2. Continue cardiac monitoring. 3. antihypertensives unless elevated blood pressures noted with upright position. Plans are in order to transfer to [facility] for electrophysiologic study and possible ablation of tachyarrhythmia. In the interim, the patient will require COVID-19 testing before he can have a procedure in the cath laboratory. Parveen Weiner M.D. : Stephanie JOB#: [id number] CC:
--- NOTE | 2019-08-31 06:33 | NUR ---
NURSE NOTES: CALLED AND LEFT MESSAGE FOR DR. FOURNIER AT [phone] REGARDING NEGATIVE COVID RESULT. AWAITING CALL BACK FOR ADDITIONAL ORDERS.
--- NOTE | 2019-08-31 07:30 | NUR ---
HAND-OFF: Report given to GERRY DE. PLAN OF CARE ENDORSED. INFORMED HER PATIENT NEEDS ADDITIONAL COVID TEST.
--- NOTE | 2019-08-31 07:33 | NUR ---
NURSE NOTES: Received report from Samantha/RN, Patient sitting in bed, eating breakfast, On room air no acute distress/SOB noted, Able to make needs known, Khadijah pain at this time. IV on right FA, patent. Bed in low position and locked, Call light within reach. Encouraged to use call light when needed. Will continue plan of care.
[2019-08-31 08:00] VITALS: BP 166/103
[2019-08-31 08:21] LABS: BLOOD UREA NITROGEN 22 mg/dL (7-18); CARBON DIOXIDE 30 MMOL/L (21-32); CHLORIDE 105 MMOL/L (98-107); CREATININE 1.3 MG/DL (0.55-1.30); POTASSIUM 3.9 MMOL/L (3.5-5.1)
[2019-08-31 08:50] LABS: SODIUM 144 MMOL/L (136-145)
[2019-08-31] MEDS: Aspirin EC 81mg tab ORAL SCH (09:01)
[2019-08-31] MEDS: Docusate 100mg cap ORAL SCH ×2 (09:01→17:46)
[2019-08-31] MEDS: Donepezil 10mg tab ORAL SCH (09:01)
[2019-08-31] MEDS: Midodrine 10mg tab ORAL SCH ×3 (09:01→17:46)
[2019-08-31] MEDS: Heparin 5000 units/ml inj SUBQ SCH ×2 (09:07→20:56)
--- NOTE | 2019-08-31 09:38 | General Progress Note ---
Assessment/Plan Problem List: (1) Syncope ICD Codes: R55 - Syncope and collapse SNOMED: 152449120 (2) Cardiac syncope ICD Codes: R55 - Syncope and collapse SNOMED: 479642212 (3) Status post CVA ICD Codes: Z86.73 - Personal history of transient ischemic attack (TIA), and cerebral infarction without residual deficits SNOMED: 761644354 (4) Orthostatic hypotension ICD Codes: I95.1 - Orthostatic hypotension SNOMED: 30473801 (5) Cerebral vascular accident ICD Codes: I63.9 - Cerebral infarction, unspecified SNOMED: 360026565 (6) Fall ICD Codes: W19.XXXA - Unspecified fall, initial encounter SNOMED: 2131399, 327700648 (7) Renal insufficiency ICD Codes: N28.9 - Disorder of kidney and ureter, unspecified SNOMED: 484430920 (8) STEPHEN (acute kidney injury) ICD Codes: N17.9 - Acute kidney failure, unspecified SNOMED: 22974120, 2528896 Status: stable, not improved Assessment/Plan: prn ivf midodrine and florinef EP noted- ?ablation antiplt rx pt/ot monitor orthostatics monitor for svt Subjective ROS Limited/Unobtainable: No Constitutional: Reports: malaise, weakness HEENT: Reports: no symptoms Cardiovascular: Reports: no symptoms Respiratory: Reports: no symptoms Gastrointestinal/Abdominal: Reports: no symptoms Genitourinary: Reports: no symptoms Neurologic/Psychiatric: Reports: pre-existing deficit Endocrine: Reports: no symptoms Hematologic/Lymphatic: Reports: no symptoms Allergies: Coded Allergies: No Known Allergies (Verified , 05/02/08) All Systems: reviewed and negative except above Subjective no events. orthostatics- lying to sitting negative this AM. HR not recorded. w/ o complaints finished breakfast. no palpitations or sob. cant stand. very unsteady. Objective Last 24 Hour Vital Signs Date Time Temp Pulse Resp B/P (MAP) Pulse Ox O2 Delivery O2 Flow Rate FiO2 08/31/19 09:00 Room Air 08/31/19 08:00 97.7 85 20 166/103 (124) 95 08/31/19 08:00 61 08/31/19 04:00 98.6 109 20 156/88 (110) 97 08/31/19 04:00 60 08/31/19 00:00 63 08/31/19 00:00 103 88 08/31/19 00:00 98.3 103 18 160/80 (106) 96 08/30/19 21:00 Room Air 08/30/19 20:00 98.5 94 20 152/86 (108) 99 08/30/19 20:00 69 08/30/19 16:00 72 08/30/19 15:56 67 84 100 08/30/19 15:55 97.7 67 18 143/82 (102) 99 08/30/19 12:00 78 08/30/19 11:58 97.9 73 20 161/90 (113) 97 Intake and Output 08/30/19 08/31/19 19:00 07:00 Intake Total 600 ml 240 ml Output Total 800 ml Balance 600 ml -560 ml Intake Oral 600 ml 240 ml Output Urine Total 800 ml # Voids 4 # Bowel Movements 1 1 Laboratory Tests 08/31/19 05:49: Sodium Level 144, Potassium Level 3.9, Chloride Level 105, Carbon Dioxide Level 30, Blood Urea Nitrogen 22H, Creatinine 1.3, Estimat Glomerular Filtration Rate > 60, Glucose Level 83, Calcium Level 9.0, Magnesium Level 2.0, Thyroid Stimulating Hormone (TSH) 1.949 Height (Feet): 6 Height (Inches): 2.00 Weight (Pounds): 189 Objective General Appearance: WD/WN, alert, confused EENT: PERRL/EOMI Neck: non-tender, normal alignment Cardiovascular: normal peripheral pulses, normal rate Respiratory/Chest: chest wall non-tender, lungs clear, normal breath sounds, no respiratory distress Abdomen: normal bowel sounds, non tender, soft, no organomegaly, no mass Pelvis: normal external exam Extremities: normal range of motion Edema: no edema noted Arm (L), no edema noted Arm (R) 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
--- NOTE | 2019-08-31 10:57 | NUR ---
CASE MANAGEMENT:REVIEW 08/31/19 SI: SYMPTOMATIC ORTHOSTATIC HYPOTENSION HYPOVOLEMIA. NOW SVT 98.3 103 18 160/80 96% ON RA BUN+22 IS: FLORINEF PO QD ALLOPURINOL PO QD ASA PO QD ARICEPT PO QD HEPARIN SQ Q12 LIPITOR PO QHS MIDODRINE PO TID : TELEMETRY STATUS DCP: PATIENT IS FROM HOME PLAN: ELECTROPHYSIOLOGY CONSULT W/DR BECKER CATHETER ABLATION RECOMMENDED RAPID COVID ~ NEGATIVE
[2019-08-31 12:00] VITALS: BP 151/85
[2019-08-31 16:00] VITALS: BP 161/86
--- NOTE | 2019-08-31 19:10 | NUR ---
NURSE NOTES: RECEIVED REPORT FROM GERRY DE. PATIENT AWAKE IN BED, VERBALLY RESPONSIVE AND ABLE TO MAKE NEEDS KNOWN; AOX3-4 WITH SOME FORGETFULNESS. PATIENT ABLE TO UTILIZE BILATERAL SIDERAILS TO TURN AND REPOSITION SELF. OPTIFOAM NOTED ON SACRAL AREA, AND BILATERAL HEELS. BLE CE HOSE ON. BREATHING EVEN AND UNLABORED ON ROOM AIR, NO S/SX OF DISTRESS NOTED AT THIS TIME. NO COMPLAINTS OF PAIN AT THIS TIME. DENIES FEELINGS OF DIZZNESS, LIGHTHEADEDNESS, NAUSEA. NOTED TO HAVE FINE HAND TREMORS UPON GRASPING OBJECTS. IV SITE ON RFA PATENT, INTACT, ASYMPTOMATIC, AND SALINE-LOCKED. FALL PRECAUTIONS IN PLACE. BED LOCKED AND IN LOWEST POSITION WITH SIDERAILS UP X 2. CALL LIGHT WITHIN REACH. WILL CONITNUE TO MONITOR FOR ANY CHANGES.
--- NOTE | 2019-08-31 19:28 | Cardiac Electrophysiology PN ---
Assessment/Plan Problem List: (1) Arrhythmia (2) Syncope (3) Orthostatic hypotension Status: stable, progressing Status Narrative Mr Garcia has hx of syncope, + orthostasis. However, syncopal episode this adm occurred while sitting. May have been due to SVT, as pt noted w/ SVT lasting 5 min 150-160s during this hospitalization, on 08/27. Device did not detect, as tach detect rate had been set at 180 bpm - reprogrammed to detect at 150 bpm. Pacemaker function is otherwise normal - good pacing/ sensing. 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 Plan for transfer to [facility] for procedure on Thursday. d/w pt, who is agreeable. Will also d/w family. Subjective ROS Limited/Unobtainable: No Subjective Cardiac EP Mr Garcia has no c/o. Objective Last 24 Hour Vital Signs Date Time Temp Pulse Resp B/P (MAP) Pulse Ox O2 Delivery O2 Flow Rate FiO2 08/31/19 16:00 97.9 86 20 161/86 (111) 99 08/31/19 16:00 65 08/31/19 12:10 131 08/31/19 12:05 120 08/31/19 12:00 67 08/31/19 12:00 97.7 67 20 151/85 (107) 99 08/31/19 12:00 60 08/31/19 09:00 Room Air 08/31/19 08:00 97.7 85 20 166/103 (124) 95 08/31/19 08:00 61 08/31/19 04:00 98.6 109 20 156/88 (110) 97 08/31/19 04:00 60 08/31/19 00:00 63 08/31/19 00:00 103 88 08/31/19 00:00 98.3 103 18 160/80 (106) 96 08/30/19 21:00 Room Air 08/30/19 20:00 98.5 94 20 152/86 (108) 99 08/30/19 20:00 69 General Appearance: WD/WN, no apparent distress, alert EENT: PERRL/EOMI Neck: supple, no JVD Rhythm: NSR Cardiovascular: normal rate, regular rhythm, no gallop/murmur Respiratory/Chest: lungs clear Abdomen: non tender, soft Extremities: no swelling Neurologic: other - alert, oriented. Mild dysarthria. L hemiparesis Intake and Output 08/30/19 08/31/19 19:00 07:00 Intake Total 600 ml 240 ml Output Total 800 ml Balance 600 ml -560 ml Intake Oral 600 ml 240 ml Output Urine Total 800 ml # Voids 4 # Bowel Movements 1 1 Laboratory Tests Test 08/31/19 05:49 Sodium Level 144 MMOL/L (136-145) Potassium Level 3.9 MMOL/L (3.5-5.1) Chloride Level 105 MMOL/L (98-107) Carbon Dioxide Level 30 MMOL/L (21-32) Blood Urea Nitrogen 22 mg/dL (7-18) H Creatinine 1.3 MG/DL (0.55-1.30) Estimat Glomerular Filtration Rate > 60 mL/min (>60) Glucose Level 83 MG/DL (74-106) Calcium Level 9.0 MG/DL (8.5-10.1) Magnesium Level 2.0 MG/DL (1.8-2.4) Thyroid Stimulating Hormone (TSH) 1.949 uiU/mL (0.358-3.740) Microbiology Date/Time Source Procedure Growth Status 08/31/19 00:10 Nasopharynx SARS-CoV-2 RdRp Gene Assay - Final Complete Erika Boone MD Aug 31, 2019 19:28
--- NOTE | 2019-08-31 19:32 | NUR ---
HAND-OFF: Report given to Samantha/RN, Patient is in stable condition. Endorsed plan of care.
[2019-08-31 20:00] VITALS: BP 159/88
--- NOTE | 2019-08-31 21:40 | NUR ---
NURSE NOTES: SECOND COVID SWAB COLLECTED AND SENT TO LAB.
[2019-09-01] VITALS: BP_SYST 155; BP_SYST 160; BP_DIAS 80; BP_DIAS 87
--- NOTE | 2019-09-01 00:33 | NUR ---
NURSE NOTES: SHEFALI FROM [facility] CALLED TO OBTAIN INFORMATION REGARDING PATIENT. INFORMED HER SECOND COVID SWAB IS STILL PENDING RESULT. SHE VERBALIZED UNDERSTANDING AND WILL FOLLOW UP NEEDED
[2019-09-01 04:00] VITALS: BP 158/79
--- NOTE | 2019-09-01 04:06 | NUR ---
NURSE NOTES: PATIENT ASLEEP IN BED, APPEARS TO BE COMFORTABLE WITH NO S/SX OF PAIN OR DISCOMFORT AT THIS TIME. BREATHING EVEN AND UNLABORED ON ROOM AIR, NO S/SX OF DISTRESS. WILL CONTINUE TO MONITOR FOR ANY CHANGES.
--- NOTE | 2019-09-01 04:10 | NUR ---
NURSE NOTES: BLE CE HOSE REMOVED. WILL RE-APPLY IN ONE HOUR.
[2019-09-01 07:12] LABS: ANION GAP 5 mmol/L (5-15); BLOOD UREA NITROGEN 23 mg/dL (7-18); CALCIUM 8.7 MG/DL (8.5-10.1); CARBON DIOXIDE 32 MMOL/L (21-32); CHLORIDE 104 MMOL/L (98-107); CREATININE 1.3 MG/DL (0.55-1.30); POTASSIUM 4.2 MMOL/L (3.5-5.1); SODIUM 141 MMOL/L (136-145)
[2019-09-01 07:15] LABS: BASOPHILS % (AUTO) 1.4 % (0.0-2.0); EOSINOPHILS % (AUTO) 5.5 % (0.0-3.0); HEMATOCRIT 48.5 % (42.0-52.0); HEMOGLOBIN 15.3 G/DL (14.2-18.0); LYMPHOCYTES % (AUTO) 30.7 % (20.0-45.0); MEAN CORPUSCULAR VOLUME 96 FL (80-99); MONOCYTES % (AUTO) 6.9 % (1.0-10.0); NEUTROPHILS % (AUTO) 55.5 % (45.0-75.0); PLATELET COUNT 219 K/UL (150-450); RED BLOOD COUNT 5.06 M/UL (4.70-6.10); RED CELL DISTRIBUTION WIDTH 14.5 % (11.6-14.8); WHITE BLOOD COUNT 6.3 K/UL (4.8-10.8)
--- NOTE | 2019-09-01 07:16 | NUR ---
HAND-OFF: Report given to GERRY DE. PLAN OF CARE ENDORSED.
--- NOTE | 2019-09-01 07:25 | NUR ---
NURSE NOTES: Received report from Samantha/RN, Patient lying in bed, resting comfortably, On room air, no acute distress/SOB noted, Able to make needs known, Khadijah pain at this time. IV on right FA, patent. Bed in low position and locked, side rails up x3. Call light within reach. Encouraged to use call light when needed. Will continue plan of care.
[2019-09-01 08:00] VITALS: BP 171/101
--- NOTE | 2019-09-01 08:30 | Progress Note ---
DATE: 08/31/2019 CARDIOLOGY PROGRESS NOTE SUBJECTIVE: The patient was seen and evaluated. Case was reviewed with Dr. Boone. Arrangements are in progress for transfer to [facility]. The patient has symptomatic supraventricular tachyarrhythmias. No documented orthostatic hypotension persists, but has improved. PHYSICAL EXAMINATION: VITAL SIGNS: Noted. LUNGS: Clear. CARDIAC: Regular. No murmur. ABDOMEN: Soft. EXTREMITIES: No edema. Baseline neurologic deficits. IMPRESSION: 1. Paroxysmal supraventricular tachycardias with associated syncope. 2. Permanent pacemaker with stable function. 3. Hypertension with orthostasis. 4. History of CVA with dysarthria and ataxia. PLAN: Maintenance hydration. Avoid antihypertensives unless significant elevation while sitting or standing noted. Awaiting transfer once COVID-19 swabs are negative x2 for an EP study and ablations attempt. Parveen Weiner M.D. DR: CORIE/ELISA JOB#: [id number] CC:
[2019-09-01] MEDS: Donepezil 10mg tab ORAL SCH (09:59)
[2019-09-01] MEDS: Aspirin EC 81mg tab ORAL SCH (09:59)
[2019-09-01] MEDS: Midodrine 10mg tab ORAL SCH ×3 (09:59→18:20)
[2019-09-01] MEDS: Docusate 100mg cap ORAL SCH ×2 (09:59→18:20)
[2019-09-01] MEDS: Heparin 5000 units/ml inj SUBQ SCH ×2 (10:00→19:40)
[2019-09-01 12:00] VITALS: BP 165/93
[2019-09-01 16:00] VITALS: BP 162/91
--- NOTE | 2019-09-01 16:02 | General Progress Note ---
Assessment/Plan Problem List: (1) Syncope ICD Codes: R55 - Syncope and collapse SNOMED: 135810126 (2) Cardiac syncope ICD Codes: R55 - Syncope and collapse SNOMED: 568560956 (3) Status post CVA ICD Codes: Z86.73 - Personal history of transient ischemic attack (TIA), and cerebral infarction without residual deficits SNOMED: 718684166 (4) Orthostatic hypotension ICD Codes: I95.1 - Orthostatic hypotension SNOMED: 66477856 (5) Cerebral vascular accident ICD Codes: I63.9 - Cerebral infarction, unspecified SNOMED: 774138052 (6) Fall ICD Codes: W19.XXXA - Unspecified fall, initial encounter SNOMED: 1469693, 487558782 (7) Renal insufficiency ICD Codes: N28.9 - Disorder of kidney and ureter, unspecified SNOMED: 124660550 (8) STEPHEN (acute kidney injury) ICD Codes: N17.9 - Acute kidney failure, unspecified SNOMED: 00882838, 9059159 Status: stable, progressing Assessment/Plan: prn ivf midodrine and florinef EP noted- ablation antiplt rx pt/ot monitor orthostatics monitor for svt await at bed at [facility] for ablation Subjective ROS Limited/Unobtainable: No Constitutional: Reports: malaise, weakness HEENT: Reports: no symptoms Cardiovascular: Reports: no symptoms Respiratory: Reports: no symptoms Gastrointestinal/Abdominal: Reports: no symptoms Genitourinary: Reports: no symptoms Neurologic/Psychiatric: Reports: pre-existing deficit Endocrine: Reports: no symptoms Hematologic/Lymphatic: Reports: no symptoms Allergies: Coded Allergies: No Known Allergies (Verified , 05/02/08) All Systems: reviewed and negative except above Subjective no events. no new complaints. +dizziness. no fever or chills. tachycardic when standing. no fever or chills. awaiting bed at [facility] Objective Last 24 Hour Vital Signs Date Time Temp Pulse Resp B/P (MAP) Pulse Ox O2 Delivery O2 Flow Rate FiO2 09/01/19 12:04 128 09/01/19 12:02 76 09/01/19 12:00 68 09/01/19 12:00 97.6 65 20 165/93 (117) 100 09/01/19 12:00 65 09/01/19 09:00 Room Air 09/01/19 08:00 97.9 68 20 171/101 (124) 100 09/01/19 08:00 66 09/01/19 04:00 97.7 66 18 158/79 (105) 97 09/01/19 04:00 60 09/01/19 00:00 97.5 59 18 160/87 (111) 99 09/01/19 00:00 155/80 (105) 09/01/19 00:00 61 08/31/19 21:00 Room Air 08/31/19 20:00 97.7 66 18 159/88 (111) 95 08/31/19 20:00 67 08/31/19 16:00 97.9 86 20 161/86 (111) 99 08/31/19 16:00 65 Intake and Output 08/31/19 09/01/19 19:00 07:00 Intake Total 324 ml 240 ml Output Total 1200 ml 500 ml Balance -876 ml -260 ml Intake Oral 324 ml 240 ml Output Urine Total 1200 ml 500 ml # Voids 4 # Bowel Movements 1 1 Laboratory Tests 09/01/19 05:47: White Blood Count 6.3, Red Blood Count 5.06, Hemoglobin 15.3, Hematocrit 48.5, Mean Corpuscular Volume 96, Mean Corpuscular Hemoglobin 30.3, Mean Corpuscular Hemoglobin Concent 31.6L, Red Cell Distribution Width 14.5, Platelet Count 219, Mean Platelet Volume 7.7, Neutrophils (%) (Auto) 55.5, Lymphocytes (%) (Auto) 30.7, Monocytes (%) (Auto) 6.9, Eosinophils (%) (Auto) 5.5H, Basophils (%) (Auto ) 1.4, Sodium Level 141, Potassium Level 4.2, Chloride Level 104, Carbon Dioxide Level 32, Anion Gap 5, Blood Urea Nitrogen 23H, Creatinine 1.3, Estimat Glomerular Filtration Rate > 60, Glucose Level 78, Calcium Level 8.7, Magnesium Level 2.0 Height (Feet): 6 Height (Inches): 2.00 Weight (Pounds): 189 Objective General Appearance: WD/WN, alert, confused EENT: PERRL/EOMI Neck: non-tender, normal alignment Cardiovascular: normal peripheral pulses, normal rate Respiratory/Chest: chest wall non-tender, lungs clear, normal breath sounds, no respiratory distress Abdomen: normal bowel sounds, non tender, soft, no organomegaly, no mass Pelvis: normal external exam Extremities: normal range of motion Edema: no edema noted Arm (L), no edema noted Arm (R) Neurologic: rn cardiovascular icu II-XII grossly normal, alert, responsive Skin: normal pigmentation Lymphatic: normal anterior cervical (L), normal anterior cervical (R) Ronald Herrera MD Sep 01, 2019 16:02
--- NOTE | 2019-09-01 19:20 | NUR ---
NURSE NOTES: Received hand-off report from GERRY Sommers. Patient in stable condition, IV site on right forearm 20g intact, no redness, no leaking, no tenderness. Cardiac leads in place, desktop analyst working, bed in lowest and locked position, bed alarm activated, yellow socks on, call light within reach. No acute signs of distress noted.
--- NOTE | 2019-09-01 19:20 | NUR ---
HAND-OFF: Report given to Dora/RN, Patient is in stable condition, Endoresed plan of care.
--- NOTE | 2019-09-01 19:24 | Cardiac Electrophysiology PN ---
Assessment/Plan Problem List: (1) Syncope (2) Orthostatic hypotension (3) SVT (supraventricular tachycardia) Status: stable, progressing Status Narrative Mr Garcia has hx of syncope, + orthostasis. However, syncopal episode this adm occurred while sitting. May have been due to SVT, as pt noted w/ SVT lasting 5 min 150-160s during this hospitalization, on 08/27. 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 Device did not detect, as tach detect rate had been set at 180 bpm - reprogrammed to detect at 150 bpm. Pacemaker function is otherwise normal - good pacing/ sensing and impedances. He has not had further SVT on tele over past few days. He is off b blockers currently Assessment/Plan Rec EP /ablation for SVT, occurring despite b blockers and possibly associated w / syncope. Plan for transfer to [facility] for procedure . Procedure was d/w pt, who is agreeable. Message left for pt's He will remain off b blockers. COVID testing preop Subjective ROS Limited/Unobtainable: No Subjective Cardiac EP Mr Garcia is alert, without c/o dyspnea or pain Objective Last 24 Hour Vital Signs Date Time Temp Pulse Resp B/P (MAP) Pulse Ox O2 Delivery O2 Flow Rate FiO2 09/01/19 16:00 64 09/01/19 16:00 97.9 64 20 162/91 (114) 100 09/01/19 12:04 128 09/01/19 12:02 76 09/01/19 12:00 68 09/01/19 12:00 97.6 65 20 165/93 (117) 100 09/01/19 12:00 65 09/01/19 09:00 Room Air 09/01/19 08:00 97.9 68 20 171/101 (124) 100 09/01/19 08:00 66 09/01/19 04:00 97.7 66 18 158/79 (105) 97 09/01/19 04:00 60 09/01/19 00:00 97.5 59 18 160/87 (111) 99 09/01/19 00:00 155/80 (105) 09/01/19 00:00 61 08/31/19 21:00 Room Air 08/31/19 20:00 97.7 66 18 159/88 (111) 95 08/31/19 20:00 67 General Appearance: WD/WN, no apparent distress, alert EENT: PERRL/EOMI Neck: supple, no JVD Rhythm: NSR Cardiovascular: normal peripheral pulses, normal rate, regular rhythm, no gallop/murmur Respiratory/Chest: lungs clear Abdomen: non tender, soft Extremities: no swelling Neurologic: alert, oriented x 3, other - mild dysarthria and L hemiparesis Intake and Output 08/31/19 09/01/19 19:00 07:00 Intake Total 324 ml 240 ml Output Total 1200 ml 500 ml Balance -876 ml -260 ml Intake Oral 324 ml 240 ml Output Urine Total 1200 ml 500 ml # Voids 4 # Bowel Movements 1 1 Laboratory Tests Test 09/01/19 05:47 White Blood Count 6.3 K/UL (4.8-10.8) Red Blood Count 5.06 M/UL (4.70-6.10) Hemoglobin 15.3 G/DL (14.2-18.0) Hematocrit 48.5 % (42.0-52.0) Mean Corpuscular Volume 96 FL (80-99) Mean Corpuscular Hemoglobin 30.3 PG (27.0-31.0) Mean Corpuscular Hemoglobin Concent 31.6 G/DL (32.0-36.0) L Red Cell Distribution Width 14.5 % (11.6-14.8) Platelet Count 219 K/UL (150-450) Mean Platelet Volume 7.7 FL (6.5-10.1) Neutrophils (%) (Auto) 55.5 % (45.0-75.0) Lymphocytes (%) (Auto) 30.7 % (20.0-45.0) Monocytes (%) (Auto) 6.9 % (1.0-10.0) Eosinophils (%) (Auto) 5.5 % (0.0-3.0) H Basophils (%) (Auto) 1.4 % (0.0-2.0) Sodium Level 141 MMOL/L (136-145) Potassium Level 4.2 MMOL/L (3.5-5.1) Chloride Level 104 MMOL/L (98-107) Carbon Dioxide Level 32 MMOL/L (21-32) Anion Gap 5 mmol/L (5-15) Blood Urea Nitrogen 23 mg/dL (7-18) H Creatinine 1.3 MG/DL (0.55-1.30) Estimat Glomerular Filtration Rate > 60 mL/min (>60) Glucose Level 78 MG/DL (74-106) Calcium Level 8.7 MG/DL (8.5-10.1) Magnesium Level 2.0 MG/DL (1.8-2.4) Microbiology Date/Time Source Procedure Growth Status 08/31/19 00:10 Nasopharynx SARS-CoV-2 RdRp Gene Assay - Final Complete Erika Boone MD Sep 01, 2019 19:24
[2019-09-01 20:00] VITALS: BP 145/90
[2019-09-01] MEDS: Vitamin D 50,000 units cap ORAL SCH (20:03)
[2019-09-01] MEDS: HydrALAZINE 10mg Tab ORAL PRN (23:54)
[2019-09-02] VITALS: BP 168/92
--- NOTE | 2019-09-02 00:44 | NUR ---
NURSE NOTES: Collected Rapid Testing for COVID-19. Sending specimen to lab now.
--- NOTE | 2019-09-02 01:15 | Progress Note ---
DATE: 09/01/2019 CARDIOLOGY PROGRESS NOTE SUBJECTIVE: The patient has not had any new episodes of SVT but has not been standing up. He has only been placed in a sitting position for blood pressure checks. Monitored rhythm, atrial paced. OBJECTIVE: VITAL SIGNS: Blood pressure 162/90, heart rate 64, and respirations 20. LUNGS: Clear. CARDIAC: Regular. Normal S1, S2. No new murmur. ABDOMEN: Soft. EXTREMITIES: No edema. IMPRESSION: 1. Paroxysmal supraventricular tachyarrhythmias, symptomatic and likely associated with syncope. 2. Orthostatic hypotension resolved with hydration and discontinuation of blood pressure medications. 3. Hypertensive heart disease with labile blood pressure, but still controlled upon standing. 4. Pacemaker with stable function. 5. History of cerebrovascular accident. PLAN: 1. Hold beta-lc. 2. Monitor orthostatics. 3. Maintain adequate hydration. 4. Transferring to [facility] for cardiac ablation procedure. 5. I have spoken with [facility] twice today stressing that the patient is scheduled for procedure tomorrow and transfer will be arranged once bed is available. Parveen Weiner M.D. DR: KENDRICK JOB#: [id number] CC:
[2019-09-02 04:00] VITALS: BP 145/77
--- NOTE | 2019-09-02 07:30 | NUR ---
HAND-OFF: Report given to GERRY Jarrell. Plan of care endorsed. Patient in stable condition. Cardiac leads in place, oven drier tender working, bed alarm activated, bed in lowest and locked position. Patient alert and oriented x4.
[2019-09-02 08:00] VITALS: BP 186/101
--- NOTE | 2019-09-02 08:01 | General Progress Note ---
Assessment/Plan Problem List: (1) Syncope ICD Codes: R55 - Syncope and collapse SNOMED: 943433141 (2) Cardiac syncope ICD Codes: R55 - Syncope and collapse SNOMED: 159978752 (3) Status post CVA ICD Codes: Z86.73 - Personal history of transient ischemic attack (TIA), and cerebral infarction without residual deficits SNOMED: 441625669 (4) Orthostatic hypotension ICD Codes: I95.1 - Orthostatic hypotension SNOMED: 89684677 (5) Cerebral vascular accident ICD Codes: I63.9 - Cerebral infarction, unspecified SNOMED: 878145027 (6) Fall ICD Codes: W19.XXXA - Unspecified fall, initial encounter SNOMED: 0051225, 073801076 (7) Renal insufficiency ICD Codes: N28.9 - Disorder of kidney and ureter, unspecified SNOMED: 368368649 (8) STEPHEN (acute kidney injury) ICD Codes: N17.9 - Acute kidney failure, unspecified SNOMED: 62496663, 7051578 Status: stable, progressing Assessment/Plan: prn ivf midodrine and florinef EP noted- ablation antiplt rx pt/ot monitor orthostatics monitor for svt await at bed at [facility] for ablation Subjective ROS Limited/Unobtainable: No Constitutional: Reports: malaise HEENT: Reports: no symptoms Cardiovascular: Reports: no symptoms Respiratory: Reports: no symptoms Gastrointestinal/Abdominal: Reports: no symptoms Genitourinary: Reports: no symptoms Neurologic/Psychiatric: Reports: pre-existing deficit Endocrine: Reports: no symptoms Hematologic/Lymphatic: Reports: no symptoms Allergies: Coded Allergies: No Known Allergies (Verified , 05/02/08) All Systems: reviewed and negative except above Subjective no new complaints. still waiting for bed at [facility]. no fever or chills. no sob. no dizziness. no syncope. stable on tele. npo for procedure later today Objective Last 24 Hour Vital Signs Date Time Temp Pulse Resp B/P (MAP) Pulse Ox O2 Delivery O2 Flow Rate FiO2 09/02/19 04:00 98.8 65 19 145/77 (99) 95 09/02/19 04:00 60 09/02/19 00:00 97.9 60 18 168/92 (117) 98 09/02/19 00:00 67 09/01/19 23:54 168/92 6/25/20 21:00 Room Air 09/01/19 20:00 63 09/01/19 20:00 96.9 66 19 145/90 (108) 96 09/01/19 16:00 64 09/01/19 16:00 97.9 64 20 162/91 (114) 100 09/01/19 12:04 128 09/01/19 12:02 76 09/01/19 12:00 68 09/01/19 12:00 97.6 65 20 165/93 (117) 100 09/01/19 12:00 65 09/01/19 09:00 Room Air 09/01/19 08:00 97.9 68 20 171/101 (124) 100 09/01/19 08:00 66 Intake and Output 09/01/19 09/02/19 19:00 07:00 Intake Total 800 ml 200 ml Output Total 1000 ml 325 ml Balance -200 ml -125 ml Intake Oral 800 ml 200 ml Output Urine Total 1000 ml 325 ml # Voids 6 2 Height (Feet): 6 Height (Inches): 2.00 Weight (Pounds): 189 Objective General Appearance: WD/WN, alert, confused EENT: PERRL/EOMI Neck: non-tender, normal alignment Cardiovascular: normal peripheral pulses, normal rate Respiratory/Chest: chest wall non-tender, lungs clear, normal breath sounds, no respiratory distress Abdomen: normal bowel sounds, non tender, soft, no organomegaly, no mass Pelvis: normal external exam Extremities: normal range of motion Edema: no edema noted Arm (L), no edema noted Arm (R) Neurologic: shellfish harvester II-XII grossly normal, alert, responsive Skin: normal pigmentation Lymphatic: normal anterior cervical (L), normal anterior cervical (R) Ronald Herrera MD Sep 02, 2019 08:01
--- NOTE | 2019-09-02 08:37 | NUR ---
NURSE NOTES: Received report from GERRY John. Pt awake alert in bed eating breakfast. Took away rest of the food because patient is NPO for cardiac ablation to be done at [facility]. No set time for when the procedure will be done. I informed the patient that he can't have anything to eat for now due to pending procedure. IVF infusing on right FA 20 G, asymptomatic, patent and intact. Bed in low position, side rails up x3 and call light within reach. Will continue to monitor.
--- NOTE | 2019-09-02 08:58 | NUR ---
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
[2019-09-02] MEDS: Midodrine 10mg tab ORAL SCH (09:00)
[2019-09-02] MEDS: Heparin 5000 units/ml inj SUBQ SCH (09:00)
[2019-09-02 09:20] VITALS: BP 186/101
[2019-09-02] MEDS: Donepezil 10mg tab ORAL SCH (09:20)
[2019-09-02] MEDS: HydrALAZINE 10mg Tab ORAL PRN (09:20)
[2019-09-02] MEDS: Aspirin EC 81mg tab ORAL SCH (09:21)
[2019-09-02] MEDS: Docusate 100mg cap ORAL SCH (09:21)
--- NOTE | 2019-09-02 10:16 | NUR ---
NURSE NOTES: Called [facility] and gave report to nurse Bonnie Sarabia RN who will be receiving the pt. I informed her that pt ETA poultry picker is [phone]. Her call back number is [phone].
--- NOTE | 2019-09-02 11:12 | NUR ---
NURSE NOTES: Pt picked up by [facility]. SL on right FA, patent and intact. Called Delisa to inform her that pt is on his way to [facility].
--- NOTE | 2019-09-02 11:51 | NUR ---
Physical Therapy Note: Unable to see patient for PT treatment as pt was discharged to external facility for care.
--- NOTE | 2019-09-04 15:47 | Discharge Summary ---
Discharge Summary Discharge Summary _ DATE OF ADMISSION: 08/25/2019 DATE OF DISCHARGE: 09/02/2019 ATTENDING MD: Dr. Ronald Herrera CONSULTANTS: Dr. Parveen Boone BRIEF HOSPITAL COURSE: Patient is a 78-year-old male, who has prior history of stroke with left-sided hemiparesis, hypertension, orthostatic hypotension and dementia. He was recently admitted for syncope. His work-up at that time was unremarkable. He was discharged home. At home, patient had multiple syncopal episodes. He was sitting up in a chair when this happened, he had at least 6 episodes according to the patient's . He was then taken to ED. He denied chest pain or shortness of breath. Upon evaluation at the ED, blood pressure was 110/60, heart rate 87. He was initially tachycardic into the 140s, however, heart rate normalized. EKG showed sinus rhythm with mild sinus arrhythmia but no acute ST segment changes. Blood work did not show any leukocytosis. Hemoglobin and hematocrit were stable. There was an increase in BUN and creatinine consistent with STEPHEN. Urinalysis showed 1+ leukocyte esterase, 0-5 urine WBC. He was treated with ceftriaxone. Cultures were sent. Lactic acid was slightly elevated to 2.3. He was given IV fluid. Troponin was negative. Chest x-ray showed clear lung ashton. D-dimer was elevated to 2.37. Due to reduced kidney function and lack of clinical features of pulmonary embolism given normal heart rate and 100% oxygenation, CTA was deferred, but he was given a shot of Lovenox. He was then admitted to telemetry for further evaluation of syncope. He was placed on public information director. Blood pressure and orthostasis monitored. He was continued on midodrine and Florinef. He was given gentle IV hydration. Antihypertensives were discontinued. Tamsulosin discontinued as this may contribute to orthostasis. Blood pressure was monitored on standing position. Urine culture showed growth of gram-negative jimmie with low colony count. Patient has a history of sick sinus syndrome status post permanent dual chamber pacemaker ([employer]) in 2012. He was noted to have an episode of supraventricular tachycardia lasting about 5 minutes, rate of 160-170 bpm. During blood pressure reading, patient was unable to stay standing for long. He developed rapid heart rate. Rhythm noted was sinus tachycardia that degenerated into supraventricular tachycardia at a rate of 160. Blood pressure was not orthostatic at that time. Device did not detect SVT as detect rate had been set at 180 bpm. Device was then reprogrammed to detect at 150 bpm. Pacemaker function was otherwise normal with good pacing and sensing. Syncopal episode which occurred while sitting did not appear to be related to orthostatic hypotension. Patient will need electrophysiologic testing and catheter ablation. SARS-CoV-2 PCR was negative x2. Rapid testing was likewise negative. Patient was eventually transferred to [facility] for cardiac ablation. FINAL DIAGNOSES: Paroxysmal supraventricular tachyarrhythmia, symptomatic and likely associated with syncope Orthostatic hypotension, resolved with hydration and discontinuation of blood pressure medications Hypertensive heart disease with labile blood pressure Pacemaker with stable function Acute kidney injury History of cerebrovascular accident DISPOSITION: Patient was transferred to [facility]. I have been assigned to complete a discharge summary on this account, I was not involved with the patient's management.--TAMIA Jonas Jacqueline Robles NP Sep 04, 2019 15:47
--- NOTE | 2019-09-15 03:45 | Progress Note ---
DATE: 08/27/2019 CARDIOLOGY PROGRESS NOTE Late entry, 08/27/2019 SUBJECTIVE: No new complaints. He is an unreliable historian. His blood pressure remains labile. Orthostatics do not appear to be abnormal, however, staff is unable to assess him standing or sitting long because of his unsteadiness. He is having trouble using utensils. His speech is at baseline fluency. OBJECTIVE: VITAL SIGNS: Blood pressure 158/94, pulse 72, respirations 20, afebrile. LUNGS: Clear. CARDIAC: Regular. ABDOMEN: Soft. EXTREMITIES: No edema. Monitor with atrial pacing. IMPRESSION: 1. Recurring syncope. 2. Pacemaker. 3. Paroxysmal atrial ectopy. 4. Hypertensive heart disease with labile blood pressure. 5. Orthostatic hypotension. 6. Prostatic hypertrophy. PLAN: 1. Maintain adequate hydration. 2. Physical therapy. 3. Attempt orthostatic blood pressure assessment. 4. Avoid antihypertensives for now. 5. We will follow. Parveen Weiner M.D. DR: ROME JOB#: [id number] CC:
--- NOTE | 2019-09-15 04:00 | Consultation ---
DATE OF CONSULTATION: 08/25/2019 CARDIOLOGY CONSULTATION CONSULTING PHYSICIAN: Parveen Weiner M.D. REQUESTING PHYSICIAN: Ronald Herrera M.D. REASON FOR CONSULTATION: Recurring syncope. HISTORY OF PRESENT ILLNESS: This is a 78-year-old male, who was just discharged from the hospital following a workup for orthostatic syncope and his therapy was adjusted. Upon the day after arriving home, he sat up and lost consciousness on at least 3 occasions as witnessed by his . His medication regimen had been confirmed with her and was properly followed. PAST MEDICAL HISTORY: As outlined on my prior consultation. SOCIAL HISTORY: As outlined on my prior consultation. FAMILY HISTORY: As outlined on my prior consultation. ALLERGIES: No allergies. MEDICATIONS: Reviewed and reconciled. PHYSICAL EXAMINATION: VITAL SIGNS: Blood pressure 160/90, pulse 60, respirations 18. He is unsteady on his feet. There are some orthostatic symptoms. NECK: Supple. LUNGS: Clear. Pacemaker pocket clean and dry. ABDOMEN: Soft. EXTREMITIES: With no edema. Gait is unsteady. IMPRESSION: Recurring syncope is of concern in this gentleman. He has been treated for orthostasis. His antihypertensives were discontinued and he was placed on midodrine and Florinef. We will need to monitor again and assess for possible arrhythmic component or recurring orthostasis that may be related to autonomic dysfunction. Parveen Weiner M.D. DR: ROME JOB#: [id number] CC:
== END 2019-09-02 11:30 | disposition other institution (70) | DRG 309 ==
LOC: EMR 14:18 → 2E 15:30 → EDBEDREQ 20:44 → 2E 22:01
DX: I47.1 Supraventricular tachycardia (principal); E87.1 Hypo-osmolality and hyponatremia; I69.354 Hemiplegia and hemiparesis following cerebral infarction affecting left non-dominant side; N17.9 Acute kidney failure, unspecified; I95.1 Orthostatic hypotension; F03.90 Unspecified dementia, unspecified severity, without behavioral disturbance, psychotic disturbance, mood disturbance, and anxiety; I11.9 Hypertensive heart disease without heart failure; Z95.0 Presence of cardiac pacemaker; F45.8 Other somatoform disorders; Z91.81 History of falling; I49.5 Sick sinus syndrome; Z20.828 Contact with and (suspected) exposure to other viral communicable diseases
CPT/HCPCS: 36415; 71045; 80048; 80053; 80307; 81003; 82533; 82728; 83605; 83615; 83735; 83880; 84443; 84484; 85025; 85379; 85610; 85730; 86140; 87040; 87081; 87086; 93005; 96361; 96365; 99285; J7030; U0002